=== PATIENT | male | born 1960 | race Caucasian/White ===

== ENCOUNTER 2016-11-21 18:22 | Emergency (ER) | payer OTHER ==
[2016-11-21] MEDS ORDERED: SODIUM CHLORIDE 0.9% 500 ML IV STA (20:10)
--- NOTE | 2016-11-21 20:56 | ED ---
General Adult HPI - General Source: patient, RN notes reviewed Mode of arrival: wheelchair Limitations: no limitations <Julio César Salvador - Last Filed: 11/21/16 20:54> <Jon Mata - Last Filed: 11/21/16 22:04> - General Chief complaint: Abdominal Pain Stated complaint: ABDOMINAL PAIN, LEFT LEG SWELLING, VOMITING Time Seen by Provider: 11/21/16 19:00 - History of Present Illness Initial comments: This is a 55-year-old male who presents emergency Department with a past medical history significant for IV drug abuse 20 years ago and recent addiction to oral pain medicines which she stopped one month ago. Patient comes in today because he says ever since he stopped and he has been having diffuse abdominal pain. Patient states he's been constipated for a few days and yesterday did have a bowel movement but he thinks his stomach becomes.. Patient denies any nausea vomiting. Patient denies any fever or chills. Patient states he is able to keep he has no appetite lately. Patient denies any chest pain difficulty breathing or shortness of breath. Patient denies any lightheadedness or dizziness. Patient denies any dysuria hematuria urinary frequency. (Julio César Salvador) - Related Data Home Medications Medication Instructions Recorded Confirmed Albuterol Inhaler [Ventolin 1 - 2 puff INHALATION RT-Q6H PRN 09/14/14 11/21/16 Inhaler] Diazepam 5 mg PO BID PRN 09/14/14 11/21/16 Insulin Glargine [Lantus] 30 unit SQ HS 09/14/14 11/21/16 Insulin Regular, Human [NovoLIN R] See Protocol SQ TID 09/14/14 11/21/16 Albuterol Nebulized [Ventolin 2.5 mg INHALATION RT-Q6H PRN 11/21/16 11/21/16 Nebulized] Buprenorphine HCl/Naloxone HCl 1 film SL BID 11/21/16 11/21/16 [Suboxone 8 mg-2 mg Sl Film] QUEtiapine [SEROquel] 200 mg PO HS 11/21/16 11/21/16 cloNIDine HCL [Catapres] 0.1 mg PO HS 11/21/16 11/21/16 Allergies Allergy/AdvReac Type Severity Reaction Status Date / Time No Known Allergies Allergy Verified 11/21/16 20:31 Review of Systems ROS Other: All systems not noted in ROS Statement are negative. <Julio César Salvador - Last Filed: 11/21/16 20:54> ROS Other: All systems not noted in ROS Statement are negative. <Jon Mata - Last Filed: 11/21/16 22:04> ROS Statement: Those systems with pertinent positive or pertinent negative responses have been documented in the HPI. 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 Patient is nontoxic and well- hydrated and is in no acute distress. ENT: Neck is soft and supple. No significant lymphadenopathy is noted. Oropharynx is clear. Moist mucous membranes. Neck has full range of motion without eliciting any pain. EYES: The sclera were anicteric and conjunctiva were pink and moist. Extraocular movements were intact and pupils were equal round and reactive to light. Eyelids were unremarkable. PULMONARY: Unlabored respirations. Good breath sounds bilaterally. No audible rales rhonchi or wheezing was noted. CARDIOVASCULAR: Patient is a regular rate and rhythm no murmurs are heard ABDOMEN: Soft and nontender with normal bowel sounds. No palpable organomegaly was noted. There is no palpable pulsatile mass. I could find no area of abdominal tenderness. SKIN: Skin is clear with no lesions or rashes and otherwise unremarkable. NEUROLOGIC: Patient is alert and oriented x3. Cranial nerves II through XII are grossly intact. Motor and sensory are also intact. Normal speech, volume and content. Symmetrical smile. MUSCULOSKELETAL: Normal extremities with adequate strength and full range of motion. No lower extremity swelling or edema. No calf tenderness. LYMPHATICS: No significant lymphadenopathy is noted PSYCHIATRIC: Normal psychiatric evaluation. (Julio César Salvador) Medical Decision Making <Julio César Salvador - Last Filed: 11/21/16 20:54> - Lab Data Result diagrams: 11/21/16 20:49 11/21/16 20:49 <Jon Mata - Last Filed: 11/21/16 22:04> - Medical Decision Making Dr. Harrington will be taking over the care of this patient at 9 PM (Julio César Salvador) - Lab Data Lab Results 11/21/16 11/21/16 11/21/16 Range/Units 20:49 20:49 21:04 WBC 3.5 L (3.8-10.6) k/uL RBC 3.99 L (4.30-5.90) m/uL Hgb 12.5 L (13.0-17.5) gm/dL Hct 37.1 L (39.0-53.0) % MCV 93.0 (80.0-100.0) fL MCH 31.4 (25.0-35.0) pg MCHC 33.7 (31.0-37.0) g/dL RDW 13.7 (11.5-15.5) % Plt Count 57 L (150-450) k/uL Neutrophils % 65 % Lymphocytes % 24 % Monocytes % 5 % Eosinophils % 4 % Basophils % 0 % Neutrophils # 2.3 (1.3-7.7) k/uL Lymphocytes # 0.9 L (1.0-4.8) k/uL Monocytes # 0.2 (0-1.0) k/uL Eosinophils # 0.1 (0-0.7) k/uL Basophils # 0.0 (0-0.2) k/uL Sodium 135 L (137-145) mmol/L Potassium 4.2 (3.5-5.1) mmol/L Chloride 96 L (98-107) mmol/L Carbon Dioxide 31 H (22-30) mmol/L Anion Gap 8 mmol/L BUN 11 (9-20) mg/dL Creatinine 0.83 (0.66-1.25) mg/dL Est GFR (MDRD) Af Amer >60 (>60 ml/min/1.73 sqM) Est GFR (MDRD) Non-Af >60 (>60 ml/min/1.73 sqM) Glucose 329 H (74-99) mg/dL Plasma Lactic Acid Henri 1.3 (0.7-2.0) mmol/L Calcium 8.4 (8.4-10.2) mg/dL Total Bilirubin 1.0 (0.2-1.3) mg/dL AST 42 (17-59) U/L ALT 41 (21-72) U/L Alkaline Phosphatase 84 (38-126) U/L Total Protein 7.4 (6.3-8.2) g/dL Albumin 3.4 L (3.5-5.0) g/dL Amylase 38 (30-110) U/L Lipase 19 L (23-300) U/L Disposition <Julio César Salvador - Last Filed: 11/21/16 20:54> <Jon Mata - Last Filed: 11/21/16 22:04> Clinical Impression: Abdominal pain, Narcotic bowel syndrome Disposition: HOME SELF-CARE Condition: Fair Instructions: Abdominal Pain (ED) Referrals: None,Stated [Primary Care Provider] - 1-2 days
[2016-11-21 21:03] LABS: Basophils % (A) 0 %; CH 30.6; CHCM 33.1; Eosinophils # (A) 0.1 k/uL (0-0.7); Eosinophils % (A) 4 %; HCT 37.1 % (39.0-53.0); HDW 2.83; HGB 12.5 gm/dL (13.0-17.5); Luc # (Auto) 0.05; Luc % (Auto) 1; Lymphocytes # (A) 0.9 k/uL (1.0-4.8); Lymphocytes % (A) 24 %; MCH 31.4 pg (25.0-35.0); MCHC 33.7 g/dL (31.0-37.0); Mean Platelet Volume 9.2; Monocytes # (A) 0.2 k/uL (0-1.0); Monocytes % (A) 5 %; Neutrophils # (A) 2.3 k/uL (1.3-7.7); Neutrophils % (A) 65 %; RBC 3.99 m/uL (4.30-5.90); RDW 13.7 % (11.5-15.5); WBC 3.5 k/uL (3.8-10.6); WBC (Perox) 3.48
--- NOTE | 2016-11-21 21:04 | XR ---
EXAMINATION TYPE: XR KUB DATE OF EXAM: 11/21/2016 8:39 PM COMPARISON: NONE HISTORY: Abdominal pain and nausea TECHNIQUE: 3 views FINDINGS: Bowel gas pattern is normal. There is no sign of intestinal obstruction or pneumoperitoneum . Fecal pattern is normal. There are clips from cholecystectomy. There is no sign of a mass. Lung bas es are clear of consolidation. IMPRESSION: Nonacute abdomen.
[2016-11-21 21:16] LABS: ALT 41 U/L (21-72); AST 42 U/L (17-59); Alkaline Phosphatase 84 U/L (38-126); Amylase 38 U/L (30-110); Anion Gap 8 mmol/L; Blood Urea Nitrogen 11 mg/dL (9-20); Calcium 8.4 mg/dL (8.4-10.2); Carbon Dioxide 31 mmol/L (22-30); Chloride 96 mmol/L (98-107); Glucose 329 mg/dL (74-99); Non-African American GFR(MDRD) >60 (>60 ml/min/1.73 sqM); Potassium 4.2 mmol/L (3.5-5.1); Sodium 135 mmol/L (137-145); Total Protein 7.4 g/dL (6.3-8.2)
[2016-11-21] MEDS ORDERED: INSULIN REGULAR 100 UNIT/ML VIAL SQ STA (21:59)
[2016-11-21 22:05] LABS: Glucose,Whole Blood 301 mg/dL (75-99)
[2016-11-21 22:17] VITALS: BP 137/63; PULSE 63; RESP 16; TEMP 98
== END 2016-11-21 22:23 | disposition home or self-care (01) ==
LOC: EC 18:22
DX: R10.84 Generalized abdominal pain (principal); T40.605A Adverse effect of unspecified narcotics, initial encounter; E11.9 Type 2 diabetes mellitus without complications; F31.9 Bipolar disorder, unspecified; F17.200 Nicotine dependence, unspecified, uncomplicated; Z79.4 Long term (current) use of insulin; Z79.899 Other long term (current) drug therapy
CPT/HCPCS: 36415; 74000; 80053; 82150; 83605; 83690; 85025; 96360; 99284

== ENCOUNTER 2020-04-02 10:27 | Observation (INO) | payer OTHER ==
[2020-04-02] MEDS ORDERED: KETOROLAC 60 MG/2 ML VIAL IVP STA (10:52)
--- NOTE | 2020-04-02 10:56 | ED ---
General Adult HPI - General Chief complaint: Chest Pain Stated complaint: chest pain Time Seen by Provider: 04/02/20 10:30 Source: patient, RN notes reviewed, old records reviewed Mode of arrival: ambulatory Limitations: no limitations - History of Present Illness Initial comments: This is a 59-year-old male who presents emergency Department complaining of left-sided chest pain. Patient states she was putting together a basketball net 2 days ago when he leaned on part of the metal frame onto his chest and after that he started having chest pain on that side right beneath where he laid on the metal beam. Patient states palpation makes it worse taking a deep breath also makes it worse. Patient states he can twist and turn a certain way that also increases pain. Patient denies any shortness of breath. Patient states he is a smoker however. Patient denies any pain at rest. Patient denies headache patient denies numbness weakness per patient states it was improving but he woke up this morning it was much worse than it had been that's why he decided to come to the emergency department. Patient denies any lightheadedness or dizziness. Patient denies any swelling to his legs or calf tenderness. - Related Data Home Medications Medication Instructions Recorded Confirmed Insulin Glargine [Lantus] 30 unit SQ HS 09/14/14 04/02/20 Insulin Regular, Human [NovoLIN R] See Protocol SQ TID 09/14/14 04/02/20 QUEtiapine [SEROquel] 200 mg PO HS 11/21/16 04/02/20 Allergies Allergy/AdvReac Type Severity Reaction Status Date / Time No Known Allergies Allergy Verified 04/02/20 12:18 Review of Systems ROS Statement: Those systems with pertinent positive or pertinent negative responses have been documented in the HPI. ROS Other: All systems not noted in ROS Statement are negative. 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 Patient is nontoxic and well- hydrated and is in mild distress. ENT: Neck is soft and supple. No significant lymphadenopathy is noted. Oropharynx is clear. Moist mucous membranes. Neck has full range of motion without eliciting any pain. EYES: The sclera were anicteric and conjunctiva were pink and moist. Extraocular movements were intact and pupils were equal round and reactive to light. Eyelids were unremarkable. PULMONARY: Unlabored respirations. Good breath sounds bilaterally. No audible rales rhonchi or wheezing was noted. CARDIOVASCULAR: There is a regular rate and rhythm without any murmurs gallops or rubs. Pain is completely reproducible with palpation ABDOMEN: Soft and nontender with normal bowel sounds. No palpable organomegaly was note d. There is no palpable pulsatile mass. SKIN: Skin is clear with no lesions or rashes and otherwise unremarkable. NEUROLOGIC: Patient is alert and oriented 3 cranial nerves II through XII are grossly intact motor and sensory are grossly intact MUSCULOSKELETAL: Normal extremities with adequate strength and full range of motion. No lower extremity swelling or edema. No calf tenderness. LYMPHATICS: No significant lymphadenopathy is noted PSYCHIATRIC: Normal psychiatric evaluation. 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 Patient's EKG shows no ST segment elevation or depression. Toradol did not seem to help the patient's pain at all. Chest x-ray shows no acute abnormality. Patient was still uncomfortable with back in the room psychiatric the patient Dilaudid. I spoke with Dr. Gonsalez he agreed to admit the patient admitted the patient wrote admitting orders. - Lab Data Result diagrams: 04/02/20 10:55 04/02/20 10:55 Lab Results 04/02/20 04/02/20 04/02/20 Range/Units 10:55 10:55 10:55 WBC 3.6 L (3.8-10.6) k/uL RBC 3.68 L (4.30-5.90) m/uL Hgb 11.4 L (13.0-17.5) gm/dL Hct 33.4 L (39.0-53.0) % MCV 90.6 (80.0-100.0) fL MCH 30.8 (25.0-35.0) pg MCHC 34.0 (31.0-37.0) g/dL RDW 14.3 (11.5-15.5) % Plt Count 70 L (150-450) k/uL Neutrophils % 71 % Lymphocytes % 19 % Monocytes % 6 % Eosinophils % 3 % Basophils % 1 % Neutrophils # 2.5 (1.3-7.7) k/uL Lymphocytes # 0.7 L (1.0-4.8) k/uL Monocytes # 0.2 (0-1.0) k/uL Eosinophils # 0.1 (0-0.7) k/uL Basophils # 0.0 (0-0.2) k/uL Manual Slide Review Performed RBC Morphology Normal PT 9.6 (9.0-12.0) sec INR 0.9 (<1.2) APTT 20.7 L (22.0-30.0) sec D-Dimer 0.56 (<0.60) mg/L FEU Sodium 133 L (137-145) mmol/L Potassium 5.2 H (3.5-5.1) mmol/L Chloride 102 (98-107) mmol/L Carbon Dioxide 24 (22-30) mmol/L Anion Gap 7 mmol/L BUN 28 H (9-20) mg/dL Creatinine 1.40 H (0.66-1.25) mg/dL Est GFR (CKD-EPI)AfAm 64 (>60 ml/min/1.73 sqM) Est GFR (CKD-EPI)NonAf 55 (>60 ml/min/1.73 sqM) Glucose 353 H (74-99) mg/dL Calcium 9.1 (8.4-10.2) mg/dL Magnesium 1.6 (1.6-2.3) mg/dL Total Bilirubin 0.6 (0.2-1.3) mg/dL AST 23 (17-59) U/L ALT 19 (4-49) U/L Alkaline Phosphatase 61 (38-126) U/L Troponin I (0.000-0.034) ng/mL Total Protein 6.9 (6.3-8.2) g/dL Albumin 3.7 (3.5-5.0) g/dL 04/02/20 Range/Units 10:55 WBC (3.8-10.6) k/uL RBC (4.30-5.90) m/uL Hgb (13.0-17.5) gm/dL Hct (39.0-53.0) % MCV (80.0-100.0) fL MCH (25.0-35.0) pg MCHC (31.0-37.0) g/dL RDW (11.5-15.5) % Plt Count (150-450) k/uL Neutrophils % % Lymphocytes % % Monocytes % % Eosinophils % % Basophils % % Neutrophils # (1.3-7.7) k/uL Lymphocytes # (1.0-4.8) k/uL Monocytes # (0-1.0) k/uL Eosinophils # (0-0.7) k/uL Basophils # (0-0.2) k/uL Manual Slide Review RBC Morphology PT (9.0-12.0) sec INR (<1.2) APTT (22.0-30.0) sec D-Dimer (<0.60) mg/L FEU Sodium (137-145) mmol/L Potassium (3.5-5.1) mmol/L Chloride (98-107) mmol/L Carbon Dioxide (22-30) mmol/L Anion Gap mmol/L BUN (9-20) mg/dL Creatinine (0.66-1.25) mg/dL Est GFR (CKD-EPI)AfAm (>60 ml/min/1.73 sqM) Est GFR (CKD-EPI)NonAf (>60 ml/min/1.73 sqM) Glucose (74-99) mg/dL Calcium (8.4-10.2) mg/dL Magnesium (1.6-2.3) mg/dL Total Bilirubin (0.2-1.3) mg/dL AST (17-59) U/L ALT (4-49) U/L Alkaline Phosphatase (38-126) U/L Troponin I <0.012 (0.000-0.034) ng/mL Total Protein (6.3-8.2) g/dL Albumin (3.5-5.0) g/dL Disposition Clinical Impression: Chest pain Disposition: ADMITTED IP TO THIS HOSP Referrals: Dakotah Gonsalez Jr, [Primary Care Provider] - 1-2 days Time of Disposition: 12:26
[2020-04-02 11:28] LABS: Basophils % (A) 1 %; Eosinophils # (A) 0.1 k/uL (0-0.7); Eosinophils % (A) 3 %; HCT 33.4 % (39.0-53.0); HGB 11.4 gm/dL (13.0-17.5); Lymphocytes # (A) 0.7 k/uL (1.0-4.8); Lymphocytes % (A) 19 %; MCH 30.8 pg (25.0-35.0); MCV 90.6 fL (80.0-100.0); Mean Platelet Volume 9.9; Monocytes # (A) 0.2 k/uL (0-1.0); Monocytes % (A) 6 %; Neutrophils # (A) 2.5 k/uL (1.3-7.7); Neutrophils % (A) 71 %; RBC 3.68 m/uL (4.30-5.90); RDW 14.3 % (11.5-15.5); WBC 3.6 k/uL (3.8-10.6)
[2020-04-02 11:35] LABS: Albumin 3.7 g/dL (3.5-5.0); Calcium 9.1 mg/dL (8.4-10.2); Magnesium 1.6 mg/dL (1.6-2.3); Potassium 5.2 mmol/L (3.5-5.1); Total Bilirubin 0.6 mg/dL (0.2-1.3); Total Protein 6.9 g/dL (6.3-8.2)
[2020-04-02 11:56] LABS: D-Dimer 0.56 mg/L FEU (<0.60); INR 0.9 (<1.2); Prothrombin Time 9.6 sec (9.0-12.0)
[2020-04-02 11:59] LABS: Platelet Count 70 k/uL (150-450)
--- NOTE | 2020-04-02 12:01 | XR ---
EXAMINATION TYPE: XR chest 2V DATE OF EXAM: 04/02/2020 COMPARISON: None INDICATION: Chest pain TECHNIQUE: Frontal and lateral views of the chest are obtained. FINDINGS: The heart size is normal. The pulmonary vasculature is normal. The lungs are clear. Nipple shadows present. Sternotomy wires are present from prior cardiac valve s urgery. IMPRESSION: 1. No acute pulmonary process.
[2020-04-02 12:12] LABS: Partial Thromboplastin Time 20.7 sec (22.0-30.0)
[2020-04-02] MEDS ORDERED: HYDROmorphone 1 MG/ML 1 ML SYRINGE IVP STA (12:24)
[2020-04-02] MEDS ORDERED: NITROGLYCERIN SL TABS 0.4 MG TAB SUBLINGUAL PRN (12:26)
[2020-04-02 13:33] VITALS: RESP 16; TEMP 98.2
[2020-04-02 13:53] VITALS: BP 138/74; PULSE 69
[2020-04-02] MEDS ORDERED: NITROGLYCERIN OINT 1 INCH/GM PACKET TOPICAL SCH (18:00)
[2020-04-03] MEDS ORDERED: ASPIRIN 325 MG TAB PO SCH (09:00)
--- NOTE | 2020-04-03 10:02 | P.HPIM ---
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 Date of last positivie culture/infection: 2019 MDRO Source:: R jaw Past Surgical History: Cardiac Valve Replacement, Cholecystectomy Additional Past Surgical History / Comment(s): aortic Past Psychological History: Bipolar, Depression Smoking Status: Current every day smoker Past Alcohol Use History: None Reported Past Drug Use History: None Reported, Heroin, IV Drug Use, Marijuana Medications and Allergies Home Medications Medication Instructions Recorded Confirmed Type Insulin Glargine [Lantus] 30 unit SQ HS 09/14/14 04/02/20 History Insulin Regular, Human [NovoLIN R] See Protocol SQ TID 09/14/14 04/02/20 History QUEtiapine [SEROquel] 200 mg PO HS 11/21/16 04/02/20 History Allergies Allergy/AdvReac Type Severity Reaction Status Date / Time No Known Allergies Allergy Verified 04/02/20 12:18 Physical Exam Osteopathic Statement: *. No significant issues noted on an osteopathic str uctural exam other than those noted in the History and Physical/Consult. Vitals: Vital Signs Temp Pulse Pulse Resp BP BP Pulse Ox 04/02/20 13:32 98.2 F 75 16 151/80 97 04/02/20 12:40 97.6 F 69 12 138/74 98 04/02/20 12:30 83 21 140/82 99 04/02/20 12:00 79 19 119/67 97 04/02/20 11:30 80 20 129/77 96 04/02/20 11:06 74 04/02/20 11:00 18 98 04/02/20 10:58 99 04/02/20 10:30 98.4 F 97 18 119/74 99 Results CBC & Chem 7: 04/02/20 10:55 04/02/20 10:55 Labs: Abnormal Lab Results - Last 24 Hours (Table) 04/02/20 04/02/20 04/02/20 Range/Units 10:55 10:55 10:55 WBC 3.6 L (3.8-10.6) k/uL RBC 3.68 L (4.30-5.90) m/uL Hgb 11.4 L (13.0-17.5) gm/dL Hct 33.4 L (39.0-53.0) % Plt Count 70 L (150-450) k/uL Lymphocytes # 0.7 L (1.0-4.8) k/uL APTT 20.7 L (22.0-30.0) sec Sodium 133 L (137-145) mmol/L Potassium 5.2 H (3.5-5.1) mmol/L BUN 28 H (9-20) mg/dL Creatinine 1.40 H (0.66-1.25) mg/dL Glucose 353 H (74-99) mg/dL Thrombosis Risk Factor Assmnt - Choose All That Apply Each Factor Represents 1 point: Age 41-60 years Thrombosis Risk Factor Assessment Total Risk Factor Score: 1 Thrombosis Risk Factor Assessment Level: Low Risk
== END 2020-04-02 14:49 | disposition home or self-care (01) ==
LOC: EC 10:27 → 1SOBS 12:26
PROVIDERS: ADMIT Family Medicine; ATTEND Family Medicine
DX: R07.89 Other chest pain (principal); F17.200 Nicotine dependence, unspecified, uncomplicated; E11.9 Type 2 diabetes mellitus without complications; M54.9 Dorsalgia, unspecified; M51.26 Other intervertebral disc displacement, lumbar region; F31.9 Bipolar disorder, unspecified; Z79.4 Long term (current) use of insulin; Z79.899 Other long term (current) drug therapy; Z90.49 Acquired absence of other specified parts of digestive tract; Z86.14 Personal history of Methicillin resistant Staphylococcus aureus infection; Z95.2 Presence of prosthetic heart valve; Z20.828 Contact with and (suspected) exposure to other viral communicable diseases
CPT/HCPCS: 96376; 96374; 99285; 36415; 93005; 85379; 80053; 83735; 84484; 85025; 85610; 85730; 71046; G0378; U0003; J1885; J1170

== ENCOUNTER 2020-05-25 14:44 | Emergency (ER) | payer OTHER ==
[2020-05-25 14:53] VITALS: RESP 18
[2020-05-25] MEDS ORDERED: IPRATROPIUM-ALBUTEROL 3 ML NEB INHALATION STA (15:13)
[2020-05-25] MEDS ORDERED: SODIUM CHLORIDE 0.9% 1,000 ML IV SCH (15:15)
--- NOTE | 2020-05-25 15:20 | ED ---
General Adult HPI - General Chief complaint: Recheck/Abnormal Lab/Rx Stated complaint: Poss Abscess Time Seen by Provider: 05/25/20 14:57 Source: patient, RN notes reviewed, old records reviewed Mode of arrival: ambulatory Limitations: no limitations - History of Present Illness Initial comments: 59-year-old male patient past medical history of prior IV drug use 30 years ago is currently denying any current IV drug use, aortic valve replacement about 2 years ago, COPD presents ED from multiple complaints. Patient reports that starting about 2 months ago he began getting infections. He reports that initially was a facial abscess and then one on the back of his head. Patient reports that both of these have essentially resolved after multiple horse of antibiotics. Patient reports that now for the last 7 days or so he has been having an infection of his left shoulder.she also reports he has been having some waxing and waning headaches. He states also that his COPD has been acting up. He reports that he is using his albuterol inhaler more frequently. He denies any chest pain. Denies any other new complaints. Systemic: Pt denies fatigue, fever/chills, rash. Pt denies weakness, night sweats, weight loss. Neuro: Pt denies headache, visual disturbances, syncope or pre-syncope. HEENT: Pt denies ocular discharge or irritation, otalgia, rhinorrhea, pharyngitis or notable lymphadenopathy. Cardiopulmonary: Pt denies chest pain, SOB, heart palpitations, dyspnea on exertion. Abdominal/GI: Pt denies abdominal pain, n/v/d. : Pt denies dysuria, burning w/ urination, frequency/urgency. Denies new onset urinary or bowel incontinence. MSK: Pt denies myalgia, loss of strength or function in extremities. Neuro: Pt denies new onset weakness, paresthesias. - Related Data Home Medications Medication Instructions Recorded Confirmed Insulin Glargine [Lantus] 30 unit SQ HS 09/14/14 04/02/20 Insulin Regular, Human [NovoLIN R] See Protocol SQ TID 09/14/14 04/02/20 QUEtiapine [SEROquel] 200 mg PO HS 11/21/16 04/02/20 Previous Rx's Medication Instructions Recorded Ipratropium-Albuterol Nebulize 1 neb INHALATION Q6HR PRN #30 neb 08/26/20 [Duoneb 0.5 mg-3 mg/3 ml Soln] Sulfamethox-Tmp 800-160Mg [Bactrim 2 tab PO Q12HR 10 Days #40 tab 05/25/20 DS 800-160 mg] Allergies Allergy/AdvReac Type Severity Reaction Status Date / Time No Known Allergies Allergy Verified 05/25/20 14:53 Review of Systems ROS Statement: Those systems with pertinent positive or pertinent negative responses have been documented in the HPI. ROS Other: All systems not noted in ROS Statement are negative. 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 HEENT: NC/AT, trachea midline, neck supple, no lymphadenopathy. Posterior pharynx non erythematous, without exudates. External ears appear normal, without discharge. Mucous membranes moist. Eyes PERRLA, EOM intact. There is no scleral icterus. No pallor noted. Cardiopulmonary: RRR, no murmurs, rubs or gallops, no JVD noted. mild wheezing noted in anterior lung ji. Lung ji clear after breathing treatment. No peripheral edema. Abdominal exam: Abdomen soft and non-distended. Abdomen non-tender to palpation in all 4 quadrants. Bowel sounds active in LLQ. No hepatosplenomegaly. No ecchymosis Neuro: CN II-XII intact. No nuchal rigidity. No raccon eyes, no lau sign, no hemotympanum. No cervical spinal tenderness. MSK: 4x4 cm abscess left shoulder. I&D performed displayed purulent drainage. Full active ROM of shoulder. No posterior calf tenderness bilaterally, homans sign negative bilaterally. Posterior tibialis and radial pulse +2 bilaterally. Sensation intact in upper and lower extremities. Full active ROM in upper and lower extremities, 5/5 stregnth. Limitations: no limitations Course Vital Signs 05/25/20 05/25/20 05/25/20 14:50 16:06 16:07 Temperature 98.0 F Pulse Rate 95 81 81 Respiratory 18 18 Rate Blood Pressure 158/90 143/81 O2 Sat by Pulse 99 98 Oximetry 05/25/20 05/25/20 05/25/20 16:19 17:25 18:01 Temperature 98.3 F Pulse Rate 88 81 Respiratory 18 Rate Blood Pressure 139/84 O2 Sat by Pulse 99 Oximetry Medical Decision Making - Medical Decision Making 59-year-old male patient proceeded chief complaint left shoulder abscess for the last week. Patient also reports having some mild waxing and waning headaches. Physical exam displayed left shoulder abscess. laboratory investigations revealed mild acute kidney injury, Hyperglycemia. Patient administered fluids bolus. Incision and drainage was performed. Displayed purulent drainage. patient will be discharged with outpatient follow up tomorrow, antibiotics very close return precautions and follow-up with primary care provider tomorrow. Case discussed and patient seen by Dr. Clarke. - Lab Data Result diagrams: 05/25/20 15:19 05/25/20 15:19 Lab Results 05/25/20 05/25/20 05/25/20 Range/Units 15:19 15:19 15:19 WBC 4.7 (3.8-10.6) k/uL RBC 4.65 (4.30-5.90) m/uL Hgb 14.1 (13.0-17.5) gm/dL Hct 42.8 (39.0-53.0) % MCV 92.1 (80.0-100.0) fL MCH 30.3 (25.0-35.0) pg MCHC 32.9 (31.0-37.0) g/dL RDW 13.7 (11.5-15.5) % Plt Count 73 L (150-450) k/uL Neutrophils % 72 % Lymphocytes % 21 % Monocytes % 4 % Eosinophils % 2 % Basophils % 0 % Neutrophils # 3.4 (1.3-7.7) k/uL Lymphocytes # 1.0 (1.0-4.8) k/uL Monocytes # 0.2 (0-1.0) k/uL Eosinophils # 0.1 (0-0.7) k/uL Basophils # 0.0 (0-0.2) k/uL PT 9.4 (9.0-12.0) sec INR 0.9 (<1.2) APTT 22.4 (22.0-30.0) sec Sodium (137-145) mmol/L Potassium (3.5-5.1) mmol/L Chloride (98-107) mmol/L Carbon Dioxide (22-30) mmol/L Anion Gap mmol/L BUN (9-20) mg/dL Creatinine (0.66-1.25) mg/dL Est GFR (CKD-EPI)AfAm (>60 ml/min/1.73 sqM) Est GFR (CKD-EPI)NonAf (>60 ml/min/1.73 sqM) Glucose (74-99) mg/dL POC Glucose (mg/dL) (75-99) mg/dL POC Glu Marble Setter ID Plasma Lactic Acid Henri (0.7-2.0) mmol/L Calcium (8.4-10.2) mg/dL Total Bilirubin (0.2-1.3) mg/dL AST (17-59) U/L ALT (4-49) U/L Alkaline Phosphatase (38-126) U/L Troponin I (0.000-0.034) ng/mL Total Protein (6.3-8.2) g/dL Albumin (3.5-5.0) g/dL Urine Color Yellow Urine Appearance Clear (Clear) Urine pH 7.0 (5.0-8.0) Ur Specific [place] 1.022 (1.001-1.035) Urine Protein 2+ H (Negative) Urine Glucose (UA) 4+ H (Negative) Urine Ketones Negative (Negative) Urine Blood Small H (Negative) Urine Nitrite Negative (Negative) Urine Bilirubin Negative (Negative) Urine Urobilinogen <2.0 (<2.0) mg/dL Ur Leukocyte Esterase Negative (Negative) Urine RBC 10 H (0-5) /hpf Urine WBC 1 (0-5) /hpf Ur Squamous Epith Cells <1 (0-4) /hpf Hyaline Casts 1 (0-2) /lpf 05/25/20 05/25/20 05/25/20 Range/Units 15:19 15:19 16:30 WBC (3.8-10.6) k/uL RBC (4.30-5.90) m/uL Hgb (13.0-17.5) gm/dL Hct (39.0-53.0) % MCV (80.0-100.0) fL MCH (25.0-35.0) pg MCHC (31.0-37.0) g/dL RDW (11.5-15.5) % Plt Count (150-450) k/uL Neutrophils % % Lymphocytes % % Monocytes % % Eosinophils % % Basophils % % Neutrophils # (1.3-7.7) k/uL Lymphocytes # (1.0-4.8) k/uL Monocytes # (0-1.0) k/uL Eosinophils # (0-0.7) k/uL Basophils # (0-0.2) k/uL PT (9.0-12.0) sec INR (<1.2) APTT (22.0-30.0) sec Sodium 130 L (137-145) mmol/L Potassium 5.0 (3.5-5.1) mmol/L Chloride 98 (98-107) mmol/L Carbon Dioxide 22 (22-30) mmol/L Anion Gap 10 mmol/L BUN 25 H (9-20) mg/dL Creatinine 1.35 H (0.66-1.25) mg/dL Est GFR (CKD-EPI)AfAm 66 (>60 ml/min/1.73 sqM) Est GFR (CKD-EPI)NonAf 57 (>60 ml/min/1.73 sqM) Glucose 423 H (74-99) mg/dL POC Glucose (mg/dL) (75-99) mg/dL POC Glu Marble Setter ID Plasma Lactic Acid Henri 1.7 (0.7-2.0) mmol/L Calcium 9.2 (8.4-10.2) mg/dL Total Bilirubin 0.6 (0.2-1.3) mg/dL AST 24 (17-59) U/L ALT 17 (4-49) U/L Alkaline Phosphatase 98 (38-126) U/L Troponin I <0.012 (0.000-0.034) ng/mL Total Protein 7.4 (6.3-8.2) g/dL Albumin 4.2 (3.5-5.0) g/dL Urine Color Urine Appearance (Clear) Urine pH (5.0-8.0) Ur Specific [place] (1.001-1.035) Urine Protein (Negative) Urine Glucose (UA) (Negative) Urine Ketones (Negative) Urine Blood (Negative) Urine Nitrite (Negative) Urine Bilirubin (Negative) Urine Urobilinogen (<2.0) mg/dL Ur Leukocyte Esterase (Negative) Urine RBC (0-5) /hpf Urine WBC (0-5) /hpf Ur Squamous Epith Cells (0-4) /hpf Hyaline Casts (0-2) /lpf 05/25/20 Range/Units 17:23 WBC (3.8-10.6) k/uL RBC (4.30-5.90) m/uL Hgb (13.0-17.5) gm/dL Hct (39.0-53.0) % MCV (80.0-100.0) fL MCH (25.0-35.0) pg MCHC (31.0-37.0) g/dL RDW (11.5-15.5) % Plt Count (150-450) k/uL Neutrophils % % Lymphocytes % % Monocytes % % Eosinophils % % Basophils % % Neutrophils # (1.3-7.7) k/uL Lymphocytes # (1.0-4.8) k/uL Monocytes # (0-1.0) k/uL Eosinophils # (0-0.7) k/uL Basophils # (0-0.2) k/uL PT (9.0-12.0) sec INR (<1.2) APTT (22.0-30.0) sec Sodium (137-145) mmol/L Potassium (3.5-5.1) mmol/L Chloride (98-107) mmol/L Carbon Dioxide (22-30) mmol/L Anion Gap mmol/L BUN (9-20) mg/dL Creatinine (0.66-1.25) mg/dL Est GFR (CKD-EPI)AfAm (>60 ml/min/1.73 sqM) Est GFR (CKD-EPI)NonAf (>60 ml/min/1.73 sqM) Glucose (74-99) mg/dL POC Glucose (mg/dL) 377 H (75-99) mg/dL POC Glu Marble Setter ID Tran, Raine Plasma Lactic Acid Henri (0.7-2.0) mmol/L Calcium (8.4-10.2) mg/dL Total Bilirubin (0.2-1.3) mg/dL AST (17-59) U/L ALT (4-49) U/L Alkaline Phosphatase (38-126) U/L Troponin I (0.000-0.034) ng/mL Total Protein (6.3-8.2) g/dL Albumin (3.5-5.0) g/dL Urine Color Urine Appearance (Clear) Urine pH (5.0-8.0) Ur Specific [place] (1.001-1.035) Urine Protein (Negative) Urine Glucose (UA) (Negative) Urine Ketones (Negative) Urine Blood (Negative) Urine Nitrite (Negative) Urine Bilirubin (Negative) Urine Urobilinogen (<2.0) mg/dL Ur Leukocyte Esterase (Negative) Urine RBC (0-5) /hpf Urine WBC (0-5) /hpf Ur Squamous Epith Cells (0-4) /hpf Hyaline Casts (0-2) /lpf - EKG Data -: EKG Interpreted by Me (and Dr. Clarke ) EKG Comments: Ventricular rate 81,WA interval 170, QRS 112, QT/QTC 380/441. Normal sinus rhythm, normal EKG, no concern for acute ischemia this time. Disposition Clinical Impression: Abscess, Hyperglycemia, Creatinine elevation, Dehydration, COPD (chronic obstructive pulmonary disease) Disposition: HOME SELF-CARE Condition: Stable Instructions (If sedation given, give patient instructions): COPD (Chronic Obstructive Pulmonary Disease) (ED), Abscess (ED) Additional Instructions: Follow-up with primary care provider tomorrow. Drink lots of fluids. Monitor blood sugar at home and take insulin as directed by PCP. Take antibiotics as directed. Use breathing treatment as needed. return to ER if any worsening symptoms. Prescriptions: Sulfamethox-Tmp 800-160Mg [Bactrim DS 800-160 mg] 2 tab PO Q12HR 10 Days #40 tab Ipratropium-Albuterol Nebulize [Duoneb 0.5 mg-3 mg/3 ml Soln] 1 neb INHALATION Q6HR PRN #30 neb PRN Reason: wheezing Is patient prescribed a controlled substance at d/c from ED?: No Referrals: Dakotah Gonsalez Jr, DO [Primary Care Provider] - 1-2 days
[2020-05-25] MEDS ORDERED: KETOROLAC 15 MG/ML 1 ML VIAL IVP STA (15:39)
[2020-05-25 15:40] LABS: Appearance,Urine Clear (Clear); Bilirubin,Urine Negative (Negative); Blood,Urine Small (Negative); Color,Urine Yellow; Glucose,Urine (UA) 4+ (Negative); Hyaline Casts,Urine 1 /lpf (0-2); Ketones,Urine Negative (Negative); Leukocyte Esterase,Urine Negative (Negative); Nitrite,Urine Negative (Negative); Protein,Urine 2+ (Negative); RBC,Urine 10 /hpf (0-5); Specific Gravity,Urine 1.022 (1.001-1.035); Squamous Epithelial Cell,Urine <1 /hpf (0-4); Urobilinogen,Urine <2.0 mg/dL (<2.0); WBC,Urine 1 /hpf (0-5)
[2020-05-25 15:43] LABS: Basophils % (A) 0 %; Eosinophils # (A) 0.1 k/uL (0-0.7); Eosinophils % (A) 2 %; HCT 42.8 % (39.0-53.0); HGB 14.1 gm/dL (13.0-17.5); Lymphocytes % (A) 21 %; MCH 30.3 pg (25.0-35.0); MCHC 32.9 g/dL (31.0-37.0); MCV 92.1 fL (80.0-100.0); Mean Platelet Volume 9.7; Monocytes # (A) 0.2 k/uL (0-1.0); Monocytes % (A) 4 %; Neutrophils # (A) 3.4 k/uL (1.3-7.7); Neutrophils % (A) 72 %; RBC 4.65 m/uL (4.30-5.90); RDW 13.7 % (11.5-15.5); WBC 4.7 k/uL (3.8-10.6)
[2020-05-25 15:45] LABS: Platelet Count 73 k/uL (150-450)
[2020-05-25 15:46] LABS: Albumin 4.2 g/dL (3.5-5.0); Calcium 9.2 mg/dL (8.4-10.2); Total Bilirubin 0.6 mg/dL (0.2-1.3); Total Protein 7.4 g/dL (6.3-8.2)
[2020-05-25 15:50] LABS: INR 0.9 (<1.2); Partial Thromboplastin Time 22.4 sec (22.0-30.0); Prothrombin Time 9.4 sec (9.0-12.0)
--- NOTE | 2020-05-25 15:57 | XR ---
EXAMINATION TYPE: XR chest 2V DATE OF EXAM: 05/25/2020 COMPARISON: 04/02/2020 HISTORY: Shortness of breath TECHNIQUE: Frontal and lateral views of the chest are obtained. FINDINGS: Scattered senescent parenchymal changes noted. Hyperinflation compatible with COPD. No evidence for infiltrate. No evidence for atelectasis. Heart size is stable. Mediastinal structures are stable and grossly unremarkable. No evidence for hilar prominence. Degenerative changes dorsal spine. IMPRESSION: 1. No evidence for acute pulmonary disease.
[2020-05-25] MEDS ORDERED: INSULIN ASPART (NovoLOG) 100 UNIT/ML VIAL SQ ONE (16:02)
--- NOTE | 2020-05-25 16:05 | CT ---
EXAMINATION TYPE: CT brain wo con DATE OF EXAM: 05/25/2020 COMPARISON: None HISTORY: headache CT DLP: 1115.[address] of the brain was performed. The ventricles, basal cisterns and sulci overlying the cerebral convexities demonstrate mild enlargem ent. There is no evidence for intracranial hemorrhage or sulcal effacement. There is decreased attenuation about the periventricular white matter and deep white matter of both c erebral hemispheres, compatible with chronic small vessel ischemia. Differential diagnosis does inclu de demyelination. No mass effects are seen.No midline shift. Osseous calvarium is intact. If symptoms persist consider MRI. IMPRESSION: 1. Age related atrophic and chronic small vessel ischemic change without acute intracranial process s een at this time.
[2020-05-25] MEDS ORDERED: SODIUM CHLORIDE 0.9% 500 ML 500 ML IV ONE (16:10)
[2020-05-25] MEDS ORDERED: MORPHINE SULFATE 4 MG/ML SYRINGE IV STA (16:30)
[2020-05-25] MEDS ORDERED: SULFAMETHOX-TMP 800-160MG 1 EACH TAB PO STA (17:20)
[2020-05-25] MEDS ORDERED: SULFAMETH-TMP DS STARTER PACK 2 TAB BTL PO STA (17:20)
[2020-05-25 17:25] VITALS: BP 139/84; PULSE 81
[2020-05-25 17:25] LABS: Glucose,Whole Blood 377 mg/dL (75-99)
[2020-05-25] MEDS ORDERED: ACET/COD 300 MG/30 MG STARTER PACK 6 TAB BTL PO STA ×2 (17:48→17:54)
[2020-05-25 18:02] VITALS: TEMP 98.3
== END 2020-05-25 18:01 | disposition home or self-care (01) ==
LOC: EC 14:44
DX: L02.414 Cutaneous abscess of left upper limb (principal); E86.0 Dehydration; J44.9 Chronic obstructive pulmonary disease, unspecified; N17.9 Acute kidney failure, unspecified; E11.65 Type 2 diabetes mellitus with hyperglycemia; F17.200 Nicotine dependence, unspecified, uncomplicated; F31.9 Bipolar disorder, unspecified; Z79.4 Long term (current) use of insulin; Z79.899 Other long term (current) drug therapy; Z95.2 Presence of prosthetic heart valve; Z86.14 Personal history of Methicillin resistant Staphylococcus aureus infection
CPT/HCPCS: 99285; 96365; 96375 ×2; 96361 ×2; 10060; 36415; 94640; 93005; 80053; 83605; 84484; 85025; 85610; 85730; 81001; 87040; 87070; 87205; 87077; 87186; 71046; 70450; U0003; J2270; J0696; J1885

== ENCOUNTER 2020-08-15 12:48 | Emergency (ER) | payer OTHER ==
[2020-08-15 12:56] VITALS: BP 164/87; PULSE 98; RESP 18; TEMP 98
--- NOTE | 2020-08-15 13:25 | ED ---
General Adult HPI - General Chief complaint: Recheck/Abnormal Lab/Rx Stated complaint: Feeling sick/poss MRSA Time Seen by Provider: 08/15/20 13:11 Source: patient Mode of arrival: ambulatory Limitations: no limitations - History of Present Illness Initial comments: Dictation was produced using [employer] dictation software. please excuse any grammatical, word or spelling errors. 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 Several weeks ago he was diagnosed with squamous cell carcinoma of the lip. He had biopsies confirming this and a olap developer office. Patient has soft surgery scheduled for September 10 to have the squamous cell carcinoma the lip removed. Over the last 2-3 days patient has been complaining of worsening pain, itching and redness to the site of the left lip. Patient also complains of the lesion that popped up over his left medial upper orbital area. Patient is convinced that this is MRSA. Patient denies any fever, chills or night sweats. Denies any chest pain or shortness of breath. Denies any abdominal pain. He states that he has been kind of nauseous recently. However he's been able to tolerate oral intake. The ROS documented in this emergency department record has been reviewed and confirmed by me. Those systems with pertinent positive or negative responses have been documented in the HPI. All other systems are other negative and/or noncontributory. PHYSICAL EXAM: General Impression: Alert and oriented x3, not in acute distress HEENT: Normocephalic atraumatic, extra-ocular movements intact, pupils equal and reactive to light bilaterally, mucous membranes moist. Cardiovascular: Heart regular rate and rhythm Chest: Able to complete full sentences, no retractions, no tachypnea Abdomen: abdomen soft, non-tender, non-distended, no organomegaly Musculoskeletal: Pulses present and equal in all extremities, no peripheral edema Motor: no focal deficits noted Neurological: CN II-XII grossly intact, no focal motor or sensory deficits noted Skin: Small erythematous raised lesion to the left medial supraorbital periorbital tissue there is a scab overlying it. Patient also has a large fungating mass over the left upper lip at the vermilion border. Psych: Normal affect and mood ED course: 59 presents with concerns of MRSA and symptoms of his squamous cell carcinoma lesion on the lip. vital signs upon arrival are within acceptable limits. Patient has outpatient plan for treatment of this, so carcinoma. At this point there doesn't appear to be overwhelming signs of infection to the face. Nonetheless, we will start patient on prescription for Bactrim. He is given prescription for Atarax for symptom relief and given prescription for Percocet for pain control - Related Data Home Medications Medication Instructions Recorded Confirmed Insulin Glargine [Lantus] 30 unit SQ HS 09/14/14 04/02/20 Insulin Regular, Human [NovoLIN R] See Protocol SQ TID 09/14/14 04/02/20 QUEtiapine [SEROquel] 200 mg PO HS 11/21/16 04/02/20 Previous Rx's Medication Instructions Recorded Ipratropium-Albuterol Nebulize 1 neb INHALATION Q6HR PRN #30 neb 05/25/20 [Duoneb 0.5 mg-3 mg/3 ml Soln] Sulfamethox-Tmp 800-160Mg [Bactrim 2 tab PO Q12HR 10 Days #40 tab 05/25/20 DS 800-160 mg] Sulfamethox-Tmp 800-160Mg [Bactrim 1 tab PO Q12HR 7 Days #14 tab 08/15/20 DS 800-160 mg] hydrOXYzine HCL [Atarax] 25 mg PO TID PRN #24 tab 08/15/20 oxyCODONE-APAP 5-325MG [Percocet 1 tab PO Q6HR PRN 3 Days #12 tab 08/15/20 5-325 mg] Allergies Allergy/AdvReac Type Severity Reaction Status Date / Time No Known Allergies Allergy Verified 05/25/20 14:53 Review of Systems ROS Statement: Those systems with pertinent positive or pertinent negative responses have been documented in the HPI. ROS Other: All systems not noted in ROS Statement are negative. 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 Date of last positivie culture/infection: 08/04/20 MDRO Source:: Lip Past Surgical History: Cardiac Valve Replacement, Cholecystectomy Additional Past Surgical History / Comment(s): aortic Past Psychological History: Bipolar, Depression Smoking Status: Current every day smoker Past Alcohol Use History: None Reported Past Drug Use History: None Reported, Heroin, IV Drug Use, Marijuana General Exam Limitations: no limitations Course Vital Signs 08/15/20 12:53 Temperature 98.0 F Pulse Rate 98 Respiratory 18 Rate Blood Pressure 164/87 O2 Sat by Pulse 98 Oximetry Disposition Clinical Impression: Squamous cell carcinoma Disposition: HOME SELF-CARE Condition: Fair Instructions (If sedation given, give patient instructions): Squamous Cell Carcinoma (DC) Prescriptions: hydrOXYzine HCL [Atarax] 25 mg PO TID PRN #24 tab PRN Reason: Itching Sulfamethox-Tmp 800-160Mg [Bactrim DS 800-160 mg] 1 tab PO Q12HR 7 Days #14 tab oxyCODONE-APAP 5-325MG [Percocet 5-325 mg] 1 tab PO Q6HR PRN 3 Days #12 tab PRN Reason: Pain Is patient prescribed a controlled substance at d/c from ED?: Yes If prescribed controlled substance>3 days was MAPS reviewed?: Prescribed <3 Days Referrals: Dakotah Gonsalez Jr, DO [Primary Care Provider] - 1-2 days Tin Arreaga MD [STAFF PHYSICIAN] - 1-2 days
== END 2020-08-15 13:34 | disposition home or self-care (01) ==
LOC: EC 12:48
DX: C44.02 Squamous cell carcinoma of skin of lip (principal); E11.9 Type 2 diabetes mellitus without complications; F31.9 Bipolar disorder, unspecified; F17.200 Nicotine dependence, unspecified, uncomplicated; Z79.4 Long term (current) use of insulin; Z79.899 Other long term (current) drug therapy; Z86.14 Personal history of Methicillin resistant Staphylococcus aureus infection
CPT/HCPCS: 99283

== ENCOUNTER → 2020-09-29 | Outpatient (CLI) | payer OTHER ==
--- NOTE | 2020-10-01 16:23 | CT ---
EXAMINATION TYPE: CT soft tissue neck w con DATE OF EXAM: 09/29/2020 COMPARISON: None HISTORY: 59-year-old male Squamous cell carcinoma of lip. Checking lymph nodes. TECHNIQUE: Contiguous axial scanning of the soft tissues of the neck performed with IV Contrast, noemi ent injected with 100 mL of Isovue M300. Coronal/sagittal reconstructions performed. CT DLP: 542.7 mGycm Automated exposure control for dose reduction was used. FINDINGS: Median sternotomy wires are present. The thyroid and submandibular glands is satisfactory. Mild volume loss of the parotid glands which ar e otherwise satisfactory. There is a fungating mass involving the left upper lip measuring 3.4 cm wide by 2.1 cm craniocaudal b y 1.5 cm AP. Mild lobulated mucosal thickening floor of the right maxillary sinus and also mild mucosal thickening ethmoid air cells. Nasopharynx is clear. Mild hypertrophy of the lingual tonsils. Epiglottis and prevertebral soft tissues are satisfactory. The glottic structures are satisfactory. Along the subglottic upper trachea toward the right, minimal mural based linear nodularity is present along the right anterior wall, axial image 44, likely some adherent mucus/debris. Otherwise the tracheal column is clear. Mild emphysematous change in the visualized upper lungs. There is a borderline to mildly enlarged left submandibular space lymph node measuring 1.0 cm short a xis, asymmetric to the contralateral side. Otherwise, prominent but nonenlarged upper cervical lymph nodes, station 2A measuring up to 1 cm shor t axis. No other suspicious lymphadenopathy is identified at this time. Visualized intracranial structures, orbits and globes appear clear. Some minimal trapped fluid in bot h mastoid air cells. Correlate for any mastoid pain to exclude mastoiditis. Cerumen right external au ditory canal. Mild to moderate degenerative disc disease C5-C7 levels. Straightening of the normal cervical lordosi s. IMPRESSION: 1 FUNGATING MASS INVOLVING THE LEFT UPPER LIP MEASURING 3.4 CM WIDE. 2. THERE IS A BORDERLINE TO MILDLY ENLARGED LEFT SUBMANDIBULAR SPACE LYMPH NODE MEASURING 1 CM SHORT AXIS. THIS IS A FAIRLY SUPERFICIAL NODE FOR WHICH WE RECOMMEND PALPATION AND CLINICAL FOLLOW-UP. 3. OTHERWISE, NO PATHOLOGICALLY ENLARGED LYMPH NODES IDENTIFIED WITHIN THE NECK. A LEFT STATION 2A LY MPH NODE IS ASYMMETRICALLY PROMINENT TO THE OTHER SIDE BUT NOT ABNORMALLY ENLARGED AT 1 CM SHORT AXIS . 3. COPD WITH MILD EMPHYSEMA IN THE VISUALIZED UPPER LUNGS.
== END | disposition home or self-care (01) ==
LOC: RADCTMAIN 10:30
PROVIDERS: ATTEND Otolaryngology
DX: R59.9 Enlarged lymph nodes, unspecified (principal); J44.9 Chronic obstructive pulmonary disease, unspecified; C44.320 Squamous cell carcinoma of skin of unspecified parts of face; I10 Essential (primary) hypertension
CPT/HCPCS: 82565; 84520; 70491; 36415; Q9967

== ENCOUNTER → 2020-10-17 | Outpatient (CLI) | payer OTHER ==
[2020-10-17 15:15] LABS: Basophils % (A) 1 %; Eosinophils # (A) 0.1 k/uL (0-0.7); Eosinophils % (A) 1 %; HCT 45.8 % (39.0-53.0); HGB 15.1 gm/dL (13.0-17.5); Lymphocytes % (A) 19 %; MCH 29.7 pg (25.0-35.0); MCHC 32.9 g/dL (31.0-37.0); MCV 90.2 fL (80.0-100.0); Monocytes # (A) 0.2 k/uL (0-1.0); Monocytes % (A) 4 %; Neutrophils # (A) 3.9 k/uL (1.3-7.7); Neutrophils % (A) 74 %; RBC 5.08 m/uL (4.30-5.90); RDW 13.3 % (11.5-15.5); WBC 5.2 k/uL (3.8-10.6)
[2020-10-17 15:16] LABS: Platelet Count 73 k/uL (150-450)
== END | disposition home or self-care (01) ==
LOC: LABWHC1 13:47
PROVIDERS: ATTEND Orthopaedic Surgery
DX: Z01.812 Encounter for preprocedural laboratory examination (principal); Z20.822 Contact with and (suspected) exposure to COVID-19
CPT/HCPCS: 86900; 86901; 85025; 86850; 36415; U0003; C9803; U0005

== ENCOUNTER → 2020-11-03 | Outpatient (CLI) | payer OTHER | END | disposition home or self-care (01) | LOC: LABWHC1 13:03 | PROVIDERS: ATTEND Otolaryngology | DX: Z01.812 Encounter for preprocedural laboratory examination (principal); Z20.822 Contact with and (suspected) exposure to COVID-19 | CPT/HCPCS: U0003; C9803 ==

== ENCOUNTER → 2020-12-12 | Outpatient (CLI) | payer OTHER | END | disposition home or self-care (01) | LOC: LABWHC1 14:23 | PROVIDERS: ATTEND Otolaryngology | DX: Z01.812 Encounter for preprocedural laboratory examination (principal); Z20.822 Contact with and (suspected) exposure to COVID-19 | CPT/HCPCS: U0003; C9803; U0005 ==

== ENCOUNTER 2021-03-21 08:42 | Inpatient (IN) | payer OTHER ==
[2021-03-21] MEDS ORDERED: VANCOMYCIN IV PER PHARMACY 1 EACH MISC MISCELLANE PRN (08:59)
[2021-03-21] MEDS ORDERED: PIPERACILLIN-TAZOBACTAM 3.375 GM in SODIUM CHLORIDE 0.9% 100 ML IVPB STA (08:59)
[2021-03-21] MEDS ORDERED: MORPHINE SULFATE 4 MG/ML SYRINGE IVP STA (09:03)
--- NOTE | 2021-03-21 09:03 | ED ---
Fever HPI - General Chief Complaint: Fever Stated Complaint: fever, infection Time Seen by Provider: 03/21/21 08:48 Source: patient, RN notes reviewed Mode of arrival: ambulatory Limitations: no limitations - History of Present Illness Initial Comments: 60-year-old male presents emergency Department chief complaint of fever, infection. Patient states has not felt well last few days had a temp of 102. Patient states his been tearing with a right foot infection states he was seen wound center states he was sent home with some care packaged states it's been getting worse. he's noticed his toes been discolored, foul order increase in pain. Patient denies any significant cough or cold-like symptoms patient states he does have COPD is a chronic cough not worse than usual. Denies chest pain headache dizziness no abdominal complaints. - Related Data Home Medications Medication Instructions Recorded Confirmed Insulin Glargine [Lantus] 30 unit SQ HS 09/14/14 04/02/20 Insulin Regular, Human [NovoLIN R] See Protocol SQ TID 09/14/14 04/02/20 QUEtiapine [SEROquel] 200 mg PO HS 11/21/16 04/02/20 Previous Rx's Medication Instructions Recorded Ipratropium-Albuterol Nebulize 1 neb INHALATION Q6HR PRN #30 neb 05/25/20 [Duoneb 0.5 mg-3 mg/3 ml Soln] Sulfamethox-Tmp 800-160Mg [Bactrim 2 tab PO Q12HR 10 Days #40 tab 05/25/20 DS 800-160 mg] Sulfamethox-Tmp 800-160Mg [Bactrim 1 tab PO Q12HR 7 Days #14 tab 08/15/20 DS 800-160 mg] hydrOXYzine HCL [Atarax] 25 mg PO TID PRN #24 tab 08/15/20 oxyCODONE-APAP 5-325MG [Percocet 1 tab PO Q6HR PRN 3 Days #12 tab 08/15/20 5-325 mg] Allergies Allergy/AdvReac Type Severity Reaction Status Date / Time No Known Allergies Allergy Verified 03/21/21 08:46 Review of Systems ROS Statement: Those systems with pertinent positive or pertinent negative responses have been documented in the HPI. ROS Other: All systems not noted in ROS Statement are negative. 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 Date of last positivie culture/infection: 08/04/20 MDRO Source:: Lip Past Surgical History: Cardiac Valve Replacement, Cholecystectomy Additional Past Surgical History / Comment(s): aortic Past Psychological History: Bipolar, Depression Smoking Status: Current every day smoker Past Alcohol Use History: None Reported Past Drug Use History: Heroin, IV Drug Use, Marijuana General Exam Limitations: no limitations General appearance: alert, in no apparent distress Head exam: Present: atraumatic, normocephalic, normal inspection Respiratory exam: Present: normal lung sounds bilaterally. Absent: respiratory distress, wheezes, rales, rhonchi, stridor Cardiovascular Exam: Present: regular rate, normal rhythm, normal heart sounds. Absent: systolic murmur, diastolic murmur, rubs, gallop, clicks Extremities exam: Present: other (Right foot fourth digit there is no discoloration, foul odor, open wounds noted) Skin exam: Present: warm Course Vital Signs 03/21/21 08:43 Temperature 97.9 F Pulse Rate 96 Respiratory 18 Rate Blood Pressure 141/76 O2 Sat by Pulse 98 Oximetry Medical Decision Making - Medical Decision Making X-ray reviewed and shows evidence of osteomyelitis. Patient was started on Zosyn, vancomycin. Patient admitted to the service and hospitalist with consult to vascular surgeon. - Lab Data Result diagrams: 03/21/21 09:03 Lab Results 03/21/21 03/21/21 03/21/21 Range/Units 09:03 09:03 09:03 WBC 3.2 L (3.8-10.6) k/uL RBC 4.47 (4.30-5.90) m/uL Hgb 13.4 (13.0-17.5) gm/dL Hct 39.1 (39.0-53.0) % MCV 87.3 (80.0-100.0) fL MCH 30.0 (25.0-35.0) pg MCHC 34.3 (31.0-37.0) g/dL RDW 14.1 (11.5-15.5) % Plt Count 72 L (150-450) k/uL MPV 11.2 PT 9.7 (9.0-12.0) sec INR 0.9 (<1.2) APTT 23.5 (22.0-30.0) sec Plasma Lactic Acid Henri 1.7 (0.7-2.0) mmol/L Disposition Clinical Impression: Osteomyelitis of fourth toe of right foot Disposition: ADMITTED IP TO THIS HOSP Condition: Poor Referrals: Anjelica Aguilar MD [Primary Care Provider] - 1-2 days
[2021-03-21] MEDS ORDERED: VANCOMYCIN 1,500 MG in SODIUM CHLORIDE 0.9% 250 ML IVPB ONE (09:15)
[2021-03-21 09:29] LABS: Basophils % (A) 1 %; Eosinophils # (A) 0.1 k/uL (0-0.7); Eosinophils % (A) 2 %; HCT 39.1 % (39.0-53.0); HGB 13.4 gm/dL (13.0-17.5); Lymphocytes # (A) 0.7 k/uL (1.0-4.8); Lymphocytes % (A) 21 %; MCHC 34.3 g/dL (31.0-37.0); MCV 87.3 fL (80.0-100.0); Mean Platelet Volume 11.2; Monocytes # (A) 0.3 k/uL (0-1.0); Monocytes % (A) 8 %; Neutrophils # (A) 2.1 k/uL (1.3-7.7); Neutrophils % (A) 67 %; RBC 4.47 m/uL (4.30-5.90); RDW 14.1 % (11.5-15.5); WBC 3.2 k/uL (3.8-10.6)
[2021-03-21] MEDS ORDERED: HYDROmorphone 1 MG/ML 1 ML SYRINGE IVP STA (09:43)
[2021-03-21 09:45] LABS: INR 0.9 (<1.2); Partial Thromboplastin Time 23.5 sec (22.0-30.0); Prothrombin Time 9.7 sec (9.0-12.0)
--- NOTE | 2021-03-21 10:03 | XR ---
EXAMINATION TYPE: XR foot complete RT DATE OF EXAM: 03/21/2021 CLINICAL HISTORY: Infection of fourth toe TECHNIQUE: Frontal, lateral, and oblique images of the right foot are obtained. COMPARISON: None FINDINGS: There is bony destruction of the lateral aspect of the proximal phalanx of the fourth toe with associ ated soft tissue defect and soft tissue swelling, worrisome for osteomyelitis. Degenerative changes are noted at the first metatarsophalangeal joint with hallux valgus. Degenerativ e changes are noted in the ankle and midfoot. Vascular calcifications are seen. IMPRESSION: Findings highly concerning for osteomyelitis of the proximal phalanx of the fourth toe.
[2021-03-21] MEDS ORDERED: ACETAMINOPHEN TAB 325 MG TAB PO PRN (10:18)
[2021-03-21] MEDS ORDERED: NALOXONE 0.4 MG/ML 1 ML VIAL IV PRN (10:18)
[2021-03-21] MEDS ORDERED: ONDANSETRON 4 MG/2 ML VIAL IVP PRN (10:18)
[2021-03-21 10:40] LABS: Platelet Count 72 k/uL (150-450)
[2021-03-21 10:57] LABS: ALT 16 U/L (4-49); AST 18 U/L (17-59); African American GFR (CKD) >90 (>60 ml/min/1.73 sqM); Albumin 2.4 g/dL (3.5-5.0); Alkaline Phosphatase 87 U/L (38-126); Anion Gap 19 mmol/L; Blood Urea Nitrogen 25 mg/dL (9-20); C Reactive Protein 6.6 mg/dL (<1.0); Carbon Dioxide 20 mmol/L (22-30); Chloride 108 mmol/L (98-107); Glucose 281 mg/dL (74-99); Non-African American GFR(CKD) >90 (>60 ml/min/1.73 sqM); Potassium 2.8 mmol/L (3.5-5.1); Sodium 147 mmol/L (137-145); Total Bilirubin <0.1 mg/dL (0.2-1.3); Total Protein 5.3 g/dL (6.3-8.2)
[2021-03-21 11:08] LABS: Calcium 6.2 mg/dL (8.4-10.2)
[2021-03-21 12:25] LABS: Potassium 4.1 mmol/L (3.5-5.1)
[2021-03-21 12:26] LABS: African American GFR (CKD) 81 (>60 ml/min/1.73 sqM); Anion Gap 7 mmol/L; Blood Urea Nitrogen 31 mg/dL (9-20); Calcium 8.2 mg/dL (8.4-10.2); Carbon Dioxide 26 mmol/L (22-30); Chloride 99 mmol/L (98-107); Glucose 339 mg/dL (74-99); Non-African American GFR(CKD) 70 (>60 ml/min/1.73 sqM); Sodium 132 mmol/L (137-145)
[2021-03-21] MEDS: HYDROmorphone 0.5 MG/0.5 ML SYRINGE IVP PRN ×2 (14:10→16:46)
[2021-03-21] MEDS: PIPERACILLIN-TAZOBACTAM 3.375 GM in SODIUM CHLORIDE 0.9% 100 ML IVPB SCH (16:57)
[2021-03-21] MEDS: NICOTINE 21MG/24HR PATCH TRANSDERM SCH (18:41)
[2021-03-21] MEDS ORDERED: ALBUTEROL NEBULIZED 2.5 MG/3 ML INHALATION PRN (19:56)
[2021-03-21] MEDS: ALBUTEROL HFA INHALER INHALATION PRN (20:00)
[2021-03-21 20:24] LABS: Glucose,Whole Blood 451 mg/dL (75-99)
[2021-03-21] MEDS: HYDROmorphone 1 MG/ML 1 ML SYRINGE IVP PRN (21:07)
[2021-03-21] MEDS: KETOROLAC 15 MG/ML 1 ML VIAL IVP SCH (21:11)
[2021-03-21] MEDS: INSULIN DETEMIR (LEVEMIR) 100 UNIT/ML SYR SQ SCH (21:12)
[2021-03-21] MEDS: QUEtiapine 100 MG TAB PO SCH (21:13)
[2021-03-21] MEDS: metroNIDAZOLE-NS PMX 500 MG in SALINE 1 100ML.BAG IVPB SCH (21:14)
[2021-03-21] MEDS ORDERED: VANCOMYCIN 1,500 MG in SODIUM CHLORIDE 0.9% 250 ML IVPB SCH (22:00)
--- NOTE | 2021-03-21 22:23 | HP ---
HISTORY AND PHYSICAL DATE OF SERVICE: 03/19/2021 CHIEF COMPLAINT: Pain and swelling of the right 4th and 5th digit and gangrene. HISTORY OF PRESENT ILLNESS: This 60-year-old gentleman with a past medical history of diabetes, history of back pain, history of MRSA, history of bipolar depression, being followed by Dr. Anjelica Aguilar and Radha Keita in the outpatient setting was noted to have pain and swelling and some ulceration of the right 5th digit. The patient apparently had an increasing ulcer and the 4th digit got infected and which is worse and foul-smelling and gangrenous. The patient came to [facility] and was admitted for further evaluation and treatment. Patient also complaining of severe pain and also pain radiating up the lateral part of the right lower lobe also. There is no history of any fever, rigor or chills at this time. PAST MEDICAL HISTORY: History of back pain, history of herniated disk, diabetes type 2, history of MRSA, history of bipolar, depression. MEDICATIONS: Medications prior to admission include home medications, oxycodone, Seroquel, NovoLog, Lantus, vitamin D2, Zantac, albuterol, Ventolin, Tylenol. ALLERGIES: None. FAMILY HISTORY: No history of heart disease or strokes in the family. SOCIAL HISTORY: History of heroin IV drug abuse. History of marijuana. REVIEW OF SYSTEMS: ENT No history of diminished hearing or vision. CARDIOVASCULAR No angina or palpitations. RESPIRATORY No cough, no hemoptysis. GI No nausea, vomiting, or diarrhea. No dysuria or hematuria. NERVOUS No numbness or weakness. ALLERGY/IMMUNOLOGY No asthma or hayfever. MUSCULOSKELETAL As mentioned earlier. HEMATOLOGY/ONCOLOGY Negative. ENDOCRINE As mentioned earlier. CONSTITUTIONAL As mentioned earlier. DERMATOLOGY Negative. RHEUMATOLOGY Negative, PSYCHIATRY As mentioned earlier. PHYSICAL EXAMINATION: Alert and oriented x3. Pulse is 89, blood pressure 140/77, respiration 16, temperature 98.2, pulse ox 98% on room air. HEENT: Conjunctivae normal. Oral mucosa moist. NECK: No jugular venous distention. No lymph node enlargement. CARDIOVASCULAR: S1, S2, muffled. No S3, no S4, RESPIRATORY: Diminished breath sounds at the bases. No rhonchi, no crackles. ABDOMEN: Soft, nontender. No mass palpable. LEGS: Right foot significant swelling and pain and gangrene of the right 4th and 5th digits present. NERVOUS SYSTEM: Higher functions mentioned earlier. Moves all four limbs. No focal motor or sensory deficits. LYMPHATICS: No lymph node in neck or axilla. SKIN: No rash. JOINTS: No active deforming arthropathy. LABS: WBC 3.2, platelets 70, sodium 147, potassium 2.8. ASSESSMENT: 1. Acute right 4th and 5th digit infection and gangrene with possible diabetic foot with failure of outpatient treatment. 2. Severe pain. 3. Leukopenia. 4. Thrombocytopenia. 5. Hypernatremia. 6. Hypokalemia. 7. Diabetes mellitus type 2 uncontrolled with hyperglycemia. 8. Hypocalcemia. 9. History of back pain, DJD. 10.History of MRSA. 11.History of cholecystectomy. 12.History of bipolar depression. 13.History of heroin IV drug abuse and as well as history of THC and cocaine. 14.FULL CODE. RECOMMENDATIONS: Recommend to continue current medications and symptomatic treatment. Otherwise, at this time, I recommend continue pain medications, IV antibiotics, Vascular Surgery consultation, Infectious Disease evaluation. Resume the home medications. Repeat lytes. Prognosis extremely guarded because of multiple complex medical issues. Further recommendations to follow. MMODL / IJN: [id number] /
[2021-03-21] MEDS ORDERED: INSULIN REGULAR BOLUS (FROM DRIP BAG) IV ONE (22:38)
[2021-03-22] MEDS: oxyCODONE-APAP 10-325MG 1 EACH TAB PO PRN ×4 (00:03→23:04)
[2021-03-22 00:15] LABS: Glucose,Whole Blood 441 mg/dL (75-99)
[2021-03-22] MEDS: INSULIN REGULAR 100 UNIT in SODIUM CHLORIDE 0.9% 100 ML IV SCH ×2 (01:12→12:34)
[2021-03-22] MEDS: HYDROmorphone 1 MG/ML 1 ML SYRINGE IVP PRN ×5 (01:50→20:17)
[2021-03-22 01:58] LABS: Glucose,Whole Blood 264 mg/dL (75-99)
[2021-03-22] MEDS: PIPERACILLIN-TAZOBACTAM 3.375 GM in SODIUM CHLORIDE 0.9% 100 ML IVPB SCH ×3 (02:04→17:45)
[2021-03-22 02:59] LABS: Glucose,Whole Blood 163 mg/dL (75-99)
[2021-03-22] MEDS: KETOROLAC 15 MG/ML 1 ML VIAL IVP SCH ×4 (06:10→23:03)
[2021-03-22 06:23] LABS: Glucose,Whole Blood 182 mg/dL (75-99)
[2021-03-22 06:56] LABS: Glucose,Whole Blood 179 mg/dL (75-99)
[2021-03-22] MEDS: ALBUTEROL HFA INHALER INHALATION PRN (07:30)
[2021-03-22] MEDS: INSULIN ASPART (NovoLOG) 100 UNIT/ML VIAL SQ SCH ×3 (07:50→17:06)
[2021-03-22] MEDS: metroNIDAZOLE-NS PMX 500 MG in SALINE 1 100ML.BAG IVPB SCH (07:56)
[2021-03-22] MEDS: NICOTINE 21MG/24HR PATCH TRANSDERM SCH (08:00)
[2021-03-22 08:28] LABS: Amorphous Sediment,Urine Rare /hpf; Appearance,Urine Cloudy (Clear); Bilirubin,Urine Negative (Negative); Blood,Urine Moderate (Negative); Color,Urine Yellow; Glucose,Urine (UA) 3+ (Negative); Granular Casts,Urine 3 /lpf (0); Hyaline Casts,Urine 1 /lpf (0-2); Ketones,Urine Negative (Negative); Leukocyte Esterase,Urine Negative (Negative); Mucus,Urine Rare /hpf; Nitrite,Urine Negative (Negative); PH, Urine 5.5 (5.0-8.0); Protein,Urine 3+ (Negative); RBC,Urine 12 /hpf (0-5); Specific Gravity,Urine 1.024 (1.001-1.035); Squamous Epithelial Cell,Urine <1 /hpf (0-4); Urobilinogen,Urine <2.0 mg/dL (<2.0); WBC,Urine 1 /hpf (0-5)
[2021-03-22 08:42] LABS: Amphetamine Screen,Urine Not Detected (NotDetected); Benzodiazepines Screen,Urine Not Detected (NotDetected); Cocaine Screen,Urine Not Detected (NotDetected); Opiate Screen,Urine Detected (NotDetected); Phencyclidine Screen,Urine Not Detected (NotDetected); Urn Cannabinoid Scrn Detected (NotDetected)
[2021-03-22 08:43] LABS: Barbiturate Screen,Urine Not Detected (NotDetected); Methadone Screen, Urine Not Detected (NotDetected); Oxycodone Screen, Urine Detected (NotDetected); Tricyclic Antidepressant,Urine Detected (NotDetected)
[2021-03-22 09:15] LABS: Glucose,Whole Blood 250 mg/dL (75-99)
--- NOTE | 2021-03-22 09:19 | P.GSCN ---
History of Present Illness Consult date: 03/22/21 Reason for Consult: Osteomyelitis right foot History of present illness: This is a 60-year-old white male with history of COPD, diabetes mellitus, heart valve replacement, bipolar depression, current smoker, who previously use of IV drug use at age 19 and marijuana presented to the emergency department for a right foot infection. Patient states he is unsure when the infection actually started, states that his girlfriend one desat look at your toe. He said it started with his pinky toe where he had a split, was painful and was sent to the wound care center about 3 weeks ago. Patient states he had one visit was started on some medication and given instructions on dressing changes. He missed his appointment last week and was supposed to go in today. States he's been having fevers and bodyaches with a max temperature 102.3 at home. States he has severe neuropathy to his bilateral lower extremities and follows with a pain specialist. States he has severe pain in that right foot and toes and coming outpatient. He has been afebrile on admission. Denies any shortness of breath, chest pain, abdominal pain, nausea or vomiting. Denies any previous history of peripheral arterial disease, states he can walk without any difficu lty at least a mile without feeling tired. X-ray of right foot shows findings highly concerning for osteomyelitis of the proximal phalanx of the fourth toe. Review of Systems 14 point review of systems was completed all pertinent positives and negatives as stated in the HPI. 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 Year Discovered:: 08/04/20 MDRO Source:: Lip Past Surgical History: Cardiac Valve Replacement, Cholecystectomy Additional Past Surgical History / Comment(s): aortic Past Psychological History: Bipolar, Depression Smoking Status: Current every day smoker Past Alcohol Use History: None Reported Past Drug Use History: Heroin, IV Drug Use, Marijuana Medications and Allergies Home Medications Medication Instructions Recorded Confirmed Type Acetaminophen Tab [Tylenol Tab] 500 mg PO Q6H PRN 03/21/21 03/21/21 History Albuterol Nebulized [Ventolin 2.5 mg INHALATION RT-QID PRN 03/21/21 03/21/21 History Nebulized] Albuterol Sulfate [Proair Hfa] 2 puff INHALATION RT-QID PRN 03/21/21 03/21/21 History Collagenase [Santyl] 1 applic TOPICAL DAILY 03/21/21 03/21/21 History Ergocalciferol [Vitamin D2 (1250 1,250 mcg PO MOFR 03/21/21 03/21/21 History Mcg = 77342 Iu)] Insulin Aspart [NovoLOG Flexpen] See Protocol SQ AC-TID 03/21/21 03/21/21 History Insulin Glargine,Hum.rec.anlog 25 unit SQ HS 03/21/21 03/21/21 History [Lantus Solostar] QUEtiapine [SEROquel] 100 mg PO HS 03/21/21 03/21/21 History oxyCODONE-APAP 10-325MG [Percocet 1 tab PO TID PRN 03/21/21 03/21/21 History 10-325 mg] Allergies Allergy/AdvReac Type Severity Reaction Status Date / Time No Known Allergies Allergy Verified 03/21/21 10:34 Surgical - Exam Vital Signs Temp Pulse Resp BP Pulse Ox 97.9 F 96 18 141/76 98 03/21/21 08:43 03/21/21 08:43 03/21/21 08:43 03/21/21 08:43 03/21/21 08:43 General appearance: The patient is alert, oriented, appears in no acute distress. HET: Head is normocephalic and atraumatic. Neck: Supple without lymphadenopathy. Trachea midline. Heart: S1 S2. Regular rate and rhythm. Lungs: No crackles or wheezes are heard. Abdomen: Soft, nontender, nondistended. Extremities: Bilateral palpable femoral, posterior tibialis and dorsalis pedis pulses. Right foot with edema, good capillary refill, fourth toe purple with swelling and drainage, fifth toe with ulcer on the medial aspect with drainage with foul odor. Neurological: No focal deficits. Alert and oriented 3. Results - Labs 03/21/21 09:03 03/21/21 11:45 Abnormal Lab Results - Last 24 Hours (Table) 03/21/21 03/21/21 03/21/21 Range/Units 09:03 09:57 11:45 WBC 3.2 L (3.8-10.6) k/uL Plt Count 72 L (150-450) k/uL Lymphocytes # 0.7 L (1.0-4.8) k/uL Sodium 147 H 132 L (137-145) mmol/L Potassium 2.8 L (3.5-5.1) mmol/L Chloride 108 H (98-107) mmol/L Carbon Dioxide 20 L (22-30) mmol/L BUN 25 H 31 H (9-20) mg/dL Glucose 281 H 339 H (74-99) mg/dL POC Glucose (mg/dL) (75-99) mg/dL Calcium 6.2 L* 8.2 L (8.4-10.2) mg/dL Total Bilirubin <0.1 L (0.2-1.3) mg/dL C-Reactive Protein 6.6 H (<1.0) mg/dL Total Protein 5.3 L (6.3-8.2) g/dL Albumin 2.4 L (3.5-5.0) g/dL Urine Protein (Negative) Urine Glucose (UA) (Negative) Urine Blood (Negative) Urine RBC (0-5) /hpf Amorphous Sediment (None) /hpf Urine Mucus (None) /hpf Urine Opiates Screen (NotDetected) Ur Oxycodone Screen (NotDetected) U Tricyclic Antidepress (NotDetected) U Marijuana (THC) Screen (NotDetected) 03/21/21 03/22/21 03/22/21 Range/Units 20:23 00:13 01:57 WBC (3.8-10.6) k/uL Plt Count (150-450) k/uL Lymphocytes # (1.0-4.8) k/uL Sodium (137-145) mmol/L Potassium (3.5-5.1) mmol/L Chloride (98-107) mmol/L Carbon Dioxide (22-30) mmol/L BUN (9-20) mg/dL Glucose (74-99) mg/dL POC Glucose (mg/dL) 451 H 441 H 264 H (75-99) mg/dL Calcium (8.4-10.2) mg/dL Total Bilirubin (0.2-1.3) mg/dL C-Reactive Protein (<1.0) mg/dL Total Protein (6.3-8.2) g/dL Albumin (3.5-5.0) g/dL Urine Protein (Negative) Urine Glucose (UA) (Negative) Urine Blood (Negative) Urine RBC (0-5) /hpf Amorphous Sediment (None) /hpf Urine Mucus (None) /hpf Urine Opiates Screen (NotDetected) Ur Oxycodone Screen (NotDetected) U Tricyclic Antidepress (NotDetected) U Marijuana (THC) Screen (NotDetected) 03/22/21 03/22/21 03/22/21 Range/Units 02:57 06:21 06:54 WBC (3.8-10.6) k/uL Plt Count (150-450) k/uL Lymphocytes # (1.0-4.8) k/uL Sodium (137-145) mmol/L Potassium (3.5-5.1) mmol/L Chloride (98-107) mmol/L Carbon Dioxide (22-30) mmol/L BUN (9-20) mg/dL Glucose (74-99) mg/dL POC Glucose (mg/dL) 163 H 182 H 179 H (75-99) mg/dL Calcium (8.4-10.2) mg/dL Total Bilirubin (0.2-1.3) mg/dL C-Reactive Protein (<1.0) mg/dL Total Protein (6.3-8.2) g/dL Albumin (3.5-5.0) g/dL Urine Protein (Negative) Urine Glucose (UA) (Negative) Urine Blood (Negative) Urine RBC (0-5) /hpf Amorphous Sediment (None) /hpf Urine Mucus (None) /hpf Urine Opiates Screen (NotDetected) Ur Oxycodone Screen (NotDetected) U Tricyclic Antidepress (NotDetected) U Marijuana (THC) Screen (NotDetected) 03/22/21 Range/Units 08:05 WBC (3.8-10.6) k/uL Plt Count (150-450) k/uL Lymphocytes # (1.0-4.8) k/uL Sodium (137-145) mmol/L Potassium (3.5-5.1) mmol/L Chloride (98-107) mmol/L Carbon Dioxide (22-30) mmol/L BUN (9-20) mg/dL Glucose (74-99) mg/dL POC Glucose (mg/dL) (75-99) mg/dL Calcium (8.4-10.2) mg/dL Total Bilirubin (0.2-1.3) mg/dL C-Reactive Protein (<1.0) mg/dL Total Protein (6.3-8.2) g/dL Albumin (3.5-5.0) g/dL Urine Protein 3+ H (Negative) Urine Glucose (UA) 3+ H (Negative) Urine Blood Moderate H (Negative) Urine RBC 12 H (0-5) /hpf Amorphous Sediment Rare H (None) /hpf Urine Mucus Rare H (None) /hpf Urine Opiates Screen Detected H (NotDetected) Ur Oxycodone Screen Detected H (NotDetected) U Tricyclic Antidepress Detected H (NotDetected) U Marijuana (THC) Screen Detected H (NotDetected) Diabetes panel 03/21/21 03/21/21 Range/Units 09:57 11:45 Sodium 147 H 132 L (137-145) mmol/L Potassium 2.8 L 4.1 (3.5-5.1) mmol/L Chloride 108 H 99 (98-107) mmol/L Carbon Dioxide 20 L 26 (22-30) mmol/L BUN 25 H 31 H (9-20) mg/dL Creatinine 0.90 1.15 (0.66-1.25) mg/dL Glucose 281 H 339 H (74-99) mg/dL Calcium 6.2 L* 8.2 L (8.4-10.2) mg/dL AST 18 (17-59) U/L ALT 16 (4-49) U/L Alkaline Phosphatase 87 (38-126) U/L Total Protein 5.3 L (6.3-8.2) g/dL Albumin 2.4 L (3.5-5.0) g/dL Calcium panel 03/21/21 03/21/21 Range/Units 09:57 11:45 Calcium 6.2 L* 8.2 L (8.4-10.2) mg/dL Albumin 2.4 L (3.5-5.0) g/dL Pituitary panel 03/21/21 03/21/21 Range/Units 09:57 11:45 Sodium 147 H 132 L (137-145) mmol/L Potassium 2.8 L 4.1 (3.5-5.1) mmol/L Chloride 108 H 99 (98-107) mmol/L Carbon Dioxide 20 L 26 (22-30) mmol/L BUN 25 H 31 H (9-20) mg/dL Creatinine 0.90 1.15 (0.66-1.25) mg/dL Glucose 281 H 339 H (74-99) mg/dL Calcium 6.2 L* 8.2 L (8.4-10.2) mg/dL Adrenal panel 03/21/21 03/21/21 Range/Units 09:57 11:45 Sodium 147 H 132 L (137-145) mmol/L Potassium 2.8 L 4.1 (3.5-5.1) mmol/L Chloride 108 H 99 (98-107) mmol/L Carbon Dioxide 20 L 26 (22-30) mmol/L BUN 25 H 31 H (9-20) mg/dL Creatinine 0.90 1.15 (0.66-1.25) mg/dL Glucose 281 H 339 H (74-99) mg/dL Calcium 6.2 L* 8.2 L (8.4-10.2) mg/dL Total Bilirubin <0.1 L (0.2-1.3) mg/dL AST 18 (17-59) U/L ALT 16 (4-49) U/L Alkaline Phosphatase 87 (38-126) U/L Total Protein 5.3 L (6.3-8.2) g/dL Albumin 2.4 L (3.5-5.0) g/dL - Imaging Comments: X-ray right foot: Findings highly concerning for osteomyelitis proximal phalanx of fourth toe Assessment and Plan Assessment: 1. Wet Gangrene of right fourth toe, x-ray showing likely osteomyelitis 2. Nonhealing diabetic wound right fourth and fifth toe 3. Diabetes mellitus 4. Peripheral neuropathy 5. Current smoker 6. History of COPD 7. History of cardiac valve replacement 3 years ago Plan: 1. Continue with IV antibiotics 2. X-ray reviewed 3. Further recommendations to follow after evaluated by vascular surgeon 4. Smoking cessation Thank you for this consultation and allowing us take part in the plan of care of your patient during his hospital stay The impression and plan of care has been dictated as directed. Dr. Swain I performed a history and examination of this patient, discussed the same with the dictator. I agree with the dictator's note ,documented as a scribe. Any additional findings or plans will be noted.
[2021-03-22] MEDS: VANCOMYCIN 1,750 MG in SODIUM CHLORIDE 0.9% 500 ML 500 ML IVPB SCH ×2 (09:33→22:02)
[2021-03-22 11:02] LABS: Basophils # (A) 0.01 X 10*3/uL (0.00-0.10); Basophils % (A) 0.4 %; Eosinophils # (A) 0.07 X 10*3/uL (0.04-0.35); HCT 29.6 % (39.6-50.0); HGB 9.9 g/dL (13.0-17.0); Lymphocytes # (A) 0.72 X 10*3/uL (0.90-5.00); Lymphocytes % (A) 31.2 %; MCH 29.6 pg (27.0-32.0); MCHC 33.4 g/dL (32.0-37.0); MCV 88.4 fL (80.0-97.0); Mean Platelet Volume 12.8 fL (9.5-12.2); Monocytes # (A) 0.31 X 10*3/uL (0.20-1.00); Monocytes % (A) 13.4 %; Neutrophils # (A) 1.19 X 10*3/uL (1.80-7.70); Neutrophils % (A) 51.6 %; Platelet Count 56 X 10*3/uL (140-440); RBC 3.35 X 10*6/uL (4.40-5.60); WBC 2.31 X 10*3/uL (4.50-10.00)
[2021-03-22 11:29] LABS: Glucose,Whole Blood 177 mg/dL (75-99)
[2021-03-22 13:26] LABS: Glucose,Whole Blood 143 mg/dL (75-99)
[2021-03-22 13:57] LABS: African American GFR (CKD) 69.2 (60.0-200.0); Anion Gap 8.4 mmol/L (4.00-12.00); BUN/Creat Ratio 26.92 Ratio (12.00-20.00); Calcium 7.8 mg/dL (8.7-10.3); Carbon Dioxide 20.6 mmol/L (21.6-31.8); Non-African American GFR(CKD) 59.7 (60.0-200.0); Potassium 4.1 mmol/L (3.5-5.5)
[2021-03-22] MEDS ORDERED: metroNIDAZOLE 500 MG TAB PO SCH (16:00)
[2021-03-22 16:03] LABS: Hemoglobin A1C 9.8 % (4.0-6.0)
[2021-03-22 16:09] LABS: Glucose,Whole Blood 158 mg/dL (75-99)
[2021-03-22] MEDS ORDERED: NICOTINE 21MG/24HR PATCH TRANSDERM STA (18:00)
[2021-03-22 18:07] LABS: Glucose,Whole Blood 172 mg/dL (75-99)
[2021-03-22 20:10] LABS: Glucose,Whole Blood 155 mg/dL (75-99)
[2021-03-22] MEDS: INSULIN DETEMIR (LEVEMIR) 100 UNIT/ML SYR SQ SCH (20:18)
[2021-03-22] MEDS: QUEtiapine 100 MG TAB PO SCH (20:18)
[2021-03-22] MEDS ORDERED: HEPARIN SODIUM,PORCINE/PF 5,000 UNIT/0.5 ML SYRINGE SQ STA (21:53)
[2021-03-22 22:01] LABS: Glucose,Whole Blood 151 mg/dL (75-99)
[2021-03-22 23:19] LABS: Appearance,Urine Clear (Clear); Bacteria,Urine Rare /hpf; Bilirubin,Urine Negative (Negative); Blood,Urine Moderate (Negative); Color,Urine Yellow; Glucose,Urine (UA) Negative (Negative); Ketones,Urine Trace (Negative); Leukocyte Esterase,Urine Trace (Negative); Nitrite,Urine Negative (Negative); PH, Urine 5.5 (5.0-8.0); Protein,Urine 2+ (Negative); RBC,Urine 3 /hpf (0-5); WBC,Urine 1 /hpf (0-5)
[2021-03-23 00:19] LABS: Glucose,Whole Blood 158 mg/dL (75-99)
[2021-03-23] MEDS: AMPICILLIN-SULBACTAM 3 GM in SODIUM CHLORIDE 0.9% 100 ML IVPB SCH ×5 (00:41→23:17)
[2021-03-23 02:15] LABS: Glucose,Whole Blood 166 mg/dL (75-99)
[2021-03-23] MEDS: HYDROmorphone 1 MG/ML 1 ML SYRINGE IVP PRN ×5 (03:41→21:22)
[2021-03-23 04:43] LABS: Glucose,Whole Blood 133 mg/dL (75-99)
[2021-03-23] MEDS: oxyCODONE-APAP 10-325MG 1 EACH TAB PO PRN ×3 (05:50→23:18)
[2021-03-23] MEDS: KETOROLAC 15 MG/ML 1 ML VIAL IVP SCH (05:50)
[2021-03-23 06:10] LABS: Glucose,Whole Blood 135 mg/dL (75-99)
[2021-03-23 06:12] LABS: HCT 29.5 % (39.0-53.0); MCH 29.5 pg (25.0-35.0); MCHC 33.9 g/dL (31.0-37.0); Mean Platelet Volume 9.9; RDW 13.8 % (11.5-15.5); WBC 2.3 k/uL (3.8-10.6)
[2021-03-23 06:13] LABS: Platelet Count 63 k/uL (150-450)
[2021-03-23 06:16] LABS: African American GFR (CKD) 59 (>60 ml/min/1.73 sqM); Anion Gap 4 mmol/L; Blood Urea Nitrogen 43 mg/dL (9-20); Calcium 7.8 mg/dL (8.4-10.2); Carbon Dioxide 25 mmol/L (22-30); Chloride 108 mmol/L (98-107); Glucose 126 mg/dL (74-99); Non-African American GFR(CKD) 51 (>60 ml/min/1.73 sqM); Potassium 4.3 mmol/L (3.5-5.1); Sodium 137 mmol/L (137-145)
--- NOTE | 2021-03-23 06:21 | CONS ---
CONSULTATION DATE OF SERVICE: 03/22/2021 REASON FOR CONSULTATION: Right 4th toe gangrene and infection. HISTORY OF PRESENT ILLNESS: The patient is a 60 -year-old male with past medical history of COPD, diabetes mellitus, bipolar depression, current smoker. This patient presented to the hospital yesterday morning for evaluation of increasing pain, swelling and redness of his right 4th toe. The patient mentioned initially started having a wound in between his right 4th and fifth toe. The patient is not sure how it started. Denies any history of any cut or trauma. The patient mentioned subsequently he noted his right 4th toe become more swollen and red and overnight became discolored. The patient complaining of pain to the right 4th toe to be throbbing with intensity almost 10/10 and no radiation with associated discoloration and some foul-smelling drainage and the patient complaining of some chills with low-grade fever. With these symptoms, the patient was evaluated by the ER physician. On arrival to the ER, the patient was afebrile. The patient did have leukopenia. His kidney functions and electrolytes were normal. Urine was negative. Roman PCR was negative. Local culture has been obtained which is currently pending. The patient did have x-rays of the foot which did show findings suspicious for osteomyelitis of the proximal phalanx of the 4th toe. The patient is currently being treated with Zosyn and vancomycin. Infectious Disease consulted for further management of antibiotic therapy. The patient has been evaluated by Vascular Surgery and plan is for amputation of the right 4th toe. REVIEW OF SYSTEMS: Positive points have been mentioned in HPI. Rest of systems are negative. PAST MEDICAL HISTORY: Diabetes mellitus, chronic back pain, previous history of MRSA infection. PAST SURGICAL HISTORY: Cardiac valve placement, cholecystectomy. SOCIAL HISTORY: Current everyday smoker. Does admit to heroin and marijuana use. ALLERGIES: No known drug allergies. MEDICATIONS: The patient is currently on vancomycin, pharmacy to dose. He is on Seroquel, Zosyn, Percocet, Zofran, nicotine patch, Narcan, Flagyl, Toradol, Levemir, NovoLog, heparin, Pepcid, Ventolin. PHYSICAL EXAMINATION: Blood pressure is 148/79 with a pulse of 73, temperature 98.2. He is 99% on room air. General description is a middle-aged male lying in bed in no distress. No tachypnea or accessory muscles of respiration use. HEENT: Examination shows no pallor or scleral icterus. Oral mucous membranes dry. NECK: Trachea central. No thyromegaly. LUNGS unlabored breathing and is clear to auscultation anteriorly. HEART S1, S2. Regular rate and rhythm. ABDOMEN: Soft, no tenderness. No guarding. No rigidity. EXTREMITIES: No edema of the feet. Examination of the right 4th toe has discomfort and swollen. Minimal drainage. NEUROLOGICAL: Patient is awake, alert, oriented x3. Mood and affect normal. LABS: X-rays of the right foot shows evidence of osteomyelitis of the distal phalanx of the right 4th toe. Hemoglobin is 9.8, white count 2.31. BUN of 35, creatinine 1.3, electrolytes have been normal. CRP is 5.3. DIAGNOSTIC IMPRESSION AND PLAN: Patient with right diabetic foot infection involving the right 4th toe with wet gangrene and history of trauma, history of smoking and IV drug use, multiple comorbidities. Toes do not seem to be viable and the patient will benefit from amputation of the distal phalanx of the right 4th toe. Need to cover for the polymicrobial bacteriuria usually associated with these types of infection. PLAN: 1. Patient to continue vancomycin, pharmacy to dose target of 15. 2. Discontinue Zosyn , add Unasyn 3 g every 6 hours. 3. Discontinue Flagyl. 4. Await amputation and deep cultures. 5. We will follow on his clinical condition and further adjust medication if needed. Thank you for this consultation. Will follow this patient along with you. MMODL / IJN: [id number] / [id number]
[2021-03-23] MEDS: INSULIN ASPART (NovoLOG) 100 UNIT/ML VIAL SQ SCH ×4 (07:35→21:26)
[2021-03-23] MEDS: FAMOTIDINE 20 MG/2 ML VIAL IV SCH ×2 (08:04→21:24)
[2021-03-23] MEDS: NICOTINE 21MG/24HR PATCH TRANSDERM SCH (08:04)
--- NOTE | 2021-03-23 09:14 | P.NPCON ---
History of Present Illness - Reason for Consult acute renal failure - History of Present Illness Reason for consultation: Acute kidney injury History of present illness: Patient is a 60-year-old male seen in renal consultation for acute kidney injury. Patient's baseline creatinine is near 1 and is elevated at 1.49 today. Patient presented to the hospital due to infection and is right foot as well as a fever of 102F. Patient states the last few days his oral intake hasn't been very good. Patient also states his long-standing history of diabetes which has been poorly controlled with an A1c of over 11 last month. He states last month he has kept his blood sugars below 200. This admission he has been on an insulin drip which was just stopped this morning. He scheduled to undergo amputation of his right toe later today. He is also receiving antibiotics including IV vancomycin. He was also receiving Toradol for pain which has been stopped. He did have an episode of vomiting prior to admission but none now. Oral intake has been fair. No hematuria or dysuria. No chest pain or shortness of breath. IV fluids were also started this morning. Blood pressure is controlled. Vital signs are stable. General: The patient appeared well nourished and normally developed. HEENT: Head exam is unremarkable. Neck is without jugular venous distension. LUNGS: Breath sounds decreased. HEART: Rate and Rhythm are regular. ABDOMEN: Soft, no distention. EXTREMITITES: Trace edema. Right toe gangrene noted. 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 Date of last positivie culture/infection: 08/04/20 MDRO Source:: Lip Past Surgical History: Cardiac Valve Replacement, Cholecystectomy Additional Past Surgical History / Comment(s): aortic Past Psychological History: Bipolar, Depression Smoking Status: Current every day smoker Past Alcohol Use History: None Reported Past Drug Use History: Heroin, IV Drug Use, Marijuana Medications and Allergies Home Medications Medication Instructions Recorded Confirmed Type Acetaminophen Tab [Tylenol Tab] 500 mg PO Q6H PRN 03/21/21 03/21/21 History Albuterol Nebulized [Ventolin 2.5 mg INHALATION RT-QID PRN 03/21/21 03/21/21 History Nebulized] Albuterol Sulfate [Proair Hfa] 2 puff INHALATION RT-QID PRN 03/21/21 03/21/21 History Collagenase [Santyl] 1 applic TOPICAL DAILY 03/21/21 03/21/21 History Ergocalciferol [Vitamin D2 (1250 1,250 mcg PO MOFR 03/21/21 03/21/21 History Mcg = 12509 Iu)] Insulin Aspart [NovoLOG Flexpen] See Protocol SQ AC-TID 03/21/21 03/21/21 History Insulin Glargine,Hum.rec.anlog 25 unit SQ HS 03/21/21 03/21/21 History [Lantus Solostar] QUEtiapine [SEROquel] 100 mg PO HS 03/21/21 03/21/21 History oxyCODONE-APAP 10-325MG [Percocet 1 tab PO TID PRN 03/21/21 03/21/21 History 10-325 mg] Allergies Allergy/AdvReac Type Severity Reaction Status Date / Time No Known Allergies Allergy Verified 03/21/21 10:34 Physical Exam Vitals: Vital Signs Temp Pulse Resp BP Pulse Ox 03/23/21 07:21 97.7 F 77 17 135/80 98 03/23/21 00:16 97.6 F 75 15 138/68 98 03/22/21 20:00 75 18 03/22/21 19:18 98.2 F 76 15 148/79 99 03/22/21 14:00 97.7 F 105 H 18 108/76 99 Intake and Output 03/22/21 03/23/21 03/23/21 22:59 06:59 14:59 Intake Total 262.683 19.721 Output Total 150 Balance 112.683 19.721 Intake: Intake, IV Titration 22.683 19.721 Amount Insulin Regular 100 unit 22.683 19.721 In Sodium Chloride 0.9% 100 ml @ Titrate IV .Q0M [facility] Rx#:[id number] Oral 240 Output: Urine 150 Other: Voiding Method Toilet Urinal # Voids 3 Results - Lab Results Most recent lab results Calcium 7.8 mg/dL (8.4-10.2) L 03/23/21 05:15 03/23/21 05:15 03/23/21 05:15 Assessment and Plan Plan: Assessment: 1. Acute kidney injury secondary to ATN secondary to hypovolemia from hyperglycemia, nonsteroidals. Also concern for vancomycin toxicity. Baseline creatinine near 1 and is up to 1.49 today. 2. Right foot gangrene. Maintained on antibiotics. Scheduled for toe amp utation later today. 3. Uncontrolled diabetes mellitus. Status post insulin drip. 4. Pancytopenia. Oncology consulted. He was on Zosyn which has been discontinued. 5. Chronic kidney disease stage I secondary to diabetic kidney disease. He does have proteinuria on UA. Further workup outpatient. Plan: Maintain normal saline. Check vancomycin level. Dose to be adjusted for renal function. Avoid nephrotoxins. Toradol discontinued. Check urine eosinophils. Continue to monitor renal function and urine output. Thank you for the consultation. I will continue to follow the patient with you during his hospital stay.
[2021-03-23 09:51] LABS: Glucose,Whole Blood 125 mg/dL (75-99)
[2021-03-23 12:13] LABS: Glucose,Whole Blood 136 mg/dL (75-99)
[2021-03-23] MEDS ORDERED: IV FLUID CONTINUATION 1,000 ML IV ONE (12:23)
[2021-03-23] MEDS ORDERED: MIDAZOLAM 2 MG/2 ML VIAL IVP ONE (12:33)
[2021-03-23] MEDS ORDERED: MIDAZOLAM 2 MG/2 ML VIAL ONE (12:45)
[2021-03-23] MEDS ORDERED: KETAMINE 10 MG/ML 20 ML VIAL ONE (12:45)
[2021-03-23] MEDS ORDERED: PROPOFOL 10 MG/ML 20 ML VIAL IV ONE (12:45)
[2021-03-23] MEDS ORDERED: fentaNYL (PF) 50 MCG/ML 2 ML AMP ONE (12:45)
--- NOTE | 2021-03-23 12:51 | P.CONS ---
History of Present Illness - Reason for Consult Consult date: 03/23/21 Leukopenia, Thrombocytopenia Requesting physician: Kelli Moran - Chief Complaint Osteomyelitis - History of Present Illness We have been asked to evaluate Mr. Josue Chaney regarding pancytopenia. He has a known history of IV drug abuse and Hepatitis C which has been treated. I do not have long standing labs to trend. 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5 mg INHALATION RT-QID PRN 03/21/21 03/21/21 History Nebulized] Albuterol Sulfate [Proair Hfa] 2 puff INHALATION RT-QID PRN 03/21/21 03/21/21 History Collagenase [Santyl] 1 applic TOPICAL DAILY 03/21/21 03/21/21 History Ergocalciferol [Vitamin D2 (1250 1,250 mcg PO MOFR 03/21/21 03/21/21 History Mcg = 92737 Iu)] Insulin Aspart [NovoLOG Flexpen] See Protocol SQ AC-TID 03/21/21 03/21/21 History Insulin Glargine,Hum.rec.anlog 25 unit SQ HS 03/21/21 03/21/21 History [Lantus Solostar] QUEtiapine [SEROquel] 100 mg PO HS 03/21/21 03/21/21 History oxyCODONE-APAP 10-325MG [Percocet 1 tab PO TID PRN 03/21/21 03/21/21 History 10-325 mg] Allergies Allergy/AdvReac Type Severity Reaction Status Date / Time No Known Allergies Allergy Verified 03/21/21 10:34 Physical Exam Vitals: Vital Signs Temp Pulse Resp BP Pulse Ox 03/23/21 12:18 98.1 F 71 16 164/75 99 03/23/21 07:21 97.7 F 77 17 135/80 98 03/23/21 00:16 97.6 F 75 15 138/68 98 03/22/21 20:00 75 18 03/22/21 19:18 98.2 F 76 15 148/79 99 03/22/21 14:00 97.7 F 105 H 18 108/76 99 Intake and Output 03/22/21 03/23/21 03/23/21 22:59 06:59 14:59 Intake Total 262.683 19.721 Output Total 150 Balance 112.683 19.721 Intake: Intake, IV Titration 22.683 19.721 Amount Insulin Regular 100 unit 22.683 19.721 In Sodium Chloride 0.9% 100 ml @ Titrate IV .Q0M [facility] Rx#:[id number] Oral 240 Output: Urine 150 Other: Voiding Method Toilet Urinal # Voids 3 - Constitutional General appearance: cooperative, no acute distress - EENT Left cervical nodes and scarring with cording palpable Eyes: EOMI ENT: NA/AT - Neck Neck: normal ROM - Respiratory Respiratory: bilateral: CTA - Cardiovascular Rhythm: regular Heart sounds: normal: S1, S2 - Gastrointestinal General gastrointestinal: absent bowel sounds - Integumentary Bandages to foot CDI Integumentary: pale - Neurologic Neurologic: CNII-XII intact - Musculoskeletal Musculoskeletal: generalized weakness - Psychiatric Psychiatric: A&O x's 3, appropriate affect, intact judgment & insight Results CBC & Chem 7: 03/23/21 05:15 03/23/21 05:15 Labs: Abnormal Lab Results - Last 24 Hours (Table) 03/22/21 03/22/21 03/22/21 Range/Units 05:42 05:42 13:25 WBC (3.8-10.6) k/uL RBC (4.30-5.90) m/uL Hgb (13.0-17.5) gm/dL Hct (39.0-53.0) % Plt Count (150-450) k/uL Chloride (98-107) mmol/L Carbon Dioxide 20.6 L (21.6-31.8) mmol/L BUN 35.0 H (9.0-27.0) mg/dL Creatinine (0.66-1.25) mg/dL Est GFR (CKD-EPI)NonAf 59.7 L (60.0-200.0) BUN/Creatinine Ratio 26.92 H (12.00-20.00) Ratio Glucose 158 H (70-110) mg/dL POC Glucose (mg/dL) 143 H (75-99) mg/dL Hemoglobin A1c 9.8 H (4.0-6.0) % Calcium 7.8 L (8.7-10.3) mg/dL Urine Protein (Negative) Urine Ketones (Negative) Urine Blood (Negative) Ur Leukocyte Esterase (Negative) Urine Bacteria (None) /hpf 03/22/21 03/22/21 03/22/21 Range/Units 16:08 18:06 20:07 WBC (3.8-10.6) k/uL RBC (4.30-5.90) m/uL Hgb (13.0-17.5) gm/dL Hct (39.0-53.0) % Plt Count (150-450) k/uL Chloride (98-107) mmol/L Carbon Dioxide (21.6-31.8) mmol/L BUN (9.0-27.0) mg/dL Creatinine (0.66-1.25) mg/dL Est GFR (CKD-EPI)NonAf (60.0-200.0) BUN/Creatinine Ratio (12.00-20.00) Ratio Glucose (70-110) mg/dL POC Glucose (mg/dL) 158 H 172 H 155 H (75-99) mg/dL Hemoglobin A1c (4.0-6.0) % Calcium (8.7-10.3) mg/dL Urine Protein (Negative) Urine Ketones (Negative) Urine Blood (Negative) Ur Leukocyte Esterase (Negative) Urine Bacteria (None) /hpf 03/22/21 03/22/21 03/23/21 Range/Units 21:59 22:30 00:12 WBC (3.8-10.6) k/uL RBC (4.30-5.90) m/uL Hgb (13.0-17.5) gm/dL Hct (39.0-53.0) % Plt Count (150-450) k/uL Chloride (98-107) mmol/L Carbon Dioxide (21.6-31.8) mmol/L BUN (9.0-27.0) mg/dL Creatinine (0.66-1.25) mg/dL Est GFR (CKD-EPI)NonAf (60.0-200.0) BUN/Creatinine Ratio (12.00-20.00) Ratio Glucose (70-110) mg/dL POC Glucose (mg/dL) 151 H 158 H (75-99) mg/dL Hemoglobin A1c (4.0-6.0) % Calcium (8.7-10.3) mg/dL Urine Protein 2+ H (Negative) Urine Ketones Trace H (Negative) Urine Blood Moderate H (Negative) Ur Leukocyte Esterase Trace H (Negative) Urine Bacteria Rare H (None) /hpf 03/23/21 03/23/21 03/23/21 Range/Units 02:13 04:40 05:15 WBC 2.3 L (3.8-10.6) k/uL RBC 3.40 L (4.30-5.90) m/uL Hgb 10.0 L D (13.0-17.5) gm/dL Hct 29.5 L (39.0-53.0) % Plt Count 63 L (150-450) k/uL Chloride (98-107) mmol/L Carbon Dioxide (21.6-31.8) mmol/L BUN (9.0-27.0) mg/dL Creatinine (0.66-1.25) mg/dL Est GFR (CKD-EPI)NonAf (60.0-200.0) BUN/Creatinine Ratio (12.00-20.00) Ratio Glucose (70-110) mg/dL POC Glucose (mg/dL) 166 H 133 H (75-99) mg/dL Hemoglobin A1c (4.0-6.0) % Calcium (8.7-10.3) mg/dL Urine Protein (Negative) Urine Ketones (Negative) Urine Blood (Negative) Ur Leukocyte Esterase (Negative) Urine Bacteria (None) /hpf 03/23/21 03/23/21 03/23/21 Range/Units 05:15 06:08 09:43 WBC (3.8-10.6) k/uL RBC (4.30-5.90) m/uL Hgb (13.0-17.5) gm/dL Hct (39.0-53.0) % Plt Count (150-450) k/uL Chloride 108 H (98-107) mmol/L Carbon Dioxide (21.6-31.8) mmol/L BUN 43 H (9.0-27.0) mg/dL Creatinine 1.49 H (0.66-1.25) mg/dL Est GFR (CKD-EPI)NonAf (60.0-200.0) BUN/Creatinine Ratio (12.00-20.00) Ratio Glucose 126 H (70-110) mg/dL POC Glucose (mg/dL) 135 H 125 H (75-99) mg/dL Hemoglobin A1c (4.0-6.0) % Calcium 7.8 L (8.7-10.3) mg/dL Urine Protein (Negative) Urine Ketones (Negative) Urine Blood (Negative) Ur Leukocyte Esterase (Negative) Urine Bacteria (None) /hpf 03/23/21 Range/Units 12:11 WBC (3.8-10.6) k/uL RBC (4.30-5.90) m/uL Hgb (13.0-17.5) gm/dL Hct (39.0-53.0) % Plt Count (150-450) k/uL Chloride (98-107) mmol/L Carbon Dioxide (21.6-31.8) mmol/L BUN (9.0-27.0) mg/dL Creatinine (0.66-1.25) mg/dL Est GFR (CKD-EPI)NonAf (60.0-200.0) BUN/Creatinine Ratio (12.00-20.00) Ratio Glucose (70-110) mg/dL POC Glucose (mg/dL) 136 H (75-99) mg/dL Hemoglobin A1c (4.0-6.0) % Calcium (8.7-10.3) mg/dL Urine Protein (Negative) Urine Ketones (Negative) Urine Blood (Negative) Ur Leukocyte Esterase (Negative) Urine Bacteria (None) /hpf Microbiology - Last 24 Hours (Table) 03/21/21 09:03 Blood Culture - Preliminary Blood No Growth after 48 hours 03/21/21 09:03 Blood Culture - Preliminary Blood No Growth after 48 hours 03/22/21 11:30 Gram Stain - Preliminary Toe - Right Fourth Wound Culture - Preliminary Assessment and Plan (1) Pancytopenia Current Visit: Yes Status: Acute Code(s): D61.818 - OTHER PANCYTOPENIA SNOMED Code(s): 283832689 (2) Osteomyelitis of fourth toe of right foot Current Visit: Yes Status: Acute Code(s): M86.9 - OSTEOMYELITIS, UNSPECIFIED SNOMED Code(s): 800538179 Plan: Assessment and Recommendations: Persistent pancytopenia likely secondary to ongoing inflammation, antibiotics, infection resulting in bone marrow supproession: - Should improve after treatment of the underlying cause - FUll pancytopenia will be ordered to assess for other contributing factors. - Hold Anticoagulation/NSAID if platelets drop less than 50K - Transfuse hemoglobin less than 7 Procedure safe with platelet count greater than 50K, if bleeding noted post- operatively transfuse platelets Will check coags Recommend coverage antibiotics to continue given the low WBC
[2021-03-23 13:21] VITALS: BMI 29.0
[2021-03-23] MEDS ORDERED: HYDROmorphone 0.5 MG/0.5 ML SYRINGE IVP ONE ×3 (13:44→14:03)
--- NOTE | 2021-03-23 13:58 | P.OP ---
Date of Procedure: 03/23/21 Description of Procedure: SURGEON: Claribel Swain DO DATA INTEGRATION ANALYST: None PREOPERATIVE DIAGNOSIS: [Diabetic foot infection right fourth toe,, osteomyelitis, foot ulceration fifth toe]. POSTOPERATIVE DIAGNOSIS: [Same]. OPERATION: [Right] fourth toe amputation. Sharp excisional debridement of right fifth toe 0.6 x 1.2 x 0.2 to subcutaneous tissue ANESTHESIA: Monitored anesthesia care ESTIMATED BLOOD LOSS: 5 mL SPECIMENS REMOVED: Fourth toe COMPLICATIONS: None immediately apparent OPERATIVE FINDINGS: The patient is a 60-year-old male with a history of uncontrolled diabetes and thrombocytopenia as well as treated hepatitis C who presented to the hospital with coloration changes of his fourth toe and suspected osteomyelitis. There is also some question of fifth toe involvement therefore was recommended he undergo amputation of at least the fourth toe with evaluation of the fifth toe at that time. Risks and benefits were discussed. Similar understood and was willing to proceed as such. DESCRIPTION OF PROCEDURE: This patient was brought to the operating room, and given local and IV sedation. The operative foot was prepped and draped in sterile manner. An incision was made at the base of the fourth toe deep into skin and fascia on plantar and dorsal aspect until we reached the head of the metatarsal bone. [This patient had osteomyelitis of the right fourth toe but no evidence of osteomyelitis at the metatarsal head. The tendons were divided in plantar and dorsal aspects. The fourth toe was removed. There were minimal bleeding points which were electrocoagulated and some of them were suture ligated. Sharp excisional debridement with curette was performed at the medial fifth toe which had good granulation tissue and some macerated tissue around its edges but otherwise looked clean without any significant drainage or discharge. No fluctuance or for that toe was left intact at this time. Base of the wound looked clean, and the wound was copiously irrigated with saline. Tissue that was amenable was approximated with 3-0 Vicryl interrupted sutures and portions of the skin at the proximal and distal edges were reapproximated with interrupted sutures of 3-0 nylon.. Hemostasis was well controlled and pressure dressing was applied. The patient tolerated the procedure well.
[2021-03-23] MEDS: SODIUM CHLORIDE 0.9% 1,000 ML IV SCH ×2 (15:07→21:27)
[2021-03-23] MEDS: ALPRAZolam 0.25 MG TAB PO PRN ×2 (16:32→23:18)
[2021-03-23 16:48] LABS: Glucose,Whole Blood 173 mg/dL (75-99)
--- NOTE | 2021-03-23 18:06 | PN ---
PROGRESS NOTE DATE OF SERVICE: 03/23/2021. REASON FOR FOLLOWUP: Diabetic foot infection with right 4th toe osteomyelitis. INTERVAL HISTORY: Patient was taken to the OR this morning. The patient is status post right 4th toe amputation and excisional debridement of his right fifth toe. Patient tolerated the procedure well. Was complaining of pain prior to the procedure though. No chest pain, shortness of breath or cough. No abdominal pain or diarrhea. PHYSICAL EXAMINATION: Blood pressure 115/97, pulse of 70. Temperature 96.8. He is 98% on room air. General description is a middle-aged male lying in bed in no distress. Respiratory system: Unlabored breathing. Clear to auscultation anteriorly. Heart S1, S2. Regular rate and rhythm. Abdomen soft, no tenderness. Right foot is currently dressed up. LABS: Hemoglobin is 10, white count 2.3, BUN of 43, creatinine 1.49. Vanco random was 32.5. DIAGNOSTIC IMPRESSION AND PLAN: Patient with a right fourth diabetic foot infection with wet gangrene. Patient is status post amputation of the right 4th toe and debridement of the fifth toe. Wound culture will be followed in view of elevated vanco random, which has been put on hold. We will discontinue vancomycin and continue with Unasyn at this point. Cultures will be followed and antibiotic adjusted further if needed. MMODL / IJN: [id number] /
[2021-03-23] MEDS: amLODIPine 5 MG TAB PO SCH (19:23)
[2021-03-23] MEDS ORDERED: VANCOMYCIN TROUGH DUE 1 EACH MISC MISCELLANE ONE (21:00)
[2021-03-23 21:19] LABS: Glucose,Whole Blood 249 mg/dL (75-99)
[2021-03-23] MEDS: hydrALAZINE HCL 25 MG TAB PO PRN (21:24)
[2021-03-23] MEDS: QUEtiapine 100 MG TAB PO SCH (21:26)
[2021-03-23 23:16] LABS: Reticulocyte % 1.35 % (0.10-1.80)
[2021-03-23] MEDS: INSULIN DETEMIR (LEVEMIR) 100 UNIT/ML SYR SQ SCH (23:17)
[2021-03-24] MEDS: HYDROmorphone 1 MG/ML 1 ML SYRINGE IVP PRN ×6 (00:32→19:55)
[2021-03-24 02:49] LABS: Glucose,Whole Blood 198 mg/dL (75-99)
[2021-03-24 04:32] LABS: INR 0.9 (<1.2); Prothrombin Time 9.6 sec (9.0-12.0)
[2021-03-24 05:00] LABS: Protein, Total 6.1 g/dL (6.2-8.2)
[2021-03-24 05:15] LABS: Folate, Serum 9.7 ng/mL
[2021-03-24 05:25] LABS: % Iron Saturation 21.91 (15.00-50.00); African American GFR (CKD) 69.2 (60.0-200.0); Albumin 3.3 g/dL (3.80-4.90); Albumin/Globulin Ratio 1.22 (1.60-3.17); Anion Gap 5.8 mmol/L (4.00-12.00); BUN/Creat Ratio 28.46 Ratio (12.00-20.00); Calcium 7.6 mg/dL (8.7-10.3); Carbon Dioxide 23.2 mmol/L (21.6-31.8); Globulin 2.7 g/dL (1.6-3.3); Non-African American GFR(CKD) 59.7 (60.0-200.0); Potassium 4.3 mmol/L (3.5-5.5); Total Bilirubin 0.3 mg/dL (0.2-1.2)
[2021-03-24] MEDS: AMPICILLIN-SULBACTAM 3 GM in SODIUM CHLORIDE 0.9% 100 ML IVPB SCH ×3 (05:32→18:15)
--- NOTE | 2021-03-24 06:33 | P.PN ---
Subjective This is a pleasant 60 years old male with past medical history of diabetes mellitus, hepatitis C presents on 03/21 with fever, vomiting and chills and sweating of 2 days' duration. Plan to have an infected right fourth and fifth toes with wet gangrene and suspected underlying osteomyelitis. C-reactive protein is elevated at 5.3. Secondary to uncontrolled diabetes with hemoglobin A1c is 9.8%. Patient has been evaluated by vascular surgery team and the planned for amputation of the fourth and fifth toe tomorrow. Currently his insulin is controlled on Lantus 25 units at 13 units with meals, however he did not cut these and place and distended on insulin drip. Currently he is hemodynamically stable Labs reviewed his sodium is 136, potassium is 4.1. BUN is 35 and creatinine 1.3. Glucose was elevated more than 400, currently is better controlled. INR is 0.9. Urinalysis is ordered. Urine drug screen is positive for opioids, oxycodone, tricyclic antidepressant and marijuana. Coronavirus undetected He is a little bit pancytopenic with WBC 2.3, hemoglobin 9.9, platelets 56. Hematology team were consulted. He is kept on broad-spectrum antibiotics with Flagyl, Zosyn and IV vancomycin. Wound culture are pending. Infectious disease team of vascular surgery team consults are placed. His prognosis is guarded 03/23/2021 Patient seen today for a preop evaluation. Patient was awakened and alert, not in distress, pain uncontrolled patient asked to get more pain medication, Dilaudid 0.5 mg increase to 1 mg every 3 hours. Patient found at acceptable risk for the procedure, I discussed the case with Dr. Swain. Patient status post application of the right fourth toe and debridement of the right fifth toe. He was on insulin drip at 1 unit per hour, glucose was controlled. Insulin drip stopped and switched to insulin sliding scale Lap showing slightly elevated creatinine to 1.49 which is the upper limit of the reference range, vancomycin was held to check trough of vancomycin and adjust dose accordingly. Normal saline at 75 mL per hour started. Monitor input and output, patient is making good amount of urine. Toradol ordered on admission is stopped and nephrology team were consulted Also patient is with chronic thrombocytopenia since 2013 and currently above 50 K, patient is not on aspirin and his heparin dose this morning was held, there is no limitation for patient going for surgery because of low platelet count. Discussed with vascular surgery team Currently patient is on IV vancomycin pharmacy to dose, and Unasyn. Normal sinus 75 mL/h. Percocet and Dilaudid. Review of systems CONSTITUTIONAL: No fever, no malaise, no fatigue. HEENT: No recent visual problems or hearing problems. Denied any sore throat. CARDIOVASCULAR: No orthopnea, PND, no palpitations, no syncope. PULMONARY: No shortness of breath, no cough, no hemoptysis. GASTROINTESTINAL: No diarrhea, no nausea, no vomiting, no abdominal pain. Normoactive bowel sounds. NEUROLOGICAL: No headaches, no weakness, no numbness. Active Medications Generic Name Dose Route Start Last Admin Trade Name Freq PRN Reason Stop Dose Admin Acetaminophen 650 mg 03/21/21 10:18 Acetaminophen Tab 325 Mg Tab PO Q6HR PRN Mild Pain or Fever > 100.5 Albuterol Sulfate 2 puff 03/21/21 10:37 03/22/21 07:30 Albuterol Hfa Inhaler INHALATION 2 puff RT-QID PRN Administration Shortness Of Breath Or Wheezing Albuterol Sulfate 2.5 mg 03/21/21 19:56 Albuterol Nebulized 2.5 Mg/3 Ml INHALATION RT-QID PRN Shortness Of Breath Alprazolam 0.25 mg 03/23/21 11:39 03/23/21 16:32 Alprazolam 0.25 Mg Tab PO 0.25 mg BID PRN Administration Anxiety Amlodipine Besylate 5 mg 03/23/21 19:45 Amlodipine 5 Mg Tab PO DAILY ALEX Ergocalciferol 1,250 mcg 03/24/21 09:00 Ergocalciferol 1,250 Mcg (50,000 Iu) Capsule PO MOFR ALEX Famotidine 20 mg 03/23/21 09:00 03/23/21 08:04 Famotidine 20 Mg/2 Ml Vial IV 20 mg Q12HR ALEX Administration Heparin Sodium (Porcine) 5,000 unit 03/24/21 21:00 Heparin Sodium,Porcine/Pf 5,000 Unit/0.5 Ml Syringe SQ Q12HR ALEX Hydralazine HCl 25 mg 03/23/21 19:33 Hydralazine Hcl 25 Mg Tab PO QID PRN Blood Pressure - High Hydromorphone HCl 1 mg 03/23/21 08:18 03/23/21 18:37 Hydromorphone 1 Mg/Ml 1 Ml Syringe IVP 1 mg Q3HR PRN Administration Pain Ampicillin Sodium/Sulbactam 100 mls @ 200 mls/hr 03/23/21 00:00 03/23/21 18:00 Sodium 3 gm/ Sodium Chloride IVPB 200 mls/hr Q6HR ALEX Administration Sodium Chloride 1,000 mls @ 75 mls/hr 03/23/21 08:15 03/23/21 15:07 Saline 0.9% IV Not Given .[id number] ALEX Insulin Aspart 0 unit 03/23/21 17:30 03/23/21 17:14 Insulin Aspart (Novolog) 100 Unit/Ml Vial SQ 2 unit ACHS ALEX Administration Protocol Insulin Detemir 25 unit 03/21/21 21:00 03/22/21 20:18 Insulin Detemir (Levemir) 100 Unit/Ml Syr SQ 25 unit HS ALEX Administration Naloxone HCl 0.2 mg 03/21/21 10:18 Naloxone 0.4 Mg/Ml 1 Ml Vial IV Q2M PRN Opioid Reversal Nicotine 1 patch 03/21/21 18:45 03/23/21 08:04 Nicotine 21mg/24hr Patch TRANSDERM 1 patch DAILY ALEX Administration Ondansetron HCl 4 mg 03/21/21 10:18 Ondansetron 4 Mg/2 Ml Vial IVP Q8HR PRN Nausea And Vomiting Oxycodone/Acetaminophen 1 each 03/21/21 19:56 03/23/21 15:37 Oxycodone-Apap 10-325mg 1 Each Tab PO 1 each TID PRN Administration Pain Quetiapine Fumarate 100 mg 03/21/21 21:00 03/22/21 20:18 Quetiapine 100 Mg Tab PO 100 mg HS ALEX Administration Objective - Vital Signs Vital signs: Vital Signs Temp 97.9 F 03/23/21 14:45 Pulse 72 03/23/21 15:45 Resp 18 03/23/21 14:45 BP 180/77 03/23/21 15:45 Pulse Ox 99 03/23/21 14:45 Intake & Output 03/22/21 03/23/21 03/23/21 18:59 06:59 18:59 Intake Total 40.729 270.494 450 Output Total 150 5 Balance 40.729 120.494 445 Weight 99.79 kg Intake: IV 450 Intake, IV Titration 40.729 30.494 Amount Insulin Regular 100 unit 40.729 30.494 In Sodium Chloride 0.9% 100 ml @ Titrate IV .Q0M ON LICENSE OF [facility] Rx#:[id number] Oral 240 Output: Urine 150 Estimated Blood Loss 5 Other: Voiding Method Toilet Toilet Urinal Urinal # Voids 3 - Exam GENERAL: The patient is alert and oriented x3, not in any acute distress. Well developed, well nourished. HEENT: Pupils are round and equally reacting to light. EOMI. No scleral icterus. No conjunctival pallor. Normocephalic, atraumatic. No pharyngeal erythema. No thyromegaly. CARDIOVASCULAR: S1 and S2 present. No murmurs, rubs, or gallops. PULMONARY: Chest is clear to auscultation, no wheezing or crackles. ABDOMEN: Soft, nontender, nondistended, normoactive bowel sounds. No palpable organomegaly. MUSCULOSKELETAL: No joint swelling or deformity. -EXTREMITIES: No cyanosis, clubbing, or pedal edema. Infected right fourth and fifth toes, with gangrene NEUROLOGICAL: Gross neurological examination did not reveal any focal deficits. SKIN: No rashes. no petechiae. - Labs CBC & Chem 7: 03/23/21 05:15 03/23/21 05:15 Labs: Abnormal Lab Results - Last 24 Hours (Table) 03/22/21 03/22/21 03/22/21 Range/Units 20:07 21:59 22:30 WBC (3.8-10.6) k/uL RBC (4.30-5.90) m/uL Hgb (13.0-17.5) gm/dL Hct (39.0-53.0) % Plt Count (150-450) k/uL Fibrinogen (200-500) mg/dL Chloride (98-107) mmol/L BUN (9-20) mg/dL Creatinine (0.66-1.25) mg/dL Glucose (74-99) mg/dL POC Glucose (mg/dL) 155 H 151 H (75-99) mg/dL Calcium (8.4-10.2) mg/dL Urine Protein 2+ H (Negative) Urine Ketones Trace H (Negative) Urine Blood Moderate H (Negative) Ur Leukocyte Esterase Trace H (Negative) Urine Bacteria Rare H (None) /hpf 03/23/21 03/23/21 03/23/21 Range/Units 00:12 02:13 04:40 WBC (3.8-10.6) k/uL RBC (4.30-5.90) m/uL Hgb (13.0-17.5) gm/dL Hct (39.0-53.0) % Plt Count (150-450) k/uL Fibrinogen (200-500) mg/dL Chloride (98-107) mmol/L BUN (9-20) mg/dL Creatinine (0.66-1.25) mg/dL Glucose (74-99) mg/dL POC Glucose (mg/dL) 158 H 166 H 133 H (75-99) mg/dL Calcium (8.4-10.2) mg/dL Urine Protein (Negative) Urine Ketones (Negative) Urine Blood (Negative) Ur Leukocyte Esterase (Negative) Urine Bacteria (None) /hpf 03/23/21 03/23/21 03/23/21 Range/Units 05:15 05:15 06:08 WBC 2.3 L (3.8-10.6) k/uL RBC 3.40 L (4.30-5.90) m/uL Hgb 10.0 L D (13.0-17.5) gm/dL Hct 29.5 L (39.0-53.0) % Plt Count 63 L (150-450) k/uL Fibrinogen (200-500) mg/dL Chloride 108 H (98-107) mmol/L BUN 43 H (9-20) mg/dL Creatinine 1.49 H (0.66-1.25) mg/dL Glucose 126 H (74-99) mg/dL POC Glucose (mg/dL) 135 H (75-99) mg/dL Calcium 7.8 L (8.4-10.2) mg/dL Urine Protein (Negative) Urine Ketones (Negative) Urine Blood (Negative) Ur Leukocyte Esterase (Negative) Urine Bacteria (None) /hpf 03/23/21 03/23/21 03/23/21 Range/Units 09:43 12:11 16:42 WBC (3.8-10.6) k/uL RBC (4.30-5.90) m/uL Hgb (13.0-17.5) gm/dL Hct (39.0-53.0) % Plt Count (150-450) k/uL Fibrinogen 534 H (200-500) mg/dL Chloride (98-107) mmol/L BUN (9-20) mg/dL Creatinine (0.66-1.25) mg/dL Glucose (74-99) mg/dL POC Glucose (mg/dL) 125 H 136 H (75-99) mg/dL Calcium (8.4-10.2) mg/dL Urine Protein (Negative) Urine Ketones (Negative) Urine Blood (Negative) Ur Leukocyte Esterase (Negative) Urine Bacteria (None) /hpf 03/23/21 Range/Units 16:44 WBC (3.8-10.6) k/uL RBC (4.30-5.90) m/uL Hgb (13.0-17.5) gm/dL Hct (39.0-53.0) % Plt Count (150-450) k/uL Fibrinogen (200-500) mg/dL Chloride (98-107) mmol/L BUN (9-20) mg/dL Creatinine (0.66-1.25) mg/dL Glucose (74-99) mg/dL POC Glucose (mg/dL) 173 H (75-99) mg/dL Calcium (8.4-10.2) mg/dL Urine Protein (Negative) Urine Ketones (Negative) Urine Blood (Negative) Ur Leukocyte Esterase (Negative) Urine Bacteria (None) /hpf Microbiology - Last 24 Hours (Table) 03/21/21 09:03 Blood Culture - Preliminary Blood No Growth after 48 hours 03/21/21 09:03 Blood Culture - Preliminary Blood No Growth after 48 hours 03/22/21 11:30 Gram Stain - Preliminary Toe - Right Fourth Wound Culture - Preliminary Assessment and Plan Assessment: Wet gangrene and suspected underlying osteomyelitis of right foot, Status post fourth toe amputation and debridement of the fifth toe. Present on admission Diabetes mellitus with hyperglycemia on the presentation mild elevation in creatinine, suspect NITA Pancytopenia, with chronic thrombocytopenia since 2013 mostly related to his history of hep C History of hepatitis C Plan: This is a pleasant 60 years old male who presented with wet gangrene of the right fourth and fifth toe. Status post amputation of the toes. Patient is on broad-spectrum antibiotics with Unasyn and IV vancomycin with ID team on the case. Follow-up culture results. Risks of antibiotics are explained to the patient and he verbalized understanding and acceptance Hematology team for pancytopenia and thrombocytopenia. Nephrology consult. Continue with IV fluids. Avoid NSAIDs. Monitor creatinine Labs and medication were reviewed.. Continue same treatment. Continue with symptomatic treatment. Resume home medication. Monitor lytes and vitals. DVT and GI prophylaxis. Further recommendations as per clinical course of the patient DVT prophylaxis: Subcutaneous heparin GI Prophylaxis: Pepcid PT/OT: Pending Prognosis is guarded
--- NOTE | 2021-03-24 06:33 | P.PN ---
Subjective This is a pleasant 60 years old male with past medical history of diabetes mellitus, hepatitis C presents on 03/21 with fever, vomiting and chills and sweating of 2 days' duration. Plan to have an infected right fourth and fifth toes with wet gangrene and suspected underlying osteomyelitis. C-reactive protein is elevated at 5.3. Secondary to uncontrolled diabetes with hemoglobin A1c is 9.8%. Patient has been evaluated by vascular surgery team and the planned for amputation of the fourth and fifth toe tomorrow. Currently his insulin is controlled on Lantus 25 units at 13 units with meals, however he did not cut these and place and distended on insulin drip. Currently he is hemodynamically stable Labs reviewed his sodium is 136, potassium is 4.1. BUN is 35 and creatinine 1.3. Glucose was elevated more than 400, currently is better controlled. INR is 0.9. Urinalysis is ordered. Urine drug screen is positive for opioids, oxycodone, tricyclic antidepressant and marijuana. Coronavirus undetected He is a little bit pancytopenic with WBC 2.3, hemoglobin 9.9, platelets 56. Hematology team were consulted. He is kept on broad-spectrum antibiotics with Flagyl, Zosyn and IV vancomycin. Wound culture are pending. Infectious disease team of vascular surgery team consults are placed. His prognosis is guarded Objective - Vital Signs Vital signs: Vital Signs Temp 98.2 F 03/22/21 19:18 Pulse 76 03/22/21 19:18 Resp 15 03/22/21 19:18 BP 148/79 03/22/21 19:18 Pulse Ox 99 03/22/21 19:18 Intake & Output 03/22/21 03/22/21 03/23/21 06:59 18:59 06:59 Intake Total 394.592 40.729 246.312 Output Total 350 Balance 44.592 40.729 246.312 Weight 99.79 kg Intake: Intake, IV Titration 394.592 40.729 6.312 Amount Insulin Regular 100 unit 44.592 40.729 6.312 In Sodium Chloride 0.9% 100 ml @ Titrate IV .Q0M [facility] Rx#:[id number] Piperacillin-Tazobactam 3 100 .375 gm In Sodium Chloride 0.9% 100 ml @ 200 mls/hr IVPB ONCE STA Rx#:[id number] Vancomycin 1,500 mg In 250 Sodium Chloride 0.9% 250 ml @ 125 mls/hr IVPB ONCE ONE Rx#:[id number] Oral 240 Output: Urine 350 Other: Voiding Method Toilet Toilet Urinal # Voids 3 - Exam GENERAL: The patient is alert and oriented x3, not in any acute distress. Well developed, well nourished. HEENT: Pupils are round and equally reacting to light. EOMI. No scleral icterus. No conjunctival pallor. Normocephalic, atraumatic. No pharyngeal erythema. No thyromegaly. CARDIOVASCULAR: S1 and S2 present. No murmurs, rubs, or gallops. PULMONARY: Chest is clear to auscultation, no wheezing or crackles. ABDOMEN: Soft, nontender, nondistended, normoactive bowel sounds. No palpable organomegaly. MUSCULOSKELETAL: No joint swelling or deformity. -EXTREMITIES: No cyanosis, clubbing, or pedal edema. Infected right fourth and fifth toes, with gangrene NEUROLOGICAL: Gross neurological examination did not reveal any focal deficits. SKIN: No rashes. no petechiae. - Labs CBC & Chem 7: 03/23/21 05:15 03/23/21 05:15 Labs: Abnormal Lab Results - Last 24 Hours (Table) 03/21/21 03/22/21 03/22/21 Range/Units 20:23 00:13 01:57 WBC (4.50-10.00) X 10*3/uL RBC (4.40-5.60) X 10*6/uL Hgb (13.0-17.0) g/dL Hct (39.6-50.0) % Plt Count (140-440) X 10*3/uL Plt Count Comment MPV (9.5-12.2) fL Neutrophils # (1.80-7.70) X 10*3/uL Lymphocytes # (0.90-5.00) X 10*3/uL Immature Plt Fraction (1.1-6.1) % Carbon Dioxide (21.6-31.8) mmol/L BUN (9.0-27.0) mg/dL Est GFR (CKD-EPI)NonAf (60.0-200.0) BUN/Creatinine Ratio (12.00-20.00) Ratio Glucose (70-110) mg/dL POC Glucose (mg/dL) 451 H 441 H 264 H (75-99) mg/dL Hemoglobin A1c (4.0-6.0) % Calcium (8.7-10.3) mg/dL Urine Protein (Negative) Urine Glucose (UA) (Negative) Urine Blood (Negative) Urine RBC (0-5) /hpf Amorphous Sediment (None) /hpf Urine Mucus (None) /hpf Urine Opiates Screen (NotDetected) Ur Oxycodone Screen (NotDetected) U Tricyclic Antidepress (NotDetected) U Marijuana (THC) Screen (NotDetected) 03/22/21 03/22/21 03/22/21 Range/Units 02:57 05:42 05:42 WBC 2.31 L (4.50-10.00) X 10*3/uL RBC 3.35 L (4.40-5.60) X 10*6/uL Hgb 9.9 L (13.0-17.0) g/dL Hct 29.6 L (39.6-50.0) % Plt Count 56 L (140-440) X 10*3/uL Plt Count Comment DECREASED A MPV 12.8 H (9.5-12.2) fL Neutrophils # 1.19 L (1.80-7.70) X 10*3/uL Lymphocytes # 0.72 L (0.90-5.00) X 10*3/uL Immature Plt Fraction 9.3 H (1.1-6.1) % Carbon Dioxide 20.6 L (21.6-31.8) mmol/L BUN 35.0 H (9.0-27.0) mg/dL Est GFR (CKD-EPI)NonAf 59.7 L (60.0-200.0) BUN/Creatinine Ratio 26.92 H (12.00-20.00) Ratio Glucose 158 H (70-110) mg/dL POC Glucose (mg/dL) 163 H (75-99) mg/dL Hemoglobin A1c (4.0-6.0) % Calcium 7.8 L (8.7-10.3) mg/dL Urine Protein (Negative) Urine Glucose (UA) (Negative) Urine Blood (Negative) Urine RBC (0-5) /hpf Amorphous Sediment (None) /hpf Urine Mucus (None) /hpf Urine Opiates Screen (NotDetected) Ur Oxycodone Screen (NotDetected) U Tricyclic Antidepress (NotDetected) U Marijuana (THC) Screen (NotDetected) 03/22/21 03/22/21 03/22/21 Range/Units 05:42 06:21 06:54 WBC (4.50-10.00) X 10*3/uL RBC (4.40-5.60) X 10*6/uL Hgb (13.0-17.0) g/dL Hct (39.6-50.0) % Plt Count (140-440) X 10*3/uL Plt Count Comment MPV (9.5-12.2) fL Neutrophils # (1.80-7.70) X 10*3/uL Lymphocytes # (0.90-5.00) X 10*3/uL Immature Plt Fraction (1.1-6.1) % Carbon Dioxide (21.6-31.8) mmol/L BUN (9.0-27.0) mg/dL Est GFR (CKD-EPI)NonAf (60.0-200.0) BUN/Creatinine Ratio (12.00-20.00) Ratio Glucose (70-110) mg/dL POC Glucose (mg/dL) 182 H 179 H (75-99) mg/dL Hemoglobin A1c 9.8 H (4.0-6.0) % Calcium (8.7-10.3) mg/dL Urine Protein (Negative) Urine Glucose (UA) (Negative) Urine Blood (Negative) Urine RBC (0-5) /hpf Amorphous Sediment (None) /hpf Urine Mucus (None) /hpf Urine Opiates Screen (NotDetected) Ur Oxycodone Screen (NotDetected) U Tricyclic Antidepress (NotDetected) U Marijuana (THC) Screen (NotDetected) 03/22/21 03/22/21 03/22/21 Range/Units 08:05 09:13 11:28 WBC (4.50-10.00) X 10*3/uL RBC (4.40-5.60) X 10*6/uL Hgb (13.0-17.0) g/dL Hct (39.6-50.0) % Plt Count (140-440) X 10*3/uL Plt Count Comment MPV (9.5-12.2) fL Neutrophils # (1.80-7.70) X 10*3/uL Lymphocytes # (0.90-5.00) X 10*3/uL Immature Plt Fraction (1.1-6.1) % Carbon Dioxide (21.6-31.8) mmol/L BUN (9.0-27.0) mg/dL Est GFR (CKD-EPI)NonAf (60.0-200.0) BUN/Creatinine Ratio (12.00-20.00) Ratio Glucose (70-110) mg/dL POC Glucose (mg/dL) 250 H 177 H (75-99) mg/dL Hemoglobin A1c (4.0-6.0) % Calcium (8.7-10.3) mg/dL Urine Protein 3+ H (Negative) Urine Glucose (UA) 3+ H (Negative) Urine Blood Moderate H (Negative) Urine RBC 12 H (0-5) /hpf Amorphous Sediment Rare H (None) /hpf Urine Mucus Rare H (None) /hpf Urine Opiates Screen Detected H (NotDetected) Ur Oxycodone Screen Detected H (NotDetected) U Tricyclic Antidepress Detected H (NotDetected) U Marijuana (THC) Screen Detected H (NotDetected) 03/22/21 03/22/21 03/22/21 Range/Units 13:25 16:08 18:06 WBC (4.50-10.00) X 10*3/uL RBC (4.40-5.60) X 10*6/uL Hgb (13.0-17.0) g/dL Hct (39.6-50.0) % Plt Count (140-440) X 10*3/uL Plt Count Comment MPV (9.5-12.2) fL Neutrophils # (1.80-7.70) X 10*3/uL Lymphocytes # (0.90-5.00) X 10*3/uL Immature Plt Fraction (1.1-6.1) % Carbon Dioxide (21.6-31.8) mmol/L BUN (9.0-27.0) mg/dL Est GFR (CKD-EPI)NonAf (60.0-200.0) BUN/Creatinine Ratio (12.00-20.00) Ratio Glucose (70-110) mg/dL POC Glucose (mg/dL) 143 H 158 H 172 H (75-99) mg/dL Hemoglobin A1c (4.0-6.0) % Calcium (8.7-10.3) mg/dL Urine Protein (Negative) Urine Glucose (UA) (Negative) Urine Blood (Negative) Urine RBC (0-5) /hpf Amorphous Sediment (None) /hpf Urine Mucus (None) /hpf Urine Opiates Screen (NotDetected) Ur Oxycodone Screen (NotDetected) U Tricyclic Antidepress (NotDetected) U Marijuana (THC) Screen (NotDetected) 03/22/21 Range/Units 20:07 WBC (4.50-10.00) X 10*3/uL RBC (4.40-5.60) X 10*6/uL Hgb (13.0-17.0) g/dL Hct (39.6-50.0) % Plt Count (140-440) X 10*3/uL Plt Count Comment MPV (9.5-12.2) fL Neutrophils # (1.80-7.70) X 10*3/uL Lymphocytes # (0.90-5.00) X 10*3/uL Immature Plt Fraction (1.1-6.1) % Carbon Dioxide (21.6-31.8) mmol/L BUN (9.0-27.0) mg/dL Est GFR (CKD-EPI)NonAf (60.0-200.0) BUN/Creatinine Ratio (12.00-20.00) Ratio Glucose (70-110) mg/dL POC Glucose (mg/dL) 155 H (75-99) mg/dL Hemoglobin A1c (4.0-6.0) % Calcium (8.7-10.3) mg/dL Urine Protein (Negative) Urine Glucose (UA) (Negative) Urine Blood (Negative) Urine RBC (0-5) /hpf Amorphous Sediment (None) /hpf Urine Mucus (None) /hpf Urine Opiates Screen (NotDetected) Ur Oxycodone Screen (NotDetected) U Tricyclic Antidepress (NotDetected) U Marijuana (THC) Screen (NotDetected) Microbiology - Last 24 Hours (Table) 03/22/21 11:30 Wound Culture - Preliminary Toe - Right Fourth 03/21/21 09:03 Blood Culture - Preliminary Blood No Growth after 24 hours 03/21/21 09:03 Blood Culture - Preliminary Blood No Growth after 24 hours Assessment and Plan Assessment: Wet gangrene and suspected underlying osteomyelitis of the right fourth and fifth toes Diabetes mellitus with hyperglycemia on the presentation Pancytopenia, with chronic thrombocytopenia since 2013 mostly related to his history of hep C History of hepatitis C Plan: This is a pleasant 60 years old male who presented with wet gangrene of the right fourth and fifth toe. Vascular surgery on the case and planned for amput ation of the toes. Patient is on broad-spectrum antibiotics with Zosyn and IV vancomycin with ID team on the case. Follow-up culture results. Risks of antibiotics are explained to the patient and he verbalized understanding and acceptance Hematology team for pancytopenia and thrombocytopenia. Labs and medication were reviewed.. Continue same treatment. Continue with symptomatic treatment. Resume home medication. Monitor lytes and vitals. DVT and GI prophylaxis. Further recommendations as per clinical course of the patient DVT prophylaxis: Subcutaneous heparin GI Prophylaxis: Pepcid PT/OT: Pending Prognosis is guarded
[2021-03-24 07:07] LABS: Glucose,Whole Blood 280 mg/dL (75-99)
[2021-03-24] MEDS: FAMOTIDINE 20 MG/2 ML VIAL IV SCH (07:29)
[2021-03-24] MEDS: amLODIPine 5 MG TAB PO SCH (07:29)
[2021-03-24] MEDS: INSULIN ASPART (NovoLOG) 100 UNIT/ML VIAL SQ SCH ×4 (07:29→21:27)
[2021-03-24] MEDS: oxyCODONE-APAP 10-325MG 1 EACH TAB PO PRN ×2 (07:29→17:10)
[2021-03-24] MEDS: NICOTINE 21MG/24HR PATCH TRANSDERM SCH (07:30)
[2021-03-24 08:18] LABS: HCT 30.6 % (39.0-53.0); HGB 10.5 gm/dL (13.0-17.5); MCHC 34.5 g/dL (31.0-37.0); MCV 87.1 fL (80.0-100.0); Mean Platelet Volume 8.8; Platelet Count 68 k/uL (150-450); RBC 3.51 m/uL (4.30-5.90); RDW 13.4 % (11.5-15.5); WBC 2.3 k/uL (3.8-10.6)
--- NOTE | 2021-03-24 08:51 | P.PN ---
Subjective Progress Note Date: 03/24/21 Principal diagnosis: Right foot infection Patient is seen and examined lying in bed. He is postop day #1 for right fourth toe amputation and right fifth toe treatment. Infectious diseases on consult, patient continues IV antibiotics. He was seen by hematology who was doing fu rther workup. Nephrology is following for kidney function, which is improving. He's been afebrile. States he has some pain and burning to that right lower extremity. Objective - Vital Signs Vital signs: Vital Signs Temp 98.0 F 03/24/21 07:36 Pulse 71 03/24/21 07:36 Resp 18 03/24/21 07:36 BP 160/67 03/24/21 07:36 Pulse Ox 98 03/24/21 07:36 Intake & Output 03/23/21 03/24/21 03/24/21 18:59 06:59 18:59 Intake Total 450 1100 Output Total 5 Balance 445 1100 Weight 99.79 kg Intake: IV 450 Intake, IV Titration 1100 Amount Ampicillin-Sulbactam 3 gm 200 In Sodium Chloride 0.9% 100 ml @ 200 mls/hr IVPB Q6HR [facility] Rx#:[id number] Sodium Chloride 0.9% 1, 900 000 ml @ 75 mls/hr IV . [id number] [facility] Rx#:[id number] Output: Estimated Blood Loss 5 Other: Voiding Method Toilet Urinal # Voids 2 2 - Exam General appearance: The patient is alert, oriented, appears in no acute distress. HET: Head is normocephalic and atraumatic. Neck: Supple without lymphadenopathy. Trachea midline. Heart: S1 S2. Regular rate and rhythm. Lungs: Clear to auscultation. Abdomen: Soft, nontender, nondistended with bowel sounds. Extremities: Normal skin color and turgor. Bilateral lower extremity edema. Right foot with dressing intact with the of bloody drainage. Dressing is changed, amputation site with sutures with central area open with scant amount of bleeding, medial aspect of fifth toe with debridement, nonbleeding. No odor noted. Redressed with wet-to-dry Kerlix dressing. Neurological: No focal deficits. Strength and sensation are grossly intact. - Labs CBC & Chem 7: 03/24/21 06:26 03/24/21 06:26 Labs: Abnormal Lab Results - Last 24 Hours (Table) 03/23/21 03/23/21 03/23/21 Range/Units 09:43 12:11 16:42 WBC (3.8-10.6) k/uL RBC (4.30-5.90) m/uL Hgb (13.0-17.5) gm/dL Hct (39.0-53.0) % Plt Count (150-450) k/uL ESR 67 H (0-20) mm/Hr Fibrinogen (200-500) mg/dL BUN (9.0-27.0) mg/dL Est GFR (CKD-EPI)NonAf (60.0-200.0) BUN/Creatinine Ratio (12.00-20.00) Ratio Glucose (70-110) mg/dL POC Glucose (mg/dL) 125 H 136 H (75-99) mg/dL Calcium (8.7-10.3) mg/dL Iron (65-175) ug/dL Alkaline Phosphatase (41-126) U/L Total Protein (6.2-8.2) g/dL Total Protein (PEP) (6.2-8.2) g/dL Albumin (3.80-4.90) g/dL Albumin/Globulin Ratio (1.60-3.17) g/dL Vitamin D 25-Hydroxy (30.0-100.0) ng/mL 03/23/21 03/23/21 03/23/21 Range/Units 16:42 16:42 16:42 WBC (3.8-10.6) k/uL RBC (4.30-5.90) m/uL Hgb (13.0-17.5) gm/dL Hct (39.0-53.0) % Plt Count (150-450) k/uL ESR (0-20) mm/Hr Fibrinogen 534 H (200-500) mg/dL BUN 37.0 H (9.0-27.0) mg/dL Est GFR (CKD-EPI)NonAf 59.7 L (60.0-200.0) BUN/Creatinine Ratio 28.46 H (12.00-20.00) Ratio Glucose 177 H (70-110) mg/dL POC Glucose (mg/dL) (75-99) mg/dL Calcium 7.6 L (8.7-10.3) mg/dL Iron 55 L (65-175) ug/dL Alkaline Phosphatase 133 H (41-126) U/L Total Protein 6.0 L (6.2-8.2) g/dL Total Protein (PEP) 6.1 L (6.2-8.2) g/dL Albumin 3.30 L (3.80-4.90) g/dL Albumin/Globulin Ratio 1.22 L (1.60-3.17) g/dL Vitamin D 25-Hydroxy 26.9 L (30.0-100.0) ng/mL 03/23/21 03/23/21 03/24/21 Range/Units 16:44 21:18 02:48 WBC (3.8-10.6) k/uL RBC (4.30-5.90) m/uL Hgb (13.0-17.5) gm/dL Hct (39.0-53.0) % Plt Count (150-450) k/uL ESR (0-20) mm/Hr Fibrinogen (200-500) mg/dL BUN (9.0-27.0) mg/dL Est GFR (CKD-EPI)NonAf (60.0-200.0) BUN/Creatinine Ratio (12.00-20.00) Ratio Glucose (70-110) mg/dL POC Glucose (mg/dL) 173 H 249 H 198 H (75-99) mg/dL Calcium (8.7-10.3) mg/dL Iron (65-175) ug/dL Alkaline Phosphatase (41-126) U/L Total Protein (6.2-8.2) g/dL Total Protein (PEP) (6.2-8.2) g/dL Albumin (3.80-4.90) g/dL Albumin/Globulin Ratio (1.60-3.17) g/dL Vitamin D 25-Hydroxy (30.0-100.0) ng/mL 03/24/21 03/24/21 Range/Units 06:26 06:57 WBC 2.3 L (3.8-10.6) k/uL RBC 3.51 L (4.30-5.90) m/uL Hgb 10.5 L (13.0-17.5) gm/dL Hct 30.6 L (39.0-53.0) % Plt Count 68 L (150-450) k/uL ESR (0-20) mm/Hr Fibrinogen (200-500) mg/dL BUN (9.0-27.0) mg/dL Est GFR (CKD-EPI)NonAf (60.0-200.0) BUN/Creatinine Ratio (12.00-20.00) Ratio Glucose (70-110) mg/dL POC Glucose (mg/dL) 280 H (75-99) mg/dL Calcium (8.7-10.3) mg/dL Iron (65-175) ug/dL Alkaline Phosphatase (41-126) U/L Total Protein (6.2-8.2) g/dL Total Protein (PEP) (6.2-8.2) g/dL Albumin (3.80-4.90) g/dL Albumin/Globulin Ratio (1.60-3.17) g/dL Vitamin D 25-Hydroxy (30.0-100.0) ng/mL Microbiology - Last 24 Hours (Table) 03/21/21 09:03 Blood Culture - Preliminary Blood No Growth after 48 hours 03/21/21 09:03 Blood Culture - Preliminary Blood No Growth after 48 hours Assessment and Plan Assessment: 1. Postop day #1 right fourth toe amputation, fifth toe debridement 2. Wet Gangrene of right fourth toe, x-ray showing likely osteomyelitis 3. Nonhealing diabetic wound right fourth and fifth toe 4. Diabetes mellitus 5. Peripheral neuropathy 6. Current smoker 7. History of COPD 8. History of cardiac valve replacement 3 years ago Plan: 1. Continue with IV antibiotics per infectious disease 2. Gabapentin 300 mg 3 times a day added 3. Continue with pain management 4. Smoking cessation 5. Physical therapy ordered, heell pressure only on right foot 6. Hematology on consult, appreciate their recommendations 7. Nephrology on consult 8. Daily wet-to-dry dressing 9. Wound care on consult, further recommendations on wound care Thank you for this consultation, we will sign off at this time. All further wound care per Wound Care directions and outpatient wound care needed. Patient can follow-up with vascular surgery as needed if wound clinic deems necessary. The impression and plan of care has been dictated as directed. Dr. Swain I performed a history and examination of this patient, discussed the same with the dictator. I agree with the dictator's note ,documented as a scribe. Any additional findings or plans will be noted.
[2021-03-24] MEDS: ERGOCALCIFEROL 1,250 MCG (50,000 IU) CAPSULE PO SCH (09:30)
[2021-03-24] MEDS: GABAPENTIN 300 MG CAP PO SCH ×3 (09:30→21:28)
--- NOTE | 2021-03-24 09:59 | P.PN ---
Subjective Patient is seen in follow-up for acute kidney injury. Creatinine peaked at 1.49 this admission and then was down to 1.3 as of yesterday afternoon. He underwent amputation of for right toe yesterday. Oral intake is good. No chest pain or shortness of breath. No vomiting or diarrhea. Vital signs are stable. General: The patient appeared well nourished and normally developed. HEENT: Head exam is unremarkable. Neck is without jugular venous distension. LUNGS: Breath sounds decreased. HEART: Rate and Rhythm are regular. ABDOMEN: Soft, no distention. EXTREMITITES: Right foot drop. No drainage. Objective - Vital Signs Vital signs: Vital Signs Temp 98.0 F 03/24/21 07:36 Pulse 71 03/24/21 07:36 Resp 18 03/24/21 07:36 BP 160/67 03/24/21 07:36 Pulse Ox 98 03/24/21 07:36 Intake & Output 03/23/21 03/24/21 03/24/21 18:59 06:59 18:59 Intake Total 450 1100 Output Total 5 Balance 445 1100 Weight 99.79 kg Intake: IV 450 Intake, IV Titration 1100 Amount Ampicillin-Sulbactam 3 gm 200 In Sodium Chloride 0.9% 100 ml @ 200 mls/hr IVPB Q6HR [facility] Rx#:[id number] Sodium Chloride 0.9% 1, 900 000 ml @ 75 mls/hr IV . [id number] [facility] Rx#:[id number] Output: Estimated Blood Loss 5 Other: Voiding Method Toilet Urinal # Voids 2 2 - Labs CBC & Chem 7: 03/24/21 06:26 03/23/21 16:42 Labs: Abnormal Lab Results - Last 24 Hours (Table) 03/23/21 03/23/21 03/23/21 Range/Units 09:43 12:11 16:42 WBC (3.8-10.6) k/uL RBC (4.30-5.90) m/uL Hgb (13.0-17.5) gm/dL Hct (39.0-53.0) % Plt Count (150-450) k/uL ESR 67 H (0-20) mm/Hr Fibrinogen (200-500) mg/dL BUN (9.0-27.0) mg/dL Est GFR (CKD-EPI)NonAf (60.0-200.0) BUN/Creatinine Ratio (12.00-20.00) Ratio Glucose (70-110) mg/dL POC Glucose (mg/dL) 125 H 136 H (75-99) mg/dL Calcium (8.7-10.3) mg/dL Iron (65-175) ug/dL Alkaline Phosphatase (41-126) U/L Total Protein (6.2-8.2) g/dL Total Protein (PEP) (6.2-8.2) g/dL Albumin (3.80-4.90) g/dL Albumin/Globulin Ratio (1.60-3.17) g/dL Vitamin D 25-Hydroxy (30.0-100.0) ng/mL 03/23/21 03/23/21 03/23/21 Range/Units 16:42 16:42 16:42 WBC (3.8-10.6) k/uL RBC (4.30-5.90) m/uL Hgb (13.0-17.5) gm/dL Hct (39.0-53.0) % Plt Count (150-450) k/uL ESR (0-20) mm/Hr Fibrinogen 534 H (200-500) mg/dL BUN 37.0 H (9.0-27.0) mg/dL Est GFR (CKD-EPI)NonAf 59.7 L (60.0-200.0) BUN/Creatinine Ratio 28.46 H (12.00-20.00) Ratio Glucose 177 H (70-110) mg/dL POC Glucose (mg/dL) (75-99) mg/dL Calcium 7.6 L (8.7-10.3) mg/dL Iron 55 L (65-175) ug/dL Alkaline Phosphatase 133 H (41-126) U/L Total Protein 6.0 L (6.2-8.2) g/dL Total Protein (PEP) 6.1 L (6.2-8.2) g/dL Albumin 3.30 L (3.80-4.90) g/dL Albumin/Globulin Ratio 1.22 L (1.60-3.17) g/dL Vitamin D 25-Hydroxy 26.9 L (30.0-100.0) ng/mL 03/23/21 03/23/21 03/24/21 Range/Units 16:44 21:18 02:48 WBC (3.8-10.6) k/uL RBC (4.30-5.90) m/uL Hgb (13.0-17.5) gm/dL Hct (39.0-53.0) % Plt Count (150-450) k/uL ESR (0-20) mm/Hr Fibrinogen (200-500) mg/dL BUN (9.0-27.0) mg/dL Est GFR (CKD-EPI)NonAf (60.0-200.0) BUN/Creatinine Ratio (12.00-20.00) Ratio Glucose (70-110) mg/dL POC Glucose (mg/dL) 173 H 249 H 198 H (75-99) mg/dL Calcium (8.7-10.3) mg/dL Iron (65-175) ug/dL Alkaline Phosphatase (41-126) U/L Total Protein (6.2-8.2) g/dL Total Protein (PEP) (6.2-8.2) g/dL Albumin (3.80-4.90) g/dL Albumin/Globulin Ratio (1.60-3.17) g/dL Vitamin D 25-Hydroxy (30.0-100.0) ng/mL 03/24/21 03/24/21 Range/Units 06:26 06:57 WBC 2.3 L (3.8-10.6) k/uL RBC 3.51 L (4.30-5.90) m/uL Hgb 10.5 L (13.0-17.5) gm/dL Hct 30.6 L (39.0-53.0) % Plt Count 68 L (150-450) k/uL ESR (0-20) mm/Hr Fibrinogen (200-500) mg/dL BUN (9.0-27.0) mg/dL Est GFR (CKD-EPI)NonAf (60.0-200.0) BUN/Creatinine Ratio (12.00-20.00) Ratio Glucose (70-110) mg/dL POC Glucose (mg/dL) 280 H (75-99) mg/dL Calcium (8.7-10.3) mg/dL Iron (65-175) ug/dL Alkaline Phosphatase (41-126) U/L Total Protein (6.2-8.2) g/dL Total Protein (PEP) (6.2-8.2) g/dL Albumin (3.80-4.90) g/dL Albumin/Globulin Ratio (1.60-3.17) g/dL Vitamin D 25-Hydroxy (30.0-100.0) ng/mL Microbiology - Last 24 Hours (Table) 03/21/21 09:03 Blood Culture - Preliminary Blood No Growth after 48 hours 03/21/21 09:03 Blood Culture - Preliminary Blood No Growth after 48 hours Assessment and Plan Plan: Assessment: 1. Acute kidney injury secondary to ATN secondary to hypovolemia from hyperglycemia, nonsteroidals. Also concern for vancomycin toxicity - level 32.5 yesterday. Baseline creatinine near 1 and peaked at 1.49 this admission - 1.3 as of yesterday. Urine eosinophils negative. 2. Right foot gangrene. Maintained on antibiotics. Status post toe amputation March 23. 3. Uncontrolled diabetes mellitus. Status post insulin drip. 4. Pancytopenia related to infection, antibiotics. Oncology following. He was on Zosyn which has been discontinued. 5. Chronic kidney disease stage I secondary to diabetic kidney disease. He does have proteinuria on UA. Further workup outpatient. Plan: Hep-Lock IV fluids. Vancomycin has been discontinued. Avoid nephrotoxins. Toradol discontinued. Continue to monitor renal function and urine output.
--- NOTE | 2021-03-24 10:43 | P.CONS ---
History of Present Illness - Reason for Consult Consult date: 03/24/21 wound care - History of Present Illness a 60-year-old patient known to the wound care ceer who was seen once for nonhealing ulceration to the fourth digit and fifth digit. Patient underwent a fourth digition and a surgical debr the medial aspect of the fwet to dry Kering in place. Continues to be weightbearing to the site. X-ray found him to have osteomyelitis. Patient's past medical history significant for diabetic foot ulcer, peripheral neuropathy, and moker. Patient was utilizing Santyl prior to hospitalization. At this time the fourth digit amputation site had sutures to the superior and inferior portion of the incision and open incision midline. Granulation seen throughout the wound bed with minimal to no slough. The fifth digit medial aspect ulceration measures approximately 0.6 x 0.3 x 0.1 cm granul ation seen within the wound bed. Patient has serosanguineous drainage. Review Of Systems: Constitutional: No fever, no chills, no night sweats. No weight change. No weakness, fatigue or lethargy. No daytime sleepiness. Integumentary:reports wounds, no lesions. No rash or pruritus. No unusual bruising. No change in hair or nails. Physical exam: General Appearance: Alert, cooperative, no distress, appears stated age. Skin: See HPI all other Skin color, texture, tugor normal, no rashes or lesions. Neurologic: Alert oriented x3 Assessment: 1. Nonhealing ulceration with fatty layer exposure fourth digit right foot 2. Nonhealing ulceration with fatty layer exposure fifth digit right foot 3. Diabetic foot ulcer 4. Osteomyelitis Plan: 1. Apply absorptive silver, saline moistened gauze, dry gauze, rolled gauze and secure with paper tape. Patient should be nonweightbearing to the right forefoot. Discussed with patient to utilize a walker and only to put pressure to the heel. Patient will return to the wouncenter upon discharge to follow-up with Dr. Mayfield Thank you for the consultation any questions please contact the wound care center DNP note has been reviewed and discussed with Dr. Mayfield and the impression and plan of care has been directed as dictated. 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 Year Discovered:: 08/04/20 MDRO Source:: Lip Past Surgical History: Cardiac Valve Replacement, Cholecystectomy Additional Past Surgical History / Comment(s): aortic Past Psychological History: Bipolar, Depression Smoking Status: Current every day smoker Past Alcohol Use History: None Reported Past Drug Use History: Heroin, IV Drug Use, Marijuana Medications and Allergies Home Medications Medication Instructions Recorded Confirmed Type Acetaminophen Tab [Tylenol Tab] 500 mg PO Q6H PRN 03/21/21 03/21/21 History Albuterol Nebulized [Ventolin 2.5 mg INHALATION RT-QID PRN 03/21/21 03/21/21 History Nebulized] Albuterol Sulfate [Proair Hfa] 2 puff INHALATION RT-QID PRN 03/21/21 03/21/21 History Collagenase [Santyl] 1 applic TOPICAL DAILY 03/21/21 03/21/21 History Ergocalciferol [Vitamin D2 (1250 1,250 mcg PO MOFR 03/21/21 03/21/21 History Mcg = 01140 Iu)] Insulin Aspart [NovoLOG Flexpen] See Protocol SQ AC-TID 03/21/21 03/21/21 History Insulin Glargine,Hum.rec.anlog 25 unit SQ HS 03/21/21 03/21/21 History [Lantus Solostar] QUEtiapine [SEROquel] 100 mg PO HS 03/21/21 03/21/21 History oxyCODONE-APAP 10-325MG [Percocet 1 tab PO TID PRN 03/21/21 03/21/21 History 10-325 mg] Allergies Allergy/AdvReac Type Severity Reaction Status Date / Time No Known Allergies Allergy Verified 03/21/21 10:34 Physical Exam Vitals: Vital Signs Temp Pulse Resp BP BP Pulse Ox 03/24/21 07:36 98.0 F 71 18 160/67 98 03/24/21 02:00 97.6 F 73 16 157/81 96 03/23/21 20:00 97.9 F 74 16 185/94 98 03/23/21 15:45 72 180/77 03/23/21 15:30 74 158/76 03/23/21 15:15 74 140/75 03/23/21 15:00 71 183/78 03/23/21 14:45 97.9 F 71 18 175/89 99 03/23/21 14:15 70 16 153/97 98 03/23/21 14:10 72 16 144/91 98 03/23/21 14:00 73 14 172/85 98 03/23/21 13:45 76 16 151/73 98 03/23/21 13:41 96.8 F L 78 12 158/66 94 L 03/23/21 12:18 98.1 F 71 16 164/75 99 Intake and Output 03/23/21 03/24/21 03/24/21 22:59 06:59 14:59 Intake Total 1100 Balance 1100 Intake: Intake, IV Titration 1100 Amount Ampicillin-Sulbactam 3 gm 200 In Sodium Chloride 0.9% 100 ml @ 200 mls/hr IVPB Q6HR [facility] Rx#:[id number] Sodium Chloride 0.9% 1, 900 000 ml @ 75 mls/hr IV . [id number] [facility] Rx#:[id number] Other: Voiding Method Toilet Urinal # Voids 2 2 Results CBC & Chem 7: 03/24/21 06:26 03/23/21 16:42 Labs: Abnormal Lab Results - Last 24 Hours (Table) 03/23/21 03/23/21 03/23/21 Range/Units 12:11 16:42 16:42 WBC (3.8-10.6) k/uL RBC (4.30-5.90) m/uL Hgb (13.0-17.5) gm/dL Hct (39.0-53.0) % Plt Count (150-450) k/uL ESR 67 H (0-20) mm/Hr Fibrinogen 534 H (200-500) mg/dL BUN (9.0-27.0) mg/dL Est GFR (CKD-EPI)NonAf (60.0-200.0) BUN/Creatinine Ratio (12.00-20.00) Ratio Glucose (70-110) mg/dL POC Glucose (mg/dL) 136 H (75-99) mg/dL Calcium (8.7-10.3) mg/dL Iron (65-175) ug/dL Alkaline Phosphatase (41-126) U/L Total Protein (6.2-8.2) g/dL Total Protein (PEP) (6.2-8.2) g/dL Albumin (3.80-4.90) g/dL Albumin/Globulin Ratio (1.60-3.17) g/dL Vitamin D 25-Hydroxy (30.0-100.0) ng/mL 03/23/21 03/23/21 03/23/21 Range/Units 16:42 16:42 16:44 WBC (3.8-10.6) k/uL RBC (4.30-5.90) m/uL Hgb (13.0-17.5) gm/dL Hct (39.0-53.0) % Plt Count (150-450) k/uL ESR (0-20) mm/Hr Fibrinogen (200-500) mg/dL BUN 37.0 H (9.0-27.0) mg/dL Est GFR (CKD-EPI)NonAf 59.7 L (60.0-200.0) BUN/Creatinine Ratio 28.46 H (12.00-20.00) Ratio Glucose 177 H (70-110) mg/dL POC Glucose (mg/dL) 173 H (75-99) mg/dL Calcium 7.6 L (8.7-10.3) mg/dL Iron 55 L (65-175) ug/dL Alkaline Phosphatase 133 H (41-126) U/L Total Protein 6.0 L (6.2-8.2) g/dL Total Protein (PEP) 6.1 L (6.2-8.2) g/dL Albumin 3.30 L (3.80-4.90) g/dL Albumin/Globulin Ratio 1.22 L (1.60-3.17) g/dL Vitamin D 25-Hydroxy 26.9 L (30.0-100.0) ng/mL 03/23/21 03/24/21 03/24/21 Range/Units 21:18 02:48 06:26 WBC 2.3 L (3.8-10.6) k/uL RBC 3.51 L (4.30-5.90) m/uL Hgb 10.5 L (13.0-17.5) gm/dL Hct 30.6 L (39.0-53.0) % Plt Count 68 L (150-450) k/uL ESR (0-20) mm/Hr Fibrinogen (200-500) mg/dL BUN (9.0-27.0) mg/dL Est GFR (CKD-EPI)NonAf (60.0-200.0) BUN/Creatinine Ratio (12.00-20.00) Ratio Glucose (70-110) mg/dL POC Glucose (mg/dL) 249 H 198 H (75-99) mg/dL Calcium (8.7-10.3) mg/dL Iron (65-175) ug/dL Alkaline Phosphatase (41-126) U/L Total Protein (6.2-8.2) g/dL Total Protein (PEP) (6.2-8.2) g/dL Albumin (3.80-4.90) g/dL Albumin/Globulin Ratio (1.60-3.17) g/dL Vitamin D 25-Hydroxy (30.0-100.0) ng/mL 03/24/21 Range/Units 06:57 WBC (3.8-10.6) k/uL RBC (4.30-5.90) m/uL Hgb (13.0-17.5) gm/dL Hct (39.0-53.0) % Plt Count (150-450) k/uL ESR (0-20) mm/Hr Fibrinogen (200-500) mg/dL BUN (9.0-27.0) mg/dL Est GFR (CKD-EPI)NonAf (60.0-200.0) BUN/Creatinine Ratio (12.00-20.00) Ratio Glucose (70-110) mg/dL POC Glucose (mg/dL) 280 H (75-99) mg/dL Calcium (8.7-10.3) mg/dL Iron (65-175) ug/dL Alkaline Phosphatase (41-126) U/L Total Protein (6.2-8.2) g/dL Total Protein (PEP) (6.2-8.2) g/dL Albumin (3.80-4.90) g/dL Albumin/Globulin Ratio (1.60-3.17) g/dL Vitamin D 25-Hydroxy (30.0-100.0) ng/mL Microbiology - Last 24 Hours (Table) 03/21/21 09:03 Blood Culture - Preliminary Blood No Growth after 48 hours 03/21/21 09:03 Blood Culture - Preliminary Blood No Growth after 48 hours Assessment and Plan (1) Non-healing ulcer of right foot with fat layer exposed Current Visit: Yes Status: Acute Code(s): L97.512 - NON-PRS CHRONIC ULCER OTH PRT RIGHT FOOT W FAT LAYER EXPOSED SNOMED Code(s): 460282774 (2) Diabetic foot ulcer Current Visit: Yes Status: Acute Code(s): E11.621 - TYPE 2 DIABETES MELLITUS WITH FOOT ULCER; L97.509 - NON-PRESSURE CHRONIC ULCER OTH PRT UNSP FOOT W UNSP SEVERITY SNOMED Code(s): 228574444 (3) Osteomyelitis of fourth toe of right foot Current Visit: Yes Status: Acute Code(s): M86.9 - OSTEOMYELITIS, UNSPECIFIED SNOMED Code(s): 165798243
[2021-03-24 11:00] LABS: African American GFR (CKD) 76.3 (60.0-200.0); Albumin 3.2 g/dL (3.80-4.90); Albumin/Globulin Ratio 1.19 (1.60-3.17); Anion Gap 5.6 mmol/L (4.00-12.00); BUN/Creat Ratio 23.33 Ratio (12.00-20.00); Carbon Dioxide 23.4 mmol/L (21.6-31.8); Globulin 2.7 g/dL (1.6-3.3); Magnesium 1.9 mg/dL (1.5-2.4); Non-African American GFR(CKD) 65.8 (60.0-200.0); Potassium 4.4 mmol/L (3.5-5.5); Total Bilirubin 0.2 mg/dL (0.3-1.2); Total Protein 5.9 g/dL (6.2-8.2)
[2021-03-24 11:22] LABS: Glucose,Whole Blood 187 mg/dL (75-99)
[2021-03-24] MEDS: CYANOCOBALAMIN 1,000 MCG/ML 1 ML VIAL IM SCH (12:31)
[2021-03-24] MEDS: ALPRAZolam 0.25 MG TAB PO PRN (12:33)
[2021-03-24 13:37] LABS: Free Kappa Lt Chain Qnt, Serum 6.22 mg/dL (0.33-1.94)
[2021-03-24 16:31] LABS: Glucose,Whole Blood 224 mg/dL (75-99)
--- NOTE | 2021-03-24 17:25 | PN ---
PROGRESS NOTE DATE OF SERVICE: 03/24/2021 REASON FOR FOLLOWUP: Right diabetic foot infection with wet gangrene. INTERVAL HISTORY: The patient is currently afebrile. Still complaining of pain to the right foot amputation site with some decreased intensity though. No chest pain, shortness of breath or cough. No abdominal pain or diarrhea. PHYSICAL EXAMINATION: Blood pressure 172/82 with a pulse of 74, temperature 97.6. He is 97% on room air. General description is a middle-aged male lying in in no distress. Respiratory system: Unlabored breathing, clear to auscultation anteriorly. Heart: S1, S2. Regular rate and rhythm. Abdomen soft, no tenderness. Right foot is currently dressed up. No obvious drainage on the dressing. LABS: Hemoglobin is 10.5, white count 2.3, BUN of 28, creatinine 1.2. Local culture showing Staph aureus. DIAGNOSTIC IMPRESSION AND PLAN: Patient with right 4th toe wet gangrene secondary to possible MSSA, status post amputation. Right fifth toe did have debridement but wound did not extend down to the bone as per discussion with the vascular surgeon. Patient to continue with Unasyn. Discharge antibiotic will depend upon clinical response, more likely oral. Continue supportive care. MMODL / IJN: [id number] / LUCINDA
[2021-03-24 20:45] LABS: Glucose,Whole Blood 303 mg/dL (75-99)
--- NOTE | 2021-03-24 21:17 | P.PN ---
Subjective This is a pleasant 60 years old male with past medical history of diabetes mellitus, hepatitis C presents on 03/21 with fever, vomiting and chills and sweating of 2 days' duration. Plan to have an infected right fourth and fifth toes with wet gangrene and suspected underlying osteomyelitis. C-reactive protein is elevated at 5.3. Secondary to uncontrolled diabetes with hemoglobin A1c is 9.8%. Patient has been evaluated by vascular surgery team and the planned for amputation of the fourth and fifth toe tomorrow. Currently his insulin is controlled on Lantus 25 units at 13 units with meals, however he did not cut these and place and distended on insulin drip. Currently he is hemodynamically stable Labs reviewed his sodium is 136, potassium is 4.1. BUN is 35 and creatinine 1.3. Glucose was elevated more than 400, currently is better controlled. INR is 0.9. Urinalysis is ordered. Urine drug screen is positive for opioids, oxycodone, tricyclic antidepressant and marijuana. Coronavirus undetected He is a little bit pancytopenic with WBC 2.3, hemoglobin 9.9, platelets 56. Hematology team were consulted. He is kept on broad-spectrum antibiotics with Flagyl, Zosyn and IV vancomycin. Wound culture are pending. Infectious disease team of vascular surgery team consults are placed. His prognosis is guarded 03/23/2021 Patient seen today for a preop evaluation. Patient was awakened and alert, not in distress, pain uncontrolled patient asked to get more pain medication, Dilaudid 0.5 mg increase to 1 mg every 3 hours. Patient found at acceptable risk for the procedure, I discussed the case with Dr. Swain. Patient status post application of the right fourth toe and debridement of the right fifth toe. He was on insulin drip at 1 unit per hour, glucose was controlled. Insulin drip stopped and switched to insulin sliding scale Lap showing slightly elevated creatinine to 1.49 which is the upper limit of the reference range, vancomycin was held to check trough of vancomycin and adjust dose accordingly. Normal saline at 75 mL per hour started. Monitor input and output, patient is making good amount of urine. Toradol ordered on admission is stopped and nephrology team were consulted Also patient is with chronic thrombocytopenia since 2013 and currently above 50 K, patient is not on aspirin and his heparin dose this morning was held, there is no limitation for patient going for surgery because of low platelet count. Discussed with vascular surgery team Currently patient is on IV vancomycin pharmacy to dose, and Unasyn. Normal sinus 75 mL/h. Percocet and Dilaudid. 03/24/2021 Patient sitting in bed looks comfortable but in distress. He is hemodynamically stable and blood pressure slightly improved compared to yesterday. He has mild pancytopenia which is a stable. BMP is unremarkable and creatinine down to 1.3 and normal son was stopped. 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 Vitamin B12 was low at 283 which is been replaced. Has poorly controlled diabetes with hemoglobin A1c elevated and 9.8%. Chart is growing staph aureus, final results are pending. Patient remains on Unasyn per ID team. And is added for better pain control Objective - Vital Signs Vital signs: Vital Signs Temp 98.0 F 03/24/21 07:36 Pulse 71 03/24/21 07:36 Resp 18 03/24/21 07:36 BP 160/67 03/24/21 07:36 Pulse Ox 98 03/24/21 07:36 Intake & Output 03/23/21 03/24/21 03/24/21 18:59 06:59 18:59 Intake Total 450 1100 Output Total 5 Balance 445 1100 Weight 99.79 kg Intake: IV 450 Intake, IV Titration 1100 Amount Ampicillin-Sulbactam 3 gm 200 In Sodium Chloride 0.9% 100 ml @ 200 mls/hr IVPB Q6HR ALEX Rx#:[id number] Sodium Chloride 0.9% 1, 900 000 ml @ 75 mls/hr IV . [id number] ALEX Rx#:[id number] Output: Estimated Blood Loss 5 Other: Voiding Method Toilet Urinal # Voids 2 2 - Exam GENERAL: The patient is alert and oriented x3, not in any acute distress. Well developed, well nourished. HEENT: Pupils are round and equally reacting to light. EOMI. No scleral icterus. No conjunctival pallor. Normocephalic, atraumatic. No pharyngeal erythema. No thyromegaly. CARDIOVASCULAR: S1 and S2 present. No murmurs, rubs, or gallops. PULMONARY: Chest is clear to auscultation, no wheezing or crackles. ABDOMEN: Soft, nontender, nondistended, normoactive bowel sounds. No palpable organomegaly. MUSCULOSKELETAL: No joint swelling or deformity. -EXTREMITIES: No cyanosis, clubbing, or pedal edema. Infected right fourth and fifth toes, with gangrene NEUROLOGICAL: Gross neurological examination did not reveal any focal deficits. SKIN: No rashes. no petechiae. - Labs CBC & Chem 7: 03/24/21 06:26 03/24/21 06:26 Labs: Abnormal Lab Results - Last 24 Hours (Table) 03/23/21 03/23/21 03/23/21 Range/Units 16:42 16:42 16:42 WBC (3.8-10.6) k/uL RBC (4.30-5.90) m/uL Hgb (13.0-17.5) gm/dL Hct (39.0-53.0) % Plt Count (150-450) k/uL ESR 67 H (0-20) mm/Hr Fibrinogen 534 H (200-500) mg/dL Chloride (96-109) mmol/L BUN 37.0 H (9.0-27.0) mg/dL Est GFR (CKD-EPI)NonAf 59.7 L (60.0-200.0) BUN/Creatinine Ratio 28.46 H (12.00-20.00) Ratio Glucose 177 H (70-110) mg/dL POC Glucose (mg/dL) (75-99) mg/dL Calcium 7.6 L (8.7-10.3) mg/dL Iron 55 L (65-175) ug/dL Total Bilirubin (0.3-1.2) mg/dL Alkaline Phosphatase 133 H (41-126) U/L Total Protein 6.0 L (6.2-8.2) g/dL Total Protein (PEP) (6.2-8.2) g/dL Albumin 3.30 L (3.80-4.90) g/dL Albumin/Globulin Ratio 1.22 L (1.60-3.17) g/dL Vitamin D 25-Hydroxy 26.9 L (30.0-100.0) ng/mL 03/23/21 03/23/21 03/23/21 Range/Units 16:42 16:44 21:18 WBC (3.8-10.6) k/uL RBC (4.30-5.90) m/uL Hgb (13.0-17.5) gm/dL Hct (39.0-53.0) % Plt Count (150-450) k/uL ESR (0-20) mm/Hr Fibrinogen (200-500) mg/dL Chloride (96-109) mmol/L BUN (9.0-27.0) mg/dL Est GFR (CKD-EPI)NonAf (60.0-200.0) BUN/Creatinine Ratio (12.00-20.00) Ratio Glucose (70-110) mg/dL POC Glucose (mg/dL) 173 H 249 H (75-99) mg/dL Calcium (8.7-10.3) mg/dL Iron (65-175) ug/dL Total Bilirubin (0.3-1.2) mg/dL Alkaline Phosphatase (41-126) U/L Total Protein (6.2-8.2) g/dL Total Protein (PEP) 6.1 L (6.2-8.2) g/dL Albumin (3.80-4.90) g/dL Albumin/Globulin Ratio (1.60-3.17) g/dL Vitamin D 25-Hydroxy (30.0-100.0) ng/mL 03/24/21 03/24/21 03/24/21 Range/Units 02:48 06:26 06:26 WBC 2.3 L (3.8-10.6) k/uL RBC 3.51 L (4.30-5.90) m/uL Hgb 10.5 L (13.0-17.5) gm/dL Hct 30.6 L (39.0-53.0) % Plt Count 68 L (150-450) k/uL ESR (0-20) mm/Hr Fibrinogen (200-500) mg/dL Chloride 110 H (96-109) mmol/L BUN 28.0 H (9.0-27.0) mg/dL Est GFR (CKD-EPI)NonAf (60.0-200.0) BUN/Creatinine Ratio 23.33 H (12.00-20.00) Ratio Glucose 143 H (70-110) mg/dL POC Glucose (mg/dL) 198 H (75-99) mg/dL Calcium 8.0 L (8.7-10.3) mg/dL Iron (65-175) ug/dL Total Bilirubin 0.2 L (0.3-1.2) mg/dL Alkaline Phosphatase (41-126) U/L Total Protein 5.9 L (6.2-8.2) g/dL Total Protein (PEP) (6.2-8.2) g/dL Albumin 3.20 L (3.80-4.90) g/dL Albumin/Globulin Ratio 1.19 L (1.60-3.17) g/dL Vitamin D 25-Hydroxy (30.0-100.0) ng/mL 03/24/21 03/24/21 Range/Units 06:57 11:19 WBC (3.8-10.6) k/uL RBC (4.30-5.90) m/uL Hgb (13.0-17.5) gm/dL Hct (39.0-53.0) % Plt Count (150-450) k/uL ESR (0-20) mm/Hr Fibrinogen (200-500) mg/dL Chloride (96-109) mmol/L BUN (9.0-27.0) mg/dL Est GFR (CKD-EPI)NonAf (60.0-200.0) BUN/Creatinine Ratio (12.00-20.00) Ratio Glucose (70-110) mg/dL POC Glucose (mg/dL) 280 H 187 H (75-99) mg/dL Calcium (8.7-10.3) mg/dL Iron (65-175) ug/dL Total Bilirubin (0.3-1.2) mg/dL Alkaline Phosphatase (41-126) U/L Total Protein (6.2-8.2) g/dL Total Protein (PEP) (6.2-8.2) g/dL Albumin (3.80-4.90) g/dL Albumin/Globulin Ratio (1.60-3.17) g/dL Vitamin D 25-Hydroxy (30.0-100.0) ng/mL Microbiology - Last 24 Hours (Table) 03/22/21 11:30 Gram Stain - Preliminary Toe - Right Fourth Wound Culture - Preliminary Presumptive Staph aureus 03/21/21 09:03 Blood Culture - Preliminary Blood No Growth after 72 hours 03/21/21 09:03 Blood Culture - Preliminary Blood No Growth after 72 hours Assessment and Plan Assessment: Wet gangrene and suspected underlying osteomyelitis of right foot, Status post fourth toe amputation and debridement of the fifth toe. Present on admission Diabetes mellitus with hyperglycemia on the presentation mild elevation in creatinine, suspect NITA. Improved Pancytopenia, with chronic thrombocytopenia since 2013 mostly related to his history of hep C, also related to vitamin B12 deficiency Low-normal vitamin B12, probably deficiency. Been replaced History of hepatitis C Plan: This is a pleasant 60 years old male who presented with wet gangrene of the right fourth and fifth toe. Status post amputation of the toes. Patient is on broad-spectrum antibiotics with Unasyn with ID team on the case. Follow-up culture results. Hematology team for pancytopenia and thrombocytopenia. Nephrology consult. Continue with IV fluids. Avoid NSAIDs. Monitor creatinine Labs and medication were reviewed.. Continue same treatment. Continue with symptomatic treatment. Resume home medication. Monitor lytes and vitals. DVT and GI prophylaxis. Further recommendations as per clinical course of the patient DVT prophylaxis: Subcutaneous heparin GI Prophylaxis: Pepcid PT/OT: Home
[2021-03-24] MEDS: INSULIN DETEMIR (LEVEMIR) 100 UNIT/ML SYR SQ SCH (21:27)
[2021-03-24] MEDS: QUEtiapine 100 MG TAB PO SCH (21:28)
[2021-03-24] MEDS: FAMOTIDINE 20 MG TAB PO SCH (21:28)
[2021-03-24] MEDS: HEPARIN SODIUM,PORCINE/PF 5,000 UNIT/0.5 ML SYRINGE SQ SCH (21:28)
[2021-03-25] MEDS: HYDROmorphone 1 MG/ML 1 ML SYRINGE IVP PRN ×6 (00:18→20:02)
[2021-03-25] MEDS: AMPICILLIN-SULBACTAM 3 GM in SODIUM CHLORIDE 0.9% 100 ML IVPB SCH ×3 (00:19→11:50)
[2021-03-25 01:45] LABS: Glucose,Whole Blood 184 mg/dL (75-99)
[2021-03-25] MEDS: oxyCODONE-APAP 10-325MG 1 EACH TAB PO PRN ×3 (01:46→21:47)
[2021-03-25] MEDS: hydrALAZINE HCL 25 MG TAB PO PRN ×2 (02:03→20:02)
[2021-03-25] MEDS: ALPRAZolam 0.25 MG TAB PO PRN ×2 (02:05→20:02)
[2021-03-25 06:51] LABS: Glucose,Whole Blood 270 mg/dL (75-99)
[2021-03-25] MEDS: INSULIN ASPART (NovoLOG) 100 UNIT/ML VIAL SQ SCH ×4 (07:32→21:50)
[2021-03-25] MEDS: FAMOTIDINE 20 MG TAB PO SCH ×2 (07:32→21:48)
[2021-03-25] MEDS: GABAPENTIN 300 MG CAP PO SCH ×3 (07:32→21:48)
[2021-03-25] MEDS: amLODIPine 5 MG TAB PO SCH (07:32)
[2021-03-25] MEDS: NICOTINE 21MG/24HR PATCH TRANSDERM SCH (07:33)
[2021-03-25] MEDS: CYANOCOBALAMIN 1,000 MCG/ML 1 ML VIAL IM SCH (07:33)
[2021-03-25] MEDS: HEPARIN SODIUM,PORCINE/PF 5,000 UNIT/0.5 ML SYRINGE SQ SCH ×2 (07:33→21:49)
[2021-03-25 09:17] LABS: Basophils # (A) 0.02 X 10*3/uL (0.00-0.10); Basophils % (A) 0.7 %; Eosinophils # (A) 0.09 X 10*3/uL (0.04-0.35); Eosinophils % (A) 3.2 %; HCT 29.9 % (39.6-50.0); HGB 10.1 g/dL (13.0-17.0); Lymphocytes # (A) 0.81 X 10*3/uL (0.90-5.00); Lymphocytes % (A) 28.6 %; MCH 29.3 pg (27.0-32.0); MCHC 33.8 g/dL (32.0-37.0); MCV 86.7 fL (80.0-97.0); Mean Platelet Volume 12.1 fL (9.5-12.2); Monocytes # (A) 0.22 X 10*3/uL (0.20-1.00); Monocytes % (A) 7.8 %; Neutrophils # (A) 1.67 X 10*3/uL (1.80-7.70); Platelet Count 88 X 10*3/uL (140-440); RBC 3.45 X 10*6/uL (4.40-5.60); RDW 12.9 % (11.5-14.5); WBC 2.83 X 10*3/uL (4.50-10.00)
[2021-03-25 10:10] LABS: African American GFR (CKD) 84.7 (60.0-200.0); Anion Gap 4.4 mmol/L (4.00-12.00); BUN/Creat Ratio 21.82 Ratio (12.00-20.00); Calcium 7.8 mg/dL (8.7-10.3); Carbon Dioxide 25.6 mmol/L (21.6-31.8); Non-African American GFR(CKD) 73.1 (60.0-200.0); Potassium 4.6 mmol/L (3.5-5.5)
[2021-03-25 11:45] LABS: Glucose,Whole Blood 308 mg/dL (75-99)
[2021-03-25 13:04] LABS: Albumin 2.77 g/dL (3.80-4.90)
[2021-03-25 14:23] LABS: Immunoglobulin M 44.1 mg/dL (40.0-280.0)
--- NOTE | 2021-03-25 14:28 | PN ---
PROGRESS NOTE The patient is seen for followup for acute kidney injury and hypernatremia. His serum creatinine has been about 1.1 mg/dL, sodium is stable at 136 mEq/L. PHYSICAL EXAMINATION: On examination today, blood pressure was 144/82, heart rate 89 per minute. Patient is afebrile. Examination of the heart S1, S2. Examination of the lungs, bilateral breath sounds are heard. Abdomen is soft, nontender. Examination of lower extremities shows no significant edema. 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 LAB: Show sodium 136, potassium 4.6, chloride 106, CO2 is 25, BUN 24, creatinine 1.1 mg/dL. ASSESSMENT: 1. Acute kidney injury, currently improved. Renal function is currently stable. Creatinine about 1.1 mg/dL mostly secondary to ischemic acute tubular necrosis and from NSAIDs with concern for vancomycin toxicity as vancomycin level was 32.5 on 03/23/2021. 2. Right foot gangrene status post amputation on 03/23/2021. 3. Pancytopenia related to infection, antibiotics. 4. Chronic kidney disease stage 1 secondary to diabetic kidney disease with proteinuria with fairly preserved GFR. PLAN: Encourage increased oral intake. Continue antibiotics as per ID. Avoid nephrotoxic agents. MMODL / IJN: [id number] /
[2021-03-25] MEDS: DAPTOmycin 500 MG in SODIUM CHLORIDE 0.9% 50 ML IVPB SCH (16:13)
[2021-03-25 16:55] LABS: Glucose,Whole Blood 229 mg/dL (75-99)
[2021-03-25 20:53] LABS: Glucose,Whole Blood 311 mg/dL (75-99)
[2021-03-25] MEDS ORDERED: amLODIPine 5 MG TAB PO ONE (21:00)
--- NOTE | 2021-03-25 21:10 | P.PN ---
Subjective This is a pleasant 60 years old male with past medical history of diabetes mellitus, hepatitis C presents on 03/21 with fever, vomiting and chills and sweating of 2 days' duration. Plan to have an infected right fourth and fifth toes with wet gangrene and suspected underlying osteomyelitis. C-reactive protein is elevated at 5.3. Secondary to uncontrolled diabetes with hemoglobin A1c is 9.8%. Patient has been evaluated by vascular surgery team and the planned for amputation of the fourth and fifth toe tomorrow. Currently his insulin is controlled on Lantus 25 units at 13 units with meals, however he did not cut these and place and distended on insulin drip. Currently he is hemodynamically stable Labs reviewed his sodium is 136, potassium is 4.1. BUN is 35 and creatinine 1.3. Glucose was elevated more than 400, currently is better controlled. INR is 0.9. Urinalysis is ordered. Urine drug screen is positive for opioids, oxycodone, tricyclic antidepressant and marijuana. Coronavirus undetected He is a little bit pancytopenic with WBC 2.3, hemoglobin 9.9, platelets 56. Hematology team were consulted. He is kept on broad-spectrum antibiotics with Flagyl, Zosyn and IV vancomycin. Wound culture are pending. Infectious disease team of vascular surgery team consults are placed. His prognosis is guarded 03/23/2021 Patient seen today for a preop evaluation. Patient was awakened and alert, not in distress, pain uncontrolled patient asked to get more pain medication, Dilaudid 0.5 mg increase to 1 mg every 3 hours. Patient found at acceptable risk for the procedure, I discussed the case with Dr. Swain. Patient status post application of the right fourth toe and debridement of the right fifth toe. He was on insulin drip at 1 unit per hour, glucose was controlled. Insulin drip stopped and switched to insulin sliding scale Lap showing slightly elevated creatinine to 1.49 which is the upper limit of the reference range, vancomycin was held to check trough of vancomycin and adjust dose accordingly. Normal saline at 75 mL per hour started. Monitor input and output, patient is making good amount of urine. Toradol ordered on admission is stopped and nephrology team were consulted Also patient is with chronic thrombocytopenia since 2013 and currently above 50 K, patient is not on aspirin and his heparin dose this morning was held, there is no limitation for patient going for surgery because of low platelet count. Discussed with vascular surgery team Currently patient is on IV vancomycin pharmacy to dose, and Unasyn. Normal sinus 75 mL/h. Percocet and Dilaudid. 03/24/2021 Patient sitting in bed looks comfortable but in distress. He is hemodynamically stable and blood pressure slightly improved compared to yesterday. He has mild pancytopenia which is a stable. BMP is unremarkable and creatinine down to 1.3 and normal son was stopped. 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 Vitamin B12 was low at 283 which is been replaced. Has poorly controlled diabetes with hemoglobin A1c elevated and 9.8%. Chart is growing staph aureus, final results are pending. Patient remains on Unasyn per ID team. And is added for better pain control 03/25/2021 Patient is clinically stable, distal been treated for right foot gangrene, today once culture came back positive for MRSA, but it adjusted to daptomycin. His creatinine improving to 1.1. He is hemodynamically stable. Norvasc added today for better blood pressure control His sugar is uncontrolled, he is already on his home dose of Levemir 25 units at bedtime, we are going to at his home dose of NovoLog 13 units with meals Objective - Vital Signs Vital signs: Vital Signs Temp 98.1 F 03/25/21 14:07 Pulse 71 03/25/21 14:07 Resp 17 03/25/21 14:07 BP 152/79 03/25/21 14:07 Pulse Ox 99 03/25/21 14:07 Intake & Output 03/24/21 03/25/21 03/25/21 18:59 06:59 18:59 Intake Total 236 Balance 236 Intake: Oral 236 Other: # Voids 2 1 - Exam GENERAL: The patient is alert and oriented x3, not in any acute distress. Well developed, well nourished. HEENT: Pupils are round and equally reacting to light. EOMI. No scleral icterus. No conjunctival pallor. Normocephalic, atraumatic. No pharyngeal erythema. No thyromegaly. CARDIOVASCULAR: S1 and S2 present. No murmurs, rubs, or gallops. PULMONARY: Chest is clear to auscultation, no wheezing or crackles. ABDOMEN: Soft, nontender, nondistended, normoactive bowel sounds. No palpable organomegaly. MUSCULOSKELETAL: No joint swelling or deformity. -EXTREMITIES: No cyanosis, clubbing, or pedal edema. Infected right fourth and fifth toes, with gangrene NEUROLOGICAL: Gross neurological examination did not reveal any focal deficits. SKIN: No rashes. no petechiae. - Labs CBC & Chem 7: 03/25/21 05:51 03/25/21 05:51 Labs: Abnormal Lab Results - Last 24 Hours (Table) 03/23/21 03/24/21 03/25/21 Range/Units 16:42 20:39 01:43 WBC (4.50-10.00) X 10*3/uL RBC (4.40-5.60) X 10*6/uL Hgb (13.0-17.0) g/dL Hct (39.6-50.0) % Plt Count (140-440) X 10*3/uL Neutrophils # (1.80-7.70) X 10*3/uL Lymphocytes # (0.90-5.00) X 10*3/uL BUN/Creatinine Ratio (12.00-20.00) Ratio Glucose (70-110) mg/dL POC Glucose (mg/dL) 303 H 184 H (75-99) mg/dL Calcium (8.7-10.3) mg/dL Albumin (PEP) 2.77 L (3.80-4.90) g/dL Kzjly-0-Jhwngeukk 0.44 H (0.10-0.40) g/dL Taeig-5-Zxnbnppqe 1.04 H (0.60-1.00) g/dL 03/25/21 03/25/21 03/25/21 Range/Units 05:51 05:51 06:50 WBC 2.83 L (4.50-10.00) X 10*3/uL RBC 3.45 L (4.40-5.60) X 10*6/uL Hgb 10.1 L (13.0-17.0) g/dL Hct 29.9 L (39.6-50.0) % Plt Count 88 L (140-440) X 10*3/uL Neutrophils # 1.67 L (1.80-7.70) X 10*3/uL Lymphocytes # 0.81 L (0.90-5.00) X 10*3/uL BUN/Creatinine Ratio 21.82 H (12.00-20.00) Ratio Glucose 228 H (70-110) mg/dL POC Glucose (mg/dL) 270 H (75-99) mg/dL Calcium 7.8 L (8.7-10.3) mg/dL Albumin (PEP) (3.80-4.90) g/dL Pfgfm-5-Sgjsmbyen (0.10-0.40) g/dL Lhpim-4-Duiylnpvf (0.60-1.00) g/dL 03/25/21 03/25/21 Range/Units 11:43 16:54 WBC (4.50-10.00) X 10*3/uL RBC (4.40-5.60) X 10*6/uL Hgb (13.0-17.0) g/dL Hct (39.6-50.0) % Plt Count (140-440) X 10*3/uL Neutrophils # (1.80-7.70) X 10*3/uL Lymphocytes # (0.90-5.00) X 10*3/uL BUN/Creatinine Ratio (12.00-20.00) Ratio Glucose (70-110) mg/dL POC Glucose (mg/dL) 308 H 229 H (75-99) mg/dL Calcium (8.7-10.3) mg/dL Albumin (PEP) (3.80-4.90) g/dL Ovuvt-2-Grallmgmw (0.10-0.40) g/dL Rkqqw-8-Plpeblwwt (0.60-1.00) g/dL Microbiology - Last 24 Hours (Table) 03/22/21 11:30 Gram Stain - Final Toe - Right Fourth Wound Culture - Final Methicillin resist S. aureus 03/21/21 09:03 Blood Culture - Preliminary Blood No Growth after 96 hours 03/21/21 09:03 Blood Culture - Preliminary Blood No Growth after 96 hours Assessment and Plan Assessment: Wet gangrene and suspected underlying osteomyelitis of right foot, secondary to MRSA, Status post fourth toe amputation and debridement of the fifth toe. Present on admission Diabetes mellitus with hyperglycemia on the presentation mild elevation in creatinine, suspect NITA. Improved Pancytopenia, with chronic thrombocytopenia since 2013 mostly related to his history of hep C, also related to vitamin B12 deficiency Low-normal vitamin B12, probably deficiency. Been replaced History of hepatitis C Plan: This is a pleasant 60 years old male who presented with wet gangrene of the right fourth and fifth toe. Status post amputation of the toes. Patient is on broad-spectrum antibiotics with daptomycin with ID team on the case. Hematology team for pancytopenia and thrombocytopenia. Nephrology consult. Currently he is euvolemic Labs and medication were reviewed.. Continue same treatment. Continue with symptomatic treatment. Resume home medication. Monitor lytes and vitals. DVT and GI prophylaxis. Further recommendations as per clinical course of the patient DVT prophylaxis: Subcutaneous heparin GI Prophylaxis: Pepcid PT/OT: Home
[2021-03-25] MEDS ORDERED: INSULIN DETEMIR (LEVEMIR) 100 UNIT/ML SYR SQ ONE (21:20)
[2021-03-25] MEDS: QUEtiapine 100 MG TAB PO SCH (21:48)
[2021-03-25] MEDS: INSULIN DETEMIR (LEVEMIR) 100 UNIT/ML SYR SQ SCH (21:51)
[2021-03-25] MEDS: SENNOSIDES 8.6 MG TAB PO SCH (23:06)
--- NOTE | 2021-03-26 00:28 | PN ---
PROGRESS NOTE DATE OF SERVICE: 03/25/2021. REASON FOR FOLLOWUP: Right 4th toe gangrene, MRSA. INTERVAL HISTORY: Patient is afebrile. The patient complaining of more pain to his right foot amputation site. The patient denies having any chest pain, shortness of breath or cough. No abdominal pain or diarrhea. PHYSICAL EXAMINATION: Blood pressure 152/79 with a pulse of 71, temperature 98.1 he is 99% on room air. The patient is a middle-aged male lying in bed in no distress. RESPIRATORY SYSTEM: Unlabored breathing clear to auscultation anteriorly. HEART: S1, S2. Regular rate and rhythm. ABDOMEN: Soft, no tenderness. EXTREMITIES: Right foot is currently dressed with no drainage on the dressing. LABS: Hemoglobin is 10.1, white count of 2.8, BUN of 24, creatinine 1.1194. Wound culture showing a MRSA. DIAGNOSTIC IMPRESSION AND PLAN: Patient with right foot wet gangrene status post amputation of the right 4th toe and debridement of the right 5th toe with no evidence of any bony involvement. Antibiotic adjusted, daptomycin as the patient did have a problem with the vancomycin on admission. Continue with IV daptomycin over the weekend and if did have overall improvement, may transition to oral antibiotic on discharge, continue supportive care. MMODL / IJN: [id number] /
[2021-03-26 02:14] LABS: Glucose,Whole Blood 361 mg/dL (75-99)
[2021-03-26] MEDS: HYDROmorphone 1 MG/ML 1 ML SYRINGE IVP PRN ×7 (02:22→21:32)
[2021-03-26 06:58] LABS: Glucose,Whole Blood 303 mg/dL (75-99)
[2021-03-26] MEDS: INSULIN ASPART (NovoLOG) 100 UNIT/ML VIAL SQ SCH ×6 (08:24→21:42)
[2021-03-26] MEDS: SENNOSIDES 8.6 MG TAB PO SCH ×2 (08:25→21:29)
[2021-03-26] MEDS: NICOTINE 21MG/24HR PATCH TRANSDERM SCH (08:25)
[2021-03-26] MEDS: oxyCODONE-APAP 10-325MG 1 EACH TAB PO PRN ×2 (08:25→17:51)
[2021-03-26] MEDS: CYANOCOBALAMIN 1,000 MCG/ML 1 ML VIAL IM SCH (08:25)
[2021-03-26] MEDS: GABAPENTIN 300 MG CAP PO SCH ×3 (08:25→21:29)
[2021-03-26] MEDS: FAMOTIDINE 20 MG TAB PO SCH ×2 (08:25→21:28)
[2021-03-26] MEDS: amLODIPine 5 MG TAB PO SCH (08:25)
[2021-03-26] MEDS: HEPARIN SODIUM,PORCINE/PF 5,000 UNIT/0.5 ML SYRINGE SQ SCH ×2 (08:26→21:36)
[2021-03-26] MEDS: ALPRAZolam 0.25 MG TAB PO PRN (08:29)
[2021-03-26] MEDS ORDERED: LACTULOSE 20 GM/30 ML CUP PO PRN (10:26)
[2021-03-26] MEDS ORDERED: HYDROmorphone 1 MG/ML 1 ML SYRINGE IVP STA (10:27)
[2021-03-26 11:40] LABS: Glucose,Whole Blood 107 mg/dL (75-99)
--- NOTE | 2021-03-26 13:33 | PN ---
PROGRESS NOTE Patient is seen for followup for acute kidney injury mostly acute tubular necrosis associated with vancomycin toxicity. Serum creatinine had improved to 1.1 mg/dL yesterday. Patient is complaining of constipation today. He denies any other significant complaints. PHYSICAL EXAMINATION: Blood pressure this morning 132/76, heart rate 86 per minute. He is afebrile. Examination of the heart S1, S2. Examination of the lungs, bilateral breath sounds are heard. Abdomen is soft, nontender. Examination of lower extremities shows no significant edema. 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 LAB: Show hemoglobin 10.1, sodium 136, potassium 4.6, serum creatinine 1.1 on 03/25/2021. ASSESSMENT: 1. Acute kidney injury, multifactorial, including vancomycin toxicity and acute tubular necrosis from underlying infection. Currently improved. Repeat labs in a.m. 2. Right foot gangrene status post amputation on 03/23/2021. 3. Chronic kidney disease stage 1 secondary to diabetic kidney disease with proteinuria fairly preserved GFR. 4. Constipation. PLAN: Add MiraLAX. Continue with stool softeners and repeat labs in a.m. MMODL / IJN: [id number] /
[2021-03-26 13:42] LABS: Glucose,Whole Blood 226 mg/dL (75-99)
[2021-03-26] MEDS: polyethylene glycoL 3350 17 GM POWD.PACK PO SCH (13:43)
[2021-03-26] MEDS: hydrALAZINE HCL 25 MG TAB PO PRN (13:43)
[2021-03-26] MEDS: DAPTOmycin 500 MG in SODIUM CHLORIDE 0.9% 50 ML IVPB SCH (15:09)
[2021-03-26 16:37] LABS: Glucose,Whole Blood 211 mg/dL (75-99)
[2021-03-26] MEDS ORDERED: INSULIN DETEMIR (LEVEMIR) 100 UNIT/ML SYR SQ SCH (21:00)
[2021-03-26] MEDS: QUEtiapine 100 MG TAB PO SCH (21:28)
[2021-03-26] MEDS: METOPROLOL TARTRATE 25 MG TAB PO SCH (21:29)
[2021-03-26 21:30] LABS: Glucose,Whole Blood 350 mg/dL (75-99)
[2021-03-26] MEDS: INSULIN DETEMIR (LEVEMIR) 100 UNIT/ML SYR SQ SCH (21:42)
--- NOTE | 2021-03-26 23:21 | P.PN ---
Subjective This is a pleasant 60 years old male with past medical history of diabetes mellitus, hepatitis C presents on 03/21 with fever, vomiting and chills and sweating of 2 days' duration. Plan to have an infected right fourth and fifth toes with wet gangrene and suspected underlying osteomyelitis. C-reactive protein is elevated at 5.3. Secondary to uncontrolled diabetes with hemoglobin A1c is 9.8%. Patient has been evaluated by vascular surgery team and the planned for amputation of the fourth and fifth toe tomorrow. Currently his insulin is controlled on Lantus 25 units at 13 units with meals, however he did not cut these and place and distended on insulin drip. Currently he is hemodynamically stable Labs reviewed his sodium is 136, potassium is 4.1. BUN is 35 and creatinine 1.3. Glucose was elevated more than 400, currently is better controlled. INR is 0.9. Urinalysis is ordered. Urine drug screen is positive for opioids, oxycodone, tricyclic antidepressant and marijuana. Coronavirus undetected He is a little bit pancytopenic with WBC 2.3, hemoglobin 9.9, platelets 56. Hematology team were consulted. He is kept on broad-spectrum antibiotics with Flagyl, Zosyn and IV vancomycin. Wound culture are pending. Infectious disease team of vascular surgery team consults are placed. His prognosis is guarded 03/23/2021 Patient seen today for a preop evaluation. Patient was awakened and alert, not in distress, pain uncontrolled patient asked to get more pain medication, Dilaudid 0.5 mg increase to 1 mg every 3 hours. Patient found at acceptable risk for the procedure, I discussed the case with Dr. Swain. Patient status post application of the right fourth toe and debridement of the right fifth toe. He was on insulin drip at 1 unit per hour, glucose was controlled. Insulin drip stopped and switched to insulin sliding scale Lap showing slightly elevated creatinine to 1.49 which is the upper limit of the reference range, vancomycin was held to check trough of vancomycin and adjust dose accordingly. Normal saline at 75 mL per hour started. Monitor input and output, patient is making good amount of urine. Toradol ordered on admission is stopped and nephrology team were consulted Also patient is with chronic thrombocytopenia since 2013 and currently above 50 K, patient is not on aspirin and his heparin dose this morning was held, there is no limitation for patient going for surgery because of low platelet count. Discussed with vascular surgery team Currently patient is on IV vancomycin pharmacy to dose, and Unasyn. Normal sinus 75 mL/h. Percocet and Dilaudid. 03/24/2021 Patient sitting in bed looks comfortable but in distress. He is hemodynamically stable and blood pressure slightly improved compared to yesterday. He has mild pancytopenia which is a stable. BMP is unremarkable and creatinine down to 1.3 and normal son was stopped. 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 Vitamin B12 was low at 283 which is been replaced. Has poorly controlled diabetes with hemoglobin A1c elevated and 9.8%. Chart is growing staph aureus, final results are pending. Patient remains on Unasyn per ID team. And is added for better pain control 03/25/2021 Patient is clinically stable, distal been treated for right foot gangrene, today once culture came back positive for MRSA, but it adjusted to daptomycin. His creatinine improving to 1.1. He is hemodynamically stable. Norvasc added today for better blood pressure control His sugar is uncontrolled, he is already on his home dose of Levemir 25 units at bedtime, we are going to at his home dose of NovoLog 13 units with meals 03/26/2021 Patient remains awake alert, more clinically stable since he had surgery for his right foot infection and gangrene status post amputation of the fourth toe and debridement of the fifth toe. wound is growing MRSA. Most likely secondary to uncontrolled diabetes as hemoglobin A1c is 9.8, and states that it was 12% before and he has motivation to control his sugar upon discharge to better level. Vitamin B12 was low at 283, his been replaced with IM 3 and from tomorrow to be replaced to oral cyanocobalamin 1000 g daily Patient has constipation and stool softeners provided. Patient currently kept on Dilaudid which need to be switched to oral medication prior to discharge. Vitals are stable. Mild pancytopenia is improving with WBC slightly upper 2.8 and platelets up to 88 case. Hemoglobin the same at 10.1. Most likely secondary to sepsis effect. Blood pressure was on the high side and metoprolol added today. Continue with Norvasc and hydralazine Patient is currently covered with daptomycin per ID team Objective - Vital Signs Vital signs: Vital Signs Temp 98.2 F 03/26/21 14:00 Pulse 82 03/26/21 14:00 Resp 18 03/26/21 14:00 BP 184/107 03/26/21 14:00 Pulse Ox 96 03/26/21 14:00 Intake & Output 03/26/21 03/26/21 03/27/21 06:59 18:59 06:59 Intake Total 1200 694 Balance 1200 694 Intake: Oral 1200 694 Other: Voiding Method Toilet Toilet Urinal Urinal # Voids 2 1 - Exam GENERAL: The patient is alert and oriented x3, not in any acute distress. Well developed, well nourished. HEENT: Pupils are round and equally reacting to light. EOMI. No scleral icterus. No conjunctival pallor. Normocephalic, atraumatic. No pharyngeal erythema. No thyromegaly. CARDIOVASCULAR: S1 and S2 present. No murmurs, rubs, or gallops. PULMONARY: Chest is clear to auscultation, no wheezing or crackles. ABDOMEN: Soft, nontender, nondistended, normoactive bowel sounds. No palpable organomegaly. MUSCULOSKELETAL: No joint swelling or deformity. -EXTREMITIES: No cyanosis, clubbing, or pedal edema. Infected right fourth and fifth toes, with gangrene NEUROLOGICAL: Gross neurological examination did not reveal any focal deficits. SKIN: No rashes. no petechiae. - Labs CBC & Chem 7: 03/25/21 05:51 03/25/21 05:51 Labs: Abnormal Lab Results - Last 24 Hours (Table) 03/26/21 03/26/21 03/26/21 Range/Units 02:11 06:57 11:39 POC Glucose (mg/dL) 361 H 303 H 107 H (75-99) mg/dL 03/26/21 03/26/21 03/26/21 Range/Units 13:41 16:36 21:28 POC Glucose (mg/dL) 226 H 211 H 350 H (75-99) mg/dL Microbiology - Last 24 Hours (Table) 03/21/21 09:03 Blood Culture - Preliminary Blood No Growth after 120 hours 03/21/21 09:03 Blood Culture - Preliminary Blood No Growth after 120 hours Assessment and Plan Assessment: Wet gangrene and suspected underlying osteomyelitis of right foot, secondary to MRSA, Status post fourth toe amputation and debridement of the fifth toe. Present on admission Diabetes mellitus with hyperglycemia on the presentation mild elevation in creatinine, NITA. Improved Pancytopenia, with chronic thrombocytopenia since 2013 mostly related to his history of hep C, also related to vitamin B12 deficiency Low-normal vitamin B12, probably deficiency. Been replaced History of hepatitis C Plan: This is a pleasant 60 years old male who presented with wet gangrene of the right fourth and fifth toe. Status post amputation of the toes. Patient is on broad-spectrum antibiotics with daptomycin with ID team on the case. Hematology team for pancytopenia and thrombocytopenia. Labs and medication were reviewed.. Continue same treatment. Continue with symptomatic treatment. Resume home medication. Monitor lytes and vitals. DVT and GI prophylaxis. Further recommendations as per clinical course of the patient DVT prophylaxis: Subcutaneous heparin GI Prophylaxis: Pepcid PT/OT: Home
--- NOTE | 2021-03-26 23:32 | PN ---
PROGRESS NOTE DATE OF SERVICE: 03/26/2021 REASON FOR FOLLOWUP: Right 4th toe wet gangrene and diabetic foot infection with MRSA. INTERVAL HISTORY: Patient is afebrile. The patient is breathing comfortably. Still complaining of pain and wanted more pain medication. Patient denies having any chest pain or shortness of breath or cough. No abdominal pain or diarrhea. PHYSICAL EXAMINATION: Blood pressure 145/77, pulse of 77, temperature 97.6. He is 97% on room air. General description is a middle-aged male lying in bed in no distress. Respiratory system: Unlabored breathing, clear to auscultation anteriorly. Heart S1, S2. Regular rate and rhythm. Abdomen soft, no tenderness. LABS: No new labs have been obtained today. DIAGNOSTIC IMPRESSION AND PLAN: Patient with right 4th toe wet gangrene. Culture with MRSA. Patient is covered with daptomycin because of his renal insufficiency with Vanco to continue for another 24 hours before transition to oral antibiotics. Continue supportive care. MMODL / IJN: [id number] /
[2021-03-27] MEDS: HYDROmorphone 1 MG/ML 1 ML SYRINGE IVP PRN ×6 (00:17→21:41)
[2021-03-27 06:47] LABS: Glucose,Whole Blood 280 mg/dL (75-99)
[2021-03-27] MEDS: INSULIN ASPART (NovoLOG) 100 UNIT/ML VIAL SQ SCH ×7 (07:17→21:40)
[2021-03-27] MEDS: METOPROLOL TARTRATE 25 MG TAB PO SCH ×2 (07:19→21:41)
[2021-03-27] MEDS: NICOTINE 21MG/24HR PATCH TRANSDERM SCH (07:19)
[2021-03-27] MEDS: amLODIPine 5 MG TAB PO SCH (07:19)
[2021-03-27] MEDS: FAMOTIDINE 20 MG TAB PO SCH ×2 (07:19→21:39)
[2021-03-27] MEDS: GABAPENTIN 300 MG CAP PO SCH ×3 (07:19→21:41)
[2021-03-27] MEDS: SENNOSIDES 8.6 MG TAB PO SCH ×2 (07:19→21:41)
[2021-03-27] MEDS: HEPARIN SODIUM,PORCINE/PF 5,000 UNIT/0.5 ML SYRINGE SQ SCH ×2 (07:20→21:40)
[2021-03-27] MEDS: oxyCODONE-APAP 10-325MG 1 EACH TAB PO PRN ×2 (09:36→16:59)
[2021-03-27] MEDS: ALPRAZolam 0.25 MG TAB PO PRN (09:37)
[2021-03-27] MEDS: CYANOCOBALAMIN 500 MCG TAB PO SCH (09:37)
[2021-03-27] MEDS: polyethylene glycoL 3350 17 GM POWD.PACK PO SCH (09:37)
[2021-03-27] MEDS: ERGOCALCIFEROL 1,250 MCG (50,000 IU) CAPSULE PO SCH (09:37)
[2021-03-27 11:27] LABS: Basophils # (A) 0.02 X 10*3/uL (0.00-0.10); Basophils % (A) 0.7 %; Eosinophils # (A) 0.08 X 10*3/uL (0.04-0.35); Eosinophils % (A) 2.9 %; HCT 30.6 % (39.6-50.0); HGB 9.9 g/dL (13.0-17.0); Lymphocytes # (A) 0.72 X 10*3/uL (0.90-5.00); Lymphocytes % (A) 26.2 %; MCH 28.9 pg (27.0-32.0); MCHC 32.4 g/dL (32.0-37.0); MCV 89.2 fL (80.0-97.0); Mean Platelet Volume 12.5 fL (9.5-12.2); Monocytes # (A) 0.26 X 10*3/uL (0.20-1.00); Monocytes % (A) 9.5 %; Neutrophils # (A) 1.65 X 10*3/uL (1.80-7.70); Platelet Count 103 X 10*3/uL (140-440); RBC 3.43 X 10*6/uL (4.40-5.60); RDW 13.1 % (11.5-14.5); WBC 2.75 X 10*3/uL (4.50-10.00)
[2021-03-27 11:29] LABS: Glucose,Whole Blood 288 mg/dL (75-99)
[2021-03-27 11:33] LABS: African American GFR (CKD) 69.2 (60.0-200.0); Anion Gap 4.9 mmol/L (4.00-12.00); BUN/Creat Ratio 21.54 Ratio (12.00-20.00); Calcium 8.3 mg/dL (8.7-10.3); Carbon Dioxide 27.1 mmol/L (21.6-31.8); Magnesium 1.7 mg/dL (1.5-2.4); Non-African American GFR(CKD) 59.7 (60.0-200.0); Potassium 4.7 mmol/L (3.5-5.5)
--- NOTE | 2021-03-27 14:09 | PN ---
PROGRESS NOTE DATE OF SERVICE: 03/27/2021 FOLLOWUP: Right fourth toe gangrene MRSA. INTERVAL HISTORY: The patient is afebrile. The patient is breathing comfortably. Still complaining of more pain to the right 4th toe amputation site and wanted me to give him more pain medication. No chest pain, shortness of breath, cough, abdominal pain or diarrhea. PHYSICAL EXAMINATION: Blood pressure 134/91 with a pulse of 75, temperature is 97.6. He is 98% on room air. General description: The patient is a middle-aged male lying in bed in no distress. Respiratory system: Unlabored breathing, clear to auscultation anteriorly. Heart S1, S2. Regular rate and rhythm. Abdomen soft, no tenderness. Right 4th toe amputation wound base looks clean. No swelling. No redness. No drainage. LABS: Hemoglobin is 9.1, white count 2.75, creatinine 1.3. DIAGNOSTIC IMPRESSION AND PLAN: Patient with right fourth toe gangrene, status post amputation of the right fourth toe. Culture with MRSA. The patient did have vancomycin. Kidney function borderline and high risk for nephrotoxicity with Bactrim suggest doxycycline 100 mg twice a day for 10 days and close outpatient followup. Prescription sent to the pharmacy. Local care with Aquacel Silver packing of the wound. MMODL / IJN: [id number] /
[2021-03-27 16:34] LABS: Glucose,Whole Blood 344 mg/dL (75-99)
[2021-03-27] MEDS: DAPTOmycin 500 MG in SODIUM CHLORIDE 0.9% 50 ML IVPB SCH (16:59)
[2021-03-27] MEDS ORDERED: FUROSEMIDE 40 MG TAB PO STA (19:04)
[2021-03-27 20:55] LABS: Glucose,Whole Blood 117 mg/dL (75-99)
[2021-03-27] MEDS: INSULIN DETEMIR (LEVEMIR) 100 UNIT/ML SYR SQ SCH (21:40)
[2021-03-27] MEDS: QUEtiapine 100 MG TAB PO SCH (21:41)
[2021-03-28 02:25] LABS: Glucose,Whole Blood 279 mg/dL (75-99)
[2021-03-28] MEDS: HYDROmorphone 1 MG/ML 1 ML SYRINGE IVP PRN ×3 (06:11→12:52)
[2021-03-28 07:10] LABS: Glucose,Whole Blood 229 mg/dL (75-99)
[2021-03-28 07:27] LABS: Basophils % (A) 1 %; Eosinophils # (A) 0.1 k/uL (0-0.7); Eosinophils % (A) 3 %; HCT 30.1 % (39.0-53.0); HGB 10.4 gm/dL (13.0-17.5); Lymphocytes # (A) 0.7 k/uL (1.0-4.8); Lymphocytes % (A) 24 %; MCH 30.1 pg (25.0-35.0); MCHC 34.5 g/dL (31.0-37.0); MCV 87.3 fL (80.0-100.0); Mean Platelet Volume 8.4; Monocytes # (A) 0.2 k/uL (0-1.0); Monocytes % (A) 7 %; Neutrophils % (A) 64 %; Platelet Count 102 k/uL (150-450); RBC 3.45 m/uL (4.30-5.90); RDW 13.7 % (11.5-15.5); WBC 3.1 k/uL (3.8-10.6)
[2021-03-28] MEDS: INSULIN DETEMIR (LEVEMIR) 100 UNIT/ML SYR SQ SCH ×2 (07:37→21:50)
[2021-03-28] MEDS: INSULIN ASPART (NovoLOG) 100 UNIT/ML VIAL SQ SCH ×8 (07:40→21:49)
[2021-03-28] MEDS: oxyCODONE-APAP 10-325MG 1 EACH TAB PO PRN ×2 (07:51→17:50)
[2021-03-28] MEDS: amLODIPine 5 MG TAB PO SCH (07:51)
[2021-03-28] MEDS: SENNOSIDES 8.6 MG TAB PO SCH ×2 (07:51→21:51)
[2021-03-28] MEDS: CYANOCOBALAMIN 500 MCG TAB PO SCH (07:51)
[2021-03-28] MEDS: FAMOTIDINE 20 MG TAB PO SCH ×2 (07:52→21:48)
[2021-03-28] MEDS: GABAPENTIN 300 MG CAP PO SCH ×3 (07:52→21:51)
[2021-03-28] MEDS: NICOTINE 21MG/24HR PATCH TRANSDERM SCH (07:52)
[2021-03-28] MEDS: METOPROLOL TARTRATE 25 MG TAB PO SCH ×2 (07:52→21:50)
[2021-03-28] MEDS: HEPARIN SODIUM,PORCINE/PF 5,000 UNIT/0.5 ML SYRINGE SQ SCH ×2 (07:53→21:49)
[2021-03-28] MEDS: polyethylene glycoL 3350 17 GM POWD.PACK PO SCH (07:53)
[2021-03-28 08:40] LABS: Methylmalonic Acid 0.23 umol/L (<0.40)
[2021-03-28] MEDS ORDERED: FUROSEMIDE 10 MG/ML 4 ML VIAL IV STA (09:47)
--- NOTE | 2021-03-28 10:21 | PN ---
PROGRESS NOTE Patient is seen for followup for acute kidney injury, mostly associated with underlying osteomyelitis and vancomycin toxicity. Serum creatinine was 1.3 on 03/27/2021. No labs available from today. On examination today patient is comfortable, complaining of pain in his legs and complaining of lower extremity swelling. EXAMINATION: Blood pressure is 162/79, heart rate 82 per minute, he is afebrile. Examination of the heart S1, S2. Examination of the lungs, bilateral breath sounds are heard. Abdomen is soft, nontender. Examination of lower extremities shows edema 1+ bilaterally. 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 LAB: Show sodium 136, potassium 4.7, chloride 104 BUN 28, serum creatinine 1.3, hemoglobin 9.9 on 03/27/2021. ASSESSMENT: 1. Acute kidney injury secondary to vancomycin toxicity as well as an element of acute tubular necrosis from underlying osteomyelitis, currently stable. 2. Volume overload. Will add IV Lasix for a couple of doses. 3. Right foot gangrene status post amputation 03/23/2021. 4. Chronic kidney disease stage 1 secondary to diabetic kidney disease with fairly preserved GFR. 5. Constipation, currently seems to have improved. PLAN: Add IV Lasix. Continue off IV fluids. Repeat labs in a.m. MMODL / IJN: [id number] /
[2021-03-28] MEDS: ALPRAZolam 0.25 MG TAB PO PRN (11:06)
[2021-03-28 11:46] LABS: Glucose,Whole Blood 302 mg/dL (75-99)
[2021-03-28 12:23] LABS: African American GFR (CKD) 53.9 (60.0-200.0); BUN/Creat Ratio 23.13 Ratio (12.00-20.00); Calcium 8.7 mg/dL (8.7-10.3); Non-African American GFR(CKD) 46.5 (60.0-200.0); Potassium 4.7 mmol/L (3.5-5.5)
[2021-03-28] MEDS: MORPHINE SULFATE ER 30 MG TABLET PO SCH (14:42)
[2021-03-28] MEDS: DAPTOmycin 500 MG in SODIUM CHLORIDE 0.9% 50 ML IVPB SCH (14:53)
--- NOTE | 2021-03-28 16:41 | PN ---
PROGRESS NOTE DATE OF SERVICE: 03/28/2021 REASON FOR FOLLOWUP: Right 4th toe wet gangrene and diabetic foot infection and MRSA. INTERVAL HISTORY: The patient is afebrile. The patient is breathing comfortably. Denies any chest pain. No cough. No abdominal pain. Has been complaining of swelling and pain to his lower extremity wound with no drainage. PHYSICAL EXAMINATION: Blood pressure is 143/78 with a pulse of 80. Temperature 97.5. He is 97% on room air. General description is a middle-aged male up in the bed in no distress. Respiratory system: Unlabored breathing, clear to auscultation anteriorly. Heart S1, S2. Regular rate and rhythm. Abdomen soft, no tenderness. The right foot is currently dressed up. No obvious drainage on the dressing. LABS: Hemoglobin is 10.4, white count 3.1. BUN of 37, creatinine 1.6. DIAGNOSTIC IMPRESSION AND PLAN: Patient with right 4th toe wet gangrene status post amputation right 4th toe. Culture with MRSA. Patient is covered with daptomycin with plan to finish therapy on oral doxy once his kidney function improves. Continue supportive care. Local wound care with dry Aquacel Silver dressing. MMODL / IJN: [id number] /
[2021-03-28 17:01] LABS: Glucose,Whole Blood 268 mg/dL (75-99)
--- NOTE | 2021-03-28 17:19 | P.PN ---
Subjective Progress Note Date: 03/28/21 Principal diagnosis: Pancytopenia Pt doing ok today, no new c/o Objective - Vital Signs Vital signs: Vital Signs Temp 97.5 F L 03/28/21 15:50 Pulse 80 03/28/21 15:50 Resp 19 03/28/21 15:50 BP 143/78 03/28/21 15:50 Pulse Ox 97 03/28/21 15:50 Intake & Output 03/27/21 03/28/21 03/28/21 18:59 06:59 18:59 Intake Total 1080 450 Balance 1080 450 Weight 99.79 kg Intake: Oral 1080 450 Other: Voiding Method Toilet Urinal # Voids 3 3 - Constitutional General appearance: Present: cooperative, no acute distress, obese - EENT Eyes: Present: anicteric sclerae, EOMI ENT: Present: hearing grossly normal - Neurologic Neurologic: Present: CNII-XII intact - Musculoskeletal Musculoskeletal: Present: strength equal bilaterally - Psychiatric Psychiatric: Present: A&O x's 3, appropriate affect, intact judgment & insight - Labs CBC & Chem 7: 03/28/21 07:10 03/28/21 07:10 Labs: Abnormal Lab Results - Last 24 Hours (Table) 03/27/21 03/28/21 03/28/21 Range/Units 20:53 02:23 07:09 WBC (3.8-10.6) k/uL RBC (4.30-5.90) m/uL Hgb (13.0-17.5) gm/dL Hct (39.0-53.0) % Plt Count (150-450) k/uL Lymphocytes # (1.0-4.8) k/uL BUN (9.0-27.0) mg/dL Creatinine (0.6-1.5) mg/dL Est GFR (CKD-EPI)AfAm (60.0-200.0) Est GFR (CKD-EPI)NonAf (60.0-200.0) BUN/Creatinine Ratio (12.00-20.00) Ratio Glucose (70-110) mg/dL POC Glucose (mg/dL) 117 H 279 H 229 H (75-99) mg/dL 03/28/21 03/28/21 03/28/21 Range/Units 07:10 07:10 11:44 WBC 3.1 L (3.8-10.6) k/uL RBC 3.45 L (4.30-5.90) m/uL Hgb 10.4 L (13.0-17.5) gm/dL Hct 30.1 L (39.0-53.0) % Plt Count 102 L (150-450) k/uL Lymphocytes # 0.7 L (1.0-4.8) k/uL BUN 37.0 H (9.0-27.0) mg/dL Creatinine 1.6 H (0.6-1.5) mg/dL Est GFR (CKD-EPI)AfAm 53.9 L (60.0-200.0) Est GFR (CKD-EPI)NonAf 46.5 L (60.0-200.0) BUN/Creatinine Ratio 23.13 H (12.00-20.00) Ratio Glucose 238 H (70-110) mg/dL POC Glucose (mg/dL) 302 H (75-99) mg/dL 03/28/21 Range/Units 17:00 WBC (3.8-10.6) k/uL RBC (4.30-5.90) m/uL Hgb (13.0-17.5) gm/dL Hct (39.0-53.0) % Plt Count (150-450) k/uL Lymphocytes # (1.0-4.8) k/uL BUN (9.0-27.0) mg/dL Creatinine (0.6-1.5) mg/dL Est GFR (CKD-EPI)AfAm (60.0-200.0) Est GFR (CKD-EPI)NonAf (60.0-200.0) BUN/Creatinine Ratio (12.00-20.00) Ratio Glucose (70-110) mg/dL POC Glucose (mg/dL) 268 H (75-99) mg/dL Assessment and Plan (1) Pancytopenia Narrative/Plan: As pt is treated for underlying infection his CBC is recovering. Pancytopenia work up is neg for paraproteinemia, specific deficiency. US of abd with attention to liver adn spleen size ordered. No plan for Bone marrow at this time. Cont to monitor CBC and see how pt progresses Current Visit: Yes Status: Acute Priority: Medium Code(s): D61.818 - OTHER PANCYTOPENIA SNOMED Code(s): 791109326 Plan: Attests: I have performed H&P, developed impression and plan of care. Discussed with dictator. Agree with dictation, documented as a scribe
[2021-03-28 20:46] LABS: Glucose,Whole Blood 215 mg/dL (75-99)
[2021-03-28] MEDS: QUEtiapine 100 MG TAB PO SCH (21:51)
[2021-03-29] MEDS: MORPHINE SULFATE ER 30 MG TABLET PO SCH ×2 (02:10→14:49)
[2021-03-29 02:13] LABS: Glucose,Whole Blood 291 mg/dL (75-99)
[2021-03-29] MEDS: oxyCODONE-APAP 10-325MG 1 EACH TAB PO PRN ×2 (06:19→12:49)
[2021-03-29 07:04] LABS: Glucose,Whole Blood 290 mg/dL (75-99)
[2021-03-29] MEDS: SENNOSIDES 8.6 MG TAB PO SCH (07:55)
[2021-03-29] MEDS: METOPROLOL TARTRATE 25 MG TAB PO SCH (07:55)
[2021-03-29] MEDS: GABAPENTIN 300 MG CAP PO SCH (07:55)
[2021-03-29] MEDS: CYANOCOBALAMIN 500 MCG TAB PO SCH (07:55)
[2021-03-29] MEDS: NICOTINE 21MG/24HR PATCH TRANSDERM SCH (07:55)
[2021-03-29] MEDS: amLODIPine 5 MG TAB PO SCH (07:55)
[2021-03-29] MEDS: FAMOTIDINE 20 MG TAB PO SCH (07:55)
[2021-03-29] MEDS: polyethylene glycoL 3350 17 GM POWD.PACK PO SCH (07:55)
[2021-03-29] MEDS: HEPARIN SODIUM,PORCINE/PF 5,000 UNIT/0.5 ML SYRINGE SQ SCH (07:56)
[2021-03-29] MEDS: INSULIN ASPART (NovoLOG) 100 UNIT/ML VIAL SQ SCH ×4 (07:57→12:50)
--- NOTE | 2021-03-29 08:13 | US ---
EXAMINATION TYPE: US abdomen complete DATE OF EXAM: 03/29/2021 COMPARISON: NONE CLINICAL HISTORY: pancytopenia. Assess size of spleen and liver EXAM MEASUREMENTS: Liver Length: 20.0 cm. This is enlarged. Normal less than 15.5 cm. Gallbladder Wall: Surgically absent CBD: 0.7 cm Spleen: 19.0 cm Right Kidney: 10.7 x 6.0 x 5.3 cm Left Kidney: 11.3 x 4.9 x 5.1 cm Pancreas: limited views Liver: heterogeneous and difficult to penetrate, enlarged Gallbladder: Surgically absent Evidence for sonographic Pradhan's sign: no CBD: wnl Spleen: enlarged measuring 18.5 cm. Normal less than 12.5 cm. Right Kidney: wnl Left Kidney: wnl Upper IVC: wnl Abd Aorta: wnl IMPRESSION: 1. Splenomegaly. 2. Suggestion of mild fatty infiltration of the liver with hepatomegaly.
[2021-03-29 10:15] LABS: Basophils % (A) 1 %; Eosinophils # (A) 0.1 k/uL (0-0.7); Eosinophils % (A) 2 %; HCT 34.7 % (39.0-53.0); HGB 11.6 gm/dL (13.0-17.5); Lymphocytes # (A) 0.9 k/uL (1.0-4.8); Lymphocytes % (A) 20 %; MCH 29.3 pg (25.0-35.0); MCHC 33.3 g/dL (31.0-37.0); MCV 87.8 fL (80.0-100.0); Monocytes # (A) 0.3 k/uL (0-1.0); Monocytes % (A) 6 %; Neutrophils # (A) 2.9 k/uL (1.3-7.7); Neutrophils % (A) 69 %; Platelet Count 122 k/uL (150-450); RBC 3.96 m/uL (4.30-5.90); RDW 13.7 % (11.5-15.5); WBC 4.2 k/uL (3.8-10.6)
--- NOTE | 2021-03-29 10:29 | P.PN ---
Subjective Progress Note Date: 03/27/21 Principal diagnosis: Wet gangrene of right fourth toe and diabetic foot infection. This is a pleasant 60 years old male with past medical history of diabetes mellitus, hepatitis C presents on 03/21 with fever, vomiting and chills and sweating of 2 days' duration. Plan to have an infected right fourth and fifth toes with wet gangrene and suspected underlying osteomyelitis. C-reactive protein is elevated at 5.3. Secondary to uncontrolled diabetes with hemoglobin A1c is 9.8%. Patient has been evaluated by vascular surgery team and the planned for amputation of the fourth and fifth toe tomorrow. Currently his insulin is controlled on Lantus 25 units at 13 units with meals, however he did not cut these and place and distended on insulin drip. Currently he is hemodynamically stable Labs reviewed his sodium is 136, potassium is 4.1. BUN is 35 and creatinine 1.3. Glucose was elevated more than 400, currently is better controlled. INR is 0.9. Urinalysis is ordered. Urine drug screen is positive for opioids, oxycodone, tricyclic antidepressant and marijuana. Coronavirus undetected He is a little bit pancytopenic with WBC 2.3, hemoglobin 9.9, platelets 56. Hematology team were consulted. He is kept on broad-spectrum antibiotics with Flagyl, Zosyn and IV vancomycin. Wound culture are pending. Infectious disease team of vascular surgery team consults are placed. His prognosis is guarded 03/23/2021 Patient seen today for a preop evaluation. Patient was awakened and alert, not in distress, pain uncontrolled patient asked to get more pain medication, Dilaudid 0.5 mg increase to 1 mg every 3 hours. Patient found at acceptable risk for the procedure, I discussed the case with Dr. Swain. Patient status post application of the right fourth toe and debridement of the right fifth toe. He was on insulin drip at 1 unit per hour, glucose was controlled. Insulin drip stopped and switched to insulin sliding scale Lap showing slightly elevated creatinine to 1.49 which is the upper limit of the reference range, vancomycin was held to check trough of vancomycin and adjust dose accordingly. Normal saline at 75 mL per hour started. Monitor input and output, patient is making good amount of urine. Toradol ordered on admission is stopped and nephrology team were consulted Also patient is with chronic thrombocytopenia since 2013 and currently above 50 K, patient is not on aspirin and his heparin dose this morning was held, there is no limitation for patient going for surgery because of low platelet count. Discussed with vascular surgery team Currently patient is on IV vancomycin pharmacy to dose, and Unasyn. Normal sinus 75 mL/h. Percocet and Dilaudid. 03/24/2021 Patient sitting in bed looks comfortable but in distress. He is hemodynamically stable and blood pressure slightly improved compared to yesterday. He has mild pancytopenia which is a stable. BMP is unremarkable and creatinine down to 1.3 and normal son was stopped. 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 Vitamin B12 was low at 283 which is been replaced. Has poorly controlled diabetes with hemoglobin A1c elevated and 9.8%. Chart is growing staph aureus, final results are pending. Patient remains on Unasyn per ID team. And is added for better pain control 03/25/2021 Patient is clinically stable, distal been treated for right foot gangrene, today once culture came back positive for MRSA, but it adjusted to daptomycin. His creatinine improving to 1.1. He is hemodynamically stable. Norvasc added today for better blood pressure control His sugar is uncontrolled, he is already on his home dose of Levemir 25 units at bedtime, we are going to at his home dose of NovoLog 13 units with meals 03/26/2021 Patient remains awake alert, more clinically stable since he had surgery for his right foot infection and gangrene status post amputation of the fourth toe and debridement of the fifth toe. wound is growing MRSA. Most likely secondary to uncontrolled diabetes as hemoglobin A1c is 9.8, and states that it was 12% before and he has motivation to control his sugar upon discharge to better level. Vitamin B12 was low at 283, his been replaced with IM 3 and from tomorrow to be replaced to oral cyanocobalamin 1000 g daily Patient has constipation and stool softeners provided. Patient currently kept on Dilaudid which need to be switched to oral medication prior to discharge. Vitals are stable. Mild pancytopenia is improving with WBC slightly upper 2.8 and platelets up to 88 case. Hemoglobin the same at 10.1. Most likely secondary to sepsis effect. Blood pressure was on the high side and metoprolol added today. Continue with Norvasc and hydralazine Patient is currently covered with daptomycin per ID team Objective - Vital Signs Vital signs: Vital Signs Temp 98.2 F 03/27/21 14:00 Pulse 85 03/27/21 14:00 Resp 18 03/27/21 14:00 BP 171/90 03/27/21 14:00 Pulse Ox 100 03/27/21 14:00 Intake & Output 03/27/21 03/27/21 03/28/21 06:59 18:59 06:59 Intake Total 1080 Balance 1080 Weight 99.79 kg Intake: Oral 1080 Other: Voiding Method Toilet Urinal # Voids 2 3 - Exam GENERAL: The patient is alert and oriented x3, not in any acute distress. Well developed, well nourished. HEENT: Pupils are round and equally reacting to light. EOMI. No scleral icterus. No conjunctival pallor. Normocephalic, atraumatic. No pharyngeal erythema. No thyromegaly. CARDIOVASCULAR: S1 and S2 present. No murmurs, rubs, or gallops. PULMONARY: Chest is clear to auscultation, no wheezing or crackles. ABDOMEN: Soft, nontender, nondistended, normoactive bowel sounds. No palpable organomegaly. MUSCULOSKELETAL: No joint swelling or deformity. -EXTREMITIES: No cyanosis, clubbing, or pedal edema. Infected right fourth and fifth toes, with gangrene NEUROLOGICAL: Gross neurological examination did not reveal any focal deficits. SKIN: No rashes. no petechiae. - Labs CBC & Chem 7: 03/29/21 09:05 03/28/21 07:10 Labs: Abnormal Lab Results - Last 24 Hours (Table) 03/27/21 03/27/21 03/27/21 Range/Units 06:42 06:42 06:45 WBC 2.75 L (4.50-10.00) X 10*3/uL RBC 3.43 L (4.40-5.60) X 10*6/uL Hgb 9.9 L (13.0-17.0) g/dL Hct 30.6 L (39.6-50.0) % Plt Count 103 L (140-440) X 10*3/uL MPV 12.5 H (9.5-12.2) fL Neutrophils # 1.65 L (1.80-7.70) X 10*3/uL Lymphocytes # 0.72 L (0.90-5.00) X 10*3/uL BUN 28.0 H (9.0-27.0) mg/dL Est GFR (CKD-EPI)NonAf 59.7 L (60.0-200.0) BUN/Creatinine Ratio 21.54 H (12.00-20.00) Ratio Glucose 259 H (70-110) mg/dL POC Glucose (mg/dL) 280 H (75-99) mg/dL Calcium 8.3 L (8.7-10.3) mg/dL 03/27/21 03/27/21 03/27/21 Range/Units 11:23 16:33 20:53 WBC (4.50-10.00) X 10*3/uL RBC (4.40-5.60) X 10*6/uL Hgb (13.0-17.0) g/dL Hct (39.6-50.0) % Plt Count (140-440) X 10*3/uL MPV (9.5-12.2) fL Neutrophils # (1.80-7.70) X 10*3/uL Lymphocytes # (0.90-5.00) X 10*3/uL BUN (9.0-27.0) mg/dL Est GFR (CKD-EPI)NonAf (60.0-200.0) BUN/Creatinine Ratio (12.00-20.00) Ratio Glucose (70-110) mg/dL POC Glucose (mg/dL) 288 H 344 H 117 H (75-99) mg/dL Calcium (8.7-10.3) mg/dL Microbiology - Last 24 Hours (Table) 03/21/21 09:03 Blood Culture - Final Blood No Growth after 144 hours 03/21/21 09:03 Blood Culture - Final Blood No Growth after 144 hours Assessment and Plan Assessment: Wet gangrene of right fourth toe and diabetic foot infection. Also suspected underlying osteomyelitis of right foot, secondary to MRSA, Status post fourth toe amputation and debridement of the fifth toe. Present on admission Diabetes mellitus with hyperglycemia on the presentation mild elevation in creatinine, NITA. Improved Pancytopenia, with chronic thrombocytopenia since 2013 mostly related to his history of hep C, also related to vitamin B12 deficiency Low-normal vitamin B12, probably deficiency. Been replaced History of hepatitis C Chronic pain. Patient follows with pain clinic. Plan: This is a pleasant 60 years old male who presented with wet gangrene of the right fourth and fifth toe. Status post amputation of the toes. Patient is on broad-spectrum antibiotics with daptomycin with ID team on the case. Hematology team for pancytopenia and thrombocytopenia. Labs and medication were reviewed. Resume home medication. Monitor lytes and vitals. Continue the pain management. DVT and GI prophylaxis. Further recommendations as per clinical course of the patient DVT prophylaxis: Subcutaneous heparin GI Prophylaxis: Pepcid PT/OT: Home Time with Patient: Greater than 30
--- NOTE | 2021-03-29 10:35 | P.PN ---
Subjective Progress Note Date: 03/28/21 Principal diagnosis: Wet gangrene of right fourth toe and diabetic foot infection. This is a pleasant 60 years old male with past medical history of diabetes mellitus, hepatitis C presents on 03/21 with fever, vomiting and chills and sweating of 2 days' duration. Plan to have an infected right fourth and fifth toes with wet gangrene and suspected underlying osteomyelitis. C-reactive protein is elevated at 5.3. Secondary to uncontrolled diabetes with hemoglobin A1c is 9.8%. Patient has been evaluated by vascular surgery team and the planned for amputation of the fourth and fifth toe tomorrow. Currently his insulin is controlled on Lantus 25 units at 13 units with meals, however he did not cut these and place and distended on insulin drip. Currently he is hemodynamically stable Labs reviewed his sodium is 136, potassium is 4.1. BUN is 35 and creatinine 1.3. Glucose was elevated more than 400, currently is better controlled. INR is 0.9. Urinalysis is ordered. Urine drug screen is positive for opioids, oxycodone, tricyclic antidepressant and marijuana. Coronavirus undetected He is a little bit pancytopenic with WBC 2.3, hemoglobin 9.9, platelets 56. Hematology team were consulted. He is kept on broad-spectrum antibiotics with Flagyl, Zosyn and IV vancomycin. Wound culture are pending. Infectious disease team of vascular surgery team consults are placed. His prognosis is guarded 03/23/2021 Patient seen today for a preop evaluation. Patient was awakened and alert, not in distress, pain uncontrolled patient asked to get more pain medication, Dilaudid 0.5 mg increase to 1 mg every 3 hours. Patient found at acceptable risk for the procedure, I discussed the case with Dr. Swain. Patient status post application of the right fourth toe and debridement of the right fifth toe. He was on insulin drip at 1 unit per hour, glucose was controlled. Insulin drip stopped and switched to insulin sliding scale Lap showing slightly elevated creatinine to 1.49 which is the upper limit of the reference range, vancomycin was held to check trough of vancomycin and adjust dose accordingly. Normal saline at 75 mL per hour started. Monitor input and output, patient is making good amount of urine. Toradol ordered on admission is stopped and nephrology team were consulted Also patient is with chronic thrombocytopenia since 2013 and currently above 50 K, patient is not on aspirin and his heparin dose this morning was held, there is no limitation for patient going for surgery because of low platelet count. Discussed with vascular surgery team Currently patient is on IV vancomycin pharmacy to dose, and Unasyn. Normal sinus 75 mL/h. Percocet and Dilaudid. 03/24/2021 Patient sitting in bed looks comfortable but in distress. He is hemodynamically stable and blood pressure slightly improved compared to yesterday. He has mild pancytopenia which is a stable. BMP is unremarkable and creatinine down to 1.3 and normal son was stopped. 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 Vitamin B12 was low at 283 which is been replaced. Has poorly controlled diabetes with hemoglobin A1c elevated and 9.8%. Chart is growing staph aureus, final results are pending. Patient remains on Unasyn per ID team. And is added for better pain control 03/25/2021 Patient is clinically stable, distal been treated for right foot gangrene, today once culture came back positive for MRSA, but it adjusted to daptomycin. His creatinine improving to 1.1. He is hemodynamically stable. Norvasc added today for better blood pressure control His sugar is uncontrolled, he is already on his home dose of Levemir 25 units at bedtime, we are going to at his home dose of NovoLog 13 units with meals 03/26/2021 Patient remains awake alert, more clinically stable since he had surgery for his right foot infection and gangrene status post amputation of the fourth toe and debridement of the fifth toe. wound is growing MRSA. Most likely secondary to uncontrolled diabetes as hemoglobin A1c is 9.8, and states that it was 12% before and he has motivation to control his sugar upon discharge to better level. Vitamin B12 was low at 283, his been replaced with IM 3 and from tomorrow to be replaced to oral cyanocobalamin 1000 g daily Patient has constipation and stool softeners provided. Patient currently kept on Dilaudid which need to be switched to oral medication prior to discharge. Vitals are stable. Mild pancytopenia is improving with WBC slightly upper 2.8 and platelets up to 88 case. Hemoglobin the same at 10.1. Most likely secondary to sepsis effect. Blood pressure was on the high side and metoprolol added today. Continue with Norvasc and hydralazine Patient is currently covered with daptomycin per ID team 03/27/2021 Patient is currently resting in the bed. Complains of right foot pain and generalized from pain. Requesting more pain medications. Otherwise patient remains on antibiotics in the form of daptomycin for right fourth toe wet gangrene and diabetic foot infection. Renal function is improving with creatinine level I.3. Patient does have pancytopenia likely due to underlying infection. Hematology is on board. Vitamin levels including paraproteinemia labs were ordered. 03/28/2021 Patient is currently lying in the bed awake alert oriented 3. Complains of right foot pain and requesting increased pain medications. Currently on Percoce t 10 every 8 hourly and Dilaudid IV. Patient will be started on long-acting morphine. Patient remains on daptomycin. Wound cultures showed MRSA. ID is on board. Laboratory data showed improved WBC to 3.1 today. Hemoglobin 10.4 and platelets 102, BUN 37 and creatinine 1.6 Patient has been afebrile. Denied any complaints of nausea vomiting or diarrhea. Patient is still hyperglycemic with blood sugar 221 this morning. Current medications reviewed. Objective - Vital Signs Vital signs: Vital Signs Temp 98.1 F 03/28/21 19:02 Pulse 77 03/28/21 19:02 Resp 19 03/28/21 15:50 BP 176/71 03/28/21 19:02 Pulse Ox 96 03/28/21 19:02 Intake & Output 03/28/21 03/28/21 03/29/21 06:59 18:59 06:59 Intake Total 700 Balance 700 Intake: Oral 700 Other: Voiding Method Toilet Urinal # Voids 3 2 - Exam GENERAL: The patient is alert and oriented x3, not in any acute distress. Well developed, well nourished. HEENT: Pupils are round and equally reacting to light. EOMI. No scleral icterus. No conjunctival pallor. Normocephalic, atraumatic. No pharyngeal erythema. No thyromegaly. CARDIOVASCULAR: S1 and S2 present. No murmurs, rubs, or gallops. PULMONARY: Chest is clear to auscultation, no wheezing or crackles. ABDOMEN: Soft, nontender, nondistended, normoactive bowel sounds. No palpable organomegaly. MUSCULOSKELETAL: No joint swelling or deformity. -EXTREMITIES: No cyanosis, clubbing, or pedal edema. Infected right fourth and fifth toes, with gangrene NEUROLOGICAL: Gross neurological examination did not reveal any focal deficits. SKIN: No rashes. no petechiae. - Labs CBC & Chem 7: 03/29/21 09:05 03/28/21 07:10 Labs: Abnormal Lab Results - Last 24 Hours (Table) 03/28/21 03/28/21 03/28/21 Range/Units 02:23 07:09 07:10 WBC 3.1 L (3.8-10.6) k/uL RBC 3.45 L (4.30-5.90) m/uL Hgb 10.4 L (13.0-17.5) gm/dL Hct 30.1 L (39.0-53.0) % Plt Count 102 L (150-450) k/uL Lymphocytes # 0.7 L (1.0-4.8) k/uL BUN (9.0-27.0) mg/dL Creatinine (0.6-1.5) mg/dL Est GFR (CKD-EPI)AfAm (60.0-200.0) Est GFR (CKD-EPI)NonAf (60.0-200.0) BUN/Creatinine Ratio (12.00-20.00) Ratio Glucose (70-110) mg/dL POC Glucose (mg/dL) 279 H 229 H (75-99) mg/dL 03/28/21 03/28/21 03/28/21 Range/Units 07:10 11:44 17:00 WBC (3.8-10.6) k/uL RBC (4.30-5.90) m/uL Hgb (13.0-17.5) gm/dL Hct (39.0-53.0) % Plt Count (150-450) k/uL Lymphocytes # (1.0-4.8) k/uL BUN 37.0 H (9.0-27.0) mg/dL Creatinine 1.6 H (0.6-1.5) mg/dL Est GFR (CKD-EPI)AfAm 53.9 L (60.0-200.0) Est GFR (CKD-EPI)NonAf 46.5 L (60.0-200.0) BUN/Creatinine Ratio 23.13 H (12.00-20.00) Ratio Glucose 238 H (70-110) mg/dL POC Glucose (mg/dL) 302 H 268 H (75-99) mg/dL 03/28/21 Range/Units 20:45 WBC (3.8-10.6) k/uL RBC (4.30-5.90) m/uL Hgb (13.0-17.5) gm/dL Hct (39.0-53.0) % Plt Count (150-450) k/uL Lymphocytes # (1.0-4.8) k/uL BUN (9.0-27.0) mg/dL Creatinine (0.6-1.5) mg/dL Est GFR (CKD-EPI)AfAm (60.0-200.0) Est GFR (CKD-EPI)NonAf (60.0-200.0) BUN/Creatinine Ratio (12.00-20.00) Ratio Glucose (70-110) mg/dL POC Glucose (mg/dL) 215 H (75-99) mg/dL Assessment and Plan Assessment: Wet gangrene of right fourth toe and diabetic foot infection. Also suspected underlying osteomyelitis of right foot, secondary to MRSA, Status post fourth toe amputation and debridement of the fifth toe. Present on admission Diabetes mellitus with hyperglycemia on the presentation . A1c 9.8 mild elevation in creatinine, NITA. Improved Pancytopenia likely due to infection. WBC count is improving. chronic thrombocytopenia since 2013 mostly related to his history of hep C, also related to vitamin B12 deficiency Low-normal vitamin B12, probably deficiency. Been replaced History of hepatitis C Chronic pain. Patient follows with pain clinic. Plan: This is a pleasant 60 years old male who presented with wet gangrene of the right fourth and fifth toe. Status post amputation of the toes. Patient is on broad-spectrum antibiotics with daptomycin with ID team on the case. Hematology team for pancytopenia and thrombocytopenia. Labs and medication were reviewed. Resume home medication. Monitor lytes and vitals. Continue the pain management. Continue to titrate insulin dose. DVT and GI prophylaxis. Further recommendations as per clinical course of the patient DVT prophylaxis: Subcutaneous heparin GI Prophylaxis: Pepcid PT/OT: Home Time with Patient: Greater than 30
[2021-03-29 12:00] LABS: Glucose,Whole Blood 253 mg/dL (75-99)
[2021-03-29] MEDS: ALPRAZolam 0.25 MG TAB PO PRN (12:53)
--- NOTE | 2021-03-29 14:18 | PN ---
PROGRESS NOTE DATE OF SERVICE: 03/29/2021 REASON FOR FOLLOWUP: Right 4th toe diabetic foot infection. INTERVAL HISTORY: The patient is afebrile. The patient is breathing comfortably. Still complaining of pain to the right foot and wanted pain medication to be adjusted up. No chest pain. No shortness of breath. No cough. No abdominal pain. No diarrhea. PHYSICAL EXAMINATION: Blood pressure 159/72 with a pulse of 72, temperature 98.1. He is 93% on room air. General description is a middle-aged male up in the room in no distress. Respiratory system: Unlabored breathing, clear to auscultation anteriorly. Heart S1, S2. Regular rate and rhythm. Abdomen soft, no tenderness. Right foot is currently dressed. No obvious drainage on the dressing. LABS: Hemoglobin 11.1, white count 4.2, creatinine is 1.3 yesterday, not repeated today. DIAGNOSTIC IMPRESSION AND PLAN: Patient with right 4th toe wet gangrene status post amputation right 4th toe. Wound base looks clean. Culture positive for MRSA. Patient is covered daptomycin, finishing therapy with oral doxycycline. Prescription sent to pharmacy. Local care with dry Aquacel dressing. MMODL / IJN: [id number] /
[2021-03-29] MEDS: DAPTOmycin 500 MG in SODIUM CHLORIDE 0.9% 50 ML IVPB SCH (14:49)
[2021-03-29 15:03] VITALS: BP 145/76; PULSE 78; RESP 18; TEMP 97.5
[2021-03-29 16:24] LABS: Glucose,Whole Blood 171 mg/dL (75-99)
--- NOTE | 2021-03-29 17:08 | P.PN ---
Subjective Progress Note Date: 03/29/21 Principal diagnosis: Pancytopenia Pt doing ok today, no new c/o Objective - Vital Signs Vital signs: Vital Signs Temp 97.5 F L 03/29/21 14:00 Pulse 78 03/29/21 14:00 Resp 18 03/29/21 14:00 BP 145/76 03/29/21 14:00 Pulse Ox 96 03/29/21 14:00 Intake & Output 03/28/21 03/29/21 03/29/21 18:59 06:59 18:59 Intake Total 700 236 Balance 700 236 Intake: Oral 700 236 Other: Voiding Method Toilet Urinal # Voids 2 - Constitutional General appearance: Present: average body habitus, cooperative, no acute di stress - EENT Eyes: Present: anicteric sclerae, EOMI ENT: Present: hearing grossly normal - Respiratory Respiratory: bilateral: CTA - Cardiovascular Rhythm: regular Heart sounds: normal: S1, S2 - Gastrointestinal General gastrointestinal: Present: normal bowel sounds, soft - Neurologic Neurologic: Present: CNII-XII intact - Psychiatric Psychiatric: Present: A&O x's 3, appropriate affect, intact judgment & insight - Labs CBC & Chem 7: 03/29/21 09:05 03/28/21 07:10 Labs: Abnormal Lab Results - Last 24 Hours (Table) 03/28/21 03/29/21 03/29/21 Range/Units 20:45 02:06 07:02 RBC (4.30-5.90) m/uL Hgb (13.0-17.5) gm/dL Hct (39.0-53.0) % Plt Count (150-450) k/uL Lymphocytes # (1.0-4.8) k/uL POC Glucose (mg/dL) 215 H 291 H 290 H (75-99) mg/dL 03/29/21 03/29/21 03/29/21 Range/Units 09:05 11:59 16:21 RBC 3.96 L (4.30-5.90) m/uL Hgb 11.6 L (13.0-17.5) gm/dL Hct 34.7 L (39.0-53.0) % Plt Count 122 L (150-450) k/uL Lymphocytes # 0.9 L (1.0-4.8) k/uL POC Glucose (mg/dL) 253 H 171 H (75-99) mg/dL Assessment and Plan (1) Pancytopenia Narrative/Plan: As pt is treated for underlying infection his CBC is recovering. Almost completely recovered Pancytopenia work up is neg for paraproteinemia, specific deficiency. US shows hepatosplenomegaly-Hx hep C likely scarring and splenic sequestration. No plan for Bone marrow at this time. Reviewed all of the above with pt. He verbalized understanding. Recommend that pt have his CBC followed by PCP. Refer back to Hematology is recurrent p ancytopenia or any other concerning changes. Current Visit: Yes Status: Acute Priority: Medium Code(s): D61.818 - OTHER PANCYTOPENIA SNOMED Code(s): 251032338 Time with Patient: Greater than 30
[2021-03-29] MEDS ORDERED: INSULIN DETEMIR (LEVEMIR) 100 UNIT/ML SYR SQ SCH (21:00)
--- NOTE | 2021-03-30 13:22 | CDI ---
Documentation Clarification Form Date: 03/30/21 From: Lindy Forman Admit Date: 03/21/2021 09:58:00 AM Patient Name: Josue Chaney Visit Number: [id number] Discharge Date: 03/29/2021 05:45:00 PM ATTENTION: The Clinical Documentation Specialists (CDI) and [facility] Coding Staff appreciate your assistance in clarifying documentation. Please respond to the clarification below the line at the bottom and electronically sign. The CDI & [facility] Coding staff will review the response and follow-up if needed. Please note: Queries are made part of the Legal Health Record. If you have any questions, please contact the author of this message via ITS. Dr. Oliverio Pickard, There is documentation of osteomyelitis of the right fourth toe. Additional clarification is requested. History/Risk Factors: DM w osteo, foot ulcer, neuropathy Clinical Indicators: Path states: Toe skin with ulceration, necrosis and abscess. Underlying bone with acute osteomyelitis. Treatment: Amputation of 4th toe right foot. Acute Chronic Acute and chronic Acute on chronic Other (please specify in the medical record) Clinically unable to further specify Unknown Acute MTDD
--- NOTE | 2021-03-30 13:30 | CDI ---
Documentation Clarification Form Date: 03/30/21 From: Lindy Forman Admit Date: 03/21/2021 09:58:00 AM Patient Name: Josue Chaney Visit Number: [id number] Discharge Date: 03/29/2021 05:45:00 PM ATTENTION: The Clinical Documentation Specialists (CDI) and [facility] Coding Staff appreciate your assistance in clarifying documentation. Please respond to the clarification below the line at the bottom and electronically sign. The CDI & [facility] Coding staff will review the response and follow-up if needed. Please note: Queries are made part of the Legal Health Record. If you have any questions, please contact the author of this message via ITS. Dr. Oliverio Pickard, Sepsis effect is documented in PNs 03/26, 03/27 & 03/28 Dr Bret and yourself, but is not noted in subsequent documentation. Clarification is requested. History/Risk Factors: DM w osteo, foot ulcer, neuropathy Clinical Indicators: T-97.9, P-96, R-18, BP-141/76, O2-98, WBC-3.2, Lactic Acid- 1.7, Bilirubin-<0.1 Treatment: IV Zosyn, IV Vancomycin, Please clarify if the sepsis effect is: [ ] Sepsis present on admission, confirmed, remains under treatment [ ] Sepsis not present on admission [ ] Sepsis ruled out [ ] Other condition, please specify [ ] Unable to determine Sepsis present on admission, confirmed, remains under treatment MTDD
--- NOTE | 2021-04-17 14:28 | P.DS ---
Providers Date of admission: 03/21/21 09:58 Expected date of discharge: 03/29/21 Attending physician: Jonathan Becerril Consults: 03/21/21 10:18 Consult Physician Urgent Consulting Provider: Dominic Carter Consult Reason/Comments: Osteomyelitis, diabetic foot ulcer Do you want consulting provider notified?: Yes 03/21/21 19:56 Consult Physician Routine Consulting Provider: Siobhan Isaac Consult Reason/Comments: sepsis Do you want consulting provider notified?: Yes 03/22/21 16:34 Consult Physician Urgent Consulting Provider: Tin Arreaga Consult Reason/Comments: leukopenia, thrombocytopenia Do you want consulting provider notified?: Yes 03/23/21 07:56 Consult Physician Urgent Consulting Provider: Jonny Shipman Consult Reason/Comments: increased creat Do you want consulting provider notified?: Yes Primary care physician: [facility] Course: Discharge Diagnosis Wet gangrene of right fourth toe and diabetic foot infection. suspected underlying osteomyelitis of right foot, secondary to MRSA, Status post fourth toe amputation and debridement of the fifth toe. Present on admission Diabetes mellitus with hyperglycemia on the presentation . A1c 9.8 mild elevation in creatinine, NITA. Improved Pancytopenia likely due to infection. WBC count is improving. chronic thrombocytopenia since 2013 mostly related to his history of hep C, also related to vitamin B12 deficiency Low-normal vitamin B12, probably deficiency. Been replaced History of hepatitis C Chronic pain. Patient follows with pain clinic. 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 Plan to have an infected right fourth and fifth toes with wet gangrene and suspected underlying osteomyelitis. C-reactive protein is elevated at 5.3. Secondary to uncontrolled diabetes with hemoglobin A1c is 9.8%. Patient has been evaluated by vascular surgery team and the planned for amputation of the fourth and fifth toe tomorrow. Currently his insulin is controlled on Lantus 25 units at 13 units with meals, however he did not cut these and place and distended on insulin drip. Currently he is hemodynamically stable Labs reviewed his sodium is 136, potassium is 4.1. BUN is 35 and creatinine 1.3. Glucose was elevated more than 400, currently is better controlled. INR is 0.9. Urinalysis is ordered. Urine drug screen is positive for opioids, oxycodone, tricyclic antidepressant and marijuana. Coronavirus undetected He is a little bit pancytopenic with WBC 2.3, hemoglobin 9.9, platelets 56. Hematology team were consulted. He is kept on broad-spectrum antibiotics with Flagyl, Zosyn and IV vancomycin. Wound culture are pending. Infectious disease team of vascular surgery team consults are placed. His prognosis is guarded 03/23/2021 Patient seen today for a preop evaluation. Patient was awakened and alert, not in distress, pain uncontrolled patient asked to get more pain medication, Dilaudid 0.5 mg increase to 1 mg every 3 hours. Patient found at acceptable risk for the procedure, I discussed the case with Dr. Swain. Patient status post application of the right fourth toe and debridement of the right fifth toe. He was on insulin drip at 1 unit per hour, glucose was controlled. Insulin drip stopped and switched to insulin sliding scale Lap showing slightly elevated creatinine to 1.49 which is the upper limit of the reference range, vancomycin was held to check trough of vancomycin and adjust dose accordingly. Normal saline at 75 mL per hour started. Monitor input and output, patient is making good amount of urine. Toradol ordered on admission is stopped and nephrology team were consulted Also patient is with chronic thrombocytopenia since 2013 and currently above 50 K, patient is not on aspirin and his heparin dose this morning was held, there is no limitation for patient going for surgery because of low platelet count. Discussed with vascular surgery team Currently patient is on IV vancomycin pharmacy to dose, and Unasyn. Normal sinus 75 mL/h. Percocet and Dilaudid. 03/24/2021 Patient sitting in bed looks comfortable but in distress. He is hemodynamically stable and blood pressure slightly improved compared to yesterday. He has mild pancytopenia which is a stable. BMP is unremarkable and creatinine down to 1.3 and normal son was stopped. Her mid level net developer which I agree with. Vitamin B12 was low at 283 which is been replaced. Has poorly controlled diabetes with hemoglobin A1c elevated and 9.8%. Chart is growing staph aureus, final results are pending. Patient remains on Unasyn per ID team. And is added for better pain control 03/25/2021 Patient is clinically stable, distal been treated for right foot gangrene, today once culture came back positive for MRSA, but it adjusted to daptomycin. His creatinine improving to 1.1. He is hemodynamically stable. Norvasc added today for better blood pressure control His sugar is uncontrolled, he is already on his home dose of Levemir 25 units at bedtime, we are going to at his home dose of NovoLog 13 units with meals 03/26/2021 Patient remains awake alert, more clinically stable since he had surgery for his right foot infection and gangrene status post amputation of the fourth toe and debridement of the fifth toe. wound is growing MRSA. Most likely secondary to uncontrolled diabetes as hemoglobin A1c is 9.8, and states that it was 12% before and he has motivation to control his sugar upon discharge to better level. Vitamin B12 was low at 283, his been replaced with IM 3 and from tomorrow to be replaced to oral cyanocobalamin 1000 g daily Patient has constipation and stool softeners provided. Patient currently kept on Dilaudid which need to be switched to oral medication prior to discharge. Vitals are stable. Mild pancytopenia is improving with WBC slightly upper 2.8 and platelets up to 88 case. Hemoglobin the same at 10.1. Most likely secondary to sepsis effect. Blood pressure was on the high side and metoprolol added today. Continue with Norvasc and hydralazine Patient is currently covered with daptomycin per ID team 03/27/2021 Patient is currently resting in the bed. Complains of right foot pain and generalized from pain. Requesting more pain medications. Otherwise patient remains on antibiotics in the form of daptomycin for right fourth toe wet gangrene and diabetic foot infection. Renal function is improving with creatinine level I.3. Patient does have pancytopenia likely due to underlying infection. Hematology is on board. Vitamin levels including paraproteinemia labs were ordered. 03/28/2021 Patient is currently lying in the bed awake alert oriented 3. Complains of right foot pain and requesting increased pain medications. Currently on Percocet 10 every 8 hourly and Dilaudid IV. Patient will be started on long- acting morphine. Patient remains on daptomycin. Wound cultures showed MRSA. ID is on board. Laboratory data showed improved WBC to 3.1 today. Hemoglobin 10.4 and platelets 102, BUN 37 and creatinine 1.6 Patient has been afebrile. Denied any complaints of nausea vomiting or diarrhea. Patient is still hyperglycemic with blood sugar 221 this morning. 03/29/21 Patient is currently resting in the bed comfortably. Pain is controlled with long-acting morphine and [place]. IV pain medications have been discontinued. Patient was advised to follow-up with pain clinic for further management and pain medication titration. White count is normalized today. Pancytopenia most likely due to infection. Patient does have history of hepatitis C. Ultrasound showed hepatosplenomegaly likely due to splenic sequestration. Oncology recommends no intervention at this time. Patient will be continued on antibiotics in the form of doxycycline for foot infection as per ID recommendations. Otherwise patient is stable for discharge home today. - Exam GENERAL: The patient is alert and oriented x3, not in any acute distress. Well developed, well nourished. HEENT: Pupils are round and equally reacting to light. EOMI. No scleral icterus. No conjunctival pallor. Normocephalic, atraumatic. No pharyngeal erythema. No thyromegaly. CARDIOVASCULAR: S1 and S2 present. No murmurs, rubs, or gallops. PULMONARY: Chest is clear to auscultation, no wheezing or crackles. ABDOMEN: Soft, nontender, nondistended, normoactive bowel sounds. No palpable organomegaly. MUSCULOSKELETAL: No joint swelling or deformity. -EXTREMITIES: No cyanosis, clubbing, or pedal edema. Infected right fourth and fifth toes, with gangrene NEUROLOGICAL: Gross neurological examination did not reveal any focal deficits. SKIN: No rashes. no petechiae. Vital signs: Vital Signs Temp 97.5 F L 03/29/21 14:00 Pulse 78 03/29/21 14:00 Resp 18 03/29/21 14:00 BP 145/76 03/29/21 14:00 Pulse Ox 96 03/29/21 14:00 Intake & Output 03/28/21 03/29/21 03/29/21 18:59 06:59 18:59 Intake Total 700 236 Balance 700 236 Intake: Oral 700 236 Other: Voiding Method Toilet Urinal # Voids 2 time taken >35 min Patient Condition at Discharge: Poor Plan - Discharge Summary New Discharge Prescriptions: New Doxycycline Hyclate 100 mg PO BID 10 Days #20 tab hydrALAZINE HCL [Apresoline] 25 mg PO TID #90 tab Insulin Detemir (Levemir) [Levemir] 30 unit SQ HS #1 syr Metoprolol Tartrate [Lopressor] 25 mg PO BID #60 tab amLODIPine [Norvasc] 10 mg PO DAILY #30 tablet Sennosides [Senokot] 8.6 mg PO BID PRN #60 tab PRN Reason: Constipation Gabapentin [Neurontin] 300 mg PO TID 15 Days #45 cap INSULIN ASPART (NovoLOG) [NovoLOG (formulary)] 10 unit SQ AC-TID #1 vial Cyanocobalamin [Vitamin B-12] 1,000 mcg PO DAILY #30 tab Morphine Sulfate ER [Ms Contin] 30 mg PO Q12H 3 Days #6 tablet Continue Ergocalciferol [Vitamin D2 (1250 Mcg = 06453 Iu)] 1,250 mcg PO MOFR Acetaminophen Tab [Tylenol] 500 mg PO Q6H PRN PRN Reason: Fever QUEtiapine [SEROquel] 100 mg PO HS Insulin Aspart [NovoLOG Flexpen] See Protocol SQ AC-TID Collagenase [Santyl] 1 applic TOPICAL DAILY Albuterol Sulfate [Proair Hfa] 2 puff INHALATION RT-QID PRN PRN Reason: Shortness Of Breath oxyCODONE-APAP 10-325MG [Percocet 10-325 mg] 1 tab PO TID PRN PRN Reason: Pain Albuterol Nebulized [Ventolin Nebulized] 2.5 mg INHALATION RT-QID PRN PRN Reason: Shortness Of Breath Discontinued Insulin Glargine,Hum.rec.anlog [Lantus Solostar] 25 unit SQ HS Discharge Medication List Acetaminophen Tab [Tylenol] 500 mg PO Q6H PRN 03/21/21 [History] Albuterol Nebulized [Ventolin Nebulized] 2.5 mg INHALATION RT-QID PRN 03/21/21 [History] Albuterol Sulfate [Proair Hfa] 2 puff INHALATION RT-QID PRN 03/21/21 [History] Collagenase [Santyl] 1 applic TOPICAL DAILY 03/21/21 [History] Ergocalciferol [Vitamin D2 (1250 Mcg = 51030 Iu)] 1,250 mcg PO MOFR 03/21/21 [History] Insulin Aspart [NovoLOG Flexpen] See Protocol SQ AC-TID 03/21/21 [History] QUEtiapine [SEROquel] 100 mg PO HS 03/21/21 [History] oxyCODONE-APAP 10-325MG [Percocet 10-325 mg] 1 tab PO TID PRN 03/21/21 [History] Doxycycline Hyclate 100 mg PO BID 10 Days #20 tab 03/27/21 [Rx] Cyanocobalamin [Vitamin B-12] 1,000 mcg PO DAILY #30 tab 03/29/21 [Rx] Gabapentin [Neurontin] 300 mg PO TID 15 Days #45 cap 03/29/21 [Rx] INSULIN ASPART (NovoLOG) [NovoLOG (formulary)] 10 unit SQ AC-TID #1 vial 03/29/21 [Rx] Insulin Detemir (Levemir) [Levemir] 30 unit SQ HS #1 syr 03/29/21 [Rx] Metoprolol Tartrate [Lopressor] 25 mg PO BID #60 tab 03/29/21 [Rx] Morphine Sulfate ER [Ms Contin] 30 mg PO Q12H 3 Days #6 tablet 03/29/21 [Rx] Sennosides [Senokot] 8.6 mg PO BID PRN #60 tab 03/29/21 [Rx] amLODIPine [Norvasc] 10 mg PO DAILY #30 tablet 03/29/21 [Rx] hydrALAZINE HCL [Apresoline] 25 mg PO TID #90 tab 03/29/21 [Rx] Follow up Appointment(s)/Referral(s): [facility], [NON-STAFF] - Anjelica Aguilar MD [Primary Care Provider] - 1-2 days (Will call you with an appointment) [facility] [NON-STAFF] - 1 Week (Please call and make an appointment) Patient Instructions/Handouts: Toe Amputation (DC) Discharge Disposition: HOME WITH HOME HEALTH SERVICES
== END 2021-03-29 17:45 | disposition home health service (06) | DRG 853 ==
LOC: EC 08:42 → 4SSUR 09:58
PROVIDERS: ADMIT Hospitalist; ATTEND Hospitalist
PROC: 0Y6V0Z1 Detachment at Right 4th Toe, High, Open Approach (ICD-10-PCS; principal; 2021-03-23 12:50)
PROC: 0JBQ0ZZ Excision of Right Foot Subcutaneous Tissue and Fascia, Open Approach (ICD-10-PCS; principal; 2021-03-23 12:50)
DX: A41.9 Sepsis, unspecified organism (principal); N17.0 Acute kidney failure with tubular necrosis; E11.52 Type 2 diabetes mellitus with diabetic peripheral angiopathy with gangrene; D61.818 Other pancytopenia; E87.0 Hyperosmolality and hypernatremia; F31.30 Bipolar disorder, current episode depressed, mild or moderate severity, unspecified; M86.171 Other acute osteomyelitis, right ankle and foot; E11.69 Type 2 diabetes mellitus with other specified complication; L97.512 Non-pressure chronic ulcer of other part of right foot with fat layer exposed; E11.22 Type 2 diabetes mellitus with diabetic chronic kidney disease; E83.51 Hypocalcemia; L08.9 Local infection of the skin and subcutaneous tissue, unspecified; B95.62 Methicillin resistant Staphylococcus aureus infection as the cause of diseases classified elsewhere; E11.65 Type 2 diabetes mellitus with hyperglycemia; J44.9 Chronic obstructive pulmonary disease, unspecified; Z79.4 Long term (current) use of insulin; B18.2 Chronic viral hepatitis C; E11.628 Type 2 diabetes mellitus with other skin complications; E11.621 Type 2 diabetes mellitus with foot ulcer; E11.42 Type 2 diabetes mellitus with diabetic polyneuropathy; F11.11 Opioid abuse, in remission; F14.11 Cocaine abuse, in remission; Z20.822 Contact with and (suspected) exposure to COVID-19; N18.1 Chronic kidney disease, stage 1; E86.1 Hypovolemia; E87.70 Fluid overload, unspecified; G89.29 Other chronic pain; T36.8X5A Adverse effect of other systemic antibiotics, initial encounter; E87.6 Hypokalemia; M21.371 Foot drop, right foot; E53.8 Deficiency of other specified B group vitamins; M54.9 Dorsalgia, unspecified; M19.90 Unspecified osteoarthritis, unspecified site; K59.00 Constipation, unspecified; F12.11 Cannabis abuse, in remission; F17.200 Nicotine dependence, unspecified, uncomplicated; Z71.6 Tobacco abuse counseling; Z79.899 Other long term (current) drug therapy; Z90.49 Acquired absence of other specified parts of digestive tract; Z86.14 Personal history of Methicillin resistant Staphylococcus aureus infection; Z87.39 Personal history of other diseases of the musculoskeletal system and connective tissue; Z95.2 Presence of prosthetic heart valve; Z87.19 Personal history of other diseases of the digestive system; Z85.828 Personal history of other malignant neoplasm of skin; Z98.890 Other specified postprocedural states
CPT/HCPCS: 36415; 76700; 80048; 80053; 80202; 80306; 81001; 82306; 82607; 82728; 82746; 82784; 83010; 83036; 83540; 83550; 83605; 83615; 83735; 83883; 83921; 84165; 84425; 84443; 85025; 85027; 85045; 85384; 85610; 85652; 85730; 86140; 86334; 87040; 87070; 87077; 87186; 87205; 87635; 88305; 88311; 93005; 94640; 96365; 96367; 96375; 99285

== ENCOUNTER 2021-04-23 16:39 | Inpatient (IN) | payer OTHER ==
[2021-04-23] MEDS ORDERED: HYDROmorphone 1 MG/ML 1 ML SYRINGE IVP STA ×2 (17:29→18:56)
--- NOTE | 2021-04-23 17:36 | ED ---
General Adult HPI - General Chief complaint: Abdominal Pain Stated complaint: Kidney stones Time Seen by Provider: 04/23/21 16:51 Source: patient Mode of arrival: ambulatory Limitations: no limitations - History of Present Illness Initial comments: Dictation was produced using [email or web address] dictation software. please excuse any grammatical, word or spelling errors. Chief Complaint: 60-year-old male presents with. Drainage coming from amputation on the right foot and left-sided flank pain History of Present Illness: Patient is 60-year-old male he had recent toe amputation. He changed his dressing when he noted there was foul-smelling drainage coming from amputation site. Indication was performed also one month ago. Patient has history of osteomyelitis to that area. Patient also states lasts 5 days he's been having left sided flank pain. Patient reports extensive history of kidney stones. Denies any fevers. States that his flank pain is improved. The ROS documented in this emergency department record has been reviewed and confirmed by me. Those systems with pertinent positive or negative responses have been documented in the HPI. All other systems are other negative and/or noncontributory. PHYSICAL EXAM: General Impression: Alert and oriented x3, not in acute distress HEENT: Normocephalic atraumatic, extra-ocular movements intact, pupils equal and reactive to light bilaterally, mucous membranes moist. Cardiovascular: Heart regular rate and rhythm Chest: Able to complete full sentences, no retractions, no tachypnea Abdomen: abdomen soft, non-tender, non-distended, no organomegaly Musculoskeletal: Pulses present and equal in all extremities, no peripheral edema Motor: no focal deficits noted Right foot: There is a tracking wound to the metatarsal head with foul smell coming from the application site of the fourth toe Neurological: CN II-XII grossly intact, no focal motor or sensory deficits noted Skin: Intact with no visualized rashes Psych: Normal affect and mood ED course: 60-year-old male presents with malodorous drainage from amputation site of the right foot and left-sided flank pain. Vital signs upon arrival are within acceptable limits. Patient does not appear to be in any significant distress. States that his left sided flank pain is typical for his usual kidney stone symptoms. Patient is well-appearing at bedside. He states his flank pain symptoms are improving. Does not appear to be acute distress. Laboratory evaluation obtained. CBC is unremarkable. Metabolic panel is within acceptable limits. Urinalysis is positive for 16 red blood cells. Abdominal bladder ultrasound shows no acute processes. Foot x-ray shows bone erosion concerning for osteomyelitis. Patient reevaluated at bedside. Finally stable medical condition. Patient be admitted with consultation to infectious disease for osteomyelitis. Patient started on vancomycin and Zosyn. Patient is agreeable plan. Patient be admitted to [place] [facility]. EKG interpretation: Ventricular rate 81, normal sinus rhythm,. Interval 166, QS 118, QTc 439. No ID prolongation, no QTC prolongation, no ST or T-wave changes noted. EKG compared to 03/22/2021 showing no changes. Overall, this EKG is unremarkable - Related Data Home Medications Medication Instructions Recorded Confirmed Acetaminophen Tab [Tylenol] 500 mg PO Q6H PRN 03/21/21 03/21/21 Albuterol Nebulized [Ventolin 2.5 mg INHALATION RT-QID PRN 03/21/21 03/21/21 Nebulized] Albuterol Sulfate [Proair Hfa] 2 puff INHALATION RT-QID PRN 03/21/21 03/21/21 Collagenase [Santyl] 1 applic TOPICAL DAILY 03/21/21 03/21/21 Ergocalciferol [Vitamin D2 (1250 1,250 mcg PO MOFR 03/21/21 03/21/21 Mcg = 13697 Iu)] Insulin Aspart [NovoLOG Flexpen] See Protocol SQ AC-TID 03/21/21 03/21/21 QUEtiapine [SEROquel] 100 mg PO HS 03/21/21 03/21/21 oxyCODONE-APAP 10-325MG [Percocet 1 tab PO TID PRN 03/21/21 03/21/21 10-325 mg] Previous Rx's Medication Instructions Recorded Doxycycline Hyclate 100 mg PO BID 10 Days #20 tab 03/27/21 Cyanocobalamin [Vitamin B-12] 1,000 mcg PO DAILY #30 tab 03/29/21 Gabapentin [Neurontin] 300 mg PO TID 15 Days #45 cap 03/29/21 INSULIN ASPART (NovoLOG) [NovoLOG 10 unit SQ AC-TID #1 vial 03/29/21 (formulary)] Insulin Detemir (Levemir) [Levemir] 30 unit SQ HS #1 syr 03/29/21 Metoprolol Tartrate [Lopressor] 25 mg PO BID #60 tab 03/29/21 Morphine Sulfate ER [Ms Contin] 30 mg PO Q12H 3 Days #6 tablet 03/29/21 Sennosides [Senokot] 8.6 mg PO BID PRN #60 tab 03/29/21 amLODIPine [Norvasc] 10 mg PO DAILY #30 tablet 03/29/21 hydrALAZINE HCL [Apresoline] 25 mg PO TID #90 tab 03/29/21 Allergies Allergy/AdvReac Type Severity Reaction Status Date / Time No Known Allergies Allergy Verified 03/21/21 10:34 Review of Systems ROS Statement: Those systems with pertinent positive or pertinent negative responses have been documented in the HPI. ROS Other: All systems not noted in ROS Statement are negative. 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 History of Any Multi-Drug Resistant Organisms: None Reported Date of last positivie culture/infection: 03/22/21 MDRO Source:: Right 4th Toe Past Surgical History: Cardiac Valve Replacement, Cholecystectomy Additional Past Surgical History / Comment(s): aortic Past Psychological History: Bipolar, Depression Smoking Status: Current every day smoker Past Alcohol Use History: None Reported Past Drug Use History: Heroin, IV Drug Use, Marijuana, Marijuana General Exam Limitations: no limitations Course Vital Signs 04/23/21 04/23/21 04/23/21 16:47 17:36 18:54 Temperature 97.1 F L Pulse Rate 51 L 60 Respiratory 92 H 16 16 Rate Blood Pressure 152/79 136/75 149/76 O2 Sat by Pulse 97 99 99 Oximetry 04/23/21 19:37 Temperature 97.2 F L Pulse Rate 77 Respiratory 16 Rate Blood Pressure 148/79 O2 Sat by Pulse 98 Oximetry Medical Decision Making - Lab Data Result diagrams: 04/23/21 17:26 04/23/21 17:26 Lab Results 04/23/21 04/23/21 04/23/21 Range/Units 17:26 17:26 19:10 WBC 5.3 (3.8-10.6) k/uL RBC 3.97 L (4.30-5.90) m/uL Hgb 11.8 L (13.0-17.5) gm/dL Hct 35.3 L (39.0-53.0) % MCV 88.9 (80.0-100.0) fL MCH 29.7 (25.0-35.0) pg MCHC 33.4 (31.0-37.0) g/dL RDW 14.1 (11.5-15.5) % Plt Count 84 L (150-450) k/uL MPV 10.0 Neutrophils % 70 % Lymphocytes % 21 % Monocytes % 6 % Eosinophils % 2 % Basophils % 1 % Neutrophils # 3.7 (1.3-7.7) k/uL Lymphocytes # 1.1 (1.0-4.8) k/uL Monocytes # 0.3 (0-1.0) k/uL Eosinophils # 0.1 (0-0.7) k/uL Basophils # 0.0 (0-0.2) k/uL Sodium 136 L (137-145) mmol/L Potassium 4.8 (3.5-5.1) mmol/L Chloride 102 (98-107) mmol/L Carbon Dioxide 24 (22-30) mmol/L Anion Gap 10 mmol/L BUN 27 H (9-20) mg/dL Creatinine 1.38 H (0.66-1.25) mg/dL Est GFR (CKD-EPI)AfAm 64 (>60 ml/min/1.73 sqM) Est GFR (CKD-EPI)NonAf 56 (>60 ml/min/1.73 sqM) Glucose 290 H (74-99) mg/dL Calcium 9.0 (8.4-10.2) mg/dL Urine Color Yellow Urine Appearance Clear (Clear) Urine pH 6.0 (5.0-8.0) Ur Specific [place] 1.019 (1.001-1.035) Urine Protein 3+ H (Negative) Urine Glucose (UA) 2+ H (Negative) Urine Ketones Negative (Negative) Urine Blood Trace H (Negative) Urine Nitrite Negative (Negative) Urine Bilirubin Negative (Negative) Urine Urobilinogen 2.0 (<2.0) mg/dL Ur Leukocyte Esterase Negative (Negative) Urine RBC 16 H (0-5) /hpf Urine WBC 1 (0-5) /hpf Ur Squamous Epith Cells 1 (0-4) /hpf Hyaline Casts 1 (0-2) /lpf Urine Mucus Rare H (None) /hpf Disposition Clinical Impression: Osteomyelitis Disposition: ADMITTED IP TO THIS HOSP Condition: Fair Referrals: Anjelica Aguilar MD [Primary Care Provider] - 1-2 days
[2021-04-23 17:45] LABS: Basophils % (A) 1 %; Eosinophils # (A) 0.1 k/uL (0-0.7); Eosinophils % (A) 2 %; HCT 35.3 % (39.0-53.0); HGB 11.8 gm/dL (13.0-17.5); Lymphocytes # (A) 1.1 k/uL (1.0-4.8); Lymphocytes % (A) 21 %; MCH 29.7 pg (25.0-35.0); MCHC 33.4 g/dL (31.0-37.0); MCV 88.9 fL (80.0-100.0); Monocytes # (A) 0.3 k/uL (0-1.0); Monocytes % (A) 6 %; Neutrophils # (A) 3.7 k/uL (1.3-7.7); Neutrophils % (A) 70 %; RBC 3.97 m/uL (4.30-5.90); RDW 14.1 % (11.5-15.5); WBC 5.3 k/uL (3.8-10.6)
[2021-04-23 17:52] LABS: Platelet Count 84 k/uL (150-450)
[2021-04-23 17:53] LABS: Potassium 4.8 mmol/L (3.5-5.1)
--- NOTE | 2021-04-23 18:15 | US ---
EXAMINATION TYPE: US kidneys/renal and bladder DATE OF EXAM: 04/23/2021 COMPARISON: NONE CLINICAL HISTORY: left flank pain. left side pain. Hx renal stones. Hx enlarged spleen. Diabetic. Recent toe amputation. EXAM MEASUREMENTS: Right Kidney: 11.7 x 6.0 x 5.2 cm Left Kidney: 11.3 x 4.4 x 5.6 cm Right Kidney: No hydronephrosis or masses seen Left Kidney: No hydronephrosis or masses seen Bladder: distended, anechoic Bilateral Jets not seen Incidental finding: Enlarged spleen = 15.3 cm IMPRESSION: No evidence of renal mass or obstruction. Enlarged spleen. No ureteral jets were seen during the exam and the urinary bladder.
--- NOTE | 2021-04-23 18:43 | XR ---
EXAMINATION TYPE: XR foot limited RT DATE OF EXAM: 04/23/2021 COMPARISON: 03/21/2021 HISTORY: Foot infection TECHNIQUE: 2 views FINDINGS: There is amputation of the fourth toe at the MP joints. There are small erosions on the fou rth metatarsal head. There is hallux valgus with spur formation. I see no fracture nor dislocation. IMPRESSION: There is some erosion on the fourth metatarsal head. Osteomyelitis is possible. No fractu re seen.
[2021-04-23 19:16] LABS: Appearance,Urine Clear (Clear); Bilirubin,Urine Negative (Negative); Blood,Urine Trace (Negative); Color,Urine Yellow; Glucose,Urine (UA) 2+ (Negative); Hyaline Casts,Urine 1 /lpf (0-2); Ketones,Urine Negative (Negative); Leukocyte Esterase,Urine Negative (Negative); Mucus,Urine Rare /hpf; Nitrite,Urine Negative (Negative); Protein,Urine 3+ (Negative); RBC,Urine 16 /hpf (0-5); Specific Gravity,Urine 1.019 (1.001-1.035); Squamous Epithelial Cell,Urine 1 /hpf (0-4); WBC,Urine 1 /hpf (0-5)
[2021-04-23] MEDS ORDERED: NALOXONE 0.4 MG/ML 1 ML VIAL IV PRN (19:32)
[2021-04-23] MEDS ORDERED: ACETAMINOPHEN TAB 325 MG TAB PO PRN (19:32)
[2021-04-23] MEDS ORDERED: ONDANSETRON 4 MG/2 ML VIAL IVP PRN (19:32)
[2021-04-23] MEDS ORDERED: PIPERACILLIN-TAZOBACTAM 3.375 GM in SODIUM CHLORIDE 0.9% 100 ML IVPB STA (19:36)
[2021-04-23] MEDS ORDERED: VANCOMYCIN IV PER PHARMACY 1 EACH MISC MISCELLANE PRN (19:36)
[2021-04-23] MEDS ORDERED: VANCOMYCIN 1,750 MG in SODIUM CHLORIDE 0.9% 500 ML 500 ML IVPB STA (19:40)
[2021-04-23 21:10] LABS: Glucose,Whole Blood 171 mg/dL (75-99)
[2021-04-23] MEDS: HYDROmorphone 1 MG/ML 1 ML SYRINGE IVP PRN (22:43)
[2021-04-23] MEDS ORDERED: ALBUTEROL HFA INHALER INHALATION PRN (23:15)
[2021-04-23] MEDS ORDERED: ACETAMINOPHEN TAB 500 MG TAB PO PRN (23:15)
[2021-04-24] MEDS: HYDROmorphone 1 MG/ML 1 ML SYRINGE IVP PRN ×6 (01:27→20:00)
[2021-04-24] MEDS: MORPHINE SULFATE ER 15 MG TABLET PO SCH ×2 (02:56→12:04)
[2021-04-24 07:29] LABS: Glucose,Whole Blood 219 mg/dL (75-99)
[2021-04-24] MEDS: METOPROLOL TARTRATE 25 MG TAB PO SCH ×2 (08:03→20:01)
[2021-04-24] MEDS: CYANOCOBALAMIN 500 MCG TAB PO SCH (08:03)
[2021-04-24] MEDS: GABAPENTIN 300 MG CAP PO SCH ×3 (08:03→20:02)
[2021-04-24] MEDS: amLODIPine 10 MG TAB PO SCH (08:03)
[2021-04-24] MEDS: hydrALAZINE HCL 25 MG TAB PO SCH ×3 (08:03→20:01)
[2021-04-24] MEDS: INSULIN ASPART (NovoLOG) 100 UNIT/ML VIAL SQ SCH ×4 (08:03→21:42)
[2021-04-24] MEDS: ALBUTEROL NEBULIZED 2.5 MG/3 ML INHALATION PRN (08:38)
[2021-04-24 11:39] LABS: Glucose,Whole Blood 302 mg/dL (75-99)
[2021-04-24] MEDS ORDERED: VANCOMYCIN 1,750 MG in SODIUM CHLORIDE 0.9% 500 ML 500 ML IVPB SCH (12:00)
[2021-04-24 16:36] LABS: Glucose,Whole Blood 210 mg/dL (75-99)
[2021-04-24 20:38] LABS: Glucose,Whole Blood 260 mg/dL (75-99)
[2021-04-24] MEDS: INSULIN DETEMIR (LEVEMIR) 100 UNIT/ML SYR SQ SCH (21:42)
[2021-04-24] MEDS: QUEtiapine 100 MG TAB PO SCH (21:42)
[2021-04-24] MEDS: ERGOCALCIFEROL 1,250 MCG (50,000 IU) CAPSULE PO SCH (21:42)
--- NOTE | 2021-04-24 22:49 | P.CONS ---
History of Present Illness - Reason for Consult Consult date: 04/24/21 Osteomyelitis Requesting physician: Pretty Elaine - Chief Complaint Nonhealing wound to the left foot x weeks - History of Present Illness Patient is a 60-year male who was recently admitted at this facility in this patient who did have a right fourth toe diabetic foot infection with right gangrene status post amputation of the right fourth toe wound culture po sitive for MRSA blood culture was negative patient was treated with daptomycin and was subsequent discharged home on oral doxycycline for 10 days patient was discharged on 03/29/2021 with instruction to follow-up in the wound care center within a week however the patient was lost to follow-up patient is now presenting back to [facility] ER yesterday for evaluation of left-sided flank and abdominal pain with concern for possible kidney stone patient also mention he noticed having increasing foul-smelling drainage from his right foot wound which has not healed he did have a dull aching pain to the right foot intensity is about 5 or 10 in radiation with the symptom the patient was evalua sarah by the physician on arrival to the ER the patient was afebrile patient did have a normal white count creatinine was slightly to 1.38 urine has been negative patient did have cultures obtained from the right foot wound which are showing group B strep Staphylococcus and gram-negative bacilli patient is currently being treated with the vancomycin infectious disease was consulted for further management of antibiotic therapy, pt did have xray of the foot with concern for osteomyelitis of the 4th metatarsal head Review of Systems Positive point has been mentioned in the HPI rest of the systems are negative 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 History of Any Multi-Drug Resistant Organisms: None Reported Year Discovered:: 03/22/21 MDRO Source:: Right 4th Toe Past Surgical History: Cardiac Valve Replacement, Cholecystectomy, Orthopedic Surgery Additional Past Surgical History / Comment(s): aortic valve replacement 2017, R 4th toe amputated February 2021 Past Psychological History: Bipolar, Depression Smoking Status: Current some day smoker Past Alcohol Use History: None Reported Past Drug Use History: Heroin, IV Drug Use, Marijuana, Marijuana Medications and Allergies Home Medications Medication Instructions Recorded Confirmed Type Acetaminophen Tab [Tylenol] 500 mg PO Q6H PRN 03/21/21 04/23/21 History Albuterol Nebulized [Ventolin 2.5 mg INHALATION RT-QID PRN 03/21/21 04/23/21 History Nebulized] Albuterol Sulfate [Proair Hfa] 2 puff INHALATION RT-QID PRN 03/21/21 04/23/21 History Collagenase [Santyl] 1 applic TOPICAL DAILY 03/21/21 04/23/21 History Ergocalciferol [Vitamin D2 (1250 1,250 mcg PO MOFR 03/21/21 04/23/21 History Mcg = 14112 Iu)] Insulin Aspart [NovoLOG Flexpen] See Protocol SQ AC-TID 03/21/21 04/23/21 History QUEtiapine [SEROquel] 100 mg PO HS 03/21/21 04/23/21 History Cyanocobalamin [Vitamin B-12] 1,000 mcg PO DAILY #30 tab 03/29/21 04/23/21 Rx Gabapentin [Neurontin] 300 mg PO TID 15 Days #45 cap 03/29/21 04/23/21 Rx INSULIN ASPART (NovoLOG) [NovoLOG 10 unit SQ AC-TID #1 vial 03/29/21 04/23/21 Rx (formulary)] Insulin Detemir (Levemir) [Levemir] 30 unit SQ HS #1 syr 03/29/21 04/23/21 Rx Metoprolol Tartrate [Lopressor] 25 mg PO BID #60 tab 03/29/21 04/23/21 Rx Sennosides [Senokot] 8.6 mg PO BID PRN #60 tab 03/29/21 04/23/21 Rx amLODIPine [Norvasc] 10 mg PO DAILY #30 tablet 03/29/21 04/23/21 Rx hydrALAZINE HCL [Apresoline] 25 mg PO TID #90 tab 03/29/21 04/23/21 Rx Morphine Sulfate [Ms Contin] 15 mg PO Q12H 04/23/21 04/23/21 History oxyCODONE-APAP 7.5-325MG [Percocet 1 tab PO BID PRN 04/23/21 04/23/21 History 7.5-325 mg] Allergies Allergy/AdvReac Type Severity Reaction Status Date / Time No Known Allergies Allergy Verified 04/23/21 19:55 Physical Exam Vitals: Vital Signs Temp Pulse Pulse Resp BP BP Pulse Ox 04/24/21 13:22 97.7 F 69 18 168/87 97 04/24/21 08:47 78 04/24/21 08:38 82 04/24/21 08:00 98.6 F 72 18 143/89 98 04/24/21 02:48 98.3 F 78 16 144/65 98 04/24/21 00:15 97.4 F L 88 16 143/83 98 04/23/21 19:37 97.2 F L 77 16 148/79 98 04/23/21 18:54 60 16 149/76 99 04/23/21 17:36 51 L 16 136/75 99 04/23/21 16:47 97.1 F L 92 H 152/79 97 Intake and Output 04/24/21 04/24/21 04/24/21 06:59 14:59 22:59 Other: # Voids 3 GENERAL DESCRIPTION: Middle-aged male lying in bed, no distress. No tachypnea or accessory muscle of respiration use. HEENT: Shows Pallor , no scleral icterus. Oral mucous membrane is dry. No pharyngeal erythema or thrush NECK: Trachea central, no thyromegaly. LUNGS: Unlabored breathing. Clear to auscultation anteriorly. No wheeze or crackle. HEART: S1, S2, regular rate and rhythm. No loud murmur ABDOMEN: Soft, no tenderness , guarding or rigidity, no organomegaly EXTREMITIES: No edema of feet. Right foot fourth toe amputation site wound base is no significant slough tissue no surrounding redness or any foul-smelling drainage SKIN: No rash, no masses palpable. NEUROLOGICAL: The patient is awake, alert, oriented x3, mood and affect normal. Results CBC & Chem 7: 04/23/21 17:26 04/23/21 17:26 Labs: Abnormal Lab Results - Last 24 Hours (Table) 04/23/21 04/23/21 04/23/21 Range/Units 17: 17: 19:10 RBC 3.97 L (4.30-5.90) m/uL Hgb 11.8 L (13.0-17.5) gm/dL Hct 35.3 L (39.0-53.0) % Plt Count 84 L (150-450) k/uL Sodium 136 L (137-145) mmol/L BUN 27 H (9-20) mg/dL Creatinine 1.38 H (0.66-1.25) mg/dL Glucose 290 H (74-99) mg/dL POC Glucose (mg/dL) (75-99) mg/dL Urine Protein 3+ H (Negative) Urine Glucose (UA) 2+ H (Negative) Urine Blood Trace H (Negative) Urine RBC 16 H (0-5) /hpf Urine Mucus Rare H (None) /hpf 04/23/21 04/24/21 04/24/21 Range/Units 21:07 07:25 11:27 RBC (4.30-5.90) m/uL Hgb (13.0-17.5) gm/dL Hct (39.0-53.0) % Plt Count (150-450) k/uL Sodium (137-145) mmol/L BUN (9-20) mg/dL Creatinine (0.66-1.25) mg/dL Glucose (74-99) mg/dL POC Glucose (mg/dL) 171 H 219 H 302 H (75-99) mg/dL Urine Protein (Negative) Urine Glucose (UA) (Negative) Urine Blood (Negative) Urine RBC (0-5) /hpf Urine Mucus (None) /hpf 04/24/21 Range/Units 16:26 RBC (4.30-5.90) m/uL Hgb (13.0-17.5) gm/dL Hct (39.0-53.0) % Plt Count (150-450) k/uL Sodium (137-145) mmol/L BUN (9-20) mg/dL Creatinine (0.66-1.25) mg/dL Glucose (74-99) mg/dL POC Glucose (mg/dL) 210 H (75-99) mg/dL Urine Protein (Negative) Urine Glucose (UA) (Negative) Urine Blood (Negative) Urine RBC (0-5) /hpf Urine Mucus (None) /hpf Microbiology - Last 24 Hours (Table) 04/23/21 17:26 Gram Stain - Preliminary Foot - Right Wound Culture - Preliminary 04/23/21 17:26 Anaerobic Culture - Preliminary Foot - Right Assessment and Plan Assessment: patient presented to hospital predominantly with a flank pain concerning for renal stone in this patient who recently did have admission to hospital with a right fourth toe gangrene status post amputation of the right fourth toe culture positive for MRSA with affected part removed and evidence of any cellulitis he was sent home on oral doxycycline patient did have problems with a IV vancomycin his last admission with renal insufficiency with abnormal x-rays could be related to postop state however in view of the nonhealing underlying osteomyelitis need to be excluded (1) Non-healing ulcer of right foot with fat layer exposed Current Visit: No Status: Acute Code(s): L97.512 - NON-PRS CHRONIC ULCER OTH PRT RIGHT FOOT W FAT LAYER EXPOSED SNOMED Code(s): 021263310 (2) Osteomyelitis of fourth toe of right foot Current Visit: No Status: Acute Code(s): M86.9 - OSTEOMYELITIS, UNSPECIFIED SNOMED Code(s): 170468507 Plan: 1-we will obtain bone scan of the right foot to rule out osteomyelitis 2-check a sed rate 3-discontinue vancomycin 4-start the patient daptomycin and Rocephin 5-local wound care with dry Aquacel dressing change every 48 hour We will follow on clinical condition and cultures to further adjust medication if needed Thank you for this consultation we will follow the patient along with you Time with Patient: Greater than 30
[2021-04-25] MEDS: MORPHINE SULFATE ER 15 MG TABLET PO SCH ×3 (00:09→22:15)
[2021-04-25] MEDS: HYDROmorphone 1 MG/ML 1 ML SYRINGE IVP PRN ×5 (00:10→21:14)
--- NOTE | 2021-04-25 00:50 | P.HPIM ---
History of Present Illness H&P Date: 04/24/21 Chief Complaint: Foot pain Patient is a 60-year-old male with a known history of diabetes insulin- dependent2, chronic back pain and chronic pain syndrome and on follow-up with pain clinic, bipolar disorder, depression, currently everyday smoker and history of IVDU, history of I aortic valve replacement in 2018 presents to ER with the complaints of right foot pain and left-sided flank pain. Next and patient did have recent toe amputation due to osteomyelitis and was discharged on oral antibiotic course. Patient changes his dressing and was noted to have foul- smelling drainage coming from the amputation site. Amputation was done about 1 month ago. Patient presented to ER for possible infection and was also complaining of left-sided flank pain. Patient reports that she had extensive history of renal stones. Requesting IV pain medications. Denied any complaints of fever or chills. No chest pain or shortness of breath. No nausea vomiting or abdominal pain or diarrhea. Next and ultrasound of the abdomen showed no evidence of renal mass or obstruction. Enlarged spleen. No ureteral jets were seen during the exam and the urinary bladder. Foot x-ray showed there is some erosion on the fourth metatarsal head. Osteomyelitis is possible. No fractures seen. Next and EKG showed normal sinus rhythm. Next and laboratory data showed WBC 5.3, hemoglobin 11.8 and platelets 84 BUN 27 and creatinine 1.38 and blood sugar 290 UA showed 3+ protein and 2+ glucose and RBCs. No evidence of infection. Review of Systems Constitutional: Patient denies any fever or chills . No generalized weakness or weight loss. Abdomen: Patient denied nausea vomiting and diarrhea and abdominal pain. Cardiovascular: Patient denies any chest pain or short of breath no palpitations. Respiratory: patient denied any cough is from production. No shortness of breath Neurologic: Patient denied any numbness or tingling headache. Musculoskeletal: Patient does complain of left flank pain and right foot pain. Skin: Negative Psychiatric: Negative Endocrine: No heat or cold intolerance. No recent weight gain. Genitourinary: No dysuria or hematuria. 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 History of Any Multi-Drug Resistant Organisms: None Reported Date of last positivie culture/infection: 03/22/21 MDRO Source:: Right 4th Toe Past Surgical History: Cardiac Valve Replacement, Cholecystectomy, Orthopedic S urgery Additional Past Surgical History / Comment(s): aortic valve replacement 2017, R 4th toe amputated February 2021 Past Psychological History: Bipolar, Depression Smoking Status: Current some day smoker Past Alcohol Use History: None Reported Past Drug Use History: Heroin, IV Drug Use, Marijuana, Marijuana Medications and Allergies Home Medications Medication Instructions Recorded Confirmed Type Acetaminophen Tab [Tylenol] 500 mg PO Q6H PRN 03/21/21 04/23/21 History Albuterol Nebulized [Ventolin 2.5 mg INHALATION RT-QID PRN 03/21/21 04/23/21 History Nebulized] Albuterol Sulfate [Proair Hfa] 2 puff INHALATION RT-QID PRN 03/21/21 04/23/21 History Collagenase [Santyl] 1 applic TOPICAL DAILY 03/21/21 04/23/21 History Ergocalciferol [Vitamin D2 (1250 1,250 mcg PO MOFR 03/21/21 04/23/21 History Mcg = 70178 Iu)] Insulin Aspart [NovoLOG Flexpen] See Protocol SQ AC-TID 03/21/21 04/23/21 History QUEtiapine [SEROquel] 100 mg PO HS 03/21/21 04/23/21 History Cyanocobalamin [Vitamin B-12] 1,000 mcg PO DAILY #30 tab 03/29/21 04/23/21 Rx Gabapentin [Neurontin] 300 mg PO TID 15 Days #45 cap 03/29/21 04/23/21 Rx INSULIN ASPART (NovoLOG) [NovoLOG 10 unit SQ AC-TID #1 vial 03/29/21 04/23/21 Rx (formulary)] Insulin Detemir (Levemir) [Levemir] 30 unit SQ HS #1 syr 03/29/21 04/23/21 Rx Metoprolol Tartrate [Lopressor] 25 mg PO BID #60 tab 03/29/21 04/23/21 Rx Sennosides [Senokot] 8.6 mg PO BID PRN #60 tab 03/29/21 04/23/21 Rx amLODIPine [Norvasc] 10 mg PO DAILY #30 tablet 03/29/21 04/23/21 Rx hydrALAZINE HCL [Apresoline] 25 mg PO TID #90 tab 03/29/21 04/23/21 Rx Morphine Sulfate [Ms Contin] 15 mg PO Q12H 04/23/21 04/23/21 History oxyCODONE-APAP 7.5-325MG [Percocet 1 tab PO BID PRN 04/23/21 04/23/21 History 7.5-325 mg] Allergies Allergy/AdvReac Type Severity Reaction Status Date / Time No Known Allergies Allergy Verified 04/23/21 19:55 Physical Exam Vitals: Vital Signs Temp Pulse Pulse Resp BP BP Pulse Ox 04/24/21 08:47 78 04/24/21 08:38 82 04/24/21 08:00 98.6 F 72 18 143/89 98 04/24/21 02:48 98.3 F 78 16 144/65 98 04/24/21 00:15 97.4 F L 88 16 143/83 98 04/23/21 19:37 97.2 F L 77 16 148/79 98 04/23/21 18:54 60 16 149/76 99 04/23/21 17:36 51 L 16 136/75 99 04/23/21 16:47 97.1 F L 92 H 152/79 97 Intake and Output 04/23/21 04/24/21 04/24/21 22:59 06:59 14:59 Other: # Voids 3 Weight 95.254 kg PHYSICAL EXAMINATION: Patient is lying in the bed comfortably, no acute distress, awake alert and oriented.. HEENT: Normocephalic. Neck is supple. Pupils reactive. Nostrils clear. Oral cavity is moist. Neck reveals no JVD, carotid bruits, or thyromegaly. CHEST EXAMINATION: Trachea is central. Symmetrical expansion. Lung ji clear to auscultation and percussion. CARDIAC: Normal S1, S2 with no gallops. No murmurs ABDOMEN: Soft. Bowel sounds normal. No organomegaly. No abdominal bruits. Extremities: reveal no edema. No clubbing or cyanosis Right foot fourth toe amputation site with no significant signs of infection. No purulent drainage or foul swelling. Neurologically awake, alert, oriented x3 with well-coordinated movements. No focal deficits noted Skin: No rash or skin lesions. Psychiatric: Coperative. Denied any suicidal ideation. Musculoskeletal: No joint swelling or deformity. Normal range of motion. Results CBC & Chem 7: 04/25/21 07:11 04/25/21 07:11 Labs: Abnormal Lab Results - Last 24 Hours (Table) 04/23/21 04/23/21 04/23/21 Range/Units 17:26 17:26 19:10 RBC 3.97 L (4.30-5.90) m/uL Hgb 11.8 L (13.0-17.5) gm/dL Hct 35.3 L (39.0-53.0) % Plt Count 84 L (150-450) k/uL Sodium 136 L (137-145) mmol/L BUN 27 H (9-20) mg/dL Creatinine 1.38 H (0.66-1.25) mg/dL Glucose 290 H (74-99) mg/dL POC Glucose (mg/dL) (75-99) mg/dL Urine Protein 3+ H (Negative) Urine Glucose (UA) 2+ H (Negative) Urine Blood Trace H (Negative) Urine RBC 16 H (0-5) /hpf Urine Mucus Rare H (None) /hpf 04/23/21 04/24/21 Range/Units 21:07 07:25 RBC (4.30-5.90) m/uL Hgb (13.0-17.5) gm/dL Hct (39.0-53.0) % Plt Count (150-450) k/uL Sodium (137-145) mmol/L BUN (9-20) mg/dL Creatinine (0.66-1.25) mg/dL Glucose (74-99) mg/dL POC Glucose (mg/dL) 171 H 219 H (75-99) mg/dL Urine Protein (Negative) Urine Glucose (UA) (Negative) Urine Blood (Negative) Urine RBC (0-5) /hpf Urine Mucus (None) /hpf Microbiology - Last 24 Hours (Table) 04/23/21 17:26 Gram Stain - Preliminary Foot - Right Wound Culture - Preliminary 04/23/21 17:26 Anaerobic Culture - Preliminary Foot - Right Thrombosis Risk Factor Assmnt - DVT/VTE Prophylaxis DVT/VTE Prophylaxis: Pharmacologic Prophylaxis ordered - Choose All That Apply Any of the Below Risk Factors Present?: Yes Each Factor Represents 1 point: Age 41-60 years, Obesity (BMI >25) Thrombosis Risk Factor Assessment Total Risk Factor Score: 2 Thrombosis Risk Factor Assessment Level: Low Risk Assessment and Plan Assessment: Right foot nonhealing diabetic foot ulcer Osteomyelitis of the fourth toe base . With recent amputation of the right fourth toe Diabetes type 2 uncontrolled with hyperglycemia Acute kidney injury with baseline creatinine 1.0. Creatinine 1.38 on admission likely prerenal. Chronic pain syndrome on follow-up with pain clinic Left flank pain with no evidence of renal stones on the ultrasound. History of nephrolithiasis as per patient. Chronic back pain Currently everyday smoker Depression and bipolar disorder History of IVDU next and DVT prophylaxis with heparin subcu Plan: Patient will be continued on antibiotics the form of vancomycin and ID was consulted. Follow up wound culture report. Patient was on daptomycin previo usly and transition to doxycycline upon discharge. Patient will be continued on insulin management and sliding scale for better blood sugar control and it just dose as needed. Next and continue with the pain medications. Patient is on Dilaudid IV for pain management. We will transition to oral [place]. Continue with home medications and follow up closely. Prognosis is guarded with multiple medical problems and comorbid conditions. Time with Patient: Greater than 30
[2021-04-25 06:55] LABS: Glucose,Whole Blood 165 mg/dL (75-99)
[2021-04-25] MEDS: ALBUTEROL NEBULIZED 2.5 MG/3 ML INHALATION PRN (07:07)
[2021-04-25 07:52] LABS: Basophils % (A) 1 %; Eosinophils # (A) 0.1 k/uL (0-0.7); Eosinophils % (A) 4 %; HCT 36.9 % (39.0-53.0); HGB 11.8 gm/dL (13.0-17.5); Lymphocytes # (A) 1.1 k/uL (1.0-4.8); Lymphocytes % (A) 29 %; MCH 28.8 pg (25.0-35.0); MCHC 32.1 g/dL (31.0-37.0); MCV 89.7 fL (80.0-100.0); Mean Platelet Volume 8.9; Monocytes # (A) 0.3 k/uL (0-1.0); Monocytes % (A) 7 %; Neutrophils # (A) 2.1 k/uL (1.3-7.7); Neutrophils % (A) 58 %; RBC 4.11 m/uL (4.30-5.90); RDW 14.3 % (11.5-15.5); WBC 3.7 k/uL (3.8-10.6)
[2021-04-25 08:05] LABS: Platelet Count 77 k/uL (150-450)
[2021-04-25 08:18] LABS: African American GFR (CKD) >90 (>60 ml/min/1.73 sqM); Anion Gap 5 mmol/L; Blood Urea Nitrogen 24 mg/dL (9-20); Carbon Dioxide 26 mmol/L (22-30); Chloride 107 mmol/L (98-107); Glucose 123 mg/dL (74-99); Non-African American GFR(CKD) 79 (>60 ml/min/1.73 sqM); Potassium 4.1 mmol/L (3.5-5.1); Sodium 138 mmol/L (137-145)
[2021-04-25] MEDS: INSULIN ASPART (NovoLOG) 100 UNIT/ML VIAL SQ SCH ×4 (08:21→21:07)
[2021-04-25] MEDS: METOPROLOL TARTRATE 25 MG TAB PO SCH ×2 (08:25→21:07)
[2021-04-25] MEDS: GABAPENTIN 300 MG CAP PO SCH ×3 (08:26→21:07)
[2021-04-25] MEDS: hydrALAZINE HCL 25 MG TAB PO SCH ×3 (08:26→21:07)
[2021-04-25] MEDS: amLODIPine 10 MG TAB PO SCH (08:26)
[2021-04-25] MEDS: CYANOCOBALAMIN 500 MCG TAB PO SCH (08:26)
[2021-04-25 11:23] LABS: Glucose,Whole Blood 293 mg/dL (75-99)
[2021-04-25 11:37] LABS: Erythrocyte Sedimentation Rate 54 mm/hr (0-15)
--- NOTE | 2021-04-25 14:02 | NM ---
EXAMINATION TYPE: NM bone 3 phase DATE OF EXAM: 04/25/2021 COMPARISON: NONE HISTORY: Right fourth toe amputation Triple phase bone scintigraphy was performed following the injection of 23.4 mCi Tc 99m MDP. Immedia te images and 5.75 hours post injection images acquired. FINDINGS: Blood flow: There is increased radiotracer accumulation to the lateral right distal foot compared to the left. Blood pool: There is focal radiotracer accumulation near the fourth digit location. Static images: Focal radiotracer accumulation is in the region of the fourth metatarsal. There are so me mild punctate areas of increased radiotracer accumulation within the right foot. First digit appea rs somewhat hypointense. IMPRESSION: Increased uptake with a blood flow, blood pool, and delayed bone scan images in the region of the dis bert fourth metatarsal. Findings can be compatible with osteomyelitis.
[2021-04-25 16:22] LABS: Glucose,Whole Blood 276 mg/dL (75-99)
[2021-04-25 20:47] LABS: Glucose,Whole Blood 197 mg/dL (75-99)
[2021-04-25] MEDS: INSULIN DETEMIR (LEVEMIR) 100 UNIT/ML SYR SQ SCH (21:07)
[2021-04-25] MEDS: QUEtiapine 100 MG TAB PO SCH (21:15)
--- NOTE | 2021-04-26 05:05 | PN ---
PROGRESS NOTE DATE OF SERVICE: 04/25/2021 REASON FOR FOLLOWUP: Left fourth toe nonhealing wound and concern for underlying osteomyelitis. INTERVAL HISTORY: The patient is afebrile. The patient is breathing comfortably. Pain to the left foot amputation site has slightly decreased. The patient denies having any chest pain, shortness of breath, cough, abdominal pain or diarrhea. PHYSICAL EXAMINATION: Blood pressure is 135/72 with a pulse of 70, temperature 97.6. He is 99% on room air. General description is a middle-aged male lying in bed in no distress. Respiratory system: Unlabored breathing. Clear to auscultation anteriorly. Heart S1, S2. Regular rate and rhythm. Abdomen: Soft, no tenderness. Left foot is currently dressed up. No obvious drainage on the dressing. LABS: Wound culture finalized with MRSA and strep and Serratia that is resistant to Rocephin. Bone scan suspicious for osteomyelitis. DIAGNOSTIC IMPRESSION AND PLAN: Patient with a nonhealing wound to the right 4th toe amputation site with recent gangrenous toe, status post amputation. Cultures now showing MRSA strep and Serratia. The patient likely will need a PICC line for outpatient IV antibiotics. Rocephin was switched over to cefepime. Continue with daptomycin to get a PICC line for outpatient antibiotic, has been . Continue supportive care. MMODL / IJN: [id number] /
[2021-04-26 06:47] LABS: Glucose,Whole Blood 234 mg/dL (75-99)
[2021-04-26] MEDS: HYDROmorphone 1 MG/ML 1 ML SYRINGE IVP PRN ×5 (07:47→20:56)
[2021-04-26] MEDS: INSULIN ASPART (NovoLOG) 100 UNIT/ML VIAL SQ SCH ×4 (07:51→20:50)
[2021-04-26] MEDS: CEFEPIME 2 GM in SODIUM CHLORIDE 0.9% 100 ML IVPB SCH ×3 (08:01→16:25)
[2021-04-26] MEDS: ALBUTEROL NEBULIZED 2.5 MG/3 ML INHALATION PRN (08:12)
[2021-04-26] MEDS: GABAPENTIN 300 MG CAP PO SCH ×3 (08:55→20:49)
[2021-04-26] MEDS: hydrALAZINE HCL 25 MG TAB PO SCH ×3 (08:55→20:49)
[2021-04-26] MEDS: amLODIPine 10 MG TAB PO SCH (08:55)
[2021-04-26] MEDS: METOPROLOL TARTRATE 25 MG TAB PO SCH ×2 (08:55→20:49)
[2021-04-26] MEDS: CYANOCOBALAMIN 500 MCG TAB PO SCH (09:04)
[2021-04-26 11:27] LABS: Glucose,Whole Blood 229 mg/dL (75-99)
[2021-04-26] MEDS: MORPHINE SULFATE ER 15 MG TABLET PO SCH (12:19)
[2021-04-26 16:19] LABS: Glucose,Whole Blood 272 mg/dL (75-99)
--- NOTE | 2021-04-26 17:42 | CT ---
EXAMINATION TYPE: CT abdomen pelvis w con DATE OF EXAM: 04/26/2021 COMPARISON: None HISTORY: Left flank pain. CT DLP: 1846.8 mGycm Automated exposure control for dose reduction was used. CONTRAST: Performed with IV Contrast, patient injected with 100 mL of Isovue 300. Images obtained from the diaphragm to the floor the pelvis with IV contrast. Lung bases show minimal subsegmental atelectasis in the left lower lobe. Heart size is normal. There is no pericardial effusion. Spleen is enlarged and measures 17 cm. There are multiple varicose veins at the splenic hilum. There is no pancreatic mass. I see no focal liver defect. There are clips from cholecystectomy. The stomach is intact. Bile ducts are not dilated. There is no adrenal mass. There is contrast opacification of the portal v enous system. Kidneys show satisfactory contrast opacification. There is no hydronephrosis. Ureters a re not dilated. Delayed images show normal renal excretion. Appendix appears normal. Bladder distends smoothly. There is no retroperitoneal adenopathy. There is mild atheromatous change in the abdominal aorta. There is no inguinal hernia. I see no pelvic mass. There is no mesenteric edema. There is no ascites or free air. There is no bowel obstruction. Lumbar vertebra have normal alignment. There is spurring anteriorly at L4-5. There is no compression fracture. The bony pelvis appears intact. IMPRESSION: There is splenomegaly. There are varicose veins of the spleen and consistent with portal venous hyper tension. No evidence of renal stone or obstruction.
--- NOTE | 2021-04-26 18:37 | PN ---
PROGRESS NOTE DATE OF SERVICE: 04/26/2021 REASON FOR FOLLOWUP: Right 4th toe osteomyelitis. INTERVAL HISTORY: The patient is afebrile. The patient is breathing comfortably. The patient is complaining of significant pain to his left flank area. Denies having any chest pain. No shortness of breath, cough or pain to the right second toe. PHYSICAL EXAMINATION: Blood pressure 127/74 with a pulse of 77, temperature is 97.9. He is sating 93% on room air. General description is a middle-aged male lying in bed in no distress. Respiratory system: Unlabored breathing, clear to auscultation anteriorly. Heart S1, S2. Regular rate and rhythm. Abdomen soft, no tenderness. LABS: DIAGNOSTIC IMPRESSION AND PLAN: Patient with right fourth toe amputation site now nonhealing with concern for underlying osteomyelitis. Culture with MSSA infection. Patient is covered with daptomycin and cefepime to continue, will need a PICC line for outpatient antibiotic therapy. Continue supportive care. MMODL / IJN: [id number] /
[2021-04-26 20:25] LABS: Glucose,Whole Blood 241 mg/dL (75-99)
[2021-04-26] MEDS: INSULIN DETEMIR (LEVEMIR) 100 UNIT/ML SYR SQ SCH (20:49)
[2021-04-26] MEDS: SODIUM CHLORIDE 0.9% 1,000 ML IV SCH (20:52)
[2021-04-26] MEDS: QUEtiapine 100 MG TAB PO SCH (20:56)
[2021-04-26] MEDS ORDERED: HYDROmorphone 1 MG/ML 1 ML SYRINGE ONE (23:59)
[2021-04-27] MEDS: MORPHINE SULFATE ER 15 MG TABLET PO SCH ×3 (00:12→23:09)
[2021-04-27] MEDS: CEFEPIME 2 GM in SODIUM CHLORIDE 0.9% 100 ML IVPB SCH ×3 (01:54→16:15)
[2021-04-27] MEDS: HYDROmorphone 1 MG/ML 1 ML SYRINGE IVP PRN ×4 (05:07→22:50)
[2021-04-27] MEDS: SODIUM CHLORIDE 0.9% 1,000 ML IV SCH ×2 (05:54→22:15)
[2021-04-27 07:12] LABS: Glucose,Whole Blood 165 mg/dL (75-99)
[2021-04-27] MEDS: CYANOCOBALAMIN 500 MCG TAB PO SCH (07:35)
[2021-04-27] MEDS: METOPROLOL TARTRATE 25 MG TAB PO SCH ×2 (07:36→21:30)
[2021-04-27] MEDS: amLODIPine 10 MG TAB PO SCH (07:36)
[2021-04-27] MEDS: GABAPENTIN 300 MG CAP PO SCH ×3 (07:36→21:30)
[2021-04-27] MEDS: INSULIN ASPART (NovoLOG) 100 UNIT/ML VIAL SQ SCH ×4 (07:36→21:29)
[2021-04-27] MEDS: hydrALAZINE HCL 25 MG TAB PO SCH ×3 (07:36→21:30)
[2021-04-27 11:28] LABS: Glucose,Whole Blood 246 mg/dL (75-99)
[2021-04-27 12:59] LABS: Basophils # (A) 0.01 X 10*3/uL (0.00-0.10); Basophils % (A) 0.4 %; Eosinophils # (A) 0.06 X 10*3/uL (0.04-0.35); Eosinophils % (A) 2.5 %; HGB 9.2 g/dL (13.0-17.0); Lymphocytes # (A) 0.69 X 10*3/uL (0.90-5.00); Lymphocytes % (A) 29.1 %; MCH 28.6 pg (27.0-32.0); MCHC 31.7 g/dL (32.0-37.0); MCV 90.1 fL (80.0-97.0); Mean Platelet Volume 13.2 fL (9.5-12.2); Monocytes # (A) 0.17 X 10*3/uL (0.20-1.00); Monocytes % (A) 7.2 %; Neutrophils # (A) 1.43 X 10*3/uL (1.80-7.70); Neutrophils % (A) 60.4 %; Platelet Count 64 X 10*3/uL (140-440); RBC 3.22 X 10*6/uL (4.40-5.60); RDW 13.9 % (11.5-14.5); WBC 2.37 X 10*3/uL (4.50-10.00)
[2021-04-27 16:27] LABS: Glucose,Whole Blood 244 mg/dL (75-99)
--- NOTE | 2021-04-27 18:34 | PN ---
PROGRESS NOTE DATE OF SERVICE: 04/27/2021 REASON FOR FOLLOWUP: Right foot toe amputation site osteomyelitis. INTERVAL HISTORY: The patient is afebrile. The patient is breathing comfortably. He is still complaining of pain to his left leg area. No chest pain or shortness of breath. No cough and no diarrhea. Pain to the foot is currently controlled. PHYSICAL EXAMINATION: Blood pressure 106/67, pulse of 77, temperature 98.4. He is 95% on room air. The patient is a middle-aged male lying in bed in no distress. Respiratory system: Unlabored breathing, clear to auscultation anteriorly. Heart: S1, S2. Regular rate and rhythm. Abdomen: Soft, no tenderness. LABS: The patient did have a CT of abdomen and pelvis completed yesterday did not show any acute abnormality. Hemoglobin 9.1, ( ) 2.37. DIAGNOSTIC IMPRESSION AND PLAN: Patient is right toe amputation site osteomyelitis. Cultures with Streptococcus ( ) and MRSA, in addition. The patient is covered with cefepime, vancomycin and will need the PICC line for outpatient IV antibiotic and continue supportive care. MMODL / IJN: [id number] /
[2021-04-27 20:50] LABS: Glucose,Whole Blood 216 mg/dL (75-99)
[2021-04-27 20:56] LABS: African American GFR (CKD) 69.2 (60.0-200.0); Anion Gap 8.1 mmol/L (4.00-12.00); BUN/Creat Ratio 23.85 Ratio (12.00-20.00); Calcium 8.3 mg/dL (8.7-10.3); Carbon Dioxide 22.9 mmol/L (21.6-31.8); Non-African American GFR(CKD) 59.7 (60.0-200.0); Potassium 4.1 mmol/L (3.5-5.5)
[2021-04-27] MEDS: INSULIN DETEMIR (LEVEMIR) 100 UNIT/ML SYR SQ SCH (21:29)
[2021-04-27] MEDS: NICOTINE 21MG/24HR PATCH TRANSDERM SCH (22:02)
[2021-04-27] MEDS: QUEtiapine 100 MG TAB PO SCH (22:03)
[2021-04-28] MEDS: CEFEPIME 2 GM in SODIUM CHLORIDE 0.9% 100 ML IVPB SCH ×3 (00:39→17:24)
[2021-04-28] MEDS: HYDROmorphone 1 MG/ML 1 ML SYRINGE IVP PRN ×5 (02:09→20:49)
[2021-04-28 07:10] LABS: Glucose,Whole Blood 217 mg/dL (75-99)
[2021-04-28] MEDS: amLODIPine 10 MG TAB PO SCH (07:30)
[2021-04-28] MEDS: hydrALAZINE HCL 25 MG TAB PO SCH ×3 (07:30→22:53)
[2021-04-28] MEDS: CYANOCOBALAMIN 500 MCG TAB PO SCH (07:30)
[2021-04-28] MEDS: INSULIN ASPART (NovoLOG) 100 UNIT/ML VIAL SQ SCH ×4 (07:30→22:23)
[2021-04-28] MEDS: METOPROLOL TARTRATE 25 MG TAB PO SCH ×2 (07:31→20:46)
[2021-04-28] MEDS: GABAPENTIN 300 MG CAP PO SCH ×3 (07:31→22:53)
[2021-04-28] MEDS: SODIUM CHLORIDE 0.9% 1,000 ML IV SCH ×2 (10:58→23:44)
[2021-04-28 11:20] VITALS: BMI 27.7
--- NOTE | 2021-04-28 11:35 | P.PN ---
Subjective Progress Note Date: 04/25/21 Principal diagnosis: Right foot nonhealing diabetic foot ulcer Osteomyelitis of the fourth toe base . With recent amputation of the right fourth toe Patient is a 60-year-old male with a known history of diabetes insulin- dependent2, chronic back pain and chronic pain syndrome and on follow-up with pain clinic, bipolar disorder, depression, currently everyday smoker and history of IVDU, history of I aortic valve replacement in 2018 presents to ER with the complaints of right foot pain and left-sided flank pain. Next and patient did have recent toe amputation due to osteomyelitis and was discharged on oral antibiotic course. Patient changes his dressing and was noted to have foul- smelling drainage coming from the amputation site. Amputation was done about 1 month ago. Patient presented to ER for possible infection and was also complaining of left-sided flank pain. Patient reports that she had extensive history of renal stones. Requesting IV pain medications. Denied any complaints of fever or chills. No chest pain or shortness of breath. No nausea vomiting or abdominal pain or diarrhea. Next and ultrasound of the abdomen showed no evidence of renal mass or obstruction. Enlarged spleen. No ureteral jets were seen during the exam and the urinary bladder. Foot x-ray showed there is some erosion on the fourth metatarsal head. Osteomyelitis is possible. No fractures seen. Next and EKG showed normal sinus rhythm. Next and laboratory data showed WBC 5.3, hemoglobin 11.8 and platelets 84 BUN 27 and creatinine 1.38 and blood sugar 290 UA showed 3+ protein and 2+ glucose and RBCs. No evidence of infection. 04/25/2021 Patient is currently resting in the bed comfortably. Still complains of right foot pain. Also right flank pain. No complaints of chest pain or shortness breath. Patient is being continue on antibiotics. A bone scan showed increased uptake with a blood flow blood pool and delayed bone scan images in the region of the distal fourth metatarsal. Findings can be compatible with osteoarthritis. ID is on board. Patient has been afebrile. Laboratory data showed WBC 3.7 hemoglobin 11.8 and platelets 77 BUN 24 and creatinine 1.04 Current medications reviewed. Objective - Vital Signs Vital signs: Vital Signs Temp 97.6 F 04/25/21 19:34 Pulse 70 04/25/21 19:34 Resp 18 04/25/21 19:34 BP 135/72 04/25/21 19:34 Pulse Ox 99 07/27/21 19:34 Intake & Output 04/25/21 04/25/21 04/26/21 06:59 18:59 06:59 Intake Total 800 Balance 800 Intake: Oral 800 Other: # Voids 1 2 - Exam PHYSICAL EXAMINATION: Patient is lying in the bed comfortably, no acute distress, awake alert and oriented.. HEENT: Normocephalic. Neck is supple. Pupils reactive. Nostrils clear. Oral cavity is moist. Neck reveals no JVD, carotid bruits, or thyromegaly. CHEST EXAMINATION: Trachea is central. Symmetrical expansion. Lung ji clear to auscultation and percussion. CARDIAC: Normal S1, S2 with no gallops. No murmurs ABDOMEN: Soft. Bowel sounds normal. No organomegaly. No abdominal bruits. Extremities: reveal no edema. No clubbing or cyanosis Right foot fourth toe amputation site with no significant signs of infection. No purulent drainage or foul swelling. Neurologically awake, alert, oriented x3 with well-coordinated movements. No focal deficits noted Skin: No rash or skin lesions. Psychiatric: Coperative. Denied any suicidal ideation. Musculoskeletal: No joint swelling or deformity. Normal range of motion. - Labs CBC & Chem 7: 04/27/21 07:00 04/27/21 07:00 Labs: Abnormal Lab Results - Last 24 Hours (Table) 04/25/21 04/25/21 04/25/21 Range/Units 06:50 07:11 07:11 WBC 3.7 L (3.8-10.6) k/uL RBC 4.11 L (4.30-5.90) m/uL Hgb 11.8 L (13.0-17.5) gm/dL Hct 36.9 L (39.0-53.0) % Plt Count 77 L (150-450) k/uL ESR 54 H (0-15) mm/hr BUN 24 H (9-20) mg/dL Glucose 123 H (74-99) mg/dL POC Glucose (mg/dL) 165 H (75-99) mg/dL 04/25/21 04/25/21 04/25/21 Range/Units 11:20 16:20 20:46 WBC (3.8-10.6) k/uL RBC (4.30-5.90) m/uL Hgb (13.0-17.5) gm/dL Hct (39.0-53.0) % Plt Count (150-450) k/uL ESR (0-15) mm/hr BUN (9-20) mg/dL Glucose (74-99) mg/dL POC Glucose (mg/dL) 293 H 276 H 197 H (75-99) mg/dL Microbiology - Last 24 Hours (Table) 04/23/21 17:26 Gram Stain - Final Foot - Right Wound Culture - Final Strep agalactiae - (group b) Methicillin resist S. aureus Serratia marcescens 04/23/21 20:02 Blood Culture - Preliminary Blood No Growth after 24 hours 04/23/21 20:02 Blood Culture - Preliminary Blood No Growth after 24 hours Assessment and Plan Assessment: Right foot nonhealing diabetic foot ulcer Osteomyelitis of the fourth toe base . With recent amputation of the right fourth toe Diabetes type 2 uncontrolled with hyperglycemia Acute kidney injury with baseline creatinine 1.0. Creatinine 1.38 on admission likely prerenal. Improved. Chronic pain syndrome on follow-up with pain clinic Left flank pain with no evidence of renal stones on the ultrasound. History of nephrolithiasis as per patient. Chronic back pain Currently everyday smoker Depression and bipolar disorder History of IVDU next and DVT prophylaxis with heparin subcu Plan: Patient will be continued on antibiotics the form of vancomycin and ID was consulted. Antibiotics changed to cefepime. Follow up wound culture report. Patient was on daptomycin previously and transition to doxycycline upon discharge. Patient will be continued on insulin management and sliding scale for better blood sugar control and it just dose as needed. Next and continue with the pain medications. Patient is on Dilaudid IV for pain management. We will transition to oral [place]. Continue with home medications and follow up closely. Prognosis is guarded with multiple medical problems and comorbid conditions. Time with Patient: Greater than 30
--- NOTE | 2021-04-28 11:41 | P.PN ---
Subjective Progress Note Date: 04/26/21 Principal diagnosis: Right foot nonhealing diabetic foot ulcer Osteomyelitis of the fourth toe base . With recent amputation of the right fourth toe Patient is a 60-year-old male with a known history of diabetes insulin- dependent2, chronic back pain and chronic pain syndrome and on follow-up with pain clinic, bipolar disorder, depression, currently everyday smoker and history of IVDU, history of I aortic valve replacement in 2018 presents to ER with the complaints of right foot pain and left-sided flank pain. Next and patient did have recent toe amputation due to osteomyelitis and was discharged on oral antibiotic course. Patient changes his dressing and was noted to have foul- smelling drainage coming from the amputation site. Amputation was done about 1 month ago. Patient presented to ER for possible infection and was also complaining of left-sided flank pain. Patient reports that she had extensive history of renal stones. Requesting IV pain medications. Denied any complaints of fever or chills. No chest pain or shortness of breath. No nausea vomiting or abdominal pain or diarrhea. Next and ultrasound of the abdomen showed no evidence of renal mass or obstruction. Enlarged spleen. No ureteral jets were seen during the exam and the urinary bladder. Foot x-ray showed there is some erosion on the fourth metatarsal head. Osteomyelitis is possible. No fractures seen. Next and EKG showed normal sinus rhythm. Next and laboratory data showed WBC 5.3, hemoglobin 11.8 and platelets 84 BUN 27 and creatinine 1.38 and blood sugar 290 UA showed 3+ protein and 2+ glucose and RBCs. No evidence of infection. 04/25/2021 Patient is currently resting in the bed comfortably. Still complains of right foot pain. Also right flank pain. No complaints of chest pain or shortness breath. Patient is being continue on antibiotics. A bone scan showed increased uptake with a blood flow blood pool and delayed bone scan images in the region of the distal fourth metatarsal. Findings can be compatible with osteoarthritis. ID is on board. Patient has been afebrile. Laboratory data showed WBC 3.7 hemoglobin 11.8 and platelets 77 BUN 24 and creatinine 1.04 04/26/2021 Patient is currently resting in the bed. Complaints of left flank pain. No complaints of chest pain or shortness of breath. Right foot pain is better. Patient has been afebrile. Bone scan showed possible underlying osteomyelitis with amputation site of the right fourth toe. Wound cultures showing MSSA. Patient is being continued on daptomycin and cefepime. ID is following. No nausea vomiting or abdominal pain or diarrhea. No dysuria or hematuria. Next laboratory data reviewed. Current medications reviewed. Objective - Vital Signs Vital signs: Vital Signs Temp 98.3 F 04/26/21 19:52 Pulse 73 04/26/21 19:52 Resp 16 04/26/21 19:52 BP 159/75 04/26/21 19:52 Pulse Ox 97 04/26/21 19:52 Intake & Output 04/26/21 04/26/21 04/27/21 06:59 18:59 06:59 Intake Total 2160 Balance 2160 Intake: Oral 2160 Other: Voiding Method Toilet # Voids 3 - Exam PHYSICAL EXAMINATION: Patient is lying in the bed comfortably, no acute distress, awake alert and oriented.. HEENT: Normocephalic. Neck is supple. Pupils reactive. Nostrils clear. Oral cavity is moist. Neck reveals no JVD, carotid bruits, or thyromegaly. CHEST EXAMINATION: Trachea is central. Symmetrical expansion. Lung ji clear to auscultation and percussion. CARDIAC: Normal S1, S2 with no gallops. No murmurs ABDOMEN: Soft. Bowel sounds normal. No organomegaly. No abdominal bruits. Extremities: reveal no edema. No clubbing or cyanosis Right foot fourth toe amputation site with no significant signs of infection. No purulent drainage or foul swelling. Neurologically awake, alert, oriented x3 with well-coordinated movements. No focal deficits noted Skin: No rash or skin lesions. Psychiatric: Coperative. Denied any suicidal ideation. Musculoskeletal: No joint swelling or deformity. Normal range of motion. - Labs CBC & Chem 7: 04/27/21 07:00 04/27/21 07:00 Labs: Abnormal Lab Results - Last 24 Hours (Table) 04/26/21 04/26/21 04/26/21 Range/Units 06:46 11:25 16:18 POC Glucose (mg/dL) 234 H 229 H 272 H (75-99) mg/dL 04/26/21 Range/Units 20:23 POC Glucose (mg/dL) 241 H (75-99) mg/dL Microbiology - Last 24 Hours (Table) 04/23/21 20:02 Blood Culture - Preliminary Blood No Growth after 48 hours 04/23/21 20:02 Blood Culture - Preliminary Blood No Growth after 48 hours 04/23/21 17:26 Gram Stain - Final Foot - Right Wound Culture - Final Strep agalactiae - (group b) Methicillin resist S. aureus Serratia marcescens Assessment and Plan Assessment: Right foot nonhealing diabetic foot ulcer. Osteomyelitis of the fourth toe base . With recent amputation of the right fourth toe Diabetes type 2 uncontrolled with hyperglycemia Acute kidney injury with baseline creatinine 1.0. Creatinine 1.38 on admission likely prerenal. Improved. Chronic pain syndrome on follow-up with pain clinic Left flank pain with no evidence of renal stones on the ultrasound. History of nephrolithiasis as per patient. Chronic back pain Currently everyday smoker Depression and bipolar disorder History of IVDU next and DVT prophylaxis with heparin subcu Plan: Patient will be continued on antibiotics the form of cefepime and daptomycin. Cultures showed MSSA. Next and CT of the abdominal pelvis was ordered due to left flank pain. Patient was on daptomycin previously and transition to doxycycline upon discharge. Patient will be continued on insulin management and sliding scale for better blood sugar control and it just dose as needed. continue with the pain medications. Patient is on Dilaudid IV for pain management. We will transition to oral [place]. Continue with home medications and follow up closely. Prognosis is guarded with multiple medical problems and comorbid conditions. Time with Patient: Greater than 30
--- NOTE | 2021-04-28 11:43 | P.PN ---
Subjective Progress Note Date: 04/27/21 Principal diagnosis: Right foot nonhealing diabetic foot ulcer Osteomyelitis of the fourth toe base . With recent amputation of the right fourth toe Patient is a 60-year-old male with a known history of diabetes insulin- dependent2, chronic back pain and chronic pain syndrome and on follow-up with pain clinic, bipolar disorder, depression, currently everyday smoker and history of IVDU, history of I aortic valve replacement in 2018 presents to ER with the complaints of right foot pain and left-sided flank pain. Next and patient did have recent toe amputation due to osteomyelitis and was discharged on oral antibiotic course. Patient changes his dressing and was noted to have foul- smelling drainage coming from the amputation site. Amputation was done about 1 month ago. Patient presented to ER for possible infection and was also complaining of left-sided flank pain. Patient reports that she had extensive history of renal stones. Requesting IV pain medications. Denied any complaints of fever or chills. No chest pain or shortness of breath. No nausea vomiting or abdominal pain or diarrhea. Next and ultrasound of the abdomen showed no evidence of renal mass or obstruction. Enlarged spleen. No ureteral jets were seen during the exam and the urinary bladder. Foot x-ray showed there is some erosion on the fourth metatarsal head. Osteomyelitis is possible. No fractures seen. Next and EKG showed normal sinus rhythm. Next and laboratory data showed WBC 5.3, hemoglobin 11.8 and platelets 84 BUN 27 and creatinine 1.38 and blood sugar 290 UA showed 3+ protein and 2+ glucose and RBCs. No evidence of infection. 04/25/2021 Patient is currently resting in the bed comfortably. Still complains of right foot pain. Also right flank pain. No complaints of chest pain or shortness breath. Patient is being continue on antibiotics. A bone scan showed increased uptake with a blood flow blood pool and delayed bone scan images in the region of the distal fourth metatarsal. Findings can be compatible with osteoarthritis. ID is on board. Patient has been afebrile. Laboratory data showed WBC 3.7 hemoglobin 11.8 and platelets 77 BUN 24 and creatinine 1.04 04/26/2021 Patient is currently resting in the bed. Complaints of left flank pain. No complaints of chest pain or shortness of breath. Right foot pain is better. Patient has been afebrile. Bone scan showed possible underlying osteomyelitis with amputation site of the right fourth toe. Wound cultures showing MSSA. Patient is being continued on daptomycin and cefepime. ID is following. No nausea vomiting or abdominal pain or diarrhea. No dysuria or hematuria. Next laboratory data reviewed. 04/27/2021 Patient is currently resting the bed comfortably. No complaints of chest pain or shortness breath. Right foot pain is better. Still complains of right flank pain. CT of abdomen pelvis showed splenomegaly. Varicose veins of the spleen and consistent with portal venous hypertension. No evidence of renal stones or obstruction. There is spurring anteriorly at L4-L5. No compression fracture. Bony pelvis is intact. Lumbar vertebra have normal alignment. Patient denied any dysuria or hematuria. Denied any leg weakness or numbness or tingling sensation. Patient is being continued on antibiotics in the form of cefepime and daptomycin. ID is on board. Current medications reviewed. Objective - Vital Signs Vital signs: Vital Signs Temp 98.4 F 04/27/21 14:42 Pulse 67 04/27/21 14:42 Resp 16 04/27/21 14:42 BP 106/67 04/27/21 14:42 Pulse Ox 95 04/27/21 14:42 Intake & Output 04/27/21 04/27/21 04/28/21 06:59 18:59 06:59 Other: Voiding Method Toilet # Voids 4 - Exam PHYSICAL EXAMINATION: Patient is lying in the bed comfortably, no acute distress, awake alert and oriented.. HEENT: Normocephalic. Neck is supple. Pupils reactive. Nostrils clear. Oral cavity is moist. Neck reveals no JVD, carotid bruits, or thyromegaly. CHEST EXAMINATION: Trachea is central. Symmetrical expansion. Lung ji clear to auscultation and percussion. CARDIAC: Normal S1, S2 with no gallops. No murmurs ABDOMEN: Soft. Bowel sounds normal. No organomegaly. No abdominal bruits. Extremities: reveal no edema. No clubbing or cyanosis Right foot fourth toe amputation site with no significant signs of infection. No purulent drainage or foul swelling. Neurologically awake, alert, oriented x3 with well-coordinated movements. No focal deficits noted Skin: No rash or skin lesions. Psychiatric: Coperative. Denied any suicidal ideation. Musculoskeletal: No joint swelling or deformity. Normal range of motion. - Labs CBC & Chem 7: 04/27/21 07:00 04/27/21 07:00 Labs: Abnormal Lab Results - Last 24 Hours (Table) 04/26/21 04/27/21 04/27/21 Range/Units 20:23 07:00 07:11 WBC 2.37 L (4.50-10.00) X 10*3/uL RBC 3.22 L (4.40-5.60) X 10*6/uL Hgb 9.2 L (13.0-17.0) g/dL Hct 29.0 L (39.6-50.0) % MCHC 31.7 L (32.0-37.0) g/dL Plt Count 64 L (140-440) X 10*3/uL MPV 13.2 H (9.5-12.2) fL Neutrophils # 1.43 L (1.80-7.70) X 10*3/uL Lymphocytes # 0.69 L (0.90-5.00) X 10*3/uL Monocytes # 0.17 L (0.20-1.00) X 10*3/uL Immature Plt Fraction 8.4 H (1.1-6.1) % POC Glucose (mg/dL) 241 H 165 H (75-99) mg/dL 04/27/21 04/27/21 Range/Units 11:27 16:25 WBC (4.50-10.00) X 10*3/uL RBC (4.40-5.60) X 10*6/uL Hgb (13.0-17.0) g/dL Hct (39.6-50.0) % MCHC (32.0-37.0) g/dL Plt Count (140-440) X 10*3/uL MPV (9.5-12.2) fL Neutrophils # (1.80-7.70) X 10*3/uL Lymphocytes # (0.90-5.00) X 10*3/uL Monocytes # (0.20-1.00) X 10*3/uL Immature Plt Fraction (1.1-6.1) % POC Glucose (mg/dL) 246 H 244 H (75-99) mg/dL Microbiology - Last 24 Hours (Table) 04/23/21 20:02 Blood Culture - Preliminary Blood No Growth after 72 hours 04/23/21 20:02 Blood Culture - Preliminary Blood No Growth after 72 hours Assessment and Plan Assessment: Right foot nonhealing diabetic foot ulcer. Osteomyelitis of the fourth toe base . With recent amputation of the right fourth toe Diabetes type 2 uncontrolled with hyperglycemia Acute kidney injury with baseline creatinine 1.0. Creatinine 1.38 on admission likely prerenal. Improved. Chronic pain syndrome on follow-up with pain clinic Left flank pain with no evidence of renal stones on the ultrasound. History of nephrolithiasis as per patient. Chronic back pain Currently everyday smoker Depression and bipolar disorder History of IVDU next and DVT prophylaxis with heparin subcu Plan: Patient will be continued on antibiotics the form of cefepime and daptomycin. Cultures showed MSSA. Next and CT of the abdominal pelvis was ordered due to left flank pain. Patient was on daptomycin previously and transition to doxycycline upon discharge. Patient will be continued on insulin management and sliding scale for better blood sugar control and it just dose as needed. continue with the pain medications. Patient is on Dilaudid IV for pain management. Continue with oral [place]. Continue with home medications and follow up closely. Prognosis is guarded with multiple medical problems and comorbid conditions. Time with Patient: Greater than 30
[2021-04-28] MEDS: MORPHINE SULFATE ER 15 MG TABLET PO SCH ×2 (11:46→22:53)
[2021-04-28] MEDS: NICOTINE 21MG/24HR PATCH TRANSDERM SCH (11:47)
[2021-04-28 11:49] LABS: Glucose,Whole Blood 221 mg/dL (75-99)
--- NOTE | 2021-04-28 12:51 | CDI ---
Documentation Clarification Form Date: 04/28/2021 12:47:45 PM From: Samia Baorn RN, CCDS Admit Date: 04/23/2021 07:35:00 PM Patient Name: oJsue Chaney Visit Number: [id number] Discharge Date: ATTENTION: The Clinical Documentation Specialists (CDI) and [facility] Coding Staff appreciate your assistance in clarifying documentation. Please respond to the clarification below the line at the bottom and electronically sign. The CDI & [facility] Coding staff will review the response and follow-up if needed. Please note: Queries are made part of the Legal Health Record. If you have any questions, please contact the author of this message via ITS. Dr. Siobhan Isaac Osteomyelitis is documented In the ED assessment, H/P and consult. Additional clarification regarding the cause and acuity of the osteomyelitis is requested. History/Risk Factors: Diabetes Mellitus Clinical Indicators: 60-year-old male present with malodorous drainage from amputation site of the right foot. Wound culture: Positive for MRSA Blood Culture: Negative 04/23 Foot X-Ray Results: There is some erosion of the fourth metatarsal head. Osteomyelitis is possible 04/25 Bone scan right foot: Findings compatible with osteomyelitis Treatment: Vancomycin 1750 MG IVPB Once Maxipime 2 GM IVPB Q 8 HRS Daptomycin 600mg IVPB q 24 hrs Rocephin 2GM IVPB Q 24 HRS (04/25) Local wound care with dry Aquacel dressing change every 48 hours. Please clarify the acuity and etiology of the osteomyelitis, if known: Acuity: [ ] Acute osteomyelitis [ ] Chronic osteomyelitis [ ] Subacute osteomyelitis [ ] Unable to Determine Cause: [ ] Viral (specify organism if know): [ ] Bacterial (specify organism if know): [ ] Diabetic [ ] Other (please specify): (Template Last Revised: November 2020) MTDD
[2021-04-28 13:19] LABS: African American GFR (CKD) 63.3 (60.0-200.0); Anion Gap 6.6 mmol/L (4.00-12.00); Calcium 8.8 mg/dL (8.7-10.3); Carbon Dioxide 25.4 mmol/L (21.6-31.8); Non-African American GFR(CKD) 54.6 (60.0-200.0); Potassium 4.2 mmol/L (3.5-5.5)
[2021-04-28] MEDS ORDERED: LACTULOSE 20 GM/30 ML CUP PO ONE (13:25)
[2021-04-28] MEDS ORDERED: LIDOCAINE 1% INJ 10MG/ML (20 ML MDV) ONE (13:45)
--- NOTE | 2021-04-28 13:45 | PN ---
PROGRESS NOTE DATE OF SERVICE: 04/28/2021 REASON FOR FOLLOWUP: Right foot 2nd toe amputation site osteomyelitis being treated with underlying diabetes. INTERVAL HISTORY: The patient is afebrile, has been breathing comfortably. The patient is still complaining of abdominal pain and is complaining of constipation. No chest pain, shortness of breath or cough, no abdominal pain. No pain to the right foot amputation site wound. PHYSICAL EXAMINATION: Blood pressure 143/72 with a pulse of 71. Temperature is 97.9. He is 99% on room air. General description is a middle-aged male lying in bed in no distress. Respiratory system: Unlabored breathing, clear to auscultation anteriorly. Heart S1, S2. Regular rate. Abdomen: Soft. No tenderness. Right foot is currently dressed. No drainage on the dressing. DIAGNOSTIC IMPRESSION AND PLAN: Patient with right 4th toe diabetic foot infection gangrene status post amputation now in the hospital with acute osteomyelitis of the right 4th toe amputation site with underlying diabetes mellitus. Culture positive for MRSA, Serratia marcescens. Plan is for a total of 6 week course of IV daptomycin and cefepime, weekly monitoring of CBC, BMP and sedimentation rate. Close outpatient followup. Local wound care with Aquacel Silver dressing and advised to follow up with me in [facility] next week. Questions and concerns were answered. The patient is requesting something for the constipation. We will give a dose of lactulose. MMODL / IJN: [id number] /
[2021-04-28] MEDS ORDERED: LIDOCAINE 1% INJ 10MG/ML (20 ML MDV) SQ ONE (13:54)
--- NOTE | 2021-04-28 14:45 | IR ---
PICC LINE PLACEMENT: HISTORY: Infection requiring long-term antibiotic therapy PROCEDURE: Ultrasound and fluoroscopic guidance of PICC line placement. COMPLICATIONS: None ANESTHESIA: 1. 1% Lidocaine locally. FINDINGS/TECHNIQUE: The procedure was explained to the patient. The risks, complications, benefits and alternatives were discussed and any questions were answered. Informed consent was obtained. The patient was placed supine on the fluoroscopic table and prepped and draped in the usual sterile fash ion. Utilizing a 21 gauge needle and sonographic and fluoroscopic guidance, access in the left basi lic vein was achieved and there is placement of a 0.018 guidewire. The vein is patent. A 4-F sheath was placed over the guidewire. The guidewire and dilator were removed and a 4-F. PICC line was plac ed through the sheath with the tip at the level of the SVC. The sheath was removed, the catheter was flushed and sutured into position. The patient was stable throughout the procedure and remained sta ble upon discharge from the Department of Radiology. The vein puncture was patent under ultrasound. A ocampo scale image was obtained to document patency of the vein punctured. All elements of the maximal barrier technique were utilized. FLUOROSCOPY TIME: 0.2 minutes and one image submitted IMPRESSION: Successful PICC line placement under ultrasound and fluoroscopic guidance.
[2021-04-28 15:08] LABS: Basophils # (A) 0.02 X 10*3/uL (0.00-0.10); Basophils % (A) 0.7 %; Eosinophils # (A) 0.07 X 10*3/uL (0.04-0.35); Eosinophils % (A) 2.6 %; HCT 30.4 % (39.6-50.0); Lymphocytes # (A) 0.76 X 10*3/uL (0.90-5.00); Lymphocytes % (A) 28.5 %; MCH 29.9 pg (27.0-32.0); MCHC 32.9 g/dL (32.0-37.0); MCV 90.7 fL (80.0-97.0); Mean Platelet Volume 12.8 fL (9.5-12.2); Monocytes # (A) 0.18 X 10*3/uL (0.20-1.00); Monocytes % (A) 6.7 %; Neutrophils # (A) 1.63 X 10*3/uL (1.80-7.70); Neutrophils % (A) 61.1 %; Platelet Count 68 X 10*3/uL (140-440); RBC 3.35 X 10*6/uL (4.40-5.60); RDW 14.3 % (11.5-14.5); WBC 2.67 X 10*3/uL (4.50-10.00)
[2021-04-28 16:49] LABS: Glucose,Whole Blood 265 mg/dL (75-99)
[2021-04-28] MEDS ORDERED: ALPRAZolam 0.25 MG TAB PO STA (17:03)
[2021-04-28] MEDS: ERGOCALCIFEROL 1,250 MCG (50,000 IU) CAPSULE PO SCH (20:46)
[2021-04-28] MEDS: QUEtiapine 100 MG TAB PO SCH (20:46)
[2021-04-28 20:47] LABS: Glucose,Whole Blood 290 mg/dL (75-99)
[2021-04-28] MEDS: INSULIN DETEMIR (LEVEMIR) 100 UNIT/ML SYR SQ SCH (22:24)
[2021-04-29] MEDS: CEFEPIME 2 GM in SODIUM CHLORIDE 0.9% 100 ML IVPB SCH ×3 (02:35→16:22)
[2021-04-29] MEDS: HYDROmorphone 1 MG/ML 1 ML SYRINGE IVP PRN ×4 (04:12→16:22)
[2021-04-29 06:57] LABS: Glucose,Whole Blood 235 mg/dL (75-99)
[2021-04-29] MEDS: INSULIN ASPART (NovoLOG) 100 UNIT/ML VIAL SQ SCH ×4 (07:51→21:13)
[2021-04-29] MEDS: CYANOCOBALAMIN 500 MCG TAB PO SCH (07:52)
[2021-04-29] MEDS: GABAPENTIN 300 MG CAP PO SCH ×3 (07:52→21:13)
[2021-04-29] MEDS: METOPROLOL TARTRATE 25 MG TAB PO SCH ×2 (07:52→21:13)
[2021-04-29] MEDS: hydrALAZINE HCL 25 MG TAB PO SCH ×3 (07:52→21:13)
[2021-04-29] MEDS: amLODIPine 10 MG TAB PO SCH (07:52)
[2021-04-29] MEDS: NICOTINE 21MG/24HR PATCH TRANSDERM SCH (07:53)
[2021-04-29] MEDS: MORPHINE SULFATE ER 15 MG TABLET PO SCH ×2 (11:43→23:26)
[2021-04-29] MEDS: SODIUM CHLORIDE 0.9% 1,000 ML IV SCH (11:44)
[2021-04-29 11:47] LABS: Glucose,Whole Blood 290 mg/dL (75-99)
[2021-04-29 16:42] LABS: Glucose,Whole Blood 219 mg/dL (75-99)
--- NOTE | 2021-04-29 19:22 | PN ---
PROGRESS NOTE DATE OF SERVICE: 04/29/2021 REASON FOR FOLLOWUP: Right 4th toe amputation site osteomyelitis. INTERVAL HISTORY: Patient is afebrile. The patient is breathing comfortably. The patient denies having any chest pain, shortness of breath or cough. Abdominal pain has improved. Constipation is resolved. Pain to the right foot is currently controlled. PHYSICAL EXAMINATION: Blood pressure 143/82 with a pulse of 76, temperature 97.9. He is 99% on room air. General description is a middle-aged male lying in no distress. Respiratory system unlabored breathing. Clear to auscultation anteriorly. Heart S1, S2. Regular rate and rhythm. The right foot is currently dressed up. No obvious drainage on the dressing. LABS: No new labs have been obtained today. DIAGNOSTIC IMPRESSION AND PLAN: Patient with right foot osteomyelitis, acute at the site of the right 4th toe amputation site with underlying diabetes. Culture positive for MRSA strep. Patient is covered with daptomycin and cefepime. Plan is for a total of 6 weeks of antibiotics. Currently waiting for shelter placement. Local care with Aquacel dressing. MMODL / IJN: [id number] /
[2021-04-29 20:40] LABS: Glucose,Whole Blood 222 mg/dL (75-99)
[2021-04-29] MEDS: INSULIN DETEMIR (LEVEMIR) 100 UNIT/ML SYR SQ SCH (21:13)
[2021-04-29] MEDS: QUEtiapine 100 MG TAB PO SCH (23:26)
[2021-04-30] MEDS: CEFEPIME 2 GM in SODIUM CHLORIDE 0.9% 100 ML IVPB SCH ×4 (00:24→23:21)
[2021-04-30] MEDS: SODIUM CHLORIDE 0.9% 1,000 ML IV SCH ×2 (00:25→13:13)
[2021-04-30 06:52] LABS: Glucose,Whole Blood 208 mg/dL (75-99)
[2021-04-30] MEDS: amLODIPine 10 MG TAB PO SCH (07:23)
[2021-04-30] MEDS: INSULIN ASPART (NovoLOG) 100 UNIT/ML VIAL SQ SCH ×7 (07:23→20:40)
[2021-04-30] MEDS: hydrALAZINE HCL 25 MG TAB PO SCH ×3 (07:23→20:40)
[2021-04-30] MEDS: METOPROLOL TARTRATE 25 MG TAB PO SCH ×2 (07:23→20:40)
[2021-04-30] MEDS: CYANOCOBALAMIN 500 MCG TAB PO SCH (07:23)
[2021-04-30] MEDS: GABAPENTIN 300 MG CAP PO SCH ×3 (07:23→20:40)
[2021-04-30] MEDS: NICOTINE 21MG/24HR PATCH TRANSDERM SCH (07:23)
[2021-04-30] MEDS: HYDROmorphone 1 MG/ML 1 ML SYRINGE IVP PRN ×4 (07:24→20:40)
[2021-04-30] MEDS: SENNOSIDES 8.6 MG TAB PO PRN (07:31)
[2021-04-30] MEDS: ALBUTEROL NEBULIZED 2.5 MG/3 ML INHALATION PRN (07:39)
[2021-04-30 11:03] LABS: Basophils # (A) 0.02 X 10*3/uL (0.00-0.10); Basophils % (A) 0.8 %; Eosinophils # (A) 0.08 X 10*3/uL (0.04-0.35); Eosinophils % (A) 3.3 %; HCT 28.5 % (39.6-50.0); HGB 9.3 g/dL (13.0-17.0); Lymphocytes # (A) 0.73 X 10*3/uL (0.90-5.00); MCH 29.2 pg (27.0-32.0); MCHC 32.6 g/dL (32.0-37.0); MCV 89.3 fL (80.0-97.0); Mean Platelet Volume 12.7 fL (9.5-12.2); Monocytes # (A) 0.22 X 10*3/uL (0.20-1.00); Monocytes % (A) 9.1 %; Neutrophils # (A) 1.37 X 10*3/uL (1.80-7.70); Neutrophils % (A) 56.4 %; Platelet Count 63 X 10*3/uL (140-440); RBC 3.19 X 10*6/uL (4.40-5.60); RDW 14.1 % (11.5-14.5); WBC 2.43 X 10*3/uL (4.50-10.00)
[2021-04-30] MEDS: MORPHINE SULFATE ER 15 MG TABLET PO SCH ×2 (11:06→23:18)
[2021-04-30 11:37] LABS: African American GFR (CKD) 63.3 (60.0-200.0); BUN/Creat Ratio 27.86 Ratio (12.00-20.00); Calcium 8.8 mg/dL (8.7-10.3); Non-African American GFR(CKD) 54.6 (60.0-200.0); Potassium 4.3 mmol/L (3.5-5.5)
[2021-04-30 11:46] LABS: Glucose,Whole Blood 194 mg/dL (75-99)
[2021-04-30] MEDS: HYDROcodone/APAP 5-325MG 1 EACH TAB PO PRN (16:00)
[2021-04-30 17:27] LABS: Glucose,Whole Blood 270 mg/dL (75-99)
--- NOTE | 2021-04-30 19:28 | PN ---
PROGRESS NOTE DATE OF SERVICE: 04/30/2021. REASON FOR FOLLOWUP: Right 4th toe amputation and osteomyelitis. INTERVAL HISTORY: Patient is currently afebrile. The patient is breathing comfortably. Patient denies having any chest pain. No shortness of breath or cough. No abdominal pain. No worsening pain to the right foot. Did mention . PHYSICAL EXAMINATION: Blood pressure 95/59, pulse on room air. General description is a middle-aged male lying in bed in no distress. Respiratory system: Unlabored breathing. Clear to auscultation anteriorly. Heart S1, S2. Regular rate and rhythm. Abdomen: Soft, no tenderness. LABS: BUN of 29, creatinine 1.4, hemoglobin 11.1, white count 2.4. DIAGNOSTIC IMPRESSION AND PLAN: Patient with right 4th toe amputation site osteomyelitis. Culture with multiple pathogens, patient covered with cefepime and the daptomycin to continue to finish a total of 6 week course of therapy and close outpatient followup. MMODL / IJN: [id number] /
[2021-04-30 20:27] LABS: Glucose,Whole Blood 199 mg/dL (75-99)
[2021-04-30] MEDS: INSULIN DETEMIR (LEVEMIR) 100 UNIT/ML SYR SQ SCH (21:43)
[2021-04-30] MEDS: QUEtiapine 100 MG TAB PO SCH (21:43)
--- NOTE | 2021-05-01 00:41 | P.PN ---
Subjective Progress Note Date: 04/28/21 Principal diagnosis: Right foot nonhealing diabetic foot ulcer Osteomyelitis of the fourth toe base . With recent amputation of the right fourth toe Patient is a 60-year-old male with a known history of diabetes insulin- dependent2, chronic back pain and chronic pain syndrome and on follow-up with pain clinic, bipolar disorder, depression, currently everyday smoker and history of IVDU, history of I aortic valve replacement in 2018 presents to ER with the complaints of right foot pain and left-sided flank pain. Next and patient did have recent toe amputation due to osteomyelitis and was discharged on oral antibiotic course. Patient changes his dressing and was noted to have foul- smelling drainage coming from the amputation site. Amputation was done about 1 month ago. Patient presented to ER for possible infection and was also complaining of left-sided flank pain. Patient reports that she had extensive history of renal stones. Requesting IV pain medications. Denied any complaints of fever or chills. No chest pain or shortness of breath. No nausea vomiting or abdominal pain or diarrhea. Next and ultrasound of the abdomen showed no evidence of renal mass or obstruction. Enlarged spleen. No ureteral jets were seen during the exam and the urinary bladder. Foot x-ray showed there is some erosion on the fourth metatarsal head. Osteomyelitis is possible. No fractures seen. Next and EKG showed normal sinus rhythm. Next and laboratory data showed WBC 5.3, hemoglobin 11.8 and platelets 84 BUN 27 and creatinine 1.38 and blood sugar 290 UA showed 3+ protein and 2+ glucose and RBCs. No evidence of infection. 04/25/2021 Patient is currently resting in the bed comfortably. Still complains of right foot pain. Also right flank pain. No complaints of chest pain or shortness breath. Patient is being continue on antibiotics. A bone scan showed increased uptake with a blood flow blood pool and delayed bone scan images in the region of the distal fourth metatarsal. Findings can be compatible with osteoarthritis. ID is on board. Patient has been afebrile. Laboratory data showed WBC 3.7 hemoglobin 11.8 and platelets 77 BUN 24 and creatinine 1.04 04/26/2021 Patient is currently resting in the bed. Complaints of left flank pain. No complaints of chest pain or shortness of breath. Right foot pain is better. Patient has been afebrile. Bone scan showed possible underlying osteomyelitis with amputation site of the right fourth toe. Wound cultures showing MSSA. Patient is being continued on daptomycin and cefepime. ID is following. No nausea vomiting or abdominal pain or diarrhea. No dysuria or hematuria. Next laboratory data reviewed. 04/27/2021 Patient is currently resting the bed comfortably. No complaints of chest pain or shortness breath. Right foot pain is better. Still complains of right flank pain. CT of abdomen pelvis showed splenomegaly. Varicose veins of the spleen and consistent with portal venous hypertension. No evidence of renal stones or obstruction. There is spurring anteriorly at L4-L5. No compression fracture. Bony pelvis is intact. Lumbar vertebra have normal alignment. Patient denied any dysuria or hematuria. Denied any leg weakness or numbness or tingling sensation. Patient is being continued on antibiotics in the form of cefepime and daptomycin. ID is on board. 04/28/2021 Patient is currently resting in bed comfortably. Denies any complaints of chest pain or shortness breath. Still complains of left flank pain. Requesting IV pain medications to be increased. Otherwise patient is being continued on antibiotics above daptomycin and cefepime PICC line was placed. Patient would like to be transferred to rehab. Orders laboratory data showed WBC 2.67 hemoglobin 10.0 and platelets 68 BUN 35 and creatinine 1.4 blood sugar is 207 ID is on board. Continued on wound dressing care. Current medications reviewed. Objective - Vital Signs Vital signs: Vital Signs Temp 97.3 F L 04/28/21 14:00 Pulse 71 04/28/21 08:00 Resp 16 04/28/21 14:00 BP 164/99 04/28/21 14:00 Pulse Ox 98 04/28/21 14:00 Intake & Output 04/28/21 04/28/21 04/29/21 06:59 18:59 06:59 Intake Total 1150 1620 Balance 1150 1620 Weight 95.254 kg Intake: Intake, IV Titration 1150 Amount Cefepime 2 gm In Sodium 200 Chloride 0.9% 100 ml @ 25 mls/hr IVPB Q8HR [facility] Rx# :[id number] DAPTOmycin 600 mg In 50 Sodium Chloride 0.9% 50 ml @ 100 mls/hr IVPB Q24H [facility] Rx#:[id number] Sodium Chloride 0.9% 1, 900 000 ml @ 75 mls/hr IV . [id number] [facility] Rx#:[id number] Oral 1620 Other: # Voids 2 3 - Exam PHYSICAL EXAMINATION: Patient is lying in the bed comfortably, no acute distress, awake alert and oriented.. HEENT: Normocephalic. Neck is supple. Pupils reactive. Nostrils clear. Oral cavity is moist. Neck reveals no JVD, carotid bruits, or thyromegaly. CHEST EXAMINATION: Trachea is central. Symmetrical expansion. Lung ji clear to auscultation and percussion. CARDIAC: Normal S1, S2 with no gallops. No murmurs ABDOMEN: Soft. Bowel sounds normal. No organomegaly. No abdominal bruits. Extremities: reveal no edema. No clubbing or cyanosis Right foot fourth toe amputation site with no significant signs of infection. No purulent drainage or foul swelling. Neurologically awake, alert, oriented x3 with well-coordinated movements. No focal deficits noted Skin: No rash or skin lesions. Psychiatric: Coperative. Denied any suicidal ideation. Musculoskeletal: No joint swelling or deformity. Normal range of motion. - Labs CBC & Chem 7: 04/30/21 07:00 04/30/21 07:00 Labs: Abnormal Lab Results - Last 24 Hours (Table) 04/28/21 04/28/21 04/28/21 Range/Units 05:29 05:29 07:08 WBC 2.67 L (4.50-10.00) X 10*3/uL RBC 3.35 L (4.40-5.60) X 10*6/uL Hgb 10.0 L (13.0-17.0) g/dL Hct 30.4 L (39.6-50.0) % Plt Count 68 L (140-440) X 10*3/uL Plt Count Comment DECREASED A MPV 12.8 H (9.5-12.2) fL Neutrophils # 1.63 L (1.80-7.70) X 10*3/uL Lymphocytes # 0.76 L (0.90-5.00) X 10*3/uL Monocytes # 0.18 L (0.20-1.00) X 10*3/uL Immature Plt Fraction 9.1 H (1.1-6.1) % BUN 35.0 H (9.0-27.0) mg/dL Est GFR (CKD-EPI)NonAf 54.6 L (60.0-200.0) BUN/Creatinine Ratio 25.00 H (12.00-20.00) Ratio Glucose 207 H (70-110) mg/dL POC Glucose (mg/dL) 217 H (75-99) mg/dL 04/28/21 04/28/21 04/28/21 Range/Units 11:47 16:48 20:45 WBC (4.50-10.00) X 10*3/uL RBC (4.40-5.60) X 10*6/uL Hgb (13.0-17.0) g/dL Hct (39.6-50.0) % Plt Count (140-440) X 10*3/uL Plt Count Comment MPV (9.5-12.2) fL Neutrophils # (1.80-7.70) X 10*3/uL Lymphocytes # (0.90-5.00) X 10*3/uL Monocytes # (0.20-1.00) X 10*3/uL Immature Plt Fraction (1.1-6.1) % BUN (9.0-27.0) mg/dL Est GFR (CKD-EPI)NonAf (60.0-200.0) BUN/Creatinine Ratio (12.00-20.00) Ratio Glucose (70-110) mg/dL POC Glucose (mg/dL) 221 H 265 H 290 H (75-99) mg/dL Microbiology - Last 24 Hours (Table) 04/23/21 20:02 Blood Culture - Preliminary Blood No Growth after 96 hours 04/23/21 20:02 Blood Culture - Preliminary Blood No Growth after 96 hours Assessment and Plan Assessment: Right foot nonhealing diabetic foot ulcer. Osteomyelitis of the fourth toe base . With recent amputation of the right fourth toe Diabetes type 2 uncontrolled with hyperglycemia Acute kidney injury with baseline creatinine 1.0. Creatinine 1.38 on admission likely prerenal. Improved. Chronic pain syndrome on follow-up with pain clinic Left flank pain with no evidence of renal stones on the ultrasound. History of nephrolithiasis as per patient. Chronic back pain Currently everyday smoker Depression and bipolar disorder History of IVDU next and DVT prophylaxis with heparin subcu Plan: Patient will be continued on antibiotics the form of cefepime and daptomycin. Cultures showed MSSA. CT of abdomen pelvis showed no evidence of renal stones. No acute other abnormalities.. Patient will be continued on insulin management and sliding scale for better blood sugar control and it just dose as needed. continue with the pain medications. Patient is on Dilaudid IV for pain management. morphine ER. Continue with oral [place]. Continue with home medi cations and follow up closely. Prognosis is guarded with multiple medical problems and comorbid conditions. Time with Patient: Greater than 30
--- NOTE | 2021-05-01 00:48 | P.PN ---
Subjective Progress Note Date: 04/29/21 Principal diagnosis: Right foot nonhealing diabetic foot ulcer Osteomyelitis of the fourth toe base . With recent amputation of the right fourth toe Patient is a 60-year-old male with a known history of diabetes insulin- dependent2, chronic back pain and chronic pain syndrome and on follow-up with pain clinic, bipolar disorder, depression, currently everyday smoker and history of IVDU, history of I aortic valve replacement in 2018 presents to ER with the complaints of right foot pain and left-sided flank pain. Next and patient did have recent toe amputation due to osteomyelitis and was discharged on oral antibiotic course. Patient changes his dressing and was noted to have foul- smelling drainage coming from the amputation site. Amputation was done about 1 month ago. Patient presented to ER for possible infection and was also complaining of left-sided flank pain. Patient reports that she had extensive history of renal stones. Requesting IV pain medications. Denied any complaints of fever or chills. No chest pain or shortness of breath. No nausea vomiting or abdominal pain or diarrhea. Next and ultrasound of the abdomen showed no evidence of renal mass or obstruction. Enlarged spleen. No ureteral jets were seen during the exam and the urinary bladder. Foot x-ray showed there is some erosion on the fourth metatarsal head. Osteomyelitis is possible. No fractures seen. Next and EKG showed normal sinus rhythm. Next and laboratory data showed WBC 5.3, hemoglobin 11.8 and platelets 84 BUN 27 and creatinine 1.38 and blood sugar 290 UA showed 3+ protein and 2+ glucose and RBCs. No evidence of infection. 04/25/2021 Patient is currently resting in the bed comfortably. Still complains of right foot pain. Also right flank pain. No complaints of chest pain or shortness breath. Patient is being continue on antibiotics. A bone scan showed increased uptake with a blood flow blood pool and delayed bone scan images in the region of the distal fourth metatarsal. Findings can be compatible with osteoarthritis. ID is on board. Patient has been afebrile. Laboratory data showed WBC 3.7 hemoglobin 11.8 and platelets 77 BUN 24 and creatinine 1.04 04/26/2021 Patient is currently resting in the bed. Complaints of left flank pain. No complaints of chest pain or shortness of breath. Right foot pain is better. Patient has been afebrile. Bone scan showed possible underlying osteomyelitis with amputation site of the right fourth toe. Wound cultures showing MSSA. Patient is being continued on daptomycin and cefepime. ID is following. No nausea vomiting or abdominal pain or diarrhea. No dysuria or hematuria. Next laboratory data reviewed. 04/27/2021 Patient is currently resting the bed comfortably. No complaints of chest pain or shortness breath. Right foot pain is better. Still complains of right flank pain. CT of abdomen pelvis showed splenomegaly. Varicose veins of the spleen and consistent with portal venous hypertension. No evidence of renal stones or obstruction. There is spurring anteriorly at L4-L5. No compression fracture. Bony pelvis is intact. Lumbar vertebra have normal alignment. Patient denied any dysuria or hematuria. Denied any leg weakness or numbness or tingling sensation. Patient is being continued on antibiotics in the form of cefepime and daptomycin. ID is on board. 04/28/2021 Patient is currently resting in bed comfortably. Denies any complaints of chest pain or shortness breath. Still complains of left flank pain. Requesting IV pain medications to be increased. Otherwise patient is being continued on antibiotics above daptomycin and cefepime PICC line was placed. Patient would like to be transferred to rehab. Orders laboratory data showed WBC 2.67 hemoglobin 10.0 and platelets 68 BUN 35 and creatinine 1.4 blood sugar is 207 ID is on board. Continued on wound dressing care. 04/29/2021 Patient is sitting on the side of the bed. No complaints of chest pain or shortness of breath. Continue on IV antibiotics in the form of daptomycin and cefepime. PICC line was placed. Patient has been afebrile. Current dressing changes. ID is on board. Current medications reviewed. Objective - Vital Signs Vital signs: Vital Signs Temp 98.5 F 04/29/21 20:00 Pulse 80 04/29/21 20:00 Resp 16 04/29/21 20:00 BP 156/68 04/29/21 20:00 Pulse Ox 98 04/29/21 20:00 Intake & Output 04/29/21 04/29/21 04/30/21 06:59 18:59 06:59 Other: Voiding Method Toilet # Voids 2 2 - Exam PHYSICAL EXAMINATION: Patient is lying in the bed comfortably, no acute distress, awake alert and oriented.. HEENT: Normocephalic. Neck is supple. Pupils reactive. Nostrils clear. Oral cavity is moist. Neck reveals no JVD, carotid bruits, or thyromegaly. CHEST EXAMINATION: Trachea is central. Symmetrical expansion. Lung ji clear to auscultation and percussion. CARDIAC: Normal S1, S2 with no gallops. No murmurs ABDOMEN: Soft. Bowel sounds normal. No organomegaly. No abdominal bruits. Extremities: reveal no edema. No clubbing or cyanosis Right foot fourth toe amputation site with no significant signs of infection. No purulent drainage or foul swelling. Neurologically awake, alert, oriented x3 with well-coordinated movements. No focal deficits noted Skin: No rash or skin lesions. Psychiatric: Coperative. Denied any suicidal ideation. Musculoskeletal: No joint swelling or deformity. Normal range of motion. - Labs CBC & Chem 7: 04/30/21 07:00 04/30/21 07:00 Labs: Abnormal Lab Results - Last 24 Hours (Table) 04/29/21 04/29/21 04/29/21 Range/Units 06:55 11:45 16:41 POC Glucose (mg/dL) 235 H 290 H 219 H (75-99) mg/dL 04/29/21 Range/Units 20:38 POC Glucose (mg/dL) 222 H (75-99) mg/dL Microbiology - Last 24 Hours (Table) 04/23/21 20:02 Blood Culture - Preliminary Blood No Growth after 120 hours 04/23/21 20:02 Blood Culture - Preliminary Blood No Growth after 120 hours Assessment and Plan Assessment: Right foot nonhealing diabetic foot ulcer. Osteomyelitis of the fourth toe base . With recent amputation of the right fourth toe Diabetes type 2 uncontrolled with hyperglycemia Acute kidney injury with baseline creatinine 1.0. Creatinine 1.38 on admission likely prerenal. Improved. Chronic pain syndrome on follow-up with pain clinic Left flank pain with no evidence of renal stones on the ultrasound. History of nephrolithiasis as per patient. Chronic back pain Currently everyday smoker Depression and bipolar disorder History of IVDU next and DVT prophylaxis with heparin subcu Plan: Patient will be continued on antibiotics the form of cefepime and daptomycin. PICC line placed Cultures showed MSSA. CT of abdomen pelvis showed no evidence of renal stones. No acute other abnormalities.. Patient will be continued on insulin management and sliding scale for better blood sugar control and it just dose as needed. continue with the pain medications. Patient is on Dilaudid IV for pain management. morphine ER. Continue with oral [place]. Continue with home medications and follow up closely. Prognosis is guarded with multiple medical problems and comorbid conditions.
--- NOTE | 2021-05-01 00:51 | P.PN ---
Subjective Progress Note Date: 04/30/21 Principal diagnosis: Right foot nonhealing diabetic foot ulcer Osteomyelitis of the fourth toe base . With recent amputation of the right fourth toe Patient is a 60-year-old male with a known history of diabetes insulin- dependent2, chronic back pain and chronic pain syndrome and on follow-up with pain clinic, bipolar disorder, depression, currently everyday smoker and history of IVDU, history of I aortic valve replacement in 2018 presents to ER with the complaints of right foot pain and left-sided flank pain. Next and patient did have recent toe amputation due to osteomyelitis and was discharged on oral antibiotic course. Patient changes his dressing and was noted to have foul- smelling drainage coming from the amputation site. Amputation was done about 1 month ago. Patient presented to ER for possible infection and was also complaining of left-sided flank pain. Patient reports that she had extensive history of renal stones. Requesting IV pain medications. Denied any complaints of fever or chills. No chest pain or shortness of breath. No nausea vomiting or abdominal pain or diarrhea. Next and ultrasound of the abdomen showed no evidence of renal mass or obstruction. Enlarged spleen. No ureteral jets were seen during the exam and the urinary bladder. Foot x-ray showed there is some erosion on the fourth metatarsal head. Osteomyelitis is possible. No fractures seen. Next and EKG showed normal sinus rhythm. Next and laboratory data showed WBC 5.3, hemoglobin 11.8 and platelets 84 BUN 27 and creatinine 1.38 and blood sugar 290 UA showed 3+ protein and 2+ glucose and RBCs. No evidence of infection. 04/25/2021 Patient is currently resting in the bed comfortably. Still complains of right foot pain. Also right flank pain. No complaints of chest pain or shortness breath. Patient is being continue on antibiotics. A bone scan showed increased uptake with a blood flow blood pool and delayed bone scan images in the region of the distal fourth metatarsal. Findings can be compatible with osteoarthritis. ID is on board. Patient has been afebrile. Laboratory data showed WBC 3.7 hemoglobin 11.8 and platelets 77 BUN 24 and creatinine 1.04 04/26/2021 Patient is currently resting in the bed. Complaints of left flank pain. No complaints of chest pain or shortness of breath. Right foot pain is better. Patient has been afebrile. Bone scan showed possible underlying osteomyelitis with amputation site of the right fourth toe. Wound cultures showing MSSA. Patient is being continued on daptomycin and cefepime. ID is following. No nausea vomiting or abdominal pain or diarrhea. No dysuria or hematuria. Next laboratory data reviewed. 04/27/2021 Patient is currently resting the bed comfortably. No complaints of chest pain or shortness breath. Right foot pain is better. Still complains of right flank pain. CT of abdomen pelvis showed splenomegaly. Varicose veins of the spleen and consistent with portal venous hypertension. No evidence of renal stones or obstruction. There is spurring anteriorly at L4-L5. No compression fracture. Bony pelvis is intact. Lumbar vertebra have normal alignment. Patient denied any dysuria or hematuria. Denied any leg weakness or numbness or tingling sensation. Patient is being continued on antibiotics in the form of cefepime and daptomycin. ID is on board. 04/28/2021 Patient is currently resting in bed comfortably. Denies any complaints of chest pain or shortness breath. Still complains of left flank pain. Requesting IV pain medications to be increased. Otherwise patient is being continued on antibiotics above daptomycin and cefepime PICC line was placed. Patient would like to be transferred to rehab. Orders laboratory data showed WBC 2.67 hemoglobin 10.0 and platelets 68 BUN 35 and creatinine 1.4 blood sugar is 207 ID is on board. Continued on wound dressing care. 04/29/2021 Patient is sitting on the side of the bed. No complaints of chest pain or shortness of breath. Continue on IV antibiotics in the form of daptomycin and cefepime. PICC line was placed. Patient has been afebrile. Current dressing changes. ID is on board. 04/30/2021 Patient is currently resting in bed comfortable. Awake alert and oriented x3. Right foot pain is controlled. Complains of back pain and right flank pain. Requesting IV pain medications to be increased. Otherwise patient has been afebrile. Continued on antibiotics and in the form of cefepime and daptomycin for osteomyelitis. PICC line was placed. Insulin dose increased to 7 units 3 times daily AC due to hypoglycemia. Dispo discharge to rehab with IV antibiotics. Current medications reviewed. Objective - Vital Signs Vital signs: Vital Signs Temp 98.7 F 04/30/21 19:21 Pulse 75 04/30/21 19:21 Resp 15 04/30/21 19:21 BP 115/66 04/30/21 19:21 Pulse Ox 97 04/30/21 19:21 Intake & Output 04/30/21 04/30/21 05/01/21 06:59 18:59 06:59 Other: Voiding Method Toilet # Voids 3 - Exam PHYSICAL EXAMINATION: Patient is lying in the bed comfortably, no acute distress, awake alert and oriented.. HEENT: Normocephalic. Neck is supple. Pupils reactive. Nostrils clear. Oral cavity is moist. Neck reveals no JVD, carotid bruits, or thyromegaly. CHEST EXAMINATION: Trachea is central. Symmetrical expansion. Lung ji clear to auscultation and percussion. CARDIAC: Normal S1, S2 with no gallops. No murmurs ABDOMEN: Soft. Bowel sounds normal. No organomegaly. No abdominal bruits. Extremities: reveal no edema. No clubbing or cyanosis Right foot fourth toe amputation site with no significant signs of infection. No purulent drainage or foul swelling. Neurologically awake, alert, oriented x3 with well-coordinated movements. No focal deficits noted Skin: No rash or skin lesions. Psychiatric: Coperative. Denied any suicidal ideation. Musculoskeletal: No joint swelling or deformity. Normal range of motion. - Labs CBC & Chem 7: 04/30/21 07:00 04/30/21 07:00 Labs: Abnormal Lab Results - Last 24 Hours (Table) 04/30/21 04/30/21 04/30/21 Range/Units 06:51 07:00 07:00 WBC 2.43 L (4.50-10.00) X 10*3/uL RBC 3.19 L (4.40-5.60) X 10*6/uL Hgb 9.3 L (13.0-17.0) g/dL Hct 28.5 L (39.6-50.0) % Plt Count 63 L (140-440) X 10*3/uL Plt Count Comment DECREASED A MPV 12.7 H (9.5-12.2) fL Neutrophils # 1.37 L (1.80-7.70) X 10*3/uL Lymphocytes # 0.73 L (0.90-5.00) X 10*3/uL Immature Plt Fraction 6.9 H (1.1-6.1) % BUN 39.0 H (9.0-27.0) mg/dL Est GFR (CKD-EPI)NonAf 54.6 L (60.0-200.0) BUN/Creatinine Ratio 27.86 H (12.00-20.00) Ratio Glucose 232 H (70-110) mg/dL POC Glucose (mg/dL) 208 H (75-99) mg/dL 04/30/21 04/30/21 04/30/21 Range/Units 11:44 17:26 20:26 WBC (4.50-10.00) X 10*3/uL RBC (4.40-5.60) X 10*6/uL Hgb (13.0-17.0) g/dL Hct (39.6-50.0) % Plt Count (140-440) X 10*3/uL Plt Count Comment MPV (9.5-12.2) fL Neutrophils # (1.80-7.70) X 10*3/uL Lymphocytes # (0.90-5.00) X 10*3/uL Immature Plt Fraction (1.1-6.1) % BUN (9.0-27.0) mg/dL Est GFR (CKD-EPI)NonAf (60.0-200.0) BUN/Creatinine Ratio (12.00-20.00) Ratio Glucose (70-110) mg/dL POC Glucose (mg/dL) 194 H 270 H 199 H (75-99) mg/dL Microbiology - Last 24 Hours (Table) 04/23/21 17:26 Anaerobic Culture - Final Foot - Right 04/23/21 20:02 Blood Culture - Final Blood No Growth after 144 hours 04/23/21 20:02 Blood Culture - Final Blood No Growth after 144 hours Assessment and Plan Assessment: Right foot nonhealing diabetic foot ulcer. Osteomyelitis of the fourth toe base . With recent amputation of the right fourth toe Diabetes type 2 uncontrolled with hyperglycemia Acute kidney injury with baseline creatinine 1.0. Creatinine 1.38 on admission likely prerenal. Improved. Chronic pain syndrome on follow-up with pain clinic Left flank pain with no evidence of renal stones on the ultrasound. History of nephrolithiasis as per patient. Chronic back pain Currently everyday smoker Depression and bipolar disorder History of IVDU next and DVT prophylaxis with heparin subcu Plan: Patient will be continued on antibiotics the form of cefepime and daptomycin. PICC line placed Cultures showed MSSA. CT of abdomen pelvis showed no evidence of renal stones. No acute other abnormalities.. Patient will be continued on insulin management and sliding scale for better blood sugar control and it just dose as needed. continue with the pain medications. Patient is on Dilaudid IV for pain management. morphine ER. Continue with oral [place]. Continue with home medications and follow up closely. Prognosis is guarded with multiple medical problems and comorbid conditions. Time with Patient: Greater than 30
[2021-05-01] MEDS: SODIUM CHLORIDE 0.9% 1,000 ML IV SCH (01:39)
[2021-05-01] MEDS: HYDROmorphone 1 MG/ML 1 ML SYRINGE IVP PRN ×3 (02:49→11:27)
[2021-05-01 03:25] VITALS: RESP 16
[2021-05-01] MEDS: NICOTINE 21MG/24HR PATCH TRANSDERM SCH (06:04)
[2021-05-01] MEDS: HYDROcodone/APAP 5-325MG 1 EACH TAB PO PRN ×2 (06:07→12:23)
[2021-05-01 07:38] LABS: Glucose,Whole Blood 128 mg/dL (75-99)
[2021-05-01] MEDS: INSULIN ASPART (NovoLOG) 100 UNIT/ML VIAL SQ SCH ×4 (07:41→12:23)
[2021-05-01] MEDS: CYANOCOBALAMIN 500 MCG TAB PO SCH (07:59)
[2021-05-01] MEDS: hydrALAZINE HCL 25 MG TAB PO SCH (07:59)
[2021-05-01] MEDS: GABAPENTIN 300 MG CAP PO SCH (08:00)
[2021-05-01] MEDS: amLODIPine 10 MG TAB PO SCH (08:00)
[2021-05-01] MEDS: CEFEPIME 2 GM in SODIUM CHLORIDE 0.9% 100 ML IVPB SCH (08:00)
[2021-05-01] MEDS: SENNOSIDES 8.6 MG TAB PO PRN (08:00)
[2021-05-01] MEDS: METOPROLOL TARTRATE 25 MG TAB PO SCH (08:00)
[2021-05-01 08:21] VITALS: BP 114/70; PULSE 76; TEMP 97.7
[2021-05-01] MEDS: MORPHINE SULFATE ER 15 MG TABLET PO SCH (11:18)
[2021-05-01 11:29] LABS: African American GFR (CKD) 76.3 (60.0-200.0); Anion Gap 8.3 mmol/L (4.00-12.00); BUN/Creat Ratio 34.17 Ratio (12.00-20.00); Calcium 9.4 mg/dL (8.7-10.3); Carbon Dioxide 23.7 mmol/L (21.6-31.8); Non-African American GFR(CKD) 65.8 (60.0-200.0); Potassium 4.6 mmol/L (3.5-5.5)
[2021-05-01 11:54] LABS: Glucose,Whole Blood 198 mg/dL (75-99)
--- NOTE | 2021-05-01 13:38 | P.DS ---
Providers Date of admission: 04/23/21 19:35 Expected date of discharge: 05/01/21 (D/C to [facility]) Attending physician: rPetty Elaine MD Consults: 04/23/21 19:34 Consult Physician Routine Consulting Provider: Siobhan Isaac Consult Reason/Comments: osteomyelitis Do you want consulting provider notified?: Yes Primary care physician: [facility] Course: This is a 60-year-old male with a known history of diabetes insulin-dependent type 2, chronic back pain, and chronic pain syndrome, follows up with a pain clinic, bipolar disorder, depression, current daily smoker, and History of IVDU, history of aortic valve replacement in 2018. Patient presents to the emergency room on 04/23/2021 with a possible infection of his right 4th toe base, and also complaints of left-sided flank pain. Patient reports that he has had an extensive history of renal stones. During this admission a foot x-ray was completed that was found to have some erosion on the fourth metatarsal head with possible osteomyelitis. Negative for fractures. Patient had a amputation of the fourth digit on the right foot about a 1 month prior was following up with wound care. And had completed a course of oral antibiotic therapy. An ultrasound of the abdomen was negative for renal mass or obstruction, urinalysis was negative for infection, and a CT scan was negative for any renal stones. Wound cultures were ultimately taken off the right foot which resulted in positive cultures for strep agalactiae, MRSA, and serratia mercescens which shows susceptibility to IV cefepime and IV daptomycin. Patient will be discharged to [facility] for 6 weeks course of IV antibiotic therapy through a PICC line that was placed this admission. In addition patient will continue receiving local wound care in the form of Aquasol silver packing to the right fourth toe amputation site every 48 hours, and we'll continue to follow with Dr. Isaac at the wound care center. Patient's blood pressure has remained stable in the high 90s to 110's systolic, hydralazine was discontinued on discharge. Patient will continue on his home dose of MS Contin and Percocet, and family will transport patient to his pain management appointment at [address] [place] [address] and then will take the patient over to [facility]. I Gospel sugar with patient education completed on a diabetic diet patient will continue on his home dose of insulin, patient is working with his insurance to have a Accoloe monitor covered. Patient has verbalized a desire to quit smoking and has been utilizing nicotine patches in the hospital and will continue to do so as an outpatient. Plan - Discharge Summary Discharge Rx Participant: No New Discharge Prescriptions: New DAPTOmycin [Cubicin] 600 mg IVPB Q24H #0 vial Nicotine 21Mg/24Hr Patch [Habitrol] 1 patch TRANSDERM DAILY 30 Days #30 patch Cefepime [Maxipime] 2 gm IVPB Q8HR #0 vial Continue Ergocalciferol [Vitamin D2 (1250 Mcg = 28341 Iu)] 1,250 mcg PO MOFR Acetaminophen Tab [Tylenol] 500 mg PO Q6H PRN PRN Reason: Fever QUEtiapine [SEROquel] 100 mg PO HS Insulin Aspart [NovoLOG Flexpen] See Protocol SQ AC-TID Insulin Detemir (Levemir) [Levemir] 30 unit SQ HS #1 syr Metoprolol Tartrate [Lopressor] 25 mg PO BID #60 tab amLODIPine [Norvasc] 10 mg PO DAILY #30 tablet Sennosides [Senokot] 8.6 mg PO BID PRN #60 tab PRN Reason: Constipation Gabapentin [Neurontin] 300 mg PO TID #6 cap Collagenase [Santyl] 1 applic TOPICAL DAILY Albuterol Sulfate [Proair Hfa] 2 puff INHALATION RT-QID PRN PRN Reason: Shortness Of Breath Albuterol Nebulized [Ventolin Nebulized] 2.5 mg INHALATION RT-QID PRN PRN Reason: Shortness Of Breath INSULIN ASPART (NovoLOG) [NovoLOG (formulary)] 10 unit SQ AC-TID #1 vial Cyanocobalamin [Vitamin B-12] 1,000 mcg PO DAILY #30 tab Morphine Sulfate [Ms Contin] 15 mg PO Q12H #5 tab oxyCODONE-APAP 7.5-325MG [Percocet 7.5-325 mg] 1 tab PO BID PRN #6 tab PRN Reason: Breakthrough Pain Discontinued hydrALAZINE HCL [Apresoline] 25 mg PO TID #90 tab Discharge Medication List Acetaminophen Tab [Tylenol] 500 mg PO Q6H PRN 03/21/21 [History] Albuterol Nebulized [Ventolin Nebulized] 2.5 mg INHALATION RT-QID PRN 03/21/21 [History] Albuterol Sulfate [Proair Hfa] 2 puff INHALATION RT-QID PRN 03/21/21 [History] Collagenase [Santyl] 1 applic TOPICAL DAILY 03/21/21 [History] Ergocalciferol [Vitamin D2 (1250 Mcg = 19785 Iu)] 1,250 mcg PO MOFR 03/21/21 [History] Insulin Aspart [NovoLOG Flexpen] See Protocol SQ AC-TID 03/21/21 [History] QUEtiapine [SEROquel] 100 mg PO HS 03/21/21 [History] Cyanocobalamin [Vitamin B-12] 1,000 mcg PO DAILY #30 tab 03/29/21 [Rx] INSULIN ASPART (NovoLOG) [NovoLOG (formulary)] 10 unit SQ AC-TID #1 vial 03/29/21 [Rx] Insulin Detemir (Levemir) [Levemir] 30 unit SQ HS #1 syr 03/29/21 [Rx] Metoprolol Tartrate [Lopressor] 25 mg PO BID #60 tab 03/29/21 [Rx] Sennosides [Senokot] 8.6 mg PO BID PRN #60 tab 03/29/21 [Rx] amLODIPine [Norvasc] 10 mg PO DAILY #30 tablet 03/29/21 [Rx] Cefepime [Maxipime] 2 gm IVPB Q8HR #0 vial 05/01/21 [Rx] DAPTOmycin [Cubicin] 600 mg IVPB Q24H #0 vial 05/01/21 [Rx] Gabapentin [Neurontin] 300 mg PO TID #6 cap 05/01/21 [Rx] Morphine Sulfate [Ms Contin] 15 mg PO Q12H #5 tab 05/01/21 [Rx] Nicotine 21Mg/24Hr Patch [Habitrol] 1 patch TRANSDERM DAILY 30 Days #30 patch 05/01/21 [Rx] oxyCODONE-APAP 7.5-325MG [Percocet 7.5-325 mg] 1 tab PO BID PRN #6 tab 05/01/21 [Rx] Follow up Appointment(s)/Referral(s): [facility], [NON-STAFF] - As Needed Anjelica Aguilar MD [Primary Care Provider] - 1-2 days [facility], [REFERRING] - As Needed Activity/Diet/Wound Care/Special Instructions: Aquacel silver packing of the right 4th toe amputation site wound , q48hr follow up with Dr Isaac in wound care next week , call [phone] to make an appointment Discharge Disposition: TRANSFER TO SNF/ECF
[2021-05-01 14:46] LABS: Basophils # (A) 0.04 X 10*3/uL (0.00-0.10); Basophils % (A) 0.9 %; Eosinophils % (A) 2.3 %; HCT 35.2 % (39.6-50.0); HGB 11.2 g/dL (13.0-17.0); Lymphocytes # (A) 1.34 X 10*3/uL (0.90-5.00); Lymphocytes % (A) 30.8 %; MCH 28.8 pg (27.0-32.0); MCHC 31.8 g/dL (32.0-37.0); MCV 90.5 fL (80.0-97.0); Mean Platelet Volume 12.9 fL (9.5-12.2); Monocytes # (A) 0.41 X 10*3/uL (0.20-1.00); Monocytes % (A) 9.4 %; Neutrophils # (A) 2.44 X 10*3/uL (1.80-7.70); Neutrophils % (A) 56.1 %; Platelet Count 93 X 10*3/uL (140-440); RBC 3.89 X 10*6/uL (4.40-5.60); RDW 14.2 % (11.5-14.5); WBC 4.35 X 10*3/uL (4.50-10.00)
== END 2021-05-01 14:47 | DRG 565 ==
LOC: EC 16:39 → 4SSUR 19:35
PROVIDERS: ADMIT Internal Medicine; ATTEND Internal Medicine
PROC: B5181ZA Fluoroscopy of Superior Vena Cava using Low Osmolar Contrast, Guidance (ICD-10-PCS; 2021-04-28)
PROC: 02HV33Z Insertion of Infusion Device into Superior Vena Cava, Percutaneous Approach (ICD-10-PCS; principal; 2021-04-28 12:05)
DX: T87.43 Infection of amputation stump, right lower extremity (principal); M86.171 Other acute osteomyelitis, right ankle and foot; N17.9 Acute kidney failure, unspecified; K76.6 Portal hypertension; Z87.442 Personal history of urinary calculi; Z79.4 Long term (current) use of insulin; Z95.2 Presence of prosthetic heart valve; F31.9 Bipolar disorder, unspecified; F17.200 Nicotine dependence, unspecified, uncomplicated; Z86.14 Personal history of Methicillin resistant Staphylococcus aureus infection; Z89.421 Acquired absence of other right toe(s); L97.512 Non-pressure chronic ulcer of other part of right foot with fat layer exposed; B95.62 Methicillin resistant Staphylococcus aureus infection as the cause of diseases classified elsewhere; Y83.8 Other surgical procedures as the cause of abnormal reaction of the patient, or of later complication, without mention of misadventure at the time of the procedure; E11.621 Type 2 diabetes mellitus with foot ulcer; E11.69 Type 2 diabetes mellitus with other specified complication; G89.4 Chronic pain syndrome; E11.65 Type 2 diabetes mellitus with hyperglycemia; M19.90 Unspecified osteoarthritis, unspecified site; K59.00 Constipation, unspecified; E11.628 Type 2 diabetes mellitus with other skin complications; I83.90 Asymptomatic varicose veins of unspecified lower extremity; L08.9 Local infection of the skin and subcutaneous tissue, unspecified; Z79.2 Long term (current) use of antibiotics; Z79.899 Other long term (current) drug therapy
CPT/HCPCS: 36415; 36573; 74177; 76770; 78315; 80048; 81001; 82565; 85025; 85652; 87040; 87070; 87075; 87077; 87186; 87205; 93005; 94640; 96374; 96376; 99285

== ENCOUNTER 2021-05-18 15:27 | Observation (INO) | payer OTHER ==
[2021-05-18] MEDS ORDERED: SODIUM CHLORIDE 0.9% 1,000 ML IV STA (15:31)
[2021-05-18] MEDS ORDERED: NITROGLYCERIN OINT 1 INCH/GM PACKET TOPICAL STA (15:31)
[2021-05-18 15:36] VITALS: TEMP 98.8
--- NOTE | 2021-05-18 15:52 | ED ---
General Adult HPI - General Chief complaint: Chest Pain Stated complaint: Chest pain Time Seen by Provider: 05/18/21 15:35 Source: patient, RN notes reviewed, old records reviewed Mode of arrival: EMS Limitations: no limitations - History of Present Illness Initial comments: This is a 60-year-old male who presents emergency Department with a past medical history significant for diabetes aortic valve replacement and a smoker up until about 2 months ago. Patient comes in today because he had left-sided chest pain that he states radiates around to his back. Patient states his been ongoing for a few days but today it got much more severe and he became very short of breath and diaphoretic. Patient also complained of nausea. Patient states it's much improved now but he did receive some fentanyl on the way in. Patient does have a PICC line in for an amputated toe which occurred a couple months ago he states he is receiving antibiotics through a PICC line. Patient states sometimes it seems as though the chest pain is worse with movement other times it does not. - Related Data Home Medications Medication Instructions Recorded Confirmed Acetaminophen Tab [Tylenol] 500 mg PO Q6H PRN 03/21/21 05/18/21 Collagenase [Santyl] 1 applic TOPICAL DAILY 03/21/21 05/18/21 Insulin Aspart [NovoLOG Flexpen] See Protocol SQ AC-TID 03/21/21 05/18/21 Previous Rx's Medication Instructions Recorded Cefepime [Maxipime] 2 gm IVPB Q8HR #0 vial 05/01/21 DAPTOmycin [Cubicin] 600 mg IVPB Q24H #0 vial 05/01/21 Gabapentin [Neurontin] 300 mg PO TID #6 cap 05/01/21 Morphine Sulfate [Ms Contin] 15 mg PO Q12H #5 tab 05/01/21 oxyCODONE-APAP 7.5-325MG [Percocet 1 tab PO BID PRN #6 tab 05/01/21 7.5-325 mg] Albuterol Nebulized [Ventolin 2.5 mg INHALATION RT-QID PRN #90 05/02/21 Nebulized] neb Albuterol Sulfate [Proair Hfa] 2 puff INHALATION RT-QID PRN 30 05/02/21 Days #1 inhaler Cyanocobalamin [Vitamin B-12] 1,000 mcg PO DAILY #30 tab 05/02/21 Ergocalciferol [Vitamin D2 (1250 1,250 mcg PO MOFR #20 cap 05/02/21 Mcg = 18748 Iu)] INSULIN ASPART (NovoLOG) [NovoLOG 10 unit SQ AC-TID 30 Days #4 vial 05/02/21 (formulary)] Insulin Detemir (Levemir) [Levemir] 30 unit SQ HS 30 Days #4 syr 05/02/21 Metoprolol Tartrate [Lopressor] 25 mg PO BID #60 tab 05/02/21 QUEtiapine [SEROquel] 100 mg PO HS #30 tab 05/02/21 Sennosides [Senokot] 8.6 mg PO BID PRN #60 tab 05/02/21 amLODIPine [Norvasc] 10 mg PO DAILY #30 tablet 05/02/21 Allergies Allergy/AdvReac Type Severity Reaction Status Date / Time No Known Allergies Allergy Verified 05/18/21 17:51 Review of Systems ROS Statement: Those systems with pertinent positive or pertinent negative responses have been documented in the HPI. ROS Other: All systems not noted in ROS Statement are negative. 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 History of Any Multi-Drug Resistant Organisms: None Reported Date of last positivie culture/infection: 04/23/21 MDRO Source:: MRSA FOOT Past Surgical History: Cardiac Valve Replacement, Cholecystectomy, Orthopedic Surgery Additional Past Surgical History / Comment(s): aortic valve replacement 2017, R 4th toe amputated February 2021 Past Psychological History: Bipolar, Depression Smoking Status: Current some day smoker Past Alcohol Use History: None Reported Past Drug Use History: None Reported General Exam - General Exam Comments Initial Comments: GENERAL: Patient is well-developed and well-nourished. Patient is nontoxic and well- hydrated and is in mild distress. ENT: Neck is soft and supple. No significant lymphadenopathy is noted. Oropharynx is clear. Moist mucous membranes. Neck has full range of motion without eliciting any pain. EYES: The sclera were anicteric and conjunctiva were pink and moist. Extraocular movements were intact and pupils were equal round and reactive to light. Eyelids were unremarkable. PULMONARY: Unlabored respirations. Good breath sounds bilaterally. No audible rales rhonchi or wheezing was noted. CARDIOVASCULAR: There is a regular rate and rhythm without any murmurs gallops or rubs. ABDOMEN: Soft and nontender with normal bowel sounds. SKIN: Skin is clear with no lesions or rashes and otherwise unremarkable. NEUROLOGIC: Patient is alert and oriented x3. Cranial nerves II through XII are grossly intact. Motor and sensory are also intact. Normal speech, volume and content. Symmetrical smile. MUSCULOSKELETAL: Normal extremities with adequate strength and full range of motion. LYMPHATICS: No significant lymphadenopathy is noted PSYCHIATRIC: Normal psychiatric evaluation. Limitations: no limitations Course Vital Signs 05/18/21 05/18/21 05/18/21 15:33 17:09 18:06 Temperature 98.8 F Pulse Rate 89 77 79 Respiratory 20 20 20 Rate Blood Pressure 117/80 125/75 161/89 O2 Sat by Pulse 99 99 99 Oximetry Medical Decision Making - Medical Decision Making EKG shows normal sinus rhythm at 89 bpm MS interval 266 dresses 100 a QT interval 384 QTC is 467. Patient's EKG shows no ST segment elevation or depression. Chest x-ray shows no acute abnormality. Spoke with Dr. Becerril he agreed to admit the patient and the patient I wrote admitting orders. - Lab Data Result diagrams: 05/18/21 15:57 05/18/21 15:57 Lab Results 05/18/21 05/18/21 05/18/21 Range/Units 15:57 15:57 15:57 WBC 5.6 (3.8-10.6) k/uL RBC 4.01 L (4.30-5.90) m/uL Hgb 12.2 L (13.0-17.5) gm/dL Hct 36.0 L (39.0-53.0) % MCV 89.8 (80.0-100.0) fL MCH 30.5 (25.0-35.0) pg MCHC 33.9 (31.0-37.0) g/dL RDW 16.1 H (11.5-15.5) % Plt Count 67 L (150-450) k/uL MPV 10.6 Neutrophils % 81 % Lymphocytes % 12 % Monocytes % 5 % Eosinophils % 1 % Basophils % 1 % Neutrophils # 4.6 (1.3-7.7) k/uL Lymphocytes # 0.7 L (1.0-4.8) k/uL Monocytes # 0.3 (0-1.0) k/uL Eosinophils # 0.1 (0-0.7) k/uL Basophils # 0.0 (0-0.2) k/uL Poikilocytosis Slight Anisocytosis Slight PT 10.9 (9.0-12.0) sec INR 1.0 (<1.2) APTT 22.4 (22.0-30.0) sec D-Dimer 0.71 H (<0.60) mg/L FEU Sodium 137 (137-145) mmol/L Potassium 4.4 (3.5-5.1) mmol/L Chloride 104 (98-107) mmol/L Carbon Dioxide 20 L (22-30) mmol/L Anion Gap 13 mmol/L BUN 28 H (9-20) mg/dL Creatinine 1.28 H (0.66-1.25) mg/dL Est GFR (CKD-EPI)AfAm 70 (>60 ml/min/1.73 sqM) Est GFR (CKD-EPI)NonAf 61 (>60 ml/min/1.73 sqM) Glucose 186 H (74-99) mg/dL Calcium 9.6 (8.4-10.2) mg/dL Magnesium 1.8 (1.6-2.3) mg/dL Total Bilirubin 0.6 (0.2-1.3) mg/dL AST 37 (17-59) U/L ALT 30 (4-49) U/L Alkaline Phosphatase 105 (38-126) U/L Troponin I (0.000-0.034) ng/mL NT-Pro-B Natriuret Pep pg/mL Total Protein 7.6 (6.3-8.2) g/dL Albumin 4.3 (3.5-5.0) g/dL Lipase 14 L (23-300) U/L 05/18/21 05/18/21 Range/Units 15:57 15:57 WBC (3.8-10.6) k/uL RBC (4.30-5.90) m/uL Hgb (13.0-17.5) gm/dL Hct (39.0-53.0) % MCV (80.0-100.0) fL MCH (25.0-35.0) pg MCHC (31.0-37.0) g/dL RDW (11.5-15.5) % Plt Count (150-450) k/uL MPV Neutrophils % % Lymphocytes % % Monocytes % % Eosinophils % % Basophils % % Neutrophils # (1.3-7.7) k/uL Lymphocytes # (1.0-4.8) k/uL Monocytes # (0-1.0) k/uL Eosinophils # (0-0.7) k/uL Basophils # (0-0.2) k/uL Poikilocytosis Anisocytosis PT (9.0-12.0) sec INR (<1.2) APTT (22.0-30.0) sec D-Dimer (<0.60) mg/L FEU Sodium (137-145) mmol/L Potassium (3.5-5.1) mmol/L Chloride (98-107) mmol/L Carbon Dioxide (22-30) mmol/L Anion Gap mmol/L BUN (9-20) mg/dL Creatinine (0.66-1.25) mg/dL Est GFR (CKD-EPI)AfAm (>60 ml/min/1.73 sqM) Est GFR (CKD-EPI)NonAf (>60 ml/min/1.73 sqM) Glucose (74-99) mg/dL Calcium (8.4-10.2) mg/dL Magnesium (1.6-2.3) mg/dL Total Bilirubin (0.2-1.3) mg/dL AST (17-59) U/L ALT (4-49) U/L Alkaline Phosphatase (38-126) U/L Troponin I <0.012 (0.000-0.034) ng/mL NT-Pro-B Natriuret Pep 342 pg/mL Total Protein (6.3-8.2) g/dL Albumin (3.5-5.0) g/dL Lipase (23-300) U/L Disposition Clinical Impression: Chest pain Disposition: ADMITTED IP TO THIS HOSP Referrals: Anjelica Aguilar MD [Primary Care Provider] - 1-2 days Time of Disposition: 18:20
[2021-05-18 16:09] LABS: Anisocytosis Slight; Basophils % (A) 1 %; Eosinophils # (A) 0.1 k/uL (0-0.7); Eosinophils % (A) 1 %; HGB 12.2 gm/dL (13.0-17.5); Lymphocytes # (A) 0.7 k/uL (1.0-4.8); Lymphocytes % (A) 12 %; MCH 30.5 pg (25.0-35.0); MCHC 33.9 g/dL (31.0-37.0); MCV 89.8 fL (80.0-100.0); Mean Platelet Volume 10.6; Monocytes # (A) 0.3 k/uL (0-1.0); Monocytes % (A) 5 %; Neutrophils # (A) 4.6 k/uL (1.3-7.7); Neutrophils % (A) 81 %; Poikilocytosis Slight; RBC 4.01 m/uL (4.30-5.90); RDW 16.1 % (11.5-15.5); WBC 5.6 k/uL (3.8-10.6)
[2021-05-18 16:11] LABS: Platelet Count 67 k/uL (150-450)
[2021-05-18 16:20] LABS: Albumin 4.3 g/dL (3.5-5.0); Calcium 9.6 mg/dL (8.4-10.2); Magnesium 1.8 mg/dL (1.6-2.3); Partial Thromboplastin Time 22.4 sec (22.0-30.0); Potassium 4.4 mmol/L (3.5-5.1); Prothrombin Time 10.9 sec (9.0-12.0); Total Bilirubin 0.6 mg/dL (0.2-1.3); Total Protein 7.6 g/dL (6.3-8.2)
--- NOTE | 2021-05-18 16:48 | XR ---
EXAMINATION TYPE: XR chest 2V DATE OF EXAM: 05/18/2021 COMPARISON: Chest x-ray May 05, 2020 HISTORY: Chest pain. TECHNIQUE: Frontal and lateral views of the chest are obtained. FINDINGS: There is chronic parenchymal change without suspicious focal air space opacity, pleural ef fusion, or pneumothorax seen. The cardiac silhouette size is stable and within normal limits. [place] ing sternal wires along with surgical change at level of artificial aortic valve are redemonstrated. The osseous structures are intact. IMPRESSION: Chronic changes without acute pulmonary process.
--- NOTE | 2021-05-18 17:08 | CT ---
EXAMINATION TYPE: CT chest angio for PE DATE OF EXAM: 05/18/2021 COMPARISON: Chest x-ray from earlier today. CT abdomen and pelvis April 26, 2021 HISTORY: Chest pain and elevated d-dimer. CT DLP: 574.1 mGycm Automated exposure control for dose reduction was used. CONTRAST: CT Chest for pulmonary embolism performed with with IV Contrast, patient injected with 74ml mL of Iso rajinder 370. FINDINGS: LUNGS: The lungs are grossly clear, there is no concerning parenchymal mass or nodule identified. T here is no pleural effusion or pneumothorax seen. The tracheobronchial tree is patent. Slightly elev ated left hemidiaphragm. MEDIASTINUM: There is satisfactory enhancement of the pulmonary artery and its branches, there is no CT evidence for pulmonary embolism. Satisfactory enhancement of the aorta without dissection . Ascend ing aorta measures up to 3.7 cm in diameter. There are no greater than 1 cm hilar or mediastinal lymp h nodes. No cardiomegaly or pericardial effusion is seen. Overlying sternal wires are redemonstrat ed. Surgical change of level of aortic valve again seen. OTHER: Cholecystectomy clips noted. Lobulated contour to liver consistent with known cirrhosis. Reca nalized umbilical vein. Tortuous prominent splenic vein and tortuous splenic artery. Visualized porti on of spleen is prominent. Findings consistent with known cirrhosis and underlying portal venous hype rtension. [id number] multilevel spurring in the spine. IMPRESSION: No CT evidence for acute pulmonary embolism. No suspicious acute pulmonary process.
[2021-05-18] MEDS ORDERED: KETOROLAC 15 MG/ML 1 ML VIAL IVP STA (18:01)
[2021-05-18] MEDS ORDERED: NITROGLYCERIN SL TABS 0.4 MG TAB SUBLINGUAL PRN (18:20)
[2021-05-18] MEDS ORDERED: ALBUTEROL NEBULIZED 2.5 MG/3 ML INHALATION PRN ×2 (19:34)
[2021-05-18] MEDS ORDERED: ACETAMINOPHEN TAB 500 MG TAB PO PRN (19:34)
[2021-05-18] MEDS ORDERED: SENNOSIDES 8.6 MG TAB PO PRN (19:34)
[2021-05-18] MEDS ORDERED: ALPRAZolam 0.25 MG TAB PO PRN (19:35)
[2021-05-18] MEDS ORDERED: CEFEPIME 2 GM VIAL IVPB SCH (19:45)
[2021-05-18] MEDS ORDERED: DAPTOmycin 500 MG VIAL IVPB SCH (19:45)
[2021-05-18 20:17] VITALS: RESP 18
[2021-05-18 20:17] LABS: Glucose,Whole Blood 135 mg/dL (75-99)
[2021-05-18] MEDS: oxyCODONE-APAP 7.5-325MG 1 EACH TAB PO PRN (20:56)
[2021-05-18] MEDS ORDERED: INSULIN DETEMIR (LEVEMIR) 100 UNIT/ML SYR SQ SCH (21:00)
[2021-05-18] MEDS ORDERED: QUEtiapine 100 MG TAB PO SCH (21:00)
--- NOTE | 2021-05-18 21:42 | HP ---
HISTORY AND PHYSICAL DATE OF SERVICE: 05/18/2021 CHIEF COMPLAINT: Chest pain. HISTORY OF PRESENT ILLNESS: This 60-year-old gentleman with a past medical history of back pain, history of DJD, history of cardiac valve replacement, history of cholecystectomy, being followed by Radha Keita and Dr. Anjelica Aguilar in the outpatient setting, was complaining of chest pain. The pain was initially felt on the left lateral part. Subsequently the patient had heavy pressure in the anterior part as well as some shortness of breath. The pain was sharp in character. The patient came to [facility] and D-dimer was found to be 0.71. Creatinine was 1.28. The patient underwent a CT angio of the chest, which I reviewed personally. It showed no CT evidence of any pulmonary embolism. No acute pulmonary process was noted. The patient was admitted for further evaluation and treatment. There is no history of fever, rigors, chills at this time. PAST MEDICAL HISTORY: History of back pain, diabetes mellitus, history of aortic valve replacement, cholecystectomy. MEDICATIONS: Home medications are oxycodone, Norvasc, Senokot, Seroquel, MS Contin, Lopressor, Levemir FlexPen, NovoLog scale, Neurontin, vitamin D2, Cubicin, vitamin B12, Santyl, Maxipime, ProAir, Ventolin, Tylenol. ALLERGIES: NONE. FAMILY HISTORY: No history of heart disease or strokes in the family. SOCIAL HISTORY: History of smoking. No history of alcohol intake. REVIEW OF SYSTEMS: ENT: No diminished hearing. No diminished vision. CARDIOVASCULAR SYSTEM: As mentioned earlier. RESPIRATORY SYSTEM: As mentioned earlier. GI: No nausea, vomiting, diarrhea. : No dysuria. NERVOUS SYSTEM: No numbness, weakness. ALLERGY/IMMUNOLOGY: No asthma or hay fever. MUSCULOSKELETAL: As mentioned earlier. HEMATOLOGY/ONCOLOGY: No history of anemia. ENDOCRINE: No history of diabetes, hypothyroidism. CONSTITUTIONAL: As mentioned earlier. DERMATOLOGY: Negative. RHEUMATOLOGY: Negative. PSYCHIATRY: As mentioned earlier. PHYSICAL EXAMINATION: Patient is alert, oriented x3. Pulse 77, blood pressure 125/75, respiration 20, temperature 98.8, pulse ox 99% on room air. HEENT: Conjunctivae normal. NECK: No jugular venous distention. CARDIOVASCULAR: S1, S2 muffled. RESPIRATION: Breath sounds diminished at the bases. A few scattered rhonchi. ABDOMEN: Soft, non-tender. No mass palpable. LEGS: No edema. No swelling. NERVOUS SYSTEM: Higher functions as mentioned earlier. Moves all 4 limbs. No focal motor or sensory deficit. LYMPHATICS: No lymph node palpable in neck, axillae or groin. SKIN: No ulcer, rash, bleeding. JOINTS: No active deforming arthropathy. LAB STUDIES: WBC 5.7, hemoglobin 12.2, platelets 67. Creatinine is 1.8. ASSESSMENT: 1. Chest pain; possible unstable angina. 2. Elevated D-dimer without any evidence of pulmonary embolism. 3. Anemia, normocytic; undetermined etiology. 4. Mild thrombocytopenia. 5. Increased creatinine with chronic kidney disease stage III. 6. History of back pain, degenerative joint disease. 7. Diabetes mellitus, type 2. 8. History of MRSA foot. 9. History of aortic valve replacement. 10.History of fourth toe amputation. 11.History of bipolar depression. 12.History of continued ongoing nicotine dependence. RECOMMENDATIONS AND DISCUSSION: In this 60-year-old gentleman who presented with multiple complex medical issues, we will monitor the patient closely, continue the current medications, continue the home medications. Rule out myocardial infarction. Cardiology consultation. Guarded prognosis because of multiple complex medical issues. Further recommendations to follow. A copy of this dictation is being forwarded to Dr. Anjelica Aguilar and Radha Keita. MMNAZANINL / IJN: [id number] /
[2021-05-18] MEDS: CEFEPIME 2 GM in SODIUM CHLORIDE 0.9% 100 ML IVPB SCH (22:05)
[2021-05-18] MEDS: METOPROLOL TARTRATE 25 MG TAB PO SCH (22:05)
[2021-05-18] MEDS: INSULIN ASPART (NovoLOG) 100 UNIT/ML VIAL SQ SCH (22:06)
[2021-05-18] MEDS: GABAPENTIN 300 MG CAP PO SCH (22:11)
[2021-05-18] MEDS: MORPHINE SULFATE ER 15 MG TABLET PO SCH (22:41)
[2021-05-19] MEDS ORDERED: MORPHINE SULFATE 4 MG/ML SYRINGE IVP STA (02:03)
[2021-05-19] MEDS: NITROGLYCERIN OINT 1 INCH/GM PACKET TOPICAL SCH ×2 (02:17→06:29)
[2021-05-19] MEDS: CEFEPIME 2 GM in SODIUM CHLORIDE 0.9% 100 ML IVPB SCH ×2 (06:29→13:51)
[2021-05-19] MEDS ORDERED: CYANOCOBALAMIN 500 MCG TAB PO SCH (07:30)
[2021-05-19] MEDS ORDERED: INSULIN ASPART (NovoLOG) 100 UNIT/ML VIAL SQ SCH (07:30)
[2021-05-19] MEDS ORDERED: PANTOPRAZOLE 40 MG TABLET PO SCH (07:30)
[2021-05-19] MEDS: INSULIN ASPART (NovoLOG) 100 UNIT/ML VIAL SQ SCH ×2 (08:25→14:50)
[2021-05-19] MEDS: METOPROLOL TARTRATE 25 MG TAB PO SCH (08:25)
[2021-05-19 08:29] LABS: Glucose,Whole Blood 109 mg/dL (75-99)
[2021-05-19] MEDS: GABAPENTIN 300 MG CAP PO SCH (08:41)
[2021-05-19] MEDS: MORPHINE SULFATE ER 15 MG TABLET PO SCH (08:41)
[2021-05-19] MEDS: MORPHINE SULFATE 4 MG/ML SYRINGE IVP PRN ×2 (08:42→13:51)
[2021-05-19] MEDS ORDERED: ASPIRIN 81 MG PO SCH (09:00)
[2021-05-19] MEDS ORDERED: ASPIRIN 325 MG TAB PO SCH (09:00)
[2021-05-19] MEDS ORDERED: ERGOCALCIFEROL 1,250 MCG (50,000 IU) CAPSULE PO SCH (09:00)
[2021-05-19] MEDS ORDERED: NICOTINE 14MG/24HR PATCH TRANSDERM SCH (09:00)
[2021-05-19] MEDS ORDERED: amLODIPine 10 MG TAB PO SCH (09:00)
[2021-05-19 09:27] LABS: Basophils % (A) 1 %; Eosinophils # (A) 0.1 k/uL (0-0.7); Eosinophils % (A) 3 %; HCT 32.4 % (39.0-53.0); HGB 11.1 gm/dL (13.0-17.5); Lymphocytes # (A) 1.2 k/uL (1.0-4.8); Lymphocytes % (A) 29 %; MCH 30.9 pg (25.0-35.0); MCHC 34.3 g/dL (31.0-37.0); MCV 90.1 fL (80.0-100.0); Mean Platelet Volume 9.7; Monocytes # (A) 0.3 k/uL (0-1.0); Monocytes % (A) 7 %; Neutrophils # (A) 2.4 k/uL (1.3-7.7); Neutrophils % (A) 58 %; RBC 3.59 m/uL (4.30-5.90); RDW 14.9 % (11.5-15.5)
--- NOTE | 2021-05-19 09:31 | P.CRDCN ---
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 Nunez, right toe amputation 03/21/21. Recent admission on 04/23/2021 for osteomyelitis of his right 4th toe base, and acute kidney injury, he had PICC line placed and IV antibiotics started. He does not follow with a plastic surgery manager. We have been asked to see in consultation for chest pain. Patient is seen and examined in the emergency department. He states yesterday he was completing errands. He started to not feel well. Had left sided chest pain, describes as heaviness and someone is sitting on his chest. He had a ssociated shortness of breath, diaphoresis and nausea. [place] as if he could not take a deep breath. Aggravating factors include palpation of the chest and taking a deep breath. Giving himself his antibiotics at home has been more difficult. No specific alleviating factors. He denies orthopnea or PND, lower extremity edema, lightheadedness or syncope. He has smoked 1PPD for 40 years, 2 months ago weaned smoker to 1PPD every 1-2 months. Family history includes grandparents with PA in their 60s. Denies alcohol or illicit drug use currently. Patient states he did have a stress test years ago and was told it was normal. He did have a cardiac catheterization before his valve replacement in 2018 and he was told it was normal. DIAGNOSTICS EKG reveals sinus rhythm, heart rate 71, T wave inversions in lead III, prolonged QT, QTC 460ms, no significant ST ST-T wave abnormalities, prior EKGs appear to be similar. Chest xray no acute findings, chronic parenchymal changes. Cardiac silhouette stable. No midline sternal wires along with surgical changes at the level of the aortic valve. CT chest revealed no pulmonary embolism. Ascending aorta measures up to 3.7 cm diameter cholecystectomy clips noted. Known cirrhosis and underlying portal vein hypertension. Laboratory reviewed, WBC 5.6, hemoglobin 12.2, platelets 67, sodium 137, potassium 4.4, BUN 28, serum creatinine 1.28, magnesium 1.8, troponin negative 3, proBNP 24 to, d-dimer 0.71 Current home cardiac medications include amlodipine 10 mg daily, metoprolol titrate 25 mg twice a day REVIEW OF SYSTEMS At the time of my exam: CONSTITUTIONAL: Denies fever or chills. +diaphoresis CARDIOVASCULAR: Positive chest pain, positive shortness of breath. Denies orthopnea, PND or palpitations. RESPIRATORY: Denies cough. GASTROINTESTINAL: Positive nausea Denies abdominal pain, diarrhea, constipation,vomiting. MUSCULOSKELETAL: Positive lower back pain NEUROLOGIC: Denies numbness, tingling, headacbe or weakness. ENDOCRINE: Denies fatigue, weight change, polydipsia or polyurina. GENITOURINARY: Denies burning, hematuria or urgency with micturation. HEMATOLOGIC: history of anemia or bleeding. PHYSICAL EXAMINATION Blood pressure 113/66 heart rate 68 afebrile and maintaining oxygen saturation on room air CONSTITUTIONAL: No apparent distress. HEENT: Head is normocephalic. Pupils are equal, round. Sclerae anicteric. Mucous membranes of the mouth are moist. No JVD. No carotid bruit. CHEST EXAMINATION: Diminished on left lower lobe. other lung ji clear to auscultation. Chest pain is present with palpation to left chest and with deep breathing. HEART EXAMINATION: Regular rate and rhythm. S1, S2 heard. ABDOMEN: Soft, nontender. Positive bowel sounds. EXTREMITIES: 2+ peripheral pulses, no lower extremity edema and no calf tenderness. Left arm PICC line present SKIN: Right toe amputation NEUROLOGIC EXAMINATION: Patient is awake, alert and oriented x3. ASSESSMENT Chest pain, appears musculoskeletal in nature, acute coronary syndrome has been ruled out History of bicuspid aortic valve s/p aortic valve replacement in 2018 at [facility] by Dr. 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 Recent admission on 04/23/2021 for osteomyelitis of his right 4th toe base, and acute kidney injury, he had PICC line placed and IV antibiotics currently at home PLAN An acute coronary event has been ruled out with no EKG evidence of ischemia and negative cardiac enzymes. Obtain 2D echocardiogram and doppler study to assess cardiac structure and function. If echocardiogram with no acute findings, no further cardiac workup indicated at this time. Continue home cardiac medications Smoking cessation discussed and highly recommended. Recommend patient follow up with a plastic surgery manager, patient can follow up with Dr. Cruz as an outpatient Thank you kindly for this consultation. Nurse Practitioner note has been reviewed, I agree with a documented findings and plan of care. Patient was seen and examined. 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 History of Any Multi-Drug Resistant Organisms: None Reported Date of last positivie culture/infection: 04/23/21 MDRO Source:: MRSA FOOT Past Surgical History: Cardiac Valve Replacement, Cholecystectomy, Orthopedic Surgery Additional Past Surgical History / Comment(s): aortic valve replacement 2017, R 4th toe amputated February 2021 Past Psychological History: Bipolar, Depression Smoking Status: Current some day smoker Past Alcohol Use History: None Reported Past Drug Use History: None Reported Medications and Allergies Home Medications Medication Instructions Recorded Confirmed Type Acetaminophen Tab [Tylenol] 500 mg PO Q6H PRN 03/21/21 05/18/21 History Collagenase [Santyl] 1 applic TOPICAL DAILY 03/21/21 05/18/21 History Insulin Aspart [NovoLOG Flexpen] See Protocol SQ AC-TID 03/21/21 05/18/21 History Cefepime [Maxipime] 2 gm IVPB Q8HR #0 vial 05/01/21 05/18/21 Rx DAPTOmycin [Cubicin] 600 mg IVPB Q24H #0 vial 05/01/21 05/18/21 Rx Gabapentin [Neurontin] 300 mg PO TID #6 cap 05/01/21 05/18/21 Rx Morphine Sulfate [Ms Contin] 15 mg PO Q12H #5 tab 05/01/21 05/18/21 Rx oxyCODONE-APAP 7.5-325MG [Percocet 1 tab PO BID PRN #6 tab 05/01/21 05/18/21 Rx 7.5-325 mg] Albuterol Nebulized [Ventolin 2.5 mg INHALATION RT-QID PRN #90 05/02/21 05/18/21 Rx Nebulized] neb Albuterol Sulfate [Proair Hfa] 2 puff INHALATION RT-QID PRN 30 05/02/21 05/18/21 Rx Days #1 inhaler Cyanocobalamin [Vitamin B-12] 1,000 mcg PO DAILY #30 tab 05/02/21 05/18/21 Rx Ergocalciferol [Vitamin D2 (1250 1,250 mcg PO MOFR #20 cap 05/02/21 05/18/21 Rx Mcg = 33545 Iu)] INSULIN ASPART (NovoLOG) [NovoLOG 10 unit SQ AC-TID 30 Days #4 vial 05/02/21 05/18/21 Rx (formulary)] Insulin Detemir (Levemir) [Levemir] 30 unit SQ HS 30 Days #4 syr 05/02/21 05/18/21 Rx Metoprolol Tartrate [Lopressor] 25 mg PO BID #60 tab 05/02/21 05/18/21 Rx QUEtiapine [SEROquel] 100 mg PO HS #30 tab 05/02/21 05/18/21 Rx Sennosides [Senokot] 8.6 mg PO BID PRN #60 tab 05/02/21 05/18/21 Rx amLODIPine [Norvasc] 10 mg PO DAILY #30 tablet 05/02/21 05/18/21 Rx Allergies Allergy/AdvReac Type Severity Reaction Status Date / Time No Known Allergies Allergy Verified 05/18/21 17:51 Physical Exam Vitals: Vital Signs Temp Pulse Resp BP Pulse Ox 05/19/21 06:05 68 18 113/66 96 05/19/21 02:05 70 18 108/84 96 05/18/21 22:18 77 18 148/72 96 05/18/21 20:14 85 18 104/80 99 05/18/21 18:06 79 20 161/89 99 05/18/21 17:09 77 20 125/75 99 05/18/21 15:33 98.8 F 89 20 117/80 99 Intake and Output 05/18/21 05/19/21 05/19/21 22:59 06:59 14:59 Other: Weight 97.522 kg Results 05/18/21 15:57 05/18/21 15:57 Cardiac Enzymes 05/18/21 05/18/21 05/18/21 Range/Units 15:57 15:57 18:56 AST 37 (17-59) U/L Troponin I <0.012 <0.012 (0.000-0.034) ng/mL 05/18/21 Range/Units 21:32 AST (17-59) U/L Troponin I <0.012 (0.000-0.034) ng/mL Coagulation 05/18/21 Range/Units 15:57 PT 10.9 (9.0-12.0) sec APTT 22.4 (22.0-30.0) sec CBC 05/18/21 Range/Units 15:57 WBC 5.6 (3.8-10.6) k/uL RBC 4.01 L (4.30-5.90) m/uL Hgb 12.2 L (13.0-17.5) gm/dL Hct 36.0 L (39.0-53.0) % Plt Count 67 L (150-450) k/uL Comprehensive Metabolic Panel 05/18/21 Range/Units 15:57 Sodium 137 (137-145) mmol/L Potassium 4.4 (3.5-5.1) mmol/L Chloride 104 (98-107) mmol/L Carbon Dioxide 20 L (22-30) mmol/L BUN 28 H (9-20) mg/dL Creatinine 1.28 H (0.66-1.25) mg/dL Glucose 186 H (74-99) mg/dL Calcium 9.6 (8.4-10.2) mg/dL AST 37 (17-59) U/L ALT 30 (4-49) U/L Alkaline Phosphatase 105 (38-126) U/L Total Protein 7.6 (6.3-8.2) g/dL Albumin 4.3 (3.5-5.0) g/dL Current Medications Generic Name Dose Route Start Last Admin Trade Name Freq PRN Reason Stop Dose Admin Acetaminophen 500 mg 05/18/21 19:34 Acetaminophen Tab 500 Mg Tab PO Q6H PRN Fever Albuterol Sulfate 2.5 mg 05/18/21 19:34 Albuterol Nebulized 2.5 Mg/3 Ml INHALATION RT-QID PRN Shortness Of Breath Alprazolam 0.25 mg 05/18/21 19:35 Alprazolam 0.25 Mg Tab PO TID PRN Anxiety Amlodipine Besylate 10 mg 05/19/21 09:00 Amlodipine 10 Mg Tab PO DAILY [facility] Aspirin 325 mg 05/19/21 09:00 Aspirin 325 Mg Tab PO DAILY [facility] Cyanocobalamin 1,000 mcg 05/19/21 07:30 Cyanocobalamin 500 Mcg Tab PO AC-BRKFST [facility] Ergocalciferol 1,250 mcg 05/19/21 09:00 Ergocalciferol 1,250 Mcg (50,000 Iu) Capsule PO MOFR [facility] Gabapentin 300 mg 05/18/21 22:00 05/18/21 22:11 Gabapentin 300 Mg Cap PO 300 mg TID [facility] Administration Cefepime HCl 2 gm/ Sodium 100 mls @ 25 mls/hr 05/18/21 21:00 05/19/21 06:29 Chloride IVPB 25 mls/hr Q8H [facility] Administration Daptomycin 600 mg/ Sodium 50 mls @ 100 mls/hr 05/19/21 09:00 Chloride IVPB Q24HR [facility] Insulin Aspart 10 unit 05/19/21 07:30 Insulin Aspart (Novolog) 100 Unit/Ml Vial SQ AC-TID [facility] Insulin Aspart 0 unit 05/18/21 21:00 05/18/21 22:06 Insulin Aspart (Novolog) 100 Unit/Ml Vial SQ 1 unit ACHS [facility] Administration Protocol Insulin Detemir 30 unit 05/18/21 21:00 05/18/21 22:06 Insulin Detemir (Levemir) 100 Unit/Ml Syr SQ 30 unit HS [facility] Administration Metoprolol Tartrate 25 mg 05/18/21 21:00 05/18/21 22:05 Metoprolol Tartrate 25 Mg Tab PO 25 mg BID [facility] Administration Morphine Sulfate 15 mg 05/18/21 21:00 05/18/21 22:41 Morphine Sulfate Er 15 Mg Tablet PO 15 mg Q12HR [facility] Administration Protocol Morphine Sulfate 4 mg 05/19/21 02:03 Morphine Sulfate 4 Mg/Ml Syringe IVP Q6HR PRN Pain Nicotine 1 patch 05/19/21 09:00 Nicotine 14mg/24hr Patch TRANSDERM DAILY [facility] Nitroglycerin 0.4 mg 05/18/21 18:20 Nitroglycerin Sl Tabs 0.4 Mg Tab SUBLINGUAL Q5M PRN Chest Pain Nitroglycerin 1 inch 05/19/21 00:00 05/19/21 06:29 Nitroglycerin Oint 1 Inch/Gm Packet TOPICAL 1 inch Q6HR [facility] Administration Oxycodone/Acetaminophen 1 each 05/18/21 19:34 05/18/21 20:56 Oxycodone-Apap 7.5-325mg 1 Each Tab PO 1 each BID PRN Administration Breakthrough Pain Pantoprazole Sodium 40 mg 05/19/21 07:30 Pantoprazole 40 Mg Tablet PO AC-BRKFST [facility] Quetiapine Fumarate 100 mg 05/18/21 21:00 05/18/21 22:05 Quetiapine 100 Mg Tab PO 100 mg HS [facility] Administration Senna 8.6 mg 05/18/21 19:34 Sennosides 8.6 Mg Tab PO BID PRN Constipation Intake and Output 05/18/21 05/19/21 05/19/21 22:59 06:59 14:59 Other: Weight 97.522 kg 05/18/21 15:57 05/18/21 15:57
[2021-05-19 09:33] LABS: Platelet Count 72 k/uL (150-450)
[2021-05-19 09:39] LABS: African American GFR (CKD) 57 (>60 ml/min/1.73 sqM); Anion Gap 8 mmol/L; Blood Urea Nitrogen 41 mg/dL (9-20); Calcium 8.8 mg/dL (8.4-10.2); Carbon Dioxide 22 mmol/L (22-30); Chloride 107 mmol/L (98-107); Glucose 112 mg/dL (74-99); Non-African American GFR(CKD) 49 (>60 ml/min/1.73 sqM); Potassium 4.2 mmol/L (3.5-5.1); Sodium 137 mmol/L (137-145)
[2021-05-19 11:34] VITALS: PULSE 78
[2021-05-19] MEDS: oxyCODONE-APAP 7.5-325MG 1 EACH TAB PO PRN (11:38)
[2021-05-19 12:22] LABS: Glucose,Whole Blood 165 mg/dL (75-99)
--- NOTE | 2021-05-19 12:25 | ECHOF ---
Referral Reason:LV function, chest pain, shortness of breath MEASUREMENTS -------- HEIGHT: 185.4 cm WEIGHT: 97.5 kg BP: 113/66 RVIDd: 4.4 cm (< 3.3) IVSd: 1.2 cm (0.6 - 1.1) LVIDd: 4.3 cm (3.9 - 5.3) LVPWd: 1.4 cm (0.6 - 1.1) IVSs: 2.1 cm LVIDs: 2.5 cm LVPWs: 1.7 cm LAESV Index (A-L): 24.61 ml/m Ao Diam: 2.4 cm (2.0 - 3.7) AV Cusp: 1.0 cm (1.5 - 2.6) MV EXCURSION: 16.216 mm (> 18.000) MV EF SLOPE: 62 mm/s (70 - 150) EPSS: 0.5 cm MV E Honorio: 0.80 m/s MV DecT: 341 ms MV A Honorio: 1.06 m/s MV E/A Ratio: 0.76 AV maxP.93 mmHg AV meanP.57 mmHg RAP: 5.00 mmHg RVSP: 20.86 mmHg FINDINGS -------- Sinus rhythm. This was a technically adequate study. The left ventricular size is normal. There is mild concentric left ventricular hypertrophy. Overa ll left ventricular systolic function is normal with, an EF between 55 - 60 %. The right ventricle is moderately enlarged. Normal LA size by volume 22+/-6 ml/m2. The right atrial size is normal. Interatrial and interventricular septum intact. Normally functioning bioprosthetic valve. Mild mitral annular calcification present. There is trace mitral regurgitation. Mild tricuspid regurgitation present. There is no evidence of pulmonary hypertension. The right v entricular systolic pressure, as measured by Doppler, is 20.86mmHg. There is no pulmonic regurgitation present. The aortic root size is normal. IVC Not well visulized. There is no pericardial effusion. CONCLUSIONS -------- 1. The left ventricular size is normal. 2. There is mild concentric left ventricular hypertrophy. 3. Overall left ventricular systolic function is normal with, an EF between 55 - 60 %. 4. The right ventricle is moderately enlarged. 5. Normally functioning bioprosthetic valve. 6. Mild mitral annular calcification present. 7. There is trace mitral regurgitation. 8. Mild tricuspid regurgitation present. TAILOR GARMENT FITTER: Rose Miguel RDCS
[2021-05-19 13:58] VITALS: BP 142/87
[2021-05-19 15:51] LABS: Chol/HDL Ratio 4.88; Cholesterol 156 mg/dL (0-200); LDL Cholesterol,Calculated 94.2 mg/dL (0.0-131.0)
[2021-05-20] MEDS ORDERED: CEFEPIME 2 GM in SODIUM CHLORIDE 0.9% 100 ML IVPB SCH (02:00)
--- NOTE | 2021-05-22 10:24 | P.DS ---
Providers Date of admission: 05/18/21 18:24 Expected date of discharge: 05/19/21 Attending physician: Jonathan Becerril Consults: 05/18/21 18:20 Consult Physician Urgent Consulting Provider: [facility] Consult Reason/Comments: Chest pain Do you want consulting provider notified?: Yes Primary care physician: Anjelica Aguilar Hospital Course: Final diagnosis Chest pain, possible unstable angina Elevated d-dimer without any evidence of pulmonary embolism Anemia, normocytic, undetermined etiology Mild thrombocytopenia Increased creatinine with chronic kidney disease stage III history of back pain, degenerative joint disease Diabetes mellitus type 2 History of MRSA of the foot history of aortic valve replacement history of fourth toe amputation history of bipolar depression history of continued ongoing nicotine dependence Discharge disposition Patient is being discharged in a stable condition with guarded prognosis to home. Patient will follow-up with Dr. Aguilar in the outpatient setting upon discharge. Patient will also follow-up with cardiology Dr. Cruz outpatient. Total time taken is greater than 35 minutes. Hospital course This is a 60-year-old female who was recently admitted with chest pain and being closely monitored. Cardiology evaluated the patient recommending outpatient follow-up and an acute coronary event was ruled out and most likely musculoskeletal. Patient underwent 2-D echo showing LV systolic function is normal with an EF between 55 and 60% with mild tricuspid regurgitation present along with a trace of mitral regurgitation present. Patient continues with IV antibiotic therapy with a PICC line and will continue to do so in the outpatient setting with close follow-up with wound care. Recommend to repeat labs in a few days if kidney functions were slightly elevated. Patient did have CTA of the chest which showed no pulmonary embolism and no acute pulmonary process noted. Patient instructed to follow-up with primary care provider along with cardiology outpatient. Currently no reports of chest pain, worsening shortness of breath, or palpitations. Patient is afebrile. No reports of nausea or vomiting and patient is tolerating diet. Patient will be discharged home today. On exam vital signs are stable. Cardio S1, S2 are muffled. Respiratory system shows diminished breath sounds at the bases with no wheezing or rhonchi noted. Abdomen is soft and nontender. Nervous system shows no focal deficits. Please refer to medication reconciliation sheet for a list of medications. Patient Condition at Discharge: Stable Plan - Discharge Summary New Discharge Prescriptions: New Nitroglycerin Sl Tabs [Nitrostat] 0.4 mg SUBLINGUAL Q5M PRN #30 tab PRN Reason: Chest Pain Aspirin 81 mg PO DAILY #30 chew Continue Acetaminophen Tab [Tylenol] 500 mg PO Q6H PRN PRN Reason: Fever Insulin Aspart [NovoLOG Flexpen] See Protocol SQ AC-TID DAPTOmycin [Cubicin] 600 mg IVPB Q24H #0 vial Gabapentin [Neurontin] 300 mg PO TID #6 cap amLODIPine [Norvasc] 10 mg PO DAILY #30 tablet INSULIN ASPART (NovoLOG) [NovoLOG (formulary)] 10 unit SQ AC-TID 30 Days #4 vial Albuterol Sulfate [Proair Hfa] 2 puff INHALATION RT-QID PRN 30 Days #1 inhaler PRN Reason: Shortness Of Breath Sennosides [Senokot] 8.6 mg PO BID PRN #60 tab PRN Reason: Constipation Albuterol Nebulized [Ventolin Nebulized] 2.5 mg INHALATION RT-QID PRN #90 neb PRN Reason: Shortness Of Breath Insulin Detemir (Levemir) [Levemir] 30 unit SQ HS 30 Days #4 syr Cyanocobalamin [Vitamin B-12] 1,000 mcg PO DAILY #30 tab Ergocalciferol [Vitamin D2 (1250 Mcg = 60220 Iu)] 1,250 mcg PO MOFR #20 cap Collagenase [Santyl] 1 applic TOPICAL DAILY Cefepime [Maxipime] 2 gm IVPB Q8HR #0 vial Morphine Sulfate [Ms Contin] 15 mg PO Q12H #5 tab oxyCODONE-APAP 7.5-325MG [Percocet 7.5-325 mg] 1 tab PO BID PRN #6 tab PRN Reason: Breakthrough Pain Metoprolol Tartrate [Lopressor] 25 mg PO BID #60 tab QUEtiapine [SEROquel] 100 mg PO HS #30 tab Discharge Medication List Acetaminophen Tab [Tylenol] 500 mg PO Q6H PRN 03/21/21 [History] Collagenase [Santyl] 1 applic TOPICAL DAILY 03/21/21 [History] Insulin Aspart [NovoLOG Flexpen] See Protocol SQ AC-TID 03/21/21 [History] Cefepime [Maxipime] 2 gm IVPB Q8HR #0 vial 05/01/21 [Rx] DAPTOmycin [Cubicin] 600 mg IVPB Q24H #0 vial 05/01/21 [Rx] Gabapentin [Neurontin] 300 mg PO TID #6 cap 05/01/21 [Rx] Morphine Sulfate [Ms Contin] 15 mg PO Q12H #5 tab 05/01/21 [Rx] oxyCODONE-APAP 7.5-325MG [Percocet 7.5-325 mg] 1 tab PO BID PRN #6 tab 05/01/21 [Rx] Albuterol Nebulized [Ventolin Nebulized] 2.5 mg INHALATION RT-QID PRN #90 neb 05/02/21 [Rx] Albuterol Sulfate [Proair Hfa] 2 puff INHALATION RT-QID PRN 30 Days #1 inhaler 05/02/21 [Rx] Cyanocobalamin [Vitamin B-12] 1,000 mcg PO DAILY #30 tab 05/02/21 [Rx] Ergocalciferol [Vitamin D2 (1250 Mcg = 24995 Iu)] 1,250 mcg PO MOFR #20 cap 05/02/21 [Rx] INSULIN ASPART (NovoLOG) [NovoLOG (formulary)] 10 unit SQ AC-TID 30 Days #4 vial 05/02/21 [Rx] Insulin Detemir (Levemir) [Levemir] 30 unit SQ HS 30 Days #4 syr 05/02/21 [Rx] Metoprolol Tartrate [Lopressor] 25 mg PO BID #60 tab 05/02/21 [Rx] QUEtiapine [SEROquel] 100 mg PO HS #30 tab 05/02/21 [Rx] Sennosides [Senokot] 8.6 mg PO BID PRN #60 tab 05/02/21 [Rx] amLODIPine [Norvasc] 10 mg PO DAILY #30 tablet 05/02/21 [Rx] Aspirin 81 mg PO DAILY #30 chew 05/19/21 [Rx] Nitroglycerin Sl Tabs [Nitrostat] 0.4 mg SUBLINGUAL Q5M PRN #30 tab 05/19/21 [Rx] Follow up Appointment(s)/Referral(s): Anjelica Aguilar MD [Primary Care Provider] - 1-2 days Ana Cruz MD [STAFF PHYSICIAN] - 2 Weeks Ambulatory/Diagnostic Orders: Basic Metabolic Panel [LAB.AMB] Time Frame: 2 Days, Location: None Selected Activity/Diet/Wound Care/Special Instructions: activity Limited until follow-up Follow-up with primary care provider upon discharge Follow-up with cardiology in 1-2 weeks Continue with IV antibiotics and Homecare Continue with heart healthy diet Continue with avoiding tobacco use Discharge Disposition: HOME WITH HOME HEALTH SERVICES
== END 2021-05-19 15:20 | disposition home health service (06) ==
LOC: EC 15:27 → 1SOBS 18:24 → 6NMEDSUR 20:53
PROVIDERS: ADMIT Hospitalist; ATTEND Hospitalist
DX: R07.89 Other chest pain (principal); R79.89 Other specified abnormal findings of blood chemistry; D64.9 Anemia, unspecified; D69.6 Thrombocytopenia, unspecified; E11.22 Type 2 diabetes mellitus with diabetic chronic kidney disease; N18.30 Chronic kidney disease, stage 3 unspecified; N17.9 Acute kidney failure, unspecified; I12.9 Hypertensive chronic kidney disease with stage 1 through stage 4 chronic kidney disease, or unspecified chronic kidney disease; F17.210 Nicotine dependence, cigarettes, uncomplicated; G89.4 Chronic pain syndrome; M51.26 Other intervertebral disc displacement, lumbar region; F31.9 Bipolar disorder, unspecified; K74.60 Unspecified cirrhosis of liver; K76.6 Portal hypertension; M19.90 Unspecified osteoarthritis, unspecified site; M86.9 Osteomyelitis, unspecified; Q23.1 Congenital insufficiency of aortic valve; Z79.4 Long term (current) use of insulin; Z79.899 Other long term (current) drug therapy; Z95.2 Presence of prosthetic heart valve; Z90.49 Acquired absence of other specified parts of digestive tract; Z89.421 Acquired absence of other right toe(s); Z87.442 Personal history of urinary calculi; Z86.14 Personal history of Methicillin resistant Staphylococcus aureus infection
CPT/HCPCS: 99285; 96376; 96361; 96365; 96366 ×2; 96375 ×2; 36415; 93005 ×2; 93306; 85379; 83880; 80061; 80053; 80048; 83690; 83735; 84484; 85025 ×2; 85610; 85730; 71046; 71275; G0378 ×2; S4990; J2270; J0692 ×2; J0878; J1885; Q9967

== ENCOUNTER 2022-02-13 22:14 | Inpatient (IN) | payer OTHER ==
[2022-02-14] MEDS ORDERED: SODIUM CHLORIDE 0.9% 500 ML 500 ML IV STA (01:48)
[2022-02-14] MEDS ORDERED: HYDROmorphone 0.5 MG/0.5 ML SYRINGE IVP STA (01:51)
[2022-02-14] MEDS ORDERED: ASPIRIN 81 MG PO STA (01:51)
[2022-02-14] MEDS ORDERED: ONDANSETRON 4 MG/2 ML VIAL IVP STA (01:56)
--- NOTE | 2022-02-14 01:56 | ED ---
General Adult HPI - General Chief complaint: Shortness of Breath Stated complaint: Chest Pain, Difficulty Breathing, numb left arm Time Seen by Provider: 02/14/22 01:45 Source: patient, RN notes reviewed, old records reviewed Mode of arrival: ambulatory Limitations: no limitations - History of Present Illness Initial comments: 61-year-old male presents to the emergency room with chest pain and shortness of breath that started on Saturday. Patient states that it feels tight in his left side of his chest and feels as though he cannot take a deep breath. He states that the pain feels like a vibration in his chest. He is afraid to go to sleep which prompted him to come to the emergency room. He states he does have chills but no fevers. He has not seen his primary care doctor in over a year. He states he does have a history of high blood pressure but has not taken medications for years. Patient does have a history of aortic valve replacem ent and diabetes. -: days(s) (5) Location: chest Radiation: non-radiation Severity scale (1-10): 7 Quality: constant Consistency: constant Improves with: none Associated Symptoms: fever/chills, nausea/vomiting (nausea) Treatments Prior to Arrival: none - Related Data Home Medications Medication Instructions Recorded Confirmed Acetaminophen Tab [Tylenol] 500 mg PO Q6H PRN 03/21/21 05/18/21 Collagenase [Santyl Ointment] 1 applic TOPICAL DAILY 03/21/21 05/18/21 Insulin Aspart [NovoLOG Flexpen] See Protocol SQ AC-TID 03/21/21 05/18/21 Previous Rx's Medication Instructions Recorded Cefepime [Maxipime] 2 gm IVPB Q8HR #0 vial 05/01/21 DAPTOmycin [Cubicin] 600 mg IVPB Q24H #0 vial 05/01/21 Gabapentin [Neurontin] 300 mg PO TID #6 cap 05/01/21 Morphine Sulfate [Ms Contin] 15 mg PO Q12H #5 tab 05/01/21 oxyCODONE-APAP 7.5-325MG [Percocet 1 tab PO BID PRN #6 tab 05/01/21 7.5-325 mg] Albuterol Nebulized [Ventolin 2.5 mg INHALATION RT-QID PRN #90 05/02/21 Nebulized] neb Albuterol Sulfate [Proair Hfa] 2 puff INHALATION RT-QID PRN 30 05/02/21 Days #1 inhaler Cyanocobalamin [Vitamin B-12] 1,000 mcg PO DAILY #30 tab 05/02/21 Ergocalciferol [Vitamin D2 (1250 1,250 mcg PO MOFR #20 cap 05/02/21 Mcg = 87350 Iu)] INSULIN ASPART (NovoLOG) [NovoLOG 10 unit SQ AC-TID 30 Days #4 vial 05/02/21 (formulary)] Insulin Detemir (Levemir) [Levemir] 30 unit SQ HS 30 Days #4 syr 05/02/21 Metoprolol Tartrate [Lopressor] 25 mg PO BID #60 tab 05/02/21 QUEtiapine [SEROquel] 100 mg PO HS #30 tab 05/02/21 Sennosides [Senokot] 8.6 mg PO BID PRN #60 tab 05/02/21 amLODIPine [Norvasc] 10 mg PO DAILY #30 tablet 05/02/21 Aspirin 81 mg PO DAILY #30 chew 05/19/21 Nitroglycerin Sl Tabs [Nitrostat] 0.4 mg SUBLINGUAL Q5M PRN #30 tab 05/19/21 Allergies Allergy/AdvReac Type Severity Reaction Status Date / Time No Known Allergies Allergy Verified 05/18/21 17:51 Review of Systems ROS Statement: Those systems with pertinent positive or pertinent negative responses have been documented in the HPI. ROS Other: All systems not noted in ROS Statement are negative. 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 History of Any Multi-Drug Resistant Organisms: None Reported Date of last positivie culture/infection: 04/23/21 MDRO Source:: MRSA FOOT Past Surgical History: Cardiac Valve Replacement, Cholecystectomy, Orthopedic Surgery Additional Past Surgical History / Comment(s): aortic valve replacement 2017, R 4th toe amputated February 2021 Past Psychological History: Bipolar, Depression Smoking Status: Current some day smoker Past Alcohol Use History: None Reported Past Drug Use History: None Reported General Exam Limitations: no limitations General appearance: alert, in no apparent distress Head exam: Present: atraumatic Respiratory exam: Present: normal lung sounds bilaterally. Absent: respiratory distress, wheezes, rales, rhonchi, stridor, chest wall tenderness, accessory muscle use, decreased breath sounds Cardiovascular Exam: Present: regular rate, normal rhythm GI/Abdominal exam: Present: soft. Absent: distended, tenderness Extremities exam: Present: full ROM, normal capillary refill. Absent: tenderness, pedal edema Neurological exam: Present: alert, oriented X3 Psychiatric exam: Present: normal affect, normal mood Skin exam: Present: warm, dry, normal color. Absent: cyanosis, diaphoretic, petechiae, pallor Course Vital Signs 02/13/22 02/14/22 22:25 02:59 Temperature 97.7 F Pulse Rate 86 71 Respiratory 22 17 Rate Blood Pressure 187/93 188/96 O2 Sat by Pulse 99 98 Oximetry Medical Decision Making - Medical Decision Making 61-year-old male presents to the emergency room with chest pain ongoing since Saturday. Patient states at times it is severe lasting about an hour, but does not entirely go away. He also feels short of breath even at rest. He does have a history of aortic replacement 4 years ago at [facility]. 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 He has a history of diabetes, was a pack-a-day smoker but states recently quit 3 months ago. He did have an echo in April 2021 showing an ejection fraction of 55%. EKG shows sinus rhythm with no ST elevation. Troponin is negative at 0.012. Chest x-ray shows no acute cardiopulmonary disease. Due to patient's risk factors he will be placed in observation for cardiac consult. - Lab Data Result diagrams: 02/14/22 02:10 02/14/22 02:10 Lab Results 02/14/22 02/14/22 02/14/22 Range/Units 02:10 02:10 02:10 WBC 3.4 L (3.8-10.6) k/uL RBC 3.87 L (4.30-5.90) m/uL Hgb 11.7 L (13.0-17.5) gm/dL Hct 34.0 L (39.0-53.0) % MCV 87.8 (80.0-100.0) fL MCH 30.4 (25.0-35.0) pg MCHC 34.6 (31.0-37.0) g/dL RDW 14.1 (11.5-15.5) % MPV 9.1 PT 10.0 (9.0-12.0) sec INR 0.9 (<1.2) APTT 22.9 (22.0-30.0) sec Sodium 137 (137-145) mmol/L Potassium 3.7 (3.5-5.1) mmol/L Chloride 103 (98-107) mmol/L Carbon Dioxide 28 (22-30) mmol/L Anion Gap 6 mmol/L BUN 28 H (9-20) mg/dL Creatinine 1.29 H (0.66-1.25) mg/dL Est GFR (CKD-EPI)AfAm 69 (>60 ml/min/1.73 sqM) Est GFR (CKD-EPI)NonAf 60 (>60 ml/min/1.73 sqM) Glucose 181 H (74-99) mg/dL Plasma Lactic Acid Henri (0.7-2.0) mmol/L Calcium 8.8 (8.4-10.2) mg/dL Magnesium 1.8 (1.6-2.3) mg/dL Total Bilirubin 0.6 (0.2-1.3) mg/dL AST 30 (17-59) U/L ALT 21 (4-49) U/L Alkaline Phosphatase 75 (38-126) U/L Troponin I (0.000-0.034) ng/mL Total Protein 7.0 (6.3-8.2) g/dL Albumin 3.9 (3.5-5.0) g/dL Influenza Type A RNA (Not Detectd) Influenza Type B (PCR) (Not Detectd) 02/14/22 02/14/22 02/14/22 Range/Units 02:10 02:10 02:10 WBC (3.8-10.6) k/uL RBC (4.30-5.90) m/uL Hgb (13.0-17.5) gm/dL Hct (39.0-53.0) % MCV (80.0-100.0) fL MCH (25.0-35.0) pg MCHC (31.0-37.0) g/dL RDW (11.5-15.5) % MPV PT (9.0-12.0) sec INR (<1.2) APTT (22.0-30.0) sec Sodium (137-145) mmol/L Potassium (3.5-5.1) mmol/L Chloride (98-107) mmol/L Carbon Dioxide (22-30) mmol/L Anion Gap mmol/L BUN (9-20) mg/dL Creatinine (0.66-1.25) mg/dL Est GFR (CKD-EPI)AfAm (>60 ml/min/1.73 sqM) Est GFR (CKD-EPI)NonAf (>60 ml/min/1.73 sqM) Glucose (74-99) mg/dL Plasma Lactic Acid Henri 1.0 (0.7-2.0) mmol/L Calcium (8.4-10.2) mg/dL Magnesium (1.6-2.3) mg/dL Total Bilirubin (0.2-1.3) mg/dL AST (17-59) U/L ALT (4-49) U/L Alkaline Phosphatase (38-126) U/L Troponin I <0.012 (0.000-0.034) ng/mL Total Protein (6.3-8.2) g/dL Albumin (3.5-5.0) g/dL Influenza Type A RNA Not Detected (Not Detectd) Influenza Type B (PCR) Not Detected (Not Detectd) Disposition Clinical Impression: Chest pain Disposition: ADMITTED IP TO THIS [facility] Referrals: Anjelica Aguilar MD [Primary Care Provider] - 1-2 days Decision Date: 02/14/22 Decision Time: 03:12
--- NOTE | 2022-02-14 02:24 | XR ---
EXAMINATION TYPE: XR chest 2V DATE OF EXAM: 02/14/2022 COMPARISON: 05/18/2021 HISTORY: Difficulty breathing TECHNIQUE: 2 view FINDINGS: Heart and mediastinum are normal. Lungs are clear. Diaphragm is normal. Bony thorax is inta ct. There are chest leads. There are sternal wires. IMPRESSION: No active cardiopulmonary disease. Normal heart. No change.
[2022-02-14 02:55] LABS: Albumin 3.9 g/dL (3.5-5.0); Calcium 8.8 mg/dL (8.4-10.2); INR 0.9 (<1.2); Magnesium 1.8 mg/dL (1.6-2.3); Partial Thromboplastin Time 22.9 sec (22.0-30.0); Potassium 3.7 mmol/L (3.5-5.1); Total Bilirubin 0.6 mg/dL (0.2-1.3)
[2022-02-14 02:58] LABS: Basophils % (A) 1 %; Eosinophils # (A) 0.1 k/uL (0-0.7); Eosinophils % (A) 4 %; HGB 11.7 gm/dL (13.0-17.5); Lymphocytes # (A) 0.8 k/uL (1.0-4.8); Lymphocytes % (A) 24 %; MCH 30.4 pg (25.0-35.0); MCHC 34.6 g/dL (31.0-37.0); MCV 87.8 fL (80.0-100.0); Mean Platelet Volume 9.1; Monocytes # (A) 0.2 k/uL (0-1.0); Monocytes % (A) 5 %; Neutrophils # (A) 2.2 k/uL (1.3-7.7); Neutrophils % (A) 65 %; RBC 3.87 m/uL (4.30-5.90); RDW 14.1 % (11.5-15.5); WBC 3.4 k/uL (3.8-10.6)
[2022-02-14] MEDS ORDERED: LABETALOL 5 MG/ML VIAL MDV IVP STA (03:20)
[2022-02-14] MEDS ORDERED: ACETAMINOPHEN TAB 325 MG TAB PO PRN (03:20)
[2022-02-14] MEDS ORDERED: NALOXONE 0.4 MG/ML 1 ML VIAL IV PRN (03:20)
[2022-02-14 03:32] LABS: Platelet Count 85 k/uL (150-450)
[2022-02-14] MEDS: HYDROmorphone 0.5 MG/0.5 ML SYRINGE IVP PRN ×3 (04:06→12:15)
[2022-02-14] MEDS: SODIUM CHLORIDE 0.9% 1,000 ML IV SCH ×2 (04:08→16:32)
[2022-02-14] MEDS ORDERED: cloNIDine HCL 0.2 MG TAB PO PRN (04:17)
--- NOTE | 2022-02-14 04:29 | P.HPIM ---
History of Present Illness H&P Date: 02/14/22 Chief Complaint: atypical chest pain 61 year old male with history of valve disease s/p AVR, hypertension , DM , not currently on any treatment , and not following up with any doctors patient comes in with 3-4 days history of left sided chest pain, that is not related to activity, and can happen all of a sudden at rest , however, today he had severe chest pain while walking in the park , after 10 min of walking, he describes it as severe disabling left sided chest pain , that he could not walk back to his car. associated with profuse sweating, nausea vomiting, dizziness, and SOB. for which he decided to come in for evaluation , he denies any URI symptoms, abd pain or changes in his bowel or urinary habits, he denies any bleeding , headache, or focal neuro deficits. in the ED , he was found to have elevatd blood pressure, trops negative, EKG no acute ST changes , CXR no acute changes patient is very concerned as he does not take medications and has been lost to follow up with any doc for over a year now. he also reports severe chronic lower back pain, and requesting pain meds, denies radiculopathy Review of Systems Pertinent positives as noted in HPI. 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 History of Any Multi-Drug Resistant Organisms: None Reported Date of last positivie culture/infection: 04/23/21 MDRO Source:: MRSA FOOT Past Surgical History: Cardiac Valve Replacement, Cholecystectomy, Orthopedic Surgery Additional Past Surgical History / Comment(s): aortic valve replacement 2017, R 4th toe amputated February 2021 Past Psychological History: Bipolar, Depression Smoking Status: Current some day smoker Past Alcohol Use History: None Reported Past Drug Use History: None Reported - Past Family History familiy Family Medical History: No Reported History Medications and Allergies Home Medications Medication Instructions Recorded Confirmed Type Acetaminophen Tab [Tylenol] 500 mg PO Q6H PRN 03/21/21 05/18/21 History Collagenase [Santyl Ointment] 1 applic TOPICAL DAILY 03/21/21 05/18/21 History Insulin Aspart [NovoLOG Flexpen] See Protocol SQ AC-TID 03/21/21 05/18/21 History Cefepime [Maxipime] 2 gm IVPB Q8HR #0 vial 05/01/21 05/18/21 Rx DAPTOmycin [Cubicin] 600 mg IVPB Q24H #0 vial 05/01/21 05/18/21 Rx Gabapentin [Neurontin] 300 mg PO TID #6 cap 05/01/21 05/18/21 Rx Morphine Sulfate [Ms Contin] 15 mg PO Q12H #5 tab 05/01/21 05/18/21 Rx oxyCODONE-APAP 7.5-325MG [Percocet 1 tab PO BID PRN #6 tab 05/01/21 05/18/21 Rx 7.5-325 mg] Albuterol Nebulized [Ventolin 2.5 mg INHALATION RT-QID PRN #90 05/02/21 05/18/21 Rx Nebulized] neb Albuterol Sulfate [Proair Hfa] 2 puff INHALATION RT-QID PRN 30 05/02/21 05/18/21 Rx Days #1 inhaler Cyanocobalamin [Vitamin B-12] 1,000 mcg PO DAILY #30 tab 05/02/21 05/18/21 Rx Ergocalciferol [Vitamin D2 (1250 1,250 mcg PO MOFR #20 cap 05/02/21 05/18/21 Rx Mcg = 68435 Iu)] INSULIN ASPART (NovoLOG) [NovoLOG 10 unit SQ AC-TID 30 Days #4 vial 05/02/21 05/18/21 Rx (formulary)] Insulin Detemir (Levemir) [Levemir] 30 unit SQ HS 30 Days #4 syr 05/02/21 05/18/21 Rx Metoprolol Tartrate [Lopressor] 25 mg PO BID #60 tab 05/02/21 05/18/21 Rx QUEtiapine [SEROquel] 100 mg PO HS #30 tab 05/02/21 05/18/21 Rx Sennosides [Senokot] 8.6 mg PO BID PRN #60 tab 05/02/21 05/18/21 Rx amLODIPine [Norvasc] 10 mg PO DAILY #30 tablet 05/02/21 05/18/21 Rx Aspirin 81 mg PO DAILY #30 chew 05/19/21 Rx Nitroglycerin Sl Tabs [Nitrostat] 0.4 mg SUBLINGUAL Q5M PRN #30 tab 05/19/21 Rx Allergies Allergy/AdvReac Type Severity Reaction Status Date / Time No Known Allergies Allergy Verified 05/18/21 17:51 Physical Exam Vitals: Vital Signs Temp Pulse Resp BP Pulse Ox 02/14/22 04:08 67 18 178/97 98 02/14/22 02:59 71 17 188/96 98 02/13/22 22:25 97.7 F 86 22 187/93 99 Intake and Output 02/13/22 02/13/22 02/14/22 14:59 22:59 06:59 Other: Weight 92.986 kg Constitutional: No acute distress, conversant, pleasant Eyes: Anicteric sclerae, moist conjunctiva, Pupils equal round reactive to light ENMT: NC/AT Oropharynx clear, no erythema, or exudates Neck: Supple, FROM, no masses, or JVD No carotid bruits No thyromegaly Lungs: Clear to auscultation Clear to percussion Normal respiratory effort, no accessory muscle use Cardiovascular: Heart regular in rate and rhythm, No murmurs, gallops, or rubs No peripheral edema Abdominal: Soft Nontender, no guarding, rebound or rigidity Abdomen moving with respiration Normoactive bowel sounds No hepatomegaly, No splenomegaly No palpable mass No abdominal wall hernia noted Skin: Normal temperature, tone, texture, turgor No induration No subcutaneous nodules No rash, lesions No ulcers Extremities: No digital cyanosis No clubbing Pedal pulses intact and symmetrical Radial pulses intact and symmetrical No calf tenderness Psychiatric: Alert and oriented to person, place and time Appropriate affect fair judgement Neuro Muscles Strength 5/5 in all 4 extremities Sensation to light touch grossly present throughout Cranial nerves II-XII grossly intact No focal sensory deficits Lymphatics: no palpable cervical or supraclavicular , or inguinal lymph nodes Results CBC & Chem 7: 02/14/22 02:10 02/14/22 02:10 Labs: Abnormal Lab Results - Last 24 Hours (Table) 02/14/22 02/14/22 Range/Units 02:10 02:10 WBC 3.4 L (3.8-10.6) k/uL RBC 3.87 L (4.30-5.90) m/uL Hgb 11.7 L (13.0-17.5) gm/dL Hct 34.0 L (39.0-53.0) % Plt Count 85 L (150-450) k/uL Lymphocytes # 0.8 L (1.0-4.8) k/uL BUN 28 H (9-20) mg/dL Creatinine 1.29 H (0.66-1.25) mg/dL Glucose 181 H (74-99) mg/dL Assessment and Plan Assessment: atypical chest pain rule out ACS EKG no acute changes CXR no acute pathology trops negative monitoring and evaluation advisor monitor vital signs ASA, statin cardiology consult A1c, lipid panel , TSH pain control dilaudid hypertensive urgency clonidine PRN for systolic > 180 start amlodipine start HCTZ DM insulin sliding scale full code anticipated length of stay < 2 midnights heparin sc tid DVT PPX
[2022-02-14] MEDS: HEPARIN SODIUM,PORCINE/PF 5,000 UNIT/0.5 ML SYRINGE SQ SCH ×3 (08:39→20:40)
[2022-02-14] MEDS: amLODIPine 10 MG TAB PO SCH (08:40)
[2022-02-14] MEDS: ASPIRIN 81 MG PO SCH (08:40)
[2022-02-14 08:42] LABS: Glucose,Whole Blood 205 mg/dL (75-99)
[2022-02-14] MEDS: INSULIN ASPART (NovoLOG) 100 UNIT/ML VIAL SQ SCH ×4 (08:42→20:41)
[2022-02-14] MEDS: LOSARTAN 25 MG TAB PO SCH (08:48)
[2022-02-14] MEDS: hydroCHLOROthiazide 25 MG TAB PO SCH (08:48)
--- NOTE | 2022-02-14 10:17 | P.CRDCN ---
History of Present Illness History of present illness: This is a 61-year-old male with a known history of non-compliance with medications, diabetes insulin-dependent type 2, chronic back pain, and chronic pain syndrome, bipolar disorder, depression, chronic nicotine dependence recently quit 4 months ago, and History of IVDU 40 years ago heroin, history of bicuspid aortic valve s/p aortic valve replacement in 2018 at [facility] by Dr. Nunez, right toe amputation 03/21/21. In 04/23/2021 patient admitted for osteomyelitis of his right 4th toe base, and acute kidney injury, he had PICC line placed and IV antibiotics started. He does not follow with a associate merchant or PCP. We have been asked to see in consultation for chest pain. Patient is seen and examined in the emergency department. He states he has been having worsening chest pain across his chest for the past week. The weekend he noticed that he had worsening chest pain with walking and doing more activities. He feels fatigued, short of breath, needs to rest. The chest pain is inte rmittent. It is across his anterior chest. He describes it as sharp and a pressure. He denies any nausea, vomiting, diaphoresis. He denies orthopnea or PND, lower extremity edema, lightheadedness or syncope. He states he does not take any cardiac medications (previously documented patient was on metoprolol and amlodipine). He has smoked 1PPD for 40 years, quit 4 months ago. Family history includes grandparents with DE in their 60s. Denies alcohol or illicit drug use currently. Patient states he did have a stress test years ago and was told it was normal. He did have a cardiac catheterization before his valve replacement in 2018 and he was told it was normal. On admission patient was hypertensive with blood pressures 180s/90s. DIAGNOSTICS EKG reveals sinus rhythm, heart rate 82, no significant ST ST-T wave abnormalities Chest xray no acute findings, sternal wires present. Aorta does not appear to be dilated. 04/2021 CT chest revealed no pulmonary embolism. Ascending aorta measures up to 3.7 cm diameter cholecystectomy clips noted. Known cirrhosis and underlying portal vein hypertension. Laboratory reviewed, troponin negative 2, WBC 3.4, hemoglobin 11.7, platelets 85, sodium 137, potassium 3.7, BUN 28, serum creatinine 1.2, magnesium 1.8 Current home medications include insulin, Motrin, [place], albuterol, Seroquel 04/2021 Echocardiogram revealed left ventricular systolic function is normal and EF of between 55-60%, RV is mildly enlarged, normal functioning bioprosthetic valve. Trace mitral regurgitation, mild tricuspid regurgitation REVIEW OF SYSTEMS At the time of my exam: CONSTITUTIONAL: Denies fever or chills. CARDIOVASCULAR: Positive chest pain, positive shortness of breath. Denies orthopnea, PND or palpitations. RESPIRATORY: Denies cough. GASTROINTESTINAL: Denies abdominal pain, diarrhea, constipation,nausea or vomiting. MUSCULOSKELETAL: Positive lower back pain NEUROLOGIC: Denies numbness, tingling, headacbe or weakness. ENDOCRINE: Denies fatigue, weight change, polydipsia or polyurina. GENITOURINARY: Denies burning, hematuria or urgency with micturation. HEMATOLOGIC: history of anemia or bleeding. PHYSICAL EXAMINATION Blood pressure 152/71, heart rate 67, afebrile, saturation 95% on room air CONSTITUTIONAL: No apparent distress. HEENT: Head is normocephalic. Pupils are equal, round. Sclerae anicteric. Mucous membranes of the mouth are moist. No JVD. No carotid bruit. CHEST EXAMINATION: Lungs are clear to auscultation bilaterally HEART EXAMINATION: Regular rate and rhythm. S1, S2 heard. ABDOMEN: Soft, nontender. Positive bowel sounds. EXTREMITIES: 2+ peripheral pulses, no lower extremity edema and no calf tenderness. SKIN: Right toe amputation NEUROLOGIC EXAMINATION: Patient is awake, alert and oriented x3. ASSESSMENT Chest pain, appears to be related to uncontrolled hypertension, acute coronary syndrome unlikely. EKG with no signs of ischemia and negative cardiac enzymes Hypertensive Urgency Non-compliance Pancytopenia History of bicuspid aortic valve s/p aortic valve replacement in 2018 at [facility] by Dr. Nunez History of hypertension History of diabetes insulin-dependent type 2 Chronic back pain, and chronic pain syndrome History of bipolar disorder, depression Former Smoker Chronic kidney disease History of IVDU 40 years ago heroin History of nephrolithiasis Recent right toe amputation 03/21/21. Admission in 03/2021 for osteomyelitis of his right 4th toe base, and acute kidney injury, he had PICC line placed and IV antibiotics currently at home PLAN An acute coronary event has been ruled out with no EKG evidence of ischemia and negative cardiac enzymes. Obtain 2D echocardiogram and doppler study to assess cardiac structure and function. Obtain lipid panel Continue aspirin, amlodipine 10 mg daily, Hydrochlorothiazide 25 mg daily, losartan 25 mg daily Further recommendations based on clinical course Thank you kindly for this consultation. Nurse Practitioner note has been reviewed, I agree with a documented findings and plan of care. Patient was seen and examined. 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 History of Any Multi-Drug Resistant Organisms: None Reported Date of last positivie culture/infection: 04/23/21 MDRO Source:: MRSA FOOT Past Surgical History: Cardiac Valve Replacement, Cholecystectomy, Orthopedic Surgery Additional Past Surgical History / Comment(s): aortic valve replacement 2017, R 4th toe amputated February 2021 Past Psychological History: Bipolar, Depression Smoking Status: Current some day smoker Past Alcohol Use History: None Reported Past Drug Use History: None Reported - Past Family History familiy Family Medical History: No Reported History Medications and Allergies Home Medications Medication Instructions Recorded Confirmed Type QUEtiapine [SEROquel] 100 mg PO HS #30 tab 05/02/21 02/14/22 Rx Albuterol Sulfate [Proair Hfa] 2 puff INHALATION RT-Q4H PRN 02/14/22 02/14/22 History HYDROcodone/APAP 10-325MG [[place] 1 tab PO Q6HR PRN 02/14/22 02/14/22 History 10-325] Ibuprofen [Motrin] 800 mg PO BID PRN 02/14/22 02/14/22 History Insulin Detemir [Levemir Flextouch 30 unit SQ HS 02/14/22 02/14/22 History Pen] Insulin Regular, Human [Novolin R See Protocol SQ AC-TID PRN 02/14/22 02/14/22 History Flexpen] Allergies Allergy/AdvReac Type Severity Reaction Status Date / Time No Known Allergies Allergy Verified 05/18/21 17:51 Physical Exam Vitals: Vital Signs Temp Pulse Resp BP Pulse Ox 02/14/22 05:26 78 18 170/87 98 02/14/22 04:08 67 18 178/97 98 02/14/22 02:59 71 17 188/96 98 02/13/22 22:25 97.7 F 86 22 187/93 99 Intake and Output 02/13/22 02/14/22 02/14/22 22:59 06:59 14:59 Other: Weight 92.986 kg Results 02/14/22 02:10 02/14/22 02:10 Cardiac Enzymes 02/14/22 02/14/22 02/14/22 Range/Units 02:10 02:10 04:52 AST 30 (17-59) U/L Troponin I <0.012 0.015 (0.000-0.034) ng/mL Coagulation 02/14/22 Range/Units 02:10 PT 10.0 (9.0-12.0) sec APTT 22.9 (22.0-30.0) sec CBC 02/14/22 Range/Units 02:10 WBC 3.4 L (3.8-10.6) k/uL RBC 3.87 L (4.30-5.90) m/uL Hgb 11.7 L (13.0-17.5) gm/dL Hct 34.0 L (39.0-53.0) % Plt Count 85 L (150-450) k/uL Comprehensive Metabolic Panel 02/14/22 Range/Units 02:10 Sodium 137 (137-145) mmol/L Potassium 3.7 (3.5-5.1) mmol/L Chloride 103 (98-107) mmol/L Carbon Dioxide 28 (22-30) mmol/L BUN 28 H (9-20) mg/dL Creatinine 1.29 H (0.66-1.25) mg/dL Glucose 181 H (74-99) mg/dL Calcium 8.8 (8.4-10.2) mg/dL AST 30 (17-59) U/L ALT 21 (4-49) U/L Alkaline Phosphatase 75 (38-126) U/L Total Protein 7.0 (6.3-8.2) g/dL Albumin 3.9 (3.5-5.0) g/dL Current Medications Generic Name Dose Route Start Last Admin Trade Name Freq PRN Reason Stop Dose Admin Acetaminophen 650 mg 02/14/22 03:20 Acetaminophen Tab 325 Mg Tab PO Q6HR PRN Mild Pain or Fever > 100.5 Amlodipine Besylate 10 mg 02/14/22 09:00 Amlodipine 10 Mg Tab PO DAILY ALEX Clonidine 0.2 mg 02/14/22 04:17 Clonidine Hcl 0.2 Mg Tab PO QID PRN Blood Pressure - High Heparin Sodium (Porcine) 5,000 unit 02/14/22 08:00 Heparin Sodium,Porcine/Pf 5,000 Unit/0.5 Ml Syringe SQ Q8HR ALEX Hydrochlorothiazide 25 mg 02/14/22 09:00 Hydrochlorothiazide 25 Mg Tab PO DAILY ALEX Hydromorphone HCl 0.5 mg 02/14/22 03:20 02/14/22 04:06 Hydromorphone 0.5 Mg/0.5 Ml Syringe IVP 0.5 mg Q3HR PRN Administration Moderate Pain Sodium Chloride 1,000 mls @ 75 mls/hr 02/14/22 03:30 02/14/22 04:08 Saline 0.9% IV 75 mls/hr .[id number] ALEX Administration Insulin Aspart 0 unit 02/14/22 07:30 Insulin Aspart (Novolog) 100 Unit/Ml Vial SQ ACHS ALEX Protocol Naloxone HCl 0.2 mg 02/14/22 03:20 Naloxone 0.4 Mg/Ml 1 Ml Vial IV Q2M PRN Opioid Reversal Intake and Output 02/13/22 02/14/22 02/14/22 22:59 06:59 14:59 Other: Weight 92.986 kg 02/14/22 02:10 02/14/22 02:10
[2022-02-14 10:48] LABS: Chol/HDL Ratio 4.33 Ratio; LDL Cholesterol,Calculated 94.3 mg/dL (0.0-131.0)
[2022-02-14 12:11] LABS: Glucose,Whole Blood 249 mg/dL (75-99)
--- NOTE | 2022-02-14 13:39 | CA ---
Transthoracic Echo Report Name: Josue Chaney Age: 61 Gender: M : 1960 Exam Date: 02/14/2022 08:56 Exam Location: [place] [facility] Ht (in): 73 Wt (lb): 205 Ordering Physician: Fransico Robbins Attending/Referring Phys: Ring Attacher Tori Linn RDCS Procedure CPT: Indications: Chest Pain Cardiac Hx: Technical Quality: Fair Contrast 1: Total Dose (mL): Contrast 2: Total Dose (mL): MEASUREMENTS (Male / Female) Normal Values 2D ECHO LV Diastolic Diameter PLAX 4.6 cm 4.2 - 5.9 / 3.9 - 5.3 cm LV Systolic Diameter PLAX 3.4 cm IVS Diastolic Thickness 1.6 cm 0.6 - 1.0 / 0.6 - 0.9 cm LVPW Diastolic Thickness 1.4 cm 0.6 - 1.0 / 0.6 - 0.9 cm LV Relative Wall Thickness 0.7 RV Internal Dim ED PLAX 3.5 cm LVOT Diameter 2.2 cm LA Systolic Diameter LX 3.6 cm 3.0 - 4.0 / 2.7 - 3.8 cm LA Volume 59.9 cm??? 18 - 58 / 22 - 52 cm??? M-MODE Aortic Root Diameter MM 2.9 cm MV E Point Septal Separation 1.2 cm AV Cusp Separation MM 2.1 cm DOPPLER AV Peak Velocity 232.9 cm/s AV Peak Gradient 21.7 mmHg AV Mean Velocity 169.2 cm/s AV Mean Gradient 12.5 mmHg AV Velocity Time Integral 54.7 cm LVOT Peak Velocity 156.8 cm/s LVOT Peak Gradient 9.8 mmHg AV Area Cont Eq pk 2.5 cm??? MV Area PHT 5.2 cm??? Mitral E Point Velocity 122.6 cm/s Mitral A Point Velocity 133.9 cm/s Mitral E to A Ratio 0.9 MV Deceleration Time 147.1 ms TR Peak Velocity 287.3 cm/s TR Peak Gradient 33.0 mmHg Right Ventricular Systolic Press 38.0 mmHg FINDINGS Left Ventricle Left ventricular ejection fraction is estimated at 60-65 %. Left ventricular cavity size normal. Moderate concentric left ventricular hypertrophy. Right Ventricle Mild right ventricular dilatation. Mild pulmonary hypertension. Right Atrium Normal right atrial size. Left Atrium Mildly increased left atrial volume. Mildly increased left atrial area. No evidence for an atrial septal defect. Mitral Valve Mitral annular calcification. No mitral stenosis, regurgitation or prolapse. Aortic Valve Aortic valve not well visualized. Normly functioning bioprostetic AOV no aortic valve stenosis or regurgitation. Peak gradient 22 mmHg, mean gradient 13 mmHg Tricuspid Valve Mild tricuspid regurgitation. Pulmonic Valve Pulmonic valve not well visualized. Pericardium Normal pericardium. Aorta Normal size aortic root and proximal ascending aorta. CONCLUSIONS Normal left ventricular dimension and systolic function Normally functioning bioprosthetic aortic valve prosthesis Please see above for further details Previewed by: Dr. Mohsen Mejia MD (Electronically Signed) Final Date: 14 Feb 2022 13:38
--- NOTE | 2022-02-14 13:44 | P.PN ---
Progress Note - Text Progress Note Date: 02/14/22 Patient presented with intermittent chest pain. He states that his is not associated with exertion. Patient states that he is only taking his diabetic meds. He is not taking any of his cardiac meds. Patient was hypertensive in the ED. We'll continue her current BP regimen. If echocardiogram and blood pressure is controlled we'll plan on discharging the patient in the next 24 hours. Appreciate recommendations from cardiology. ACS has been ruled out.
[2022-02-14] MEDS ORDERED: ALBUTEROL NEBULIZED 2.5 MG/3 ML INHALATION PRN (14:40)
[2022-02-14] MEDS: LIDOCAINE 5% PATCH TOPICAL SCH (16:37)
[2022-02-14 16:57] LABS: Glucose,Whole Blood 143 mg/dL (75-99)
[2022-02-14 20:37] LABS: Glucose,Whole Blood 214 mg/dL (75-99)
[2022-02-14] MEDS: INSULIN DETEMIR (LEVEMIR) 100 UNIT/ML SYR SQ SCH (20:40)
[2022-02-14] MEDS: HYDROcodone/APAP 10-325MG 1 EACH TAB PO PRN (20:40)
[2022-02-14] MEDS: QUEtiapine 100 MG TAB PO SCH (20:41)
[2022-02-15] MEDS: SODIUM CHLORIDE 0.9% 1,000 ML IV SCH ×3 (06:14→21:02)
[2022-02-15 06:45] LABS: Basophils % (A) 1 %; Eosinophils # (A) 0.1 k/uL (0-0.7); Eosinophils % (A) 4 %; HCT 31.4 % (39.0-53.0); HGB 10.5 gm/dL (13.0-17.5); Lymphocytes # (A) 0.7 k/uL (1.0-4.8); Lymphocytes % (A) 27 %; MCH 29.3 pg (25.0-35.0); MCHC 33.3 g/dL (31.0-37.0); MCV 88.1 fL (80.0-100.0); Mean Platelet Volume 9.1; Monocytes # (A) 0.2 k/uL (0-1.0); Monocytes % (A) 7 %; Neutrophils # (A) 1.6 k/uL (1.3-7.7); Neutrophils % (A) 60 %; RBC 3.57 m/uL (4.30-5.90); RDW 13.3 % (11.5-15.5); WBC 2.6 k/uL (3.8-10.6)
[2022-02-15 06:51] LABS: African American GFR (CKD) 77 (>60 ml/min/1.73 sqM); Anion Gap 2 mmol/L; Blood Urea Nitrogen 22 mg/dL (9-20); Calcium 8.3 mg/dL (8.4-10.2); Carbon Dioxide 31 mmol/L (22-30); Chloride 104 mmol/L (98-107); Glucose 139 mg/dL (74-99); Non-African American GFR(CKD) 67 (>60 ml/min/1.73 sqM); Potassium 3.3 mmol/L (3.5-5.1); Sodium 137 mmol/L (137-145)
[2022-02-15 06:54] LABS: Platelet Count 73 k/uL (150-450)
[2022-02-15] MEDS ORDERED: Potassium Replacement Protocol 1 EACH MISC MISCELLANE PRN (07:07)
[2022-02-15 07:21] LABS: Glucose,Whole Blood 130 mg/dL (75-99)
[2022-02-15] MEDS: INSULIN ASPART (NovoLOG) 100 UNIT/ML VIAL SQ SCH ×5 (07:48→21:10)
[2022-02-15] MEDS: LIDOCAINE 5% PATCH TOPICAL SCH ×2 (08:23→10:34)
[2022-02-15] MEDS: HEPARIN SODIUM,PORCINE/PF 5,000 UNIT/0.5 ML SYRINGE SQ SCH ×3 (08:23→21:08)
[2022-02-15] MEDS: HYDROcodone/APAP 10-325MG 1 EACH TAB PO PRN ×3 (08:24→20:56)
[2022-02-15] MEDS: ASPIRIN 81 MG PO SCH (08:24)
[2022-02-15] MEDS: POTASSIUM CHLORIDE ER 20 MEQ TAB.ER PO SCH ×2 (08:24→09:40)
[2022-02-15] MEDS: amLODIPine 10 MG TAB PO SCH (08:24)
[2022-02-15] MEDS: LOSARTAN 25 MG TAB PO SCH (08:25)
[2022-02-15] MEDS: hydroCHLOROthiazide 25 MG TAB PO SCH (08:25)
[2022-02-15] MEDS ORDERED: LOSARTAN 25 MG TAB PO STA (08:50)
[2022-02-15] MEDS ORDERED: LOSARTAN 25 MG TAB PO SCH (09:00)
[2022-02-15] MEDS ORDERED: POTASSIUM CHLORIDE ER 20 MEQ TAB.ER PO STA (09:11)
[2022-02-15] MEDS: SPIRONOLACTONE 25 MG TAB PO SCH (09:39)
--- NOTE | 2022-02-15 09:44 | CT ---
EXAMINATION TYPE: CT angio chest DATE OF EXAM: 02/15/2022 9:33 AM COMPARISON: 05/18/2021 HISTORY: Chest pain. CT DLP: 923.3 mGycm Automated exposure control for dose reduction was used. CONTRAST: CTA scan of the thorax is performed with IV Contrast, patient injected with 100ml mL of Isovue 370, p ulmonary embolism protocol. . FINDINGS: LUNGS: The lungs are grossly clear, there is no concerning parenchymal mass or nodule identified. T here is no pleural effusion or pneumothorax seen. The tracheobronchial tree is patent. Correlate for mild COPD. Subsegmental changes involving the left lung most typical of atelectasis. MEDIASTINUM: There is suboptimal enhancement of the pulmonary artery and its branches, there is no CT evidence for central pulmonary embolism. Remaining branches limited. Satisfactory enhancement of the aorta without dissection . Ascending aorta measures up to 3.7 cm in d iameter. There are no greater than 1 cm hilar or mediastinal lymph nodes. No cardiomegaly or pericard ial effusion is seen. Overlying sternal wires are redemonstrated. Surgical change of level of aortic valve again seen. OTHER: Cholecystectomy clips noted. Lobulated contour to liver consistent with known cirrhosis. Reca nalized umbilical vein. Tortuous prominent splenic vein and tortuous splenic artery. Visualized porti on of spleen is prominent. Findings consistent with known cirrhosis and underlying portal venous hype rtension with splenomegaly measuring 15 cm and varices. [id number]-[id number] multilevel spurring in the s pine. IMPRESSION: 1. No evidence of aortic dissection as visualized. 2. Correlate for COPD. 3. Splenomegaly correlate for liver cirrhosis with varices.
--- NOTE | 2022-02-15 10:14 | P.PN ---
Subjective This is a 61-year-old male with a known history of non-compliance with medications, diabetes insulin-dependent type 2, chronic back pain, and chronic pain syndrome, bipolar disorder, depression, chronic nicotine dependence recently quit 4 months ago, and History of IVDU 40 years ago heroin, history of bicuspid aortic valve s/p aortic valve replacement in 2018 at [facility] by Dr. Nunez, right toe amputation 03/21/21. In 04/23/2021 patient admitted for osteomyelitis of his right 4th toe base, and acute kidney injury, he had PICC line placed and IV antibiotics started. 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 We have been asked to see in consultation for chest pain. Patient is seen and examined in the emergency department with worsening chest pain across his chest for the past week. The weekend he noticed that he had worsening chest pain with walking and doing more activities. He feels fatigued, short of breath, needs to rest. The chest pain is intermittent. It is across his anterior chest. He describes it as sharp and a pressure. He states he does not take any cardiac medications (previously documented patient was on metoprolol and amlodipine). He has smoked 1PPD for 40 years, quit 4 months ago.Patient states he did have a stress test years ago and was told it was normal. He did have a cardiac catheterization before his valve replacement in 2018 and he was told it was normal. On admission patient was hypertensive with blood pressures 180s/90s. 02/15/2022 Patient seen and examined at bedside, he continues to have increased left-sided chest pain. He denies shortness of breath, weakness or dizziness. His blood pressures continued to be elevated. Echocardiogram [place] EF [place] 6065% moderate concentric LVH, normal functioning bioprosthetic aortic valve no aortic valve stenosis or regurgitation. He's currently maintained on amlodipine 10 mg daily, aspirin 81 mg daily, Hydrochlorothiazide 25 mg daily, losartan 25 mg daily PHYSICAL EXAMINATION Blood pressure 178/74, heart rate 73, afebrile, saturations 99% on room air CONSTITUTIONAL: No apparent distress. HEENT: Neck Supple No JVD. CHEST EXAMINATION: Lungs are clear to auscultation bilaterally HEART EXAMINATION: Regular rate and rhythm. S1, S2 heard. ABDOMEN: Soft, nontender. Positive bowel sounds. EXTREMITIES: 2+ peripheral pulses, no lower extremity edema and no calf tenderness. SKIN: Right toe amputation NEUROLOGIC EXAMINATION: Patient is awake, alert and oriented x3. ASSESSMENT Chest pain, appears to be related to uncontrolled hypertension, acute coronary syndrome unlikely. EKG with no signs of ischemia and negative cardiac enzymes Hypertensive Urgency Non-compliance Pancytopenia History of bicuspid aortic valve s/p aortic valve replacement in 2018 at [facility] by [address]. Nunez History of hypertension History of diabetes insulin-dependent type 2 Chronic back pain, and chronic pain syndrome History of bipolar disorder, depression Former Smoker Chronic kidney disease History of IVDU 40 years ago heroin History of nephrolithiasis Recent right toe amputation 03/21/21. Admission in 03/2021 for osteomyelitis of his right 4th toe base, and acute kidney injury, he had PICC line placed and IV antibiotics currently at home Dyslipidemia Hypokalemia PLAN An acute coronary event has been ruled out with no EKG evidence of ischemia and negative cardiac enzymes. Obtain CTA of the chest to assess aortic dissection and pulmonary embolism Increase losartan to 50mg daily Add spironolactone 25mg daily Add statin Continue aspirin, amlodipine 10 mg daily, Hydrochlorothiazide 25 mg daily Further recommendations based on clinical course Nurse Practitioner note has been reviewed, I agree with a documented findings and plan of care. Patient was seen and examined. Objective - Vital Signs Vital signs: Vital Signs Temp 98.1 F 02/15/22 07:32 Pulse 73 02/15/22 07:32 Resp 18 02/15/22 07:32 BP 178/74 02/15/22 07:32 Pulse Ox 99 02/15/22 07:32 Intake & Output 02/14/22 02/15/22 02/15/22 18:59 06:59 18:59 Intake Total 118 Balance 118 Weight 92.986 kg Intake: Oral 118 Other: # Voids 1 - Labs CBC & Chem 7: 02/15/22 05:41 02/15/22 05:41 Labs: Abnormal Lab Results - Last 24 Hours (Table) 02/14/22 02/14/22 02/14/22 Range/Units 02:10 12:08 16:54 WBC (3.8-10.6) k/uL RBC (4.30-5.90) m/uL Hgb (13.0-17.5) gm/dL Hct (39.0-53.0) % Plt Count (150-450) k/uL Lymphocytes # (1.0-4.8) k/uL Potassium (3.5-5.1) mmol/L Carbon Dioxide (22-30) mmol/L BUN (9-20) mg/dL Glucose (74-99) mg/dL POC Glucose (mg/dL) 249 H 143 H (75-99) mg/dL Calcium (8.4-10.2) mg/dL Triglycerides 182.00 H (0.00-149.00) mg/dL HDL Cholesterol 39.30 L (40.00-60.00) mg/dL 02/14/22 02/15/22 02/15/22 Range/Units 20:36 05:41 05:41 WBC 2.6 L (3.8-10.6) k/uL RBC 3.57 L (4.30-5.90) m/uL Hgb 10.5 L (13.0-17.5) gm/dL Hct 31.4 L (39.0-53.0) % Plt Count 73 L (150-450) k/uL Lymphocytes # 0.7 L (1.0-4.8) k/uL Potassium 3.3 L (3.5-5.1) mmol/L Carbon Dioxide 31 H (22-30) mmol/L BUN 22 H (9-20) mg/dL Glucose 139 H (74-99) mg/dL POC Glucose (mg/dL) 214 H (75-99) mg/dL Calcium 8.3 L (8.4-10.2) mg/dL Triglycerides (0.00-149.00) mg/dL HDL Cholesterol (40.00-60.00) mg/dL 02/15/22 Range/Units 07:19 WBC (3.8-10.6) k/uL RBC (4.30-5.90) m/uL Hgb (13.0-17.5) gm/dL Hct (39.0-53.0) % Plt Count (150-450) k/uL Lymphocytes # (1.0-4.8) k/uL Potassium (3.5-5.1) mmol/L Carbon Dioxide (22-30) mmol/L BUN (9-20) mg/dL Glucose (74-99) mg/dL POC Glucose (mg/dL) 130 H (75-99) mg/dL Calcium (8.4-10.2) mg/dL Triglycerides (0.00-149.00) mg/dL HDL Cholesterol (40.00-60.00) mg/dL
[2022-02-15 12:02] LABS: Glucose,Whole Blood 193 mg/dL (75-99)
[2022-02-15] MEDS ORDERED: LORazepam 2 MG/ML INJ IV STA (14:33)
--- NOTE | 2022-02-15 16:16 | P.PN ---
Subjective Progress Note Date: 02/15/22 Hospital course: Patient is a 61-year-old male with a past medical history of CAD with history of aortic valve replacement, hypertension, COPD, and insulin-dependent diabetes mellitus. Patient reported that he is not currently taking any medications and denies following with any doctors. presented to the hospital on 02/14/22 with a chief complaint of chest pain. He underwent full evaluation in the emergency department. Vital signs consistent with hypertensive urgency with blood pressure of 191/104. He was found to have pancytopenia with hemoglobin 11.7, WBC count 3.4, and platelet count of 85. Renal function slightly elevated with BUN 28, creatinine 1.29, and GFR of 60. Troponin negative at < 0.012. EKG completed showing normal sinus rhythm 82 bpm with no noted T-wave or ST abnormalities showing no signs of acute ischemia. Chest x-ray was negative for acute cardiopulmonary process. Patient was admitted under our services with consultation to cardiology. Troponins trended negative at less than 0.012 and 0.015. Triglycerides elevated at 182. Cardiology evaluated ruling out an acute coronary event and started patient on Aldactone and increased losartan from 25 mg daily up to 50 mg daily in addition to daily medication regimen with hydro chlorothiazide and amlodipine. Echocardiogram completed revealing normal EF of 60-65% with normal functioning bioprosthetic aortic valve prosthesis. CTA chest negative for aortic dissection, correlating for COPD, splenomegaly, and liver cirrhosis with varices. Patient's blood pressure remains uncontrolled despite multiple medication changes. Cardiology recommending again overnight monitoring of vital signs. Secondary to CT findings showing newly diagnosed splenomegaly and liver cirrhosis varices, order was placed for liver ultrasound to further evaluate and consult was placed to gastroenterology secondary to new findings and patient's continued reports of midsternal and epigastric pain/discomfort after acute coronary event has been ruled out. Physical exam: Patient seen and fully evaluated at the bedside this morning. Patient reports continued midsternal/epigastric pain/discomfort. He reports shortness of breath has improved but states he is also at rest and this has been most significant with exertion. Patient also reports lower back pain, otherwise denies having any headache, lightheadedness, dizziness, palpitations, nausea, vomiting, or experiencing any numbness/tingling/weakness in his extremities. Morning labs reviewed and continue to show worsening pancytopenia with WBCs 2.6, hemoglobin 10.5, and platelet count of 73. Vital signs reviewed and stable. General: Nontoxic, no distress and appears stated age. Derm: Skin warm and dry, normal coloration for ethnicity. Head: Atraumatic, normocephalic and symmetric. Eyes: EOMs intact, no lid lag, and anicteric sclera Mouth: no lip lesions, mucus membranes moist Cardiovascular: regular rate and rhythm with normal S1S2, no murmur, positive posterior tibial pulses bilaterally, and cap refill < 2 seconds. Lungs: Respirations even, regular, and unlabored on room air. Lungs CTA bilaterally, no rhonchi, no rales, no wheezing, and no accessory muscle usage. Abdominal: soft, nontender to palpation, no guarding, no appreciable organomegaly Ext: ROM intact. No gross muscle atrophy, no edema, no contractures Neuro: Speech clear, face symmetrical and CN II-XII grossly intact with no noted focal neuro deficits Psych: Alert and oriented to person, place, time, and situation. Appropriate and pleasant affect. Assessment and Plan of Care: Atypical chest pain, acute coronary event ruled out Hypertensive urgency Dyspnea with exertion -Multiple medication changes have been made. Losartan was increased from 25 mg daily up to 50 mg daily and Aldactone was added on to daily medication regimen of hydrochlorothiazide and amlodipine. -Blood pressure still remains uncontrolled despite multiple medication changes. We will continue to monitor closely medicated as needed and further evaluate for other underlying cause of current hypertensive urgency. -Telemetry monitoring -Cardiology following, appreciate further recommendations Pancytopenia, unclear etiology likely secondary to cirrhosis of liver Splenomegaly Liver cirrhosis with varices Chronic back pain -Obtain ultrasound and liver for further evaluation -Consult placed to GI for evaluation of liver cirrhosis with varices, splenomegaly -Continued close monitoring with repeat a.m. labs. Acute kidney injury and CKD stage II, improving -Improved with gentle IV fluid hydration Hyperlipidemia, hypertriglyceridemia with triglycerides of 182 -Continue medication regimen with atorvastatin 40 mg daily. Hypokalemia, replaced CODE STATUS: Full code DVT prophylaxis: Heparin Discussed with: Patient and RN Anticipated discharge date: Clinical course to determine Anticipated discharge place: Home A total of 39 minutes was spent on the care of this complex patient more than 50% of the time was spent in counseling and care coordination. Objective - Vital Signs Vital signs: Vital Signs Temp 98.7 F 05/19/22 13:44 Pulse 97 02/15/22 13:44 Resp 16 02/15/22 13:44 BP 173/94 02/15/22 13:44 Pulse Ox 97 02/15/22 13:44 Intake & Output 02/14/22 02/15/22 02/15/22 18:59 06:59 18:59 Intake Total 236 Balance 236 Weight 92.986 kg Intake: Oral 236 Other: # Voids 1 - Labs CBC & Chem 7: 02/15/22 05:41 02/15/22 05:41 Labs: Abnormal Lab Results - Last 24 Hours (Table) 02/14/22 02/14/22 02/15/22 Range/Units 16:54 20:36 05:41 WBC 2.6 L (3.8-10.6) k/uL RBC 3.57 L (4.30-5.90) m/uL Hgb 10.5 L (13.0-17.5) gm/dL Hct 31.4 L (39.0-53.0) % Plt Count 73 L (150-450) k/uL Lymphocytes # 0.7 L (1.0-4.8) k/uL Potassium (3.5-5.1) mmol/L Carbon Dioxide (22-30) mmol/L BUN (9-20) mg/dL Glucose (74-99) mg/dL POC Glucose (mg/dL) 143 H 214 H (75-99) mg/dL Calcium (8.4-10.2) mg/dL 02/15/22 02/15/22 02/15/22 Range/Units 05:41 07:19 12:00 WBC (3.8-10.6) k/uL RBC (4.30-5.90) m/uL Hgb (13.0-17.5) gm/dL Hct (39.0-53.0) % Plt Count (150-450) k/uL Lymphocytes # (1.0-4.8) k/uL Potassium 3.3 L (3.5-5.1) mmol/L Carbon Dioxide 31 H (22-30) mmol/L BUN 22 H (9-20) mg/dL Glucose 139 H (74-99) mg/dL POC Glucose (mg/dL) 130 H 193 H (75-99) mg/dL Calcium 8.3 L (8.4-10.2) mg/dL
[2022-02-15 16:55] LABS: Glucose,Whole Blood 264 mg/dL (75-99)
[2022-02-15 20:45] LABS: Glucose,Whole Blood 210 mg/dL (75-99)
[2022-02-15] MEDS: QUEtiapine 100 MG TAB PO SCH (20:56)
[2022-02-15] MEDS ORDERED: ATORVASTATIN 40 MG TAB PO SCH (21:00)
[2022-02-15] MEDS: INSULIN DETEMIR (LEVEMIR) 100 UNIT/ML SYR SQ SCH (21:04)
[2022-02-16 06:55] LABS: Glucose,Whole Blood 194 mg/dL (75-99)
[2022-02-16 07:54] VITALS: PULSE 72; TEMP 97.6
[2022-02-16] MEDS: LIDOCAINE 5% PATCH TOPICAL SCH (08:08)
[2022-02-16] MEDS: amLODIPine 10 MG TAB PO SCH (08:09)
[2022-02-16] MEDS: SPIRONOLACTONE 25 MG TAB PO SCH (08:09)
[2022-02-16] MEDS: hydroCHLOROthiazide 25 MG TAB PO SCH (08:09)
[2022-02-16] MEDS: HYDROcodone/APAP 10-325MG 1 EACH TAB PO PRN (08:10)
[2022-02-16] MEDS: ASPIRIN 81 MG PO SCH (08:11)
[2022-02-16] MEDS: INSULIN ASPART (NovoLOG) 100 UNIT/ML VIAL SQ SCH (08:11)
[2022-02-16] MEDS: HEPARIN SODIUM,PORCINE/PF 5,000 UNIT/0.5 ML SYRINGE SQ SCH (08:12)
[2022-02-16] MEDS ORDERED: carvediloL 6.25 MG TAB PO SCH (08:30)
--- NOTE | 2022-02-16 08:37 | US ---
EXAMINATION TYPE: US abdomen complete DATE OF EXAM: 02/16/2022 COMPARISON: CT abdomen and pelvis April 26, 2021 CLINICAL HISTORY: CT showing liver cirrhosis, splenomegaly. enlarged liver spleen on CT, chest pain, high BP, known cirrhosis, cholecystectomy EXAM MEASUREMENTS: Liver Length: 18.9 cm Gallbladder Wall: Surgically absent CBD: 0.8 cm Spleen: 18.4 cm Right Kidney: 10.6 x 4.3 x 5.2 cm Left Kidney: 12.0 x 3.6 x 5.1 cm Pancreas: portions seen appear wnl Liver: enlarged Gallbladder: Surgically absent Evidence for sonographic Pradhan's sign: no CBD: wnl Spleen: enlarged Right Kidney: wnl Left Kidney: wnl Upper IVC: wnl Abd Aorta: limited views The visualized pancreas is heterogeneous without mass or ductal dilatation. The intrahepatic portion of the IVC and visualized abdominal aorta are within normal limits. Visualized liver is heterogeneo usly hyperechoic and measuring slightly enlarged in size. Evaluation for focal masses suboptimal due to the heterogeneity. No significant intrahepatic or extrahepatic biliary dilatation after cholecyste ctomy. Gallbladder surgically absent. The spleen remains enlarged. Kidneys are symmetric and free o f hydronephrosis. No renal lesions are seen. IMPRESSION: Underlying hepatocellular disease or cirrhosis redemonstrated. Mild hepatomegaly. Stable more prominent splenomegaly. No surrounding ascites currently.
[2022-02-16] MEDS ORDERED: LOSARTAN 25 MG TAB PO SCH (09:00)
[2022-02-16 09:01] LABS: African American GFR (CKD) 62.8 (60.0-200.0); Albumin 3.4 g/dL (3.8-4.9); Albumin/Globulin Ratio 1.42 (1.60-3.17); Anion Gap 8.7 mmol/L (10.00-18.00); BUN/Creat Ratio 17.36 Ratio (12.00-20.00); Blood Urea Nitrogen 24.3 mg/dL (9.0-27.0); Calcium 8.7 mg/dL (8.7-10.3); Carbon Dioxide 28.3 mmol/L (20.0-27.5); Globulin 2.4 g/dL (1.6-3.3); Magnesium 1.9 mg/dL (1.5-2.4); Non-African American GFR(CKD) 54.2 (60.0-200.0); Potassium 4.4 mmol/L (3.5-5.5); Total Bilirubin 0.2 mg/dL (0.30-1.20); Total Protein 5.8 g/dL (6.2-8.2)
[2022-02-16 09:24] LABS: HCT 30.3 % (39.6-50.0); HGB 10.2 g/dL (13.0-17.0); RBC 3.47 X 10*6/uL (4.40-5.60); WBC 2.16 X 10*3/uL (4.50-10.00)
[2022-02-16 09:25] LABS: Immature Platelet Fraction 8.1 % (1.1-6.1); MCH 29.4 pg (27.0-32.0); MCHC 33.7 g/dL (32.0-37.0); MCV 87.3 fL (80.0-97.0); Mean Platelet Volume 11.9 fL (9.5-12.2); NRBC Per 100 WBC 0 /100 WBCS (0.0-0.0); Platelet Count 62 X 10*3/uL (140-440); RDW 13.2 % (11.5-14.5)
[2022-02-16] MEDS ORDERED: PANTOPRAZOLE 40 MG TABLET PO SCH (09:30)
--- NOTE | 2022-02-16 10:47 | P.PN ---
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 Nunez, right toe amputation 03/21/21. In 04/23/2021 patient admitted for osteomyelitis of his right 4th toe base, and acute kidney injury, he had PICC line placed and IV antibiotics started. He does not follow with a button cutter or PCP. We have been asked to see in consultation for chest pain. Patient is seen and examined in the emergency department with worsening chest pain across his chest for the past week. The weekend he noticed that he had worsening chest pain with walking and doing more activities. He feels fatigued, short of breath, needs to rest. The chest pain is intermittent. It is across his anterior chest. He describes it as sharp and a pressure. He states he does not take any cardiac medications (previously documented patient was on metoprolol and amlodipine). He has smoked 1PPD for 40 years, quit 4 months ago.Patient states he did have a stress test years ago and was told it was normal. He did have a cardiac catheterization before his valve replacement in 2018 and he was told it was normal. On admission patient was hypertensive with blood pressures 180s/90s. 02/16/2022 Patient seen and examined at bedside, his chest pain has improved. He denies shortness of breath, weakness or dizziness. BP 175/80 HR 72, improved since admission. CTA yesterday revealedno evidence of aortic dissection, COPD, splenomegaly correlate for liver cirrhosis, ascending aorta measures 3.7 cm Echocardiogram revealed EF of 6065% moderate concentric LVH, normal functioning bioprosthetic aortic valve no aortic valve stenosis or regurgitation. He's currently maintained on amlodipine 10 mg daily, aspirin 81 mg daily, Hydrochlorothiazide 25 mg daily, losartan 50 mg daily, spironolactone 25mg daily, atorvastatin 40mg daily. he was given a one-time dose of clonidine overnight. PHYSICAL EXAMINATION Vitals reviewed CONSTITUTIONAL: No apparent distress. HEENT: Neck Supple No JVD. CHEST EXAMINATION: Lungs are clear to auscultation bilaterally HEART EXAMINATION: Regular rate and rhythm. S1, S2 heard. ABDOMEN: Soft, nontender. Positive bowel sounds. EXTREMITIES: 2+ peripheral pulses, no lower extremity edema and no calf tenderness. SKIN: Right toe amputation NEUROLOGIC EXAMINATION: Patient is awake, alert and oriented x3. ASSESSMENT Chest pain, appears to be related to uncontrolled hypertension, acute coronary syndrome unlikely. EKG with no signs of ischemia and negative cardiac enzymes Hypertensive Urgency Non-compliance Pancytopenia History of bicuspid aortic valve s/p aortic valve replacement in 2018 at [facility] by Dr. Nunez History of hypertension History of diabetes insulin-dependent type 2 Chronic back pain, and chronic pain syndrome History of bipolar disorder, depression Former Smoker Chronic kidney disease History of IVDU 40 years ago heroin History of nephrolithiasis Recent right toe amputation 03/21/21. Admission in 03/2021 for osteomyelitis of his right 4th toe base, and acute kidney injury, he had PICC line placed and IV antibiotics currently at home Dyslipidemia Hypokalemia PLAN An acute coronary event has been ruled out with no EKG evidence of ischemia and negative cardiac enzymes. Add carvedilol 6.25mg BID Continue losartan, spironolactone, statin, aspirin, amlodipine 10 mg daily, Hydrochlorothiazide 25 mg daily From a cardiology perspective, patient is stable. Ok to discharge today. Follow up outpatient with Dr. Mejia in 1-2 weeks for further adjustment with antihyper tensives if indicated. Nurse Practitioner note has been reviewed, I agree with a documented findings and plan of care. Patient was seen and examined. Objective - Vital Signs Vital signs: Vital Signs Temp 97.6 F 02/16/22 07:53 Pulse 72 02/16/22 07:53 Resp 16 02/16/22 07:53 BP 175/80 02/16/22 07:53 Pulse Ox 97 02/16/22 07:53 Intake & Output 02/15/22 02/16/22 02/16/22 18:59 06:59 18:59 Intake Total 354 Balance 354 Intake: Oral 354 Other: # Voids 1 1 1 - Labs CBC & Chem 7: 02/16/22 06:45 02/16/22 06:45 Labs: Abnormal Lab Results - Last 24 Hours (Table) 02/15/22 02/15/22 02/15/22 Range/Units 12:00 16:54 20:43 WBC (4.50-10.00) X 10*3/uL RBC (4.40-5.60) X 10*6/uL Hgb (13.0-17.0) g/dL Hct (39.6-50.0) % Plt Count (140-440) X 10*3/uL Immature Plt Fraction (1.1-6.1) % Carbon Dioxide (20.0-27.5) mmol/L Anion Gap (10.00-18.00) mmol/L Est GFR (CKD-EPI)NonAf (60.0-200.0) Glucose (70-110) mg/dL POC Glucose (mg/dL) 193 H 264 H 210 H (75-99) mg/dL Total Bilirubin (0.30-1.20) mg/dL Total Protein (6.2-8.2) g/dL Albumin (3.8-4.9) g/dL Albumin/Globulin Ratio (1.60-3.17) g/dL 02/16/22 02/16/22 02/16/22 Range/Units 06:45 06:45 06:53 WBC 2.16 L (4.50-10.00) X 10*3/uL RBC 3.47 L (4.40-5.60) X 10*6/uL Hgb 10.2 L (13.0-17.0) g/dL Hct 30.3 L (39.6-50.0) % Plt Count 62 L (140-440) X 10*3/uL Immature Plt Fraction 8.1 H (1.1-6.1) % Carbon Dioxide 28.3 H (20.0-27.5) mmol/L Anion Gap 8.70 L (10.00-18.00) mmol/L Est GFR (CKD-EPI)NonAf 54.2 L (60.0-200.0) Glucose 190 H (70-110) mg/dL POC Glucose (mg/dL) 194 H (75-99) mg/dL Total Bilirubin 0.20 L (0.30-1.20) mg/dL Total Protein 5.8 L (6.2-8.2) g/dL Albumin 3.4 L (3.8-4.9) g/dL Albumin/Globulin Ratio 1.42 L (1.60-3.17) g/dL
[2022-02-16] MEDS ORDERED: oxyCODONE-APAP 10-325MG 1 EACH TAB PO ONE (11:00)
[2022-02-16 11:01] VITALS: BP 165/95; RESP 17
[2022-02-16 11:06] LABS: Hepatitis A Antibody IgM Nonreactive (Nonreactive); Hepatitis B Core IgM Nonreactive (Nonreactive); Hepatitis B Surface Antigen Nonreactive (Nonreactive); Hepatitis C IgG Antibody Reactive (Nonreactive)
--- NOTE | 2022-02-16 11:24 | P.DS ---
Providers Date of admission: 02/16/22 08:24 Attending physician: Vance Paula Consults: 02/14/22 03:20 Consult Physician Routine Consulting Provider: Mohsen Mejia Consult Reason/Comments: chest pain Do you want consulting provider notified?: Yes 02/15/22 17:30 Consult Physician Routine Consulting Provider: Neisha Ortiz Consult Reason/Comments: spleenomegaly and liver cirrhosis with varices, new diagnosis Do you want consulting provider notified?: Yes Primary care physician: [facility] Course: Patient is admitted for chest pain acute coronary syndromes was ruled out patient is still having chest pain this appears to be musculoskeletal secondary to 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 Patient was evaluated by cardiology cleared by cardiology patient was also treated for hypertensive urgency, patient's losartan dose was increased to 50 mg although his creatinine slightly went up compared to yesterday probably due to sudden drop in blood pressure rather than Losartan because of which are good and continue losartan, hydrocodone presently will be discontinued, patient was also started on amlodipine patient that patient is not expected come down for next 3- 5 days. Will repeat basic metabolic profile again. 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 Patient does have a acidosis from his previous hepatitis C. PHYSICAL EXAMINATION: GENERAL: The patient is alert and oriented x3, not in any acute distress. Well developed, well nourished. HEENT: Pupils are round and equally reacting to light. EOMI. No scleral icterus. No conjunctival pallor. Normocephalic, atraumatic. No pharyngeal erythema. No thyromegaly. CARDIOVASCULAR: S1 and S2 present. No murmurs, rubs, or gallops. PULMONARY: Chest is clear to auscultation, no wheezing or crackles. ABDOMEN: Soft, nontender, nondistended, normoactive bowel sounds. No palpable organomegaly. MUSCULOSKELETAL: No joint swelling or deformity. EXTREMITIES: No cyanosis, clubbing, or pedal edema. NEUROLOGICAL: Gross neurological examination did not reveal any focal deficits. SKIN: No rashes. Assessment and plan -Hypertensive urgency -Chest pain musculoskeletal acute coronary syndromes ruled out -Cirrhosis of the liver from hepatitis C -Mild acute renal failure secondary to sudden drop in blood pressure expected to improve. Possible severity of chronic kidney disease stage II -Bipolar disorder -History of IVDU use with hepatitis C chronic. Plan - Discharge Summary Discharge Rx Participant: No New Discharge Prescriptions: New Losartan [Cozaar] 50 mg PO DAILY 30 Days #60 tab Lidocaine 5% Patch [Lidoderm 5% Patch] 1 patch TOPICAL DAILY 30 Days #30 patch Atorvastatin [Lipitor] 40 mg PO HS 30 Days #30 tab polyethylene glycoL 3350 [Miralax] 17 gm PO DAILY #765 gram Spironolactone [Aldactone] 25 mg PO DAILY 30 Days #30 tab Aspirin 81 mg PO DAILY 30 Days #30 tab amLODIPine [Norvasc] 10 mg PO DAILY 30 Days #30 tab carvediloL [Coreg] 6.25 mg PO BID-W/MEALS 60 Days #120 tab Continue Albuterol Sulfate [Proair Hfa] 2 puff INHALATION RT-Q4H PRN PRN Reason: Shortness Of Breath Insulin Detemir [Levemir Flextouch Pen] 30 unit SQ HS Insulin Regular, Human [Novolin R Flexpen] See Protocol SQ AC-TID PRN PRN Reason: Blood Sugar - High HYDROcodone/APAP 10-325MG [Satsuma 10-325] 1 tab PO Q6HR PRN #12 tab PRN Reason: Pain QUEtiapine [SEROquel] 100 mg PO HS 30 Days #30 tab Discontinued Ibuprofen [Motrin] 800 mg PO BID PRN PRN Reason: Pain Discharge Medication List Albuterol Sulfate [Proair Hfa] 2 puff INHALATION RT-Q4H PRN 02/14/22 [History] Insulin Detemir [Levemir Flextouch Pen] 30 unit SQ HS 02/14/22 [History] Insulin Regular, Human [Novolin R Flexpen] See Protocol SQ AC-TID PRN 02/14/22 [History] Aspirin 81 mg PO DAILY 30 Days #30 tab 02/15/22 [Rx] Atorvastatin [Lipitor] 40 mg PO HS 30 Days #30 tab 02/15/22 [Rx] HYDROcodone/APAP 10-325MG [S[place]uma 10-325] 1 tab PO Q6HR PRN #12 tab 02/15/22 [Rx] Lidocaine 5% Patch [Lidoderm 5% Patch] 1 patch TOPICAL DAILY 30 Days #30 patch 02/15/22 [Rx] Losartan [Cozaar] 50 mg PO DAILY 30 Days #60 tab 02/15/22 [Rx] QUEtiapine [SEROquel] 100 mg PO HS 30 Days #30 tab 02/15/22 [Rx] Spironolactone [Aldactone] 25 mg PO DAILY 30 Days #30 tab 02/15/22 [Rx] amLODIPine [Norvasc] 10 mg PO DAILY 30 Days #30 tab 02/15/22 [Rx] carvediloL [Coreg] 6.25 mg PO BID-W/MEALS 60 Days #120 tab 02/16/22 [Rx] polyethylene glycoL 3350 [Miralax] 17 gm PO DAILY #765 gram 02/16/22 [Rx] Follow up Appointment(s)/Referral(s): Mohsen Mejia MD [STAFF PHYSICIAN] - 1 Week Neisha Ortiz MD [STAFF PHYSICIAN] - 1 Week Anjelica Aguilar MD [Primary Care Provider] - 3 Days Ambulatory/Diagnostic Orders: Basic Metabolic Panel [LAB.AMB] Time Frame: 3 Days, Location: None Selected Activity/Diet/Wound Care/Special Instructions: Activity: As tolerated. Take breaks as needed. Diet: Heart healthy and carb consistent diet. Avoid salts, or foods with hidden salts such as canned or boxed foods and frozen dinners. Extra salt makes your heart work harder and traps the fluid in your body for longer. Special Instructions: Take all of your medications as directed and remember to keep all of your d octor's appointments and follow-up as needed. Thank you for allowing us to participate in your care, it was truly a pleasure having you for our patient!!! Discharge Disposition: HOME SELF-CARE
[2022-02-16] MEDS: polyethylene glycoL 3350 17 GM POWD.PACK PO SCH ×2 (11:30→11:33)
--- NOTE | 2022-02-16 12:41 | P.CONS ---
History of Present Illness - Reason for Consult Consult date: 02/16/22 Splenomegaly, cirrhosis of the liver Requesting physician: Oskar Moulton - Chief Complaint Chest pain - History of Present Illness This pleasant 61-year-old male who presented to the emergency department 2 days ago with complaints of chest pain and shortness of breath that had started last Saturday. He has a past medical history of diabetes mellitus, cardiac valve replacement about 4 years ago done at the [facility], and hepatitis C treated. Patient states he was diagnosed with hepatitis C and treated 4-5 years ago with Epclusa prior to his cardiac valve replacement. Patient underwent chest CTA for chest pain and shortness of breath that showed no evid ence of aortic dissection, correlate for COPD and splenomegaly correlate for liver cirrhosis with varices. He also underwent an abdominal ultrasound that showed a heterogeneous liver and enlarged spleen. Gastroenterology was consulted for cirrhosis of the liver and splenomegaly. Patient states he's known he had underlying liver disease related to his hepatitis C. denies any previous ascites. 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 It is likely it was contracted at that time. He has not followed up with anybody in the last 4-5 years. Denies any abdominal swelling or ascites. No abdominal pain, nausea or vomiting. No acute coronary artery has been ruled out. Labs: WBC 2.16 hemoglobin 10.2 hematocrit 30 platelet count 62,000 total bilirubin 0.2 AST 16 ALT 17 alkaline phosphatase 65 Review of Systems REVIEW OF SYSTEMS: CARDIOPULMONARY: Patient complained of chest pain and shortness of breath prior to admission. States it has improved. Lower extremity edema Gastrointestinal: No abdominal pain. No nausea or vomiting. No hematemesis, coffee-ground emesis. No rectal bleeding, or melena. GENITOURINARY: No dysuria or hematuria. MUSCULOSKELETAL: Reports normal range of motion. Joint pain. SKIN: No rashes. No jaundice. ENDOCRINE: No chills, fevers. No excessive weight gain or loss. No polydipsia or polyuria. PSYCHIATRIC: Unremarkable. NEUROLOGY: No change in mental status. Denies dizziness, headache. ENT: Vision unremarkable. CONSTITUTIONAL: No recent weight loss. No fever, chills, night sweats. Past Medical History Past Medical History: Cancer, COPD, Diabetes Mellitus, Renal Disease Additional Past Medical History / Comment(s): IDDM type II, neuropathy bilateral feet and 4th/5th digits bilateral hands, past R foot ulcer/amputation of 4th toe, osteomylitis, CKD stage III per documented past medical history but pt does not recall this, kidney stones/pt passed and had ureteral stent, bronchitis, normocytic anemia, mild thrombocytopenia, squamous cell cancer removed from upper lip/skin graft and 16 lymph nodes removed from L side of neck, chronic low back pain, herniated L4-L5 discs, constipation. History of Any Multi-Drug Resistant Organisms: None Reported Year Discovered:: 04/23/21 MDRO Source:: MRSA FOOT Past Surgical History: Cardiac Valve Replacement, Cholecystectomy, Heart Catheterization, Orthopedic Surgery Additional Past Surgical History / Comment(s): ANGIE, aortic valve replacement 2018 at [facility], R 4th toe amputated February 2021, ureteral stent, EGD, colonoscopies, bilateral cataracts removed/lens implants, squamous cell cancer removed upper lip with grafting and lymph nodes removed from L neck. Past Anesthesia/Blood Transfusion Reactions: No Reported Reaction Smoking Status: Former smoker - Past Family History Father Family Medical History: Cancer, Diabetes Mellitus, Liver Disease Additional Family Medical History / Comment(s): Cirrhosis, ETOH abuse Mother Family Medical History: Renal Disease Additional Family Medical History / Comment(s): Kidney stones. familiy Family Medical History: No Reported History Medications and Allergies Home Medications Medication Instructions Recorded Confirmed Type Albuterol Sulfate [Proair Hfa] 2 puff INHALATION RT-Q4H PRN 02/14/22 02/14/22 History Insulin Detemir [Levemir Flextouch 30 unit SQ HS 02/14/22 02/14/22 History Pen] Insulin Regular, Human [Novolin R See Protocol SQ AC-TID PRN 02/14/22 02/14/22 History Flexpen] Aspirin 81 mg PO DAILY 30 Days #30 tab 02/15/22 Rx Atorvastatin [Lipitor] 40 mg PO HS 30 Days #30 tab 02/15/22 Rx HYDROcodone/APAP 10-325MG [[place] 1 tab PO Q6HR PRN #12 tab 02/15/22 Rx 10-325] Lidocaine 5% Patch [Lidoderm 5% 1 patch TOPICAL DAILY 30 Days #30 02/15/22 Rx Patch] patch Losartan [Cozaar] 50 mg PO DAILY 30 Days #60 tab 02/15/22 Rx QUEtiapine [SEROquel] 100 mg PO HS 30 Days #30 tab 02/15/22 Rx Spironolactone [Aldactone] 25 mg PO DAILY 30 Days #30 tab 02/15/22 Rx amLODIPine [Norvasc] 10 mg PO DAILY 30 Days #30 tab 02/15/22 Rx carvediloL [Coreg] 6.25 mg PO BID-W/MEALS 60 Days 02/16/22 Rx #120 tab polyethylene glycoL 3350 [Miralax] 17 gm PO DAILY #765 gram 02/16/22 Rx Allergies Allergy/AdvReac Type Severity Reaction Status Date / Time No Known Allergies Allergy Verified 05/18/21 17:51 Physical Exam Vitals: Vital Signs Temp Pulse Pulse Resp BP Pulse Ox 02/16/22 07:53 97.6 F 72 16 175/80 97 02/16/22 02:12 97.7 F 69 18 126/81 99 02/15/22 20:13 98.0 F 81 18 187/78 97 02/15/22 13:44 98.7 F 97 16 173/94 97 02/15/22 11:45 73 02/15/22 11:35 73 Intake and Output 02/15/22 02/16/22 02/16/22 22:59 06:59 14:59 Intake Total 118 Balance 118 Intake: Oral 118 Other: # Voids 1 1 General appearance: The patient is alert, oriented, appears in no acute distress. HET: Head is normocephalic and atraumatic. Conjunctiva pink. Sclera anicteric. Neck: Supple without lymphadenopathy. Trachea midline. Heart: S1 S2. Regular rate and rhythm. Lungs: Clear to auscultation. Abdomen: Soft, nontender, nondistended with bowel sounds. No guarding or rigidity. Skin: No rashes. No jaundice. Extremities: Normal skin color and turgor. Lower extremity nonpitting edema. Neurological: No focal deficits. Alert and oriented x3. Results CBC & Chem 7: 02/16/22 06:45 02/16/22 06:45 Labs: Abnormal Lab Results - Last 24 Hours (Table) 02/15/22 02/15/22 02/15/22 Range/Units 12:00 16:54 20:43 Carbon Dioxide (20.0-27.5) mmol/L Anion Gap (10.00-18.00) mmol/L Est GFR (CKD-EPI)NonAf (60.0-200.0) Glucose (70-110) mg/dL POC Glucose (mg/dL) 193 H 264 H 210 H (75-99) mg/dL Total Bilirubin (0.30-1.20) mg/dL Total Protein (6.2-8.2) g/dL Albumin (3.8-4.9) g/dL Albumin/Globulin Ratio (1.60-3.17) g/dL 02/16/22 02/16/22 Range/Units 06:45 06:53 Carbon Dioxide 28.3 H (20.0-27.5) mmol/L Anion Gap 8.70 L (10.00-18.00) mmol/L Est GFR (CKD-EPI)NonAf 54.2 L (60.0-200.0) Glucose 190 H (70-110) mg/dL POC Glucose (mg/dL) 194 H (75-99) mg/dL Total Bilirubin 0.20 L (0.30-1.20) mg/dL Total Protein 5.8 L (6.2-8.2) g/dL Albumin 3.4 L (3.8-4.9) g/dL Albumin/Globulin Ratio 1.42 L (1.60-3.17) g/dL Comments: Chest CT angiogram: No evidence of aortic dissection as visualized, correlate for COPD, splenomegaly correlate for liver cirrhosis with varices Abdominal ultrasound: Underlying hepatocellular disease or cirrhosis redemonstrated. Mild hepatomegaly. Stable more prominent splenomegaly. No surrounding ascites currently. Assessment and Plan (1) Cirrhosis of liver Narrative/Plan: 61-year-old male with a history of hepatitis C likely contracted when he was a heroin user in his late teens early 20s. States he was treated with Epclusa from 4-5 years ago and states that follow-up look good. He is not followed with any gastroenterology since then. Denies any history of ascites with paracentesis. States he was told in the past of the cirrhosis of the liver as well as splenomegaly. LFTs are normal. Denies any history of alcohol abuse. No further workup needed at this time. Patient to follow-up outpatient with gastroenterology. Advised low-sodium diet. Current Visit: Yes Status: Acute Code(s): K74.60 - UNSPECIFIED CIRRHOSIS OF LIVER SNOMED Code(s): 13313425 (2) Splenomegaly Current Visit: Yes Status: Acute Code(s): R16.1 - SPLENOMEGALY, NOT ELSEWHERE CLASSIFIED SNOMED Code(s): 65549555 (3) Pancytopenia Narrative/Plan: Consistent with underlying hepatocellular disease Current Visit: No Status: Acute Priority: Medium Code(s): D61.818 - OTHER PANCYTOPENIA SNOMED Code(s): 117381881 Plan: 1. Continue symptomatic and supportive care 2. Discussed with patient importance of low sodium diet 3. Recommend outpatient follow-up with gastroenterology for liver cirrhosis surveillance Thank you for allowing us to participate in the care of the patient, the GI service will sign off, gastroenterology will not be available at the hospital this weekend. If further evaluation by gastroenterology is required the patient will need transfer as per the primary team's discretion. Dr. Jarred Ortiz I agree with the dictator's note, documented as a scribe by Kelli Kemp.
== END 2022-02-16 12:38 | disposition home or self-care (01) | DRG 305 ==
LOC: EC 22:14 → 6NMEDSUR 02-14 03:19 → OBSVTOIN 02-16 08:24
PROVIDERS: ADMIT Internal Medicine; ATTEND Internal Medicine
DX: I16.0 Hypertensive urgency (principal); D61.818 Other pancytopenia; E87.2 Acidosis; N17.9 Acute kidney failure, unspecified; K76.6 Portal hypertension; R07.89 Other chest pain; B18.2 Chronic viral hepatitis C; F31.9 Bipolar disorder, unspecified; G89.4 Chronic pain syndrome; M54.9 Dorsalgia, unspecified; I12.9 Hypertensive chronic kidney disease with stage 1 through stage 4 chronic kidney disease, or unspecified chronic kidney disease; N18.30 Chronic kidney disease, stage 3 unspecified; K59.00 Constipation, unspecified; I25.10 Atherosclerotic heart disease of native coronary artery without angina pectoris; D73.2 Chronic congestive splenomegaly; J44.9 Chronic obstructive pulmonary disease, unspecified; K74.60 Unspecified cirrhosis of liver; E11.42 Type 2 diabetes mellitus with diabetic polyneuropathy; E11.22 Type 2 diabetes mellitus with diabetic chronic kidney disease; E11.69 Type 2 diabetes mellitus with other specified complication; E87.6 Hypokalemia; E78.5 Hyperlipidemia, unspecified; Z96.0 Presence of urogenital implants; Z96.1 Presence of intraocular lens; Z87.891 Personal history of nicotine dependence; Z87.442 Personal history of urinary calculi; Z89.421 Acquired absence of other right toe(s); Z90.49 Acquired absence of other specified parts of digestive tract; Z86.14 Personal history of Methicillin resistant Staphylococcus aureus infection; Z95.3 Presence of xenogenic heart valve; Z79.4 Long term (current) use of insulin; Z79.82 Long term (current) use of aspirin; Z79.899 Other long term (current) drug therapy; Z91.14 Patient's other noncompliance with medication regimen; Z98.42 Cataract extraction status, left eye; Z98.41 Cataract extraction status, right eye; Z98.890 Other specified postprocedural states; Z85.828 Personal history of other malignant neoplasm of skin; Z83.3 Family history of diabetes mellitus; Z80.9 Family history of malignant neoplasm, unspecified; Z81.1 Family history of alcohol abuse and dependence
CPT/HCPCS: 36415; 71046; 71275; 76700; 80048; 80053; 80061; 80074; 83605; 83735; 84484; 85025; 85027; 85610; 85730; 87502; 93005; 93306; 94640; 96361; 96372; 96374; 96375; 96376; 99285

== ENCOUNTER 2023-06-01 09:17 | Emergency (ER) | payer OTHER ==
[2023-06-01 09:21] VITALS: TEMP 98.6
[2023-06-01] MEDS ORDERED: SODIUM CHLORIDE 0.9% 500 ML 500 ML IV STA (09:42)
[2023-06-01] MEDS ORDERED: KETOROLAC 15 MG/ML 1 ML VIAL IVP STA ×2 (09:42→12:17)
[2023-06-01] MEDS ORDERED: ONDANSETRON 4 MG/2 ML VIAL IVP STA (09:42)
--- NOTE | 2023-06-01 09:47 | ED ---
General Adult HPI - General Chief complaint: Abdominal Pain Stated complaint: Dizziness, Abd Pain Time Seen by Provider: 06/01/23 09:20 Source: patient, RN notes reviewed, old records reviewed Mode of arrival: ambulatory Limitations: no limitations - History of Present Illness Initial comments: This is a 62-year-old male who comes in complaining of abdominal pain and nausea for over 2 weeks. Patient states she's been feeling lightheaded. Patient sta tess he saw his primary medical care doctor but symptoms persist in getting worse per patient states his whole stomach is tender and right at the beltline he states is very red raw and smells and he states he's noticed just recently a couple of growths coming from his abdomen that he hadn't seen before. Patient denies any fever chills patient denies any diarrhea. Patient denies chest pain difficult breathing shortest breath. - Related Data Home Medications Medication Instructions Recorded Confirmed Albuterol Sulfate [Proair Hfa] 2 puff INHALATION RT-Q4H PRN 02/14/22 02/14/22 Insulin Detemir [Levemir Flextouch 30 unit SQ HS 02/14/22 02/14/22 Pen] Insulin Regular, Human [Novolin R See Protocol SQ AC-TID PRN 02/14/22 02/14/22 Flexpen] Previous Rx's Medication Instructions Recorded Aspirin 81 mg PO DAILY 30 Days #30 tab 02/15/22 Atorvastatin [Lipitor] 40 mg PO HS 30 Days #30 tab 02/15/22 HYDROcodone/APAP 10-325MG [[place] 1 tab PO Q6HR PRN #12 tab 02/15/22 10-325] Lidocaine 5% Patch [Lidoderm 5% 1 patch TOPICAL DAILY 30 Days #30 02/15/22 Patch] patch Losartan [Cozaar] 50 mg PO DAILY 30 Days #60 tab 02/15/22 QUEtiapine [SEROquel] 100 mg PO HS 30 Days #30 tab 02/15/22 Spironolactone [Aldactone] 25 mg PO DAILY 30 Days #30 tab 02/15/22 amLODIPine [Norvasc] 10 mg PO DAILY 30 Days #30 tab 02/15/22 carvediloL [Coreg] 6.25 mg PO BID-W/MEALS 60 Days 02/16/22 #120 tab polyethylene glycoL 3350 [Miralax] 17 gm PO DAILY #765 gram 02/16/22 Clotrimazole Cream [Lotrimin Cream] 1 applic TOPICAL BID #15 gm 06/01/23 Allergies Allergy/AdvReac Type Severity Reaction Status Date / Time No Known Allergies Allergy Verified 06/01/23 09:21 Review of Systems ROS Statement: Those systems with pertinent positive or pertinent negative responses have been documented in the HPI. ROS Other: All systems not noted in ROS Statement are negative. Past Medical History Past Medical History: Cancer, COPD, Diabetes Mellitus, Renal Disease Additional Past Medical History / Comment(s): IDDM type II, neuropathy bilateral feet and 4th/5th digits bilateral hands, past R foot ulcer/amputation of 4th toe, osteomylitis, CKD stage III per documented past medical history but pt does not recall this, kidney stones/pt passed and had ureteral stent, bronchitis, normocytic anemia, mild thrombocytopenia, squamous cell cancer removed from upper lip/skin graft and 16 lymph nodes removed from L side of neck, chronic low back pain, herniated L4-L5 discs, constipation. History of Any Multi-Drug Resistant Organisms: None Reported Date of last positivie culture/infection: 04/23/21 MDRO Source:: MRSA FOOT Past Surgical History: Cardiac Valve Replacement, Cholecystectomy, Heart Catheterization, Orthopedic Surgery Additional Past Surgical History / Comment(s): ANGIE, aortic valve replacement 2018 at [facility], R 4th toe amputated February 2021, ureteral stent, EGD, colonoscopies, bilateral cataracts removed/lens implants, squamous cell cancer removed upper lip with grafting and lymph nodes removed from L neck. Past Anesthesia/Blood Transfusion Reactions: No Reported Reaction Past Psychological History: Bipolar, Depression Smoking Status: Former smoker Past Alcohol Use History: None Reported Past Drug Use History: None Reported - Past Family History Father Family Medical History: Cancer, Diabetes Mellitus, Liver Disease Additional Family Medical History / Comment(s): Cirrhosis, ETOH abuse Mother Family Medical History: Renal Disease Additional Family Medical History / Comment(s): Kidney stones. familiy Family Medical History: No Reported History General Exam - General Exam Comments Initial Comments: GENERAL: Patient is well-developed and well-nourished. Patient is nontoxic and well- hydrated and is in mild distress. ENT: Neck is soft and supple. No significant lymphadenopathy is noted. Oropharynx is clear. Moist mucous membranes. Neck has full range of motion without eliciting any pain. EYES: The sclera were anicteric and conjunctiva were pink and moist. Extraocular movements were intact and pupils were equal round and reactive to light. Eyelids were unremarkable. PULMONARY: Unlabored respirations. Good breath sounds bilaterally. No audible rales rhonchi or wheezing was noted. CARDIOVASCULAR: There is a regular rate and rhythm without any murmurs gallops or rubs. ABDOMEN: Patient has diffuse tenderness. He also has intertrigo at the pannus but there are 2 growths measuring about 3 cm long and 1/2 cm wide coming from the pannus area patient states these are new to him but he doesn't normally look down her SKIN: Skin is clear with no lesions or rashes and otherwise unremarkable. NEUROLOGIC: Patient is alert and oriented x3. Cranial nerves II through XII are grossly intact. Motor and sensory are also intact. Normal speech, volume and content. Symmetrical smile. MUSCULOSKELETAL: Normal extremities with adequate strength and full range of motion. LYMPHATICS: No significant lymphadenopathy is noted PSYCHIATRIC: Normal psychiatric evaluation. Limitations: no limitations Course Vital Signs 06/01/23 06/01/23 06/01/23 09:19 09:55 12:00 Temperature 98.6 F Pulse Rate 98 55 L 68 Respiratory 22 18 16 Rate Blood Pressure 156/92 150/90 O2 Sat by Pulse 99 98 98 Oximetry Medical Decision Making - Medical Decision Making EKG was interpreted by myself. EKG shows a sinus rhythm at 87 bpm KS interval 170 QRS is 141 Q-T intervals 31 QTC is 426 per patient's EKG shows a left bundle branch block Was pt. sent in by a medical professional or institution (ROB Jennings, ELECTRON BEAM OPERATOR, urgent care, hospital, or halfway...) When possible be specific @ -No Did you speak to anyone other than the patient for history (EMS, parent, family, police, friend...)? What history was obtained from this source @ -No Did you review nursing and triage notes (agree or disagree)? Why? @ -I reviewed and agree with nursing and triage notes Were old charts reviewed (outside hosp., previous admission, EMS record, old EKG, old radiological studies, urgent care reports/EKG's, halfway records)? Report findings @ -I reviewed reviewed prior radiological studies and prior labs Differential Diagnosis (chest pain, altered mental status, abdominal pain women, abdominal pain men, vaginal bleeding, weakness, fever, dyspnea, syncope, headache, dizziness, GI bleed, back pain, seizure, CVA, palpatations, mental health, musculoskeletal)? @ -Differential Abdominal Pain Men: Appendicitis, cholecystitis, diverticulosis, ischemic bowel, pancreatitis, hepatitis, UTI, gastroenteritis, AAA, incarcerated hernia, bowel obstruction, constipation, inflammatory bowel, hepatitis, peptic ulcer disease, splenic infarction, perforated viscus, testicular torsion, this is not meant to be an a ll-inclusive list EKG interpreted by me (3pts min.). @ -As above X-rays interpreted by me (1pt min.). @ -None done CT interpreted by me (1pt min.). @ -CT of the abdomen pelvis show no acute abnormality U/S interpreted by me (1pt. min.). @ -None done What testing was considered but not performed or refused? (CT, X-rays, U/S, labs )? Why? @ -None What meds were considered but not given or refused? Why? @ -None Did you discuss the management of the patient with other professionals (professionals i.e. , PA, ELECTRON BEAM OPERATOR, lab, RT, psych nurse, social contact worker, resident surgeon, teacher, officer captain, perioperative manager)? Give summary @ -No Was smoking cessation discussed for >3mins.? @ -No Was critical care preformed (if so, how long)? @ -No Were there social determinants of health that impacted care today? How? (Homelessness, low income, unemployed, alcoholism, drug addiction, transportation, low edu. Level, literacy, decrease access to med. care, senior care, rehab)? @ -No Was there de-escalation of care discussed even if they declined (Discuss DNR or withdrawal of care, Hospice)? DNR status @ -No What co-morbidities impacted this encounter? (DM, HTN, Smoking, COPD, CAD, Cancer, CVA, ARF, Chemo, Hep., AIDS, mental health diagnosis, sleep apnea, morbid obesity)? @ -None Was patient admitted / discharged? Hospital course, mention meds given and route, prescriptions, significant lab abnormalities, going to OR and other pertinent info. @ -Patient's CAT scan showed no acute abnormality. Lab work was essentially normal except for an increased creatinine level and patient states he'll follow- up with his primary for that. Patient had significant intertrigo and condyloma in the pannus area Undiagnosed new problem with uncertain prognosis? @ -No Drug Therapy requiring intensive monitoring for toxicity (Heparin, Nitro, Insulin, Cardizem)? @ -No Were any procedures done? @ -No Diagnosis/symptom? @ -Intertrigo Acute, or Chronic, or Acute on Chronic? @ -Acute Uncomplicated (without systemic symptoms) or Complicated (systemic symptoms)? @ -Uncomplicated Side effects of treatment? @ -No Exacerbation, Progression, or Severe Exacerbation? @ -No Poses a threat to life or bodily function? How? (Chest pain, [place], [place], pneumonia, PE, COPD, DKA, ARF, appy, cholecystitis, CVA, Diverticulitis, Homicidal, Suicidal, threat to staff... and all critical care pts) @ -No Diagnosis/symptom? @ -Condyloma Acute, or Chronic, or Acute on Chronic? @ -Acute uncomplicated Uncomplicated (without systemic symptoms) or Complicated (systemic symptoms)? @ -default Side effects of treatment? @ -none Exacerbation, Progression, or Severe Exacerbation] @ -no Poses a threat to life or bodily function? @ -no Diagnosis/symptom? @ -Renal insufficiency Acute, or Chronic, or Acute on Chronic? @ -Acute on chronic Uncomplicated (without systemic symptoms) or Complicated (systemic symptoms)? @ -Complicated Side effects of treatment? @ -none Exacerbation, Progression, or Severe Exacerbation] @ -no Poses a threat to life or bodily function? @ -no - Lab Data Result diagrams: 06/01/23 09:49 06/01/23 09:49 Lab Results 06/01/23 06/01/23 06/01/23 Range/Units 09:49 09:49 09:49 WBC 3.8 (3.8-10.6) k/uL RBC 3.90 L (4.30-5.90) m/uL Hgb 11.8 L (13.0-17.5) gm/dL Hct 34.5 L (39.0-53.0) % MCV 88.4 (80.0-100.0) fL MCH 30.4 (25.0-35.0) pg MCHC 34.3 (31.0-37.0) g/dL RDW 13.4 (11.5-15.5) % Plt Count 68 L (150-450) k/uL MPV 9.2 Neutrophils % 78 % Lymphocytes % 13 % Monocytes % 5 % Eosinophils % 2 % Basophils % 0 % Neutrophils # 3.0 (1.3-7.7) k/uL Lymphocytes # 0.5 L (1.0-4.8) k/uL Monocytes # 0.2 (0-1.0) k/uL Eosinophils # 0.1 (0-0.7) k/uL Basophils # 0.0 (0-0.2) k/uL Manual Slide Review Performed RBC Morphology Normal Sodium 133 L (137-145) mmol/L Potassium 4.1 (3.5-5.1) mmol/L Chloride 101 (98-107) mmol/L Carbon Dioxide 24 (22-30) mmol/L Anion Gap 8 mmol/L BUN 30 H (9-20) mg/dL Creatinine 1.94 H (0.66-1.25) mg/dL Est GFR (CKD-EPI)AfAm 42 (>60 ml/min/1.73 sqM) Est GFR (CKD-EPI)NonAf 36 (>60 ml/min/1.73 sqM) Glucose 296 H (74-99) mg/dL Plasma Lactic Acid Henri 1.5 (0.7-2.0) mmol/L Calcium 8.5 (8.4-10.2) mg/dL Total Bilirubin 0.8 (0.2-1.3) mg/dL AST 32 (17-59) U/L ALT 23 (4-49) U/L Alkaline Phosphatase 62 (38-126) U/L Total Protein 7.1 (6.3-8.2) g/dL Albumin 3.9 (3.5-5.0) g/dL Amylase 43 (30-110) U/L Lipase 25 (23-300) U/L Urine Color Urine Appearance (Clear) Urine pH (5.0-8.0) Ur Specific [place] (1.001-1.035) Urine Protein (Negative) Urine Glucose (UA) (Negative) Urine Ketones (Negative) Urine Blood (Negative) Urine Nitrite (Negative) Urine Bilirubin (Negative) Urine Urobilinogen (<2.0) mg/dL Ur Leukocyte Esterase (Negative) Urine RBC (0-5) /hpf Urine WBC (0-5) /hpf Ur Squamous Epith Cells (0-4) /hpf Urine Mucus (None) /hpf 06/01/23 Range/Units 12:42 WBC (3.8-10.6) k/uL RBC (4.30-5.90) m/uL Hgb (13.0-17.5) gm/dL Hct (39.0-53.0) % MCV (80.0-100.0) fL MCH (25.0-35.0) pg MCHC (31.0-37.0) g/dL RDW (11.5-15.5) % Plt Count (150-450) k/uL MPV Neutrophils % % Lymphocytes % % Monocytes % % Eosinophils % % Basophils % % Neutrophils # (1.3-7.7) k/uL Lymphocytes # (1.0-4.8) k/uL Monocytes # (0-1.0) k/uL Eosinophils # (0-0.7) k/uL Basophils # (0-0.2) k/uL Manual Slide Review RBC Morphology Sodium (137-145) mmol/L Potassium (3.5-5.1) mmol/L Chloride (98-107) mmol/L Carbon Dioxide (22-30) mmol/L Anion Gap mmol/L BUN (9-20) mg/dL Creatinine (0.66-1.25) mg/dL Est GFR (CKD-EPI)AfAm (>60 ml/min/1.73 sqM) Est GFR (CKD-EPI)NonAf (>60 ml/min/1.73 sqM) Glucose (74-99) mg/dL Plasma Lactic Acid Henri (0.7-2.0) mmol/L Calcium (8.4-10.2) mg/dL Total Bilirubin (0.2-1.3) mg/dL AST (17-59) U/L ALT (4-49) U/L Alkaline Phosphatase (38-126) U/L Total Protein (6.3-8.2) g/dL Albumin (3.5-5.0) g/dL Amylase (30-110) U/L Lipase (23-300) U/L Urine Color Yellow Urine Appearance Clear (Clear) Urine pH 6.0 (5.0-8.0) Ur Specific [place] 1.039 H (1.001-1.035) Urine Protein 3+ H (Negative) Urine Glucose (UA) 4+ H (Negative) Urine Ketones Trace H (Negative) Urine Blood Moderate H (Negative) Urine Nitrite Negative (Negative) Urine Bilirubin Negative (Negative) Urine Urobilinogen <2.0 (<2.0) mg/dL Ur Leukocyte Esterase Negative (Negative) Urine RBC 7 H (0-5) /hpf Urine WBC 1 (0-5) /hpf Ur Squamous Epith Cells <1 (0-4) /hpf Urine Mucus Rare H (None) /hpf Disposition Clinical Impression: Condyloma, Candidal intertrigo, Renal insufficiency Disposition: HOME SELF-CARE Condition: Good Prescriptions: Clotrimazole Cream [Lotrimin Cream] 1 applic TOPICAL BID #15 gm Is patient prescribed a controlled substance at d/c from ED?: No Referrals: Anjelica Aguilar MD [Primary Care Provider] - 1-2 days Time of Disposition: 14:05
[2023-06-01 10:09] LABS: Basophils % (A) 0 %; Eosinophils # (A) 0.1 k/uL (0-0.7); Eosinophils % (A) 2 %; HCT 34.5 % (39.0-53.0); HGB 11.8 gm/dL (13.0-17.5); Lymphocytes # (A) 0.5 k/uL (1.0-4.8); Lymphocytes % (A) 13 %; MCH 30.4 pg (25.0-35.0); MCHC 34.3 g/dL (31.0-37.0); MCV 88.4 fL (80.0-100.0); Mean Platelet Volume 9.2; Monocytes # (A) 0.2 k/uL (0-1.0); Monocytes % (A) 5 %; Neutrophils % (A) 78 %; RDW 13.4 % (11.5-15.5); WBC 3.8 k/uL (3.8-10.6)
[2023-06-01 10:20] LABS: ALT 23 U/L (4-49); AST 32 U/L (17-59); African American GFR (CKD) 42 (>60 ml/min/1.73 sqM); Albumin 3.9 g/dL (3.5-5.0); Alkaline Phosphatase 62 U/L (38-126); Amylase 43 U/L (30-110); Anion Gap 8 mmol/L; Blood Urea Nitrogen 30 mg/dL (9-20); Calcium 8.5 mg/dL (8.4-10.2); Carbon Dioxide 24 mmol/L (22-30); Chloride 101 mmol/L (98-107); Glucose 296 mg/dL (74-99); Lipase 25 U/L (23-300); Non-African American GFR(CKD) 36 (>60 ml/min/1.73 sqM); Potassium 4.1 mmol/L (3.5-5.1); Sodium 133 mmol/L (137-145); Total Bilirubin 0.8 mg/dL (0.2-1.3); Total Protein 7.1 g/dL (6.3-8.2)
[2023-06-01 11:00] LABS: Platelet Count 68 k/uL (150-450)
[2023-06-01 11:02] LABS: RBC Morphology Normal
--- NOTE | 2023-06-01 11:04 | CT ---
EXAMINATION TYPE: CT abdomen pelvis w con CT DLP: 0.8 mGycm, Automated exposure control for dose reduction was used. DATE OF EXAM: 06/01/2023 10:54 AM COMPARISON: CT abdomen pelvis most recent from 04/26/2021 . CLINICAL INDICATION:Male, 62 years old with history of abdominal pain; Lower abdominal and epigastric abdominal pain. TECHNIQUE: Standard CT of the abdomen and pelvis following the administration of 80 cc of Isovue 30 0 IV contrast material. Coronal and sagittal reformats were performed. FINDINGS: LOWER CHEST: Unremarkable ABDOMEN LIVER: Cirrhotic appearance of the liver with surface nodularity and posterior notch sign. No focal l esion identified. GALLBLADDER AND BILE DUCTS: The gallbladder is surgically absent. PANCREAS: Mild atrophy. SPLEEN: Measuring 17.3 cm in CC dimension. ADRENAL GLANDS: Unremarkable. KIDNEYS AND URETERS: No evidence of hydronephrosis or renal calculus. The kidneys enhance symmetrical ly. PELVIS BLADDER: Incompletely distended but grossly unremarkable. REPRODUCTIVE: Coarse calcifications of the prostate gland are identified. ABDOMEN & PELVIS STOMACH AND BOWEL: Stomach and duodenum are unremarkable. Mild colonic stool burden. No focal wall th ickening or surrounding inflammatory changes. Appendicoliths identified. No evidence for acute append icitis. No evidence of bowel obstruction. PERITONEUM: No evidence of pneumoperitoneum or free fluid. VASCULATURE: Mild atherosclerotic calcifications are present throughout the abdominal aorta and its b ranches. No evidence of aortic aneurysm. Few pelvic phleboliths. Collateral vessels in the splenic hi lum. The portal vein, SMV, and splenic vein are patent. MUSCULOSKELETAL: No acute osseous abnormalities. Degenerative changes most pronounced at L4-L5 with d isc space narrowing, endplate sclerosis, anterior osteophytosis, and vacuum disc disease. LYMPH NODES: No gross evidence for lymphadenopathy. SOFT TISSUE/ABDOMINAL WALL: Unremarkable IMPRESSION: 1. No acute abdominal/pelvic process. 2. Hepatic cirrhosis. 3. Splenomegaly.
[2023-06-01 12:50] LABS: Appearance,Urine Clear (Clear); Bilirubin,Urine Negative (Negative); Blood,Urine Moderate (Negative); Color,Urine Yellow; Glucose,Urine (UA) 4+ (Negative); Ketones,Urine Trace (Negative); Leukocyte Esterase,Urine Negative (Negative); Mucus,Urine Rare /hpf; Nitrite,Urine Negative (Negative); Protein,Urine 3+ (Negative); RBC,Urine 7 /hpf (0-5); Specific Gravity,Urine 1.039 (1.001-1.035); Squamous Epithelial Cell,Urine <1 /hpf (0-4); Urobilinogen,Urine <2.0 mg/dL (<2.0); WBC,Urine 1 /hpf (0-5)
[2023-06-01 12:55] VITALS: RESP 16
[2023-06-01 14:25] VITALS: BP 150/90; PULSE 68
== END 2023-06-01 14:25 | disposition home or self-care (01) ==
LOC: EC 09:17
DX: A63.0 Anogenital (venereal) warts (principal); B37.2 Candidiasis of skin and nail; N28.9 Disorder of kidney and ureter, unspecified; J44.9 Chronic obstructive pulmonary disease, unspecified; E11.36 Type 2 diabetes mellitus with diabetic cataract; E11.22 Type 2 diabetes mellitus with diabetic chronic kidney disease; N18.30 Chronic kidney disease, stage 3 unspecified; F31.9 Bipolar disorder, unspecified; Z87.891 Personal history of nicotine dependence; Z79.4 Long term (current) use of insulin; Z79.899 Other long term (current) drug therapy
CPT/HCPCS: 36415; 93005; 80053; 82150; 83605; 83690; 85025; 81001; 74177; 99285; 96374; 96375; 96376; J2405; J1885; Q9967